=== PATIENT | female | born 1945 | race Two or more races ===

== ENCOUNTER → 2020-09-10 14:52 | Outpatient (BNVA) | payer MEDICARE, SELFPAY | PROVIDERS: PCP Internal Medicine; Referring Provider Internal Medicine; Visit Provider Internal Medicine Cardiovascular Disease | DX: Z45.018 Encounter for adjustment and management of other part of cardiac pacemaker (principal); I48.0 Paroxysmal atrial fibrillation | CPT/HCPCS: 93005; 99212 ==

== ENCOUNTER 2020-09-18 10:16 | Outpatient (REF) | payer MEDICARE, SELFPAY ==
[2020-09-18 11:40] LABS: Estimated Average Glucose 177 mg/dL; Hemoglobin A1c % 7.8 %
[2020-09-18 11:50] LABS: Alanine Aminotransferase 15 U/L (0-31); Albumin Level 4.5 g/dL (3.5-5.0); Alkaline Phosphatase 74 U/L (39-117); Anion Gap 12 (12-20); Aspartate Amino Transferase 17 U/L (5-31); Bilirubin Total 0.6 mg/dL (0.0-1.0); Blood Urea Nitrogen 20 mg/dL (9-16); Calcium 9.2 mg/dL (8.4-10.2); Carbon Dioxide 29 mmol/L (22-29); Chloride 104 mmol/L (96-108); Cholesterol 176 mg/dL; Estimated Glomerular Filt Rate 33; Glucose Fasting 141 mg/dL (60-99); HDL Cholesterol 64 mg/dL; LDL Cholesterol Calculated 78 mg/dl; Sodium 140 mmol/L (135-145); Total Protein 7.2 g/dL (6.5-8.0); Triglycerides 172 mg/dL
[2020-09-18 12:14] LABS: Free T4 (Free Thyroxine) 0.92 ng/dL (0.71-1.85); Thyroid Stimulating Hormone 11.97 uIU/mL (0.32-4.0)
== END 2020-09-18 10:17 | disposition home or self-care (01) ==
LOC: HO.HMGCLDS 10:16
PROVIDERS: PCP Internal Medicine; Visit Provider Internal Medicine
DX: N18.30 Chronic kidney disease, stage 3 unspecified (principal); E03.9 Hypothyroidism, unspecified; I48.91 Unspecified atrial fibrillation; E11.21 Type 2 diabetes mellitus with diabetic nephropathy
CPT/HCPCS: 80053; 80061; 83036; 84439; 84443

== ENCOUNTER 2020-11-04 10:33 | Outpatient (REF) | payer MEDICARE, SELFPAY ==
[2020-11-04 14:42] LABS: TSH reflex Free T4 2.92 uIU/mL (0.32-4.0)
== END 2020-11-04 10:34 | disposition home or self-care (01) ==
LOC: HO.HMGCLDS 10:33
PROVIDERS: PCP Internal Medicine; Visit Provider Internal Medicine
DX: E03.9 Hypothyroidism, unspecified (principal)
CPT/HCPCS: 36415; 84443

== ENCOUNTER 2020-12-20 09:46 | Outpatient (REF) | payer MEDICARE, SELFPAY ==
[2020-12-20 12:04] LABS: Estimated Average Glucose 169 mg/dL; Hemoglobin A1c % 7.5 %
[2020-12-20 12:23] LABS: Alanine Aminotransferase 14 U/L (0-31); Albumin Level 4.4 g/dL (3.5-5.0); Alkaline Phosphatase 71 U/L (39-117); Anion Gap 13 (12-20); Aspartate Amino Transferase 17 U/L (5-31); Bilirubin Total 0.8 mg/dL (0.0-1.0); Blood Urea Nitrogen 26 mg/dL (9-16); Carbon Dioxide 31 mmol/L (22-29); Chloride 103 mmol/L (96-108); Cholesterol 182 mg/dL; Estimated Glomerular Filt Rate 31; Glucose Fasting 101 mg/dL (60-99); HDL Cholesterol 67 mg/dL; LDL Cholesterol Calculated 93 mg/dl; Sodium 142 mmol/L (135-145); Total Protein 7.2 g/dL (6.5-8.0); Triglycerides 113 mg/dL
[2020-12-20 13:47] LABS: Creatinine Urine 117.68 mg/dL; Microalbum/Creatinine Ratio Ur 57.7 ug/mg cr
== END 2020-12-20 09:47 | disposition home or self-care (01) ==
LOC: HO.HMGCLDS 09:46
PROVIDERS: PCP Internal Medicine; Visit Provider Internal Medicine
DX: I48.0 Paroxysmal atrial fibrillation (principal); I10 Essential (primary) hypertension; E78.5 Hyperlipidemia, unspecified; E03.9 Hypothyroidism, unspecified; E11.9 Type 2 diabetes mellitus without complications
CPT/HCPCS: 36415; 80053; 80061; 82043; 83036

== ENCOUNTER → 2021-03-18 12:57 | Outpatient (BNVA) | payer MEDICARE, SELFPAY | PROVIDERS: PCP Internal Medicine; Referring Provider Internal Medicine; Visit Provider Internal Medicine Cardiovascular Disease | DX: Z45.018 Encounter for adjustment and management of other part of cardiac pacemaker (principal); I48.0 Paroxysmal atrial fibrillation; R06.02 Shortness of breath | CPT/HCPCS: 93005; 99212 ==

== ENCOUNTER → 2021-03-27 13:30 | Outpatient (REF) | payer MEDICARE, SELFPAY ==
--- NOTE | 2021-03-27 13:33 | CA_ITS ---
Transthoracic Echocardiogram Patient (Last, First, Middle): Penny Greenwood A Gender: Female Date of : 1945 Age: 76 Procedure Date: 03/27/2021 Procedure Type: Transthoracic Echocardiogram Location: OP Height: 165.1 cm Weight: 74.39 kg BSA: 1.82 m2 Heart Rate: bpm BP: 102 / 68 mmHg Vendor Quality Supervisor: QUIANA Referring MD: Prosper Brown MD Drug Coordinator: Prosper Brown MD Symptoms: R06.02 - Shortness of breath Study Quality: Technically Difficult ECG Rhythm: Ventriculary paced rhythm Conclusions: - 1. Normal LV systolic function with impaired relaxation filling pattern 2. Normal cardiac valvular Doppler 3. Normal RV systolic pressure 4. No pericardial effusion Findings Left Ventricle Normal left ventricular size, thickness, and systolic function. The visually estimated ejection fraction is between 60-65%. There is paradoxical septal motion consistent with a right ventricular pacemaker. Spectral Doppler is indicative of an impaired relaxation filling pattern. E/E prime ratio is between 8 and 15 consistent with indeterminate filling pressures. Right Ventricle Normal right ventricular cavity size and systolic function. There is a pacemaker wire seen in the right ventricle. Atria The left atrium is normal in size. There is lipomatous hypertrophy of the interatrial septum. There is no evidence of interatrial shunt. The right atrium is normal in size. Aortic Valve The aortic valve structure and function is likely normal. There is no aortic valve stenosis. There is no aortic valve regurgitation. Mitral Valve Likely normal mitral valve structure and function. There is trace mitral valve regurgitation. There is no mitral valve stenosis. Pulmonic Valve The pulmonic valve was not well visualized. Tricuspid Valve Likely normal tricuspid valve structure and function. There is mild tricuspid valve regurgitation. The right ventricular systolic pressure is normal. The right ventricular systolic pressure is 34 mmHg. Normal right atrial pressure. There is no evidence of pulmonary hypertension. Great Vessels All visible segments of the aorta are normal in size. The pulmonary artery was not well visualized. Venous The inferior vena cava is normal in size and collapses greater than 50% with inspiration. Pericardium/Pleural There is no evidence of pericardial effusion. Prior Study Comparison Changes noted compared to prior study dated: 08/17/2019. RV systolic pressure is normal Measurements M-Mode Liner Measurements Normals - Women/Men AOV Cusps: 2.10 1.5-2.6 cm/m2 2D Linear Measurements IVSd: 0.83 0.6-0.9/0.6-1.0 cm LVIDd: 4.34 3.9-5.3/4.2-5.9 cm LVIDd Index: 2.38 2.4-3.2/2.2-3.1 cm/m2 LVIDs: 2.63 2.0-3.6 cm LVPWd: 0.89 0.7-1.1 cm Ao Root: 2.70 2.1-3.5 cm LA Diam: 2.40 2.7-3.8/3.0-4.0 cm LAIDs Index: 1.32 1.5-2.3 cm/m2 LV Mass: 146.89 67-162/88-224 g LV Mass Index: 80.71 43-95/49-115 g/m2 LVOT Diam: 1.70 3.0+(-)1.3 cm 2D Systolic Function EF 4C: 56.50 >55% EF 2C: 60.20 >55% EF BiP: 59.20 >55% Mitral Valve MV Pk E: 0.95 MV PK A: 0.45 MV Decel Time: 158.00 E/A: 2.10 E'Lateral: 9.25 E'Medial: 11.30 E/E' Med: 8.40 E/E' Lat: 10.30 PHT: 46.00 MVA PHT: 4.78 Decel [place]: 6.01 Aortic Valve AoV Pk Kenneth: 1.45 AoV Mn Kenneth: 1.03 AoV VTI: 0.27 AoV Pk Grad: 8.00 Aov Mn Grad: 5.00 BRYANT Cont.VTI: 1.27 LVOT LVOT Pk Kenneth: 0.85 LVOT Mn Kenneth: 0.64 LVOT VTI: 0.15 LVOT Pk Grad: 3.00 LVOT Mn Grad: 2.00 LVOT Diam: 1.70 LVOT Area: 2.27 Diastolic Function MV Pk E: 0.95 MV Pk A: 0.45 E/A: 2.10 E'Medial: 11.30 E/E' Med: 8.40 E' Laterial: 9.25 E/E' Lat: 10.30 Tricuspid Valve TR Pk Kenneth: 2.77 TR Pk Grad: 31.00 RA Press: 3.00 RVSP: 34.00 Great Vessels Aorta Ao Root-2D: 2.70 2.0-3.7 cm Ao Asc: 2.80 2.1-3.4 cm Ao Arch: 2.50 Pulmonary Valve PV Pk Kenneth: 0.92 Peak PV Grad: 3.00 Updated in Other Vendor System with Status of Final Prosper Brown MD electronically signed on 03/27/2021 4:07:14 PM with status of Final
== END ==
LOC: HO.CARD 13:30
PROVIDERS: PCP Internal Medicine; Visit Provider Internal Medicine Cardiovascular Disease
DX: R06.02 Shortness of breath (principal)
CPT/HCPCS: 93306

== ENCOUNTER 2021-04-30 09:09 | Outpatient (REF) | payer MEDICARE, SELFPAY ==
[2021-04-30 11:26] LABS: Hematocrit 41.8 % (37-47); Hemoglobin 13.3 g/dl (12.0-16.0); Mean Corpuscular HGB Conc 31.8 g/dl (31.0-35.0); Mean Corpuscular Volume 91.3 fL (80-98); Mean Platelet Volume 10.8 fL (9.4-12.3); Platelet Count 228 X10*3/uL (160-400); Red Blood Count 4.58 X10*6/uL (4.20-5.50); Red Cell Distribution Width 13.5 % (11.0-16.0); White Blood Count 5.6 X10*3/uL (4.8-10.8)
[2021-04-30 11:34] LABS: Estimated Average Glucose 177 mg/dL; Hemoglobin A1c % 7.8 %
[2021-04-30 11:36] LABS: Alanine Aminotransferase 15 U/L (0-31); Albumin Level 4.1 g/dL (3.5-5.0); Alkaline Phosphatase 79 U/L (39-117); Anion Gap 12 (12-20); Aspartate Amino Transferase 19 U/L (5-31); Bilirubin Total 0.7 mg/dL (0.0-1.0); Blood Urea Nitrogen 22 mg/dL (9-16); Carbon Dioxide 27 mmol/L (22-29); Chloride 106 mmol/L (96-108); Estimated Glomerular Filt Rate 33; Glucose Fasting 139 mg/dL (60-99); Potassium 4.9 mmol/L (3.3-5.1); Sodium 140 mmol/L (135-145); Total Protein 6.9 g/dL (6.5-8.0)
[2021-04-30 11:44] LABS: Creatinine Urine 61.67 mg/dL; Microalbum/Creatinine Ratio Ur 103.7 ug/mg cr
[2021-04-30 12:00] LABS: TSH reflex Free T4 3.51 uIU/mL (0.32-4.0)
[2021-04-30 12:04] LABS: Glucose Urine UA NEG (NEG); Leukocyte Esterase Urine 2+ (NEG); Nitrite Urine NEG (NEG); Urine Blood NEG (NEG); Urine Ketones NEG (NEG); Urine Protein NEG (NEG-TRACE)
[2021-04-30 12:09] LABS: Appearance Urine HAZY; Color Urine STRAW
[2021-04-30 12:37] LABS: Bacteria Urine 1+ /LPF; RBC Urine 0-2 /HPF (0); Squamous Epithelial Cell Urine 1+ /LPF; Waxy Casts Urine 0-2 /LPF
== END 2021-04-30 09:10 | disposition home or self-care (01) ==
LOC: HO.HMGCLDS 09:09
PROVIDERS: PCP Internal Medicine; Visit Provider Internal Medicine
DX: E03.9 Hypothyroidism, unspecified (principal); E11.9 Type 2 diabetes mellitus without complications; E78.5 Hyperlipidemia, unspecified; I10 Essential (primary) hypertension; I48.0 Paroxysmal atrial fibrillation
CPT/HCPCS: 36415; 80053; 81001; 82043; 83036; 84443; 85027

== ENCOUNTER 2021-05-05 13:56 | Outpatient (REF) | payer MEDICARE, SELFPAY ==
--- NOTE | ~2021-05-05 | XR_ITS ---
EXAMINATION: BILATERAL HAND X-RAY CLINICAL INFORMATION: Pain COMPARISON: Left hand x-ray January 2019 TECHNIQUE: 3 views each hand FINDINGS: Right: Bone alignment is normal. No fracture or dislocation is seen. There is mild arthritis at the first LONGTERM joint and IP joints with joint space narrowing and osteophyte formation. Soft tissues are unremarkable. Left: Bone alignment is normal. No fracture or dislocation is seen. There is mild arthritis at the IP joints and first LONGTERM joints. Soft tissues are unremarkable. 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
--- NOTE | ~2021-05-05 | XR_ITS ---
EXAMINATION: BILATERAL HAND X-RAY CLINICAL INFORMATION: Pain COMPARISON: Left hand x-ray January 2019 TECHNIQUE: 3 views each hand FINDINGS: Right: Bone alignment is normal. No fracture or dislocation is seen. There is mild arthritis at the first USP joint and IP joints with joint space narrowing and osteophyte formation. Soft tissues are unremarkable. Left: Bone alignment is normal. No fracture or dislocation is seen. There is mild arthritis at the IP joints and first USP joints. Soft tissues are unremarkable. XR/XR hand LT min 3V IMPRESSION: Mild bilateral arthritis at the first USP and IP joints.
[2021-05-05 16:56] LABS: Glucose Urine UA NEG (NEG); Leukocyte Esterase Urine 1+ (NEG); Nitrite Urine NEG (NEG); Urine Blood NEG (NEG); Urine Ketones NEG (NEG); Urine Protein NEG (NEG-TRACE)
[2021-05-05 16:57] LABS: Appearance Urine HAZY; Color Urine YELLOW
[2021-05-05 17:10] LABS: Amorphous Sediment Urine TRACE /LPF; Mucus Urine TRACE /LPF; RBC Urine 0-2 /HPF (0); Squamous Epithelial Cell Urine 1+ /LPF; WBC Urine 0-2 /HPF (0-4)
[2021-05-05 17:28] LABS: Rheumatoid Factor < 15.0 IU/mL (<15.0)
[2021-05-09 16:36] LABS: Cyclic Citrullinated Peptide <16 UNITS
== END 2021-05-05 13:57 | disposition home or self-care (01) ==
LOC: HO.HMGCX 13:56
PROVIDERS: PCP Internal Medicine; Visit Provider Internal Medicine
DX: M25.50 Pain in unspecified joint (principal); E11.9 Type 2 diabetes mellitus without complications; E03.9 Hypothyroidism, unspecified; I10 Essential (primary) hypertension; I48.0 Paroxysmal atrial fibrillation
CPT/HCPCS: 36415; 73130; 81001; 86200; 86431

== ENCOUNTER 2021-08-05 09:52 | Outpatient (REF) | payer MEDICARE, SELFPAY ==
[2021-08-05 11:41] LABS: Appearance Urine CLOUDY; Color Urine YELLOW; Glucose Urine UA NEG (NEG); Leukocyte Esterase Urine 3+ (NEG); Nitrite Urine NEG (NEG); Specific Gravity - Urine 1.015 (1.005-1.025); Urine Blood NEG (NEG); Urine Ketones NEG (NEG); Urine Protein TRACE MG/DL (NEG-TRACE)
[2021-08-05 11:49] LABS: Alanine Aminotransferase 14 U/L (0-31); Albumin Level 4.3 g/dL (3.5-5.0); Alkaline Phosphatase 83 U/L (39-117); Anion Gap 12 (12-20); Aspartate Amino Transferase 18 U/L (5-31); Bilirubin Total 0.5 mg/dL (0.0-1.0); Blood Urea Nitrogen 19 mg/dL (9-16); Calcium 9.4 mg/dL (8.4-10.2); Carbon Dioxide 27 mmol/L (22-29); Chloride 105 mmol/L (96-108); Cholesterol 158 mg/dL; Estimated Glomerular Filt Rate 35; Glucose Fasting 123 mg/dL (60-99); HDL Cholesterol 56 mg/dL; LDL Cholesterol Calculated 76 mg/dl; Potassium 4.3 mmol/L (3.3-5.1); Sodium 140 mmol/L (135-145); Total Protein 6.9 g/dL (6.5-8.0); Triglycerides 133 mg/dL
[2021-08-05 11:59] LABS: Creatinine Urine 92.07 mg/dL; Microalbum/Creatinine Ratio Ur 104.2 ug/mg cr
[2021-08-05 12:03] LABS: Estimated Average Glucose 166 mg/dL; Hemoglobin A1c % 7.4 %
[2021-08-05 12:06] LABS: Squamous Epithelial Cell Urine 3+ /LPF; WBC Urine 50-75 /HPF (0-4)
[2021-08-05 12:07] LABS: Bacteria Urine 1+ /LPF; RBC Urine 0 /HPF (0)
== END 2021-08-05 09:53 | disposition home or self-care (01) ==
LOC: HO.HMGCLDS 09:52
PROVIDERS: PCP Internal Medicine; Visit Provider Internal Medicine
DX: E11.9 Type 2 diabetes mellitus without complications (principal); E03.9 Hypothyroidism, unspecified; E78.5 Hyperlipidemia, unspecified
CPT/HCPCS: 36415; 80053; 80061; 81001; 82043; 83036

== ENCOUNTER → 2021-09-16 13:40 | Outpatient (BNVA) | payer MEDICARE, SELFPAY | PROVIDERS: PCP Internal Medicine; Referring Provider Internal Medicine; Visit Provider Internal Medicine Cardiovascular Disease | DX: Z45.018 Encounter for adjustment and management of other part of cardiac pacemaker (principal); I48.0 Paroxysmal atrial fibrillation; I10 Essential (primary) hypertension | CPT/HCPCS: 93005; 99212 ==

== ENCOUNTER 2022-02-09 09:28 | Outpatient (REF) | payer MEDICARE, SELFPAY ==
[2022-02-09 11:30] LABS: Hematocrit 46.1 % (37.0-47.0); Hemoglobin 14.4 g/dl (12.0-16.0); Mean Corpuscular HGB Conc 31.2 g/dl (31.0-35.0); Mean Corpuscular Hemoglobin 28.2 pg (27.0-33.0); Mean Corpuscular Volume 90.4 fL (80.0-98.0); Mean Platelet Volume 10.9 fL (9.4-12.3); Platelet Count 236 X10*3/uL (160-400); Red Cell Distribution Width 13.9 % (11.0-16.0); White Blood Count 6.4 X10*3/uL (4.8-10.8)
[2022-02-09 11:40] LABS: Estimated Average Glucose 174 mg/dL; Hemoglobin A1c % 7.7 %
[2022-02-09 11:46] LABS: Alanine Aminotransferase 17 U/L (0-31); Albumin Level 4.2 g/dL (3.5-5.0); Alkaline Phosphatase 85 U/L (39-117); Anion Gap 13 (12-20); Aspartate Amino Transferase 20 U/L (5-31); Bilirubin Total 0.5 mg/dL (0.0-1.0); Blood Urea Nitrogen 23 mg/dL (9-16); Calcium 9.8 mg/dL (8.4-10.2); Carbon Dioxide 27 mmol/L (22-29); Chloride 104 mmol/L (96-108); Cholesterol 162 mg/dL; Estimated Glomerular Filt Rate 30; Glucose Fasting 118 mg/dL (60-99); HDL Cholesterol 62 mg/dL; LDL Cholesterol Calculated 78 mg/dl; Potassium 4.8 mmol/L (3.3-5.1); Sodium 139 mmol/L (135-145); Total Protein 6.9 g/dL (6.5-8.0); Triglycerides 111 mg/dL
[2022-02-09 12:09] LABS: TSH reflex Free T4 3.72 uIU/mL (0.32-4.0)
[2022-02-09 12:16] LABS: Folate 6.6 ng/mL (> or = 4.0); Vitamin B12 346 pg/mL (200-900)
== END 2022-02-09 09:29 | disposition home or self-care (01) ==
LOC: HO.HMGCLDS 09:28
PROVIDERS: Visit Provider Internal Medicine
DX: E03.9 Hypothyroidism, unspecified (principal); E11.9 Type 2 diabetes mellitus without complications; E55.9 Vitamin D deficiency, unspecified; E78.5 Hyperlipidemia, unspecified; I10 Essential (primary) hypertension
CPT/HCPCS: 36415; 80053; 80061; 82306; 82607; 82746; 83036; 84443; 85027

== ENCOUNTER 2022-02-12 12:16 | Inpatient (IN) | payer MEDICARE, SELFPAY ==
[2022-02-12] VITALS (8 sets, daily range): BP systolic 108–138; BP diastolic 60–89; PULSE 62–79; RESP 14–20; TEMP 36.4–36.6; O2SAT 95–97; BMI 27.3; BMI 26.9
--- NOTE | ~2022-02-12 | XR_ITS ---
EXAMINATION: XR CHEST CLINICAL INFORMATION: Chest pain COMPARISON: None TECHNIQUE: Frontal view of the chest was obtained. FINDINGS: The lungs are well-expanded and clear of acute pneumonic process. The heart size and pulmonary vascularity is normal. There are dual pacer electrodes in right atrium and right ventricle. No gross bony abnormality seen. XR/XR chest 1V IMPRESSION: Unremarkable chest exam.
--- NOTE | 2022-02-12 12:30 | ECG_ITS ---
Test Reason : CHEST PAIN Blood Pressure : / mmHG Vent. Rate : 067 BPM Atrial Rate : 067 BPM P-R Int : 210 ms QRS Dur : 172 ms QT Int : 530 ms P-R-T Axes : 013 151 -70 degrees QTc Int : 560 ms Atrial-sensed ventricular-paced rhythm with prolonged AV conduction Abnormal ECG When compared with ECG of 10-AUG-2017 03:19, Vent. rate has decreased BY 7 BPM T wave inversion in inferior leads noted Referred By: Chani Sharma Electronically Signed By:SHELBIE TONY MD
--- NOTE | 2022-02-12 12:45 | ED_ITS ---
HPI - Chest Pain General Chief Complaint: Chest Pain Stated Complaint: SUDDEN MIDSTERNAL CP, RESOLVED PER EMS Time Seen by Provider: 02/12/22 12:29 Source: patient and EMS Mode of arrival: EMS Limitations: no limitations History of Present Illness HPI narrative: 77 years old female came in for evaluation for chest pain. Was doing laundry at the basement went up stairs about 8 steps of stairs started to have diaphoresis followed by chest pain, described the chest pain as heaviness on her chest, pain was localized to the mid chest with no radiation, lasted for about 30 minutes, pain was severe 10/10 now is about 1/10, was aggravated by going upstairs and exertion, was relieved by rest. Never had this symptoms in the past. Patient with known history of hypertension and diabetes. Patient is is on Xarelto for paroxysmal atrial fibrillation and sotalol, and cardiac pacemaker. Related Data Home Medications Medication Instructions Recorded Confirmed calcifediol 30 mcg capsule,24 30 mcg PO DAILY 09/10/20 12/10/21 hr,extended release blood sugar diagnostic #10 ea 09/23/20 12/10/21 flu vacc [id number](65yr up)-PF 240 ml IM 09/23/20 12/10/21 mcg/0.7 mL intramuscular syringe budesonide 3 mg 3 mg PO DAILY 12/10/21 12/10/21 capsule,delayed,extended release cephalexin 500 mg capsule 0 mg PO 12/10/21 12/10/21 dapagliflozin 10 mg tablet 10 mg PO DAILY 12/10/21 12/10/21 ([facility]) Previous Rx's Medication Instructions Recorded blood sugar diagnostic (FreeStyle #100 ea 06/13/21 Lite Strips) levothyroxine 125 mcg tablet 125 mcg PO DAILY #90 tab 06/13/21 pen needle, diabetic 31 gauge x See Rx Instructions SUBCUT BEDTIME 06/13/21 3/16 (BD Ultra-Fine Mini Pen #100 cap Needle) insulin glargine 100 unit/mL (3 16 unit (0.16 mL) SUBCUT BEDTIME 08/11/21 mL) subcutaneous pen (Lantus #15 cap Solostar U-100 Insulin) lancets 28 gauge (FreeStyle #100 ea 09/04/21 Lancets) rivaroxaban 15 mg tablet 15 mg PO DAILY 90 Days #90 tab 09/08/21 sertraline 50 mg tablet 75 mg PO DAILY #135 tab 09/10/21 atorvastatin 20 mg tablet 20 mg PO DAILY #90 tab 09/16/21 isosorbide mononitrate 30 mg 30 mg PO QAM 90 Days #90 tab 10/27/21 tablet,extended release 24 hr famotidine 40 mg tablet 40 mg PO BEDTIME #90 tab 10/28/21 tiotropium bromide 18 mcg capsule 1 cap INHALATION DAILY #90 inh 11/04/21 with inhalation device sotalol 80 mg tablet 40 mg PO BID #90 tab 12/29/21 Allergies Allergy/AdvReac Type Severity Reaction Status Date / Time lisinopril Allergy Unknown Hyperkalemi Verified 12/10/21 09:30 a nitrofurantoin [Macrobid] AdvReac Unknown dizziness Verified 12/10/21 09:30 Review of Systems Review of Systems: All other systems are reviewed and are negative Constitutional: Reports as per HPI and Reports no additional constitutional complaints Eyes: Reports as per HPI and Reports no additional eye complaints Reports system reviewed and no additional complaints, except as documented Cardiovascular: Reports as per HPI and Reports no additional cardiovascular complaints Respiratory: Reports as per HPI and Reports no additional respiratory complaints Gastrointestinal: Reports as per HPI and Reports no additional gastrointestinal complaints Genitourinary: Reports no additional female genitourinary complaints Musculoskeletal: Reports no additional musculoskeletal complaints Skin/Breast: Reports system reviewed and no additional complaints, except as docu Psychiatric: Reports no additional psychiatric complaints Endocrine: Reports no additional endocrine complaints Hematologic/Lymphatic: Reports no additional hematologic/lymphatic complaints Allergic/Immunologic: Reports no additional allergic/immunologic complaints Reports system reviewed and no additional complaints, except as documented and Reports Abnormal speech present [facility] Past Medical History Medical History (Updated 02/12/22 @ 15:14 by Chani Sharma MD) Cardiac pacemaker in situ Cataract CKD (chronic kidney disease), stage III Complete heart block DM type 2 (diabetes mellitus, type 2) HTN (hypertension) Hyperlipemia Hypothyroidism Paroxysmal atrial fibrillation Vitamin D deficiency Surgical History History of hip surgery History of permanent cardiac pacemaker placement History of tonsillectomy and adenoidectomy Hx of cardiac cath Hx of mastectomy Family History Family History Father Cancer Mother Diabetes Social History Social History Housing: House Alcohol intake: never Patient Tobacco Use Status: Former Tobacco user Tobacco use type: Cigarette e-Cigarette/Vaping Use: Never Used Use of substances other than those prescribed or required for medical reasons: No Advance Directives: No Advance Directives Information Provided: No service: No Current occupational status: retired Physical Exam Vital Signs: Vital Signs: Last Vital Signs Temp 97.6 F 02/12/22 14:28 Pulse 75 02/12/22 14:28 Resp 18 02/12/22 14:28 BP 112/69 02/12/22 14:28 Pulse Ox 97 02/12/22 14:28 BMI result Body Mass Index 27.3 Vital signs have been reviewed as appeared to be correct. Blood pressure normal. Heart rate normal. Respiration rate normal. Temperature normal. O xygen saturation normal. Appearance: Alert. Oriented X3. No acute distress. Head: Normal external exam. Normocephalic. Atraumatic. No Ponce signs noted. No raccoon eyes noted Eyes: PERRLA. EOMI. Conjunctiva and sclera normal. Eyelids normal. ENT: TM's Normal. Pharynx normal. Uvula midline. Moist mucous membranes. No trismus noted. No drooling noted. No muffled voice noted. Neck: Normal inspection. Neck supple. FROM. No adenopathy. Thyroid Normal. No meningeal signs. No neck mass noted. CVS: Normal heart rate and rhythm. Heart sound normal. No murmurs noted. Pulses normal throughout. Respiratory: No respiratory distress. Painless inspiration. Breath sounds normal. No wheezes/rales/rhonchi noted. Chest nontender. No accessory muscle usage noted or decreased air movement noted. Abdomen: Soft and nontender. Bowel sounds normal in all 4 quadrants. No dis tention noted. No organomegaly noted. No visible injury noted. Back: No CVA tenderness. Full range of motion noted. Skin: Skin warm and dry. Normal skin color. Normal skin turgor. No rashes/les ions/lacerations noted. Extremities: No lower extremity edema. Extremities exhibit normal range of motion. Extremities nontender. Neuro: Oriented X 3. Cranial nerve exam: II-XII are grossly intact No motor deficit. No sensory deficit. Reflexes normal. Course Course Course Narrative: Assessment and plan. 77 years old female came in with chest pain, story is concerning of acute coronary syndrome, EKG is nondiagnostic atrial sensed ventricular paced, troponin came back elevated. Patient now very mild chest pressure 1/10. 1. Case discussed with Dr. Brown patient does not need immediate cardiac catheterization will admit here, last Xarelto dose was last night as per Dr. Brown is okay to start heparin today IV drip, continue with nitro p.r.n. pain. Will hold Xarelto. MDM - Chest Pain Lab Data Attestation: I reviewed the patient's lab results. Result diagrams: 02/12/22 13:46 02/12/22 13:46 Labs: Lab Results 02/12/22 02/12/22 02/12/22 Range/Units 13:45 13:46 13:46 WBC 10.6 (4.8-10.8) X10*3/uL RBC 4.86 (4.20-5.50) X10*6/uL Hgb 13.6 (12.0-16.0) g/dl Hct 43.5 (37.0-47.0) % MCV 89.5 (80.0-98.0) fL MCH 28.0 (27.0-33.0) pg MCHC 31.3 (31.0-35.0) g/dl RDW 13.6 (11.0-16.0) % Plt Count 199 (160-400) X10*3/uL MPV 10.4 (9.4-12.3) fL Immature Gran % (Auto) 0.5 H (0.0-0.4) % Neut % (Auto) 83.9 H (45-73) % Lymph % (Auto) 8.7 L (20-40) % [place] % (Auto) 5.7 (2-11) % Eos % (Auto) 0.8 (0-4) % Baso % (Auto) 0.4 (0-2) % Lymph # (Auto) 0.9 L (1.2-4.9) X10*3/uL [place] # (Auto) 0.6 (0.1-1.2) X10*3/uL Eos # (Auto) 0.1 (0.0-0.4) X10*3/uL Baso # (Auto) 0.0 (0.0-0.2) X10*3/uL Abs Immat Gran (auto) 0.05 H (0.00-0.03) X10*3/uL Absolute Neuts (auto) 8.9 H (2.0-8.3) x10*3/uL Absolute Nucleated RBC 0.000 (0.0-0.012) X10*3/uL Nucleated RBC % (auto) 0.0 (0.0-0.2) /100WBC D-Dimer High Sensitivty NG/ML Sodium 138 (135-145) mmol/L Potassium 4.6 (3.3-5.1) mmol/L Chloride 107 (96-108) mmol/L Carbon Dioxide 22 (22-29) mmol/L Anion Gap 14 (12-20) BUN 22 H (9-16) mg/dL Creatinine 1.42 H (0.5-1.4) mg/dL Estim Creat Clear Calc 32.4 Estimated GFR 36 Random Glucose 116 H (60-115) mg/dL Calcium 9.7 (8.4-10.2) mg/dL Total Bilirubin 0.6 (0.0-1.0) mg/dL Direct Bilirubin 0.2 (0.0-0.5) mg/dL AST 22 (5-31) U/L ALT 17 (0-31) U/L Alkaline Phosphatase 84 (39-117) U/L Troponin I High Sens (<3.5-17.0) ng/L B-Natriuretic Peptide (<100) pg/mL Total Protein 6.7 (6.5-8.0) g/dL Albumin 4.0 (3.5-5.0) g/dL Lipase 42 (8-78) U/L Influenza Type A (PCR) NEGATIVE (Negative) Influenza Type B (PCR) NEGATIVE (Negative) RSV RNA Qual (PCR) NEGATIVE (Negative) SARS-CoV-2 RNA (RT-PCR) NEGATIVE (Negative) 02/12/22 02/12/22 Range/Units 13:46 13:46 WBC (4.8-10.8) X10*3/uL RBC (4.20-5.50) X10*6/uL Hgb (12.0-16.0) g/dl Hct (37.0-47.0) % MCV (80.0-98.0) fL MCH (27.0-33.0) pg MCHC (31.0-35.0) g/dl RDW (11.0-16.0) % Plt Count (160-400) X10*3/uL MPV (9.4-12.3) fL Immature Gran % (Auto) (0.0-0.4) % Neut % (Auto) (45-73) % Lymph % (Auto) (20-40) % [place] % (Auto) (2-11) % Eos % (Auto) (0-4) % Baso % (Auto) (0-2) % Lymph # (Auto) (1.2-4.9) X10*3/uL [place] # (Auto) (0.1-1.2) X10*3/uL Eos # (Auto) (0.0-0.4) X10*3/uL Baso # (Auto) (0.0-0.2) X10*3/uL Abs Immat Gran (auto) (0.00-0.03) X10*3/uL Absolute Neuts (auto) (2.0-8.3) x10*3/uL Absolute Nucleated RBC (0.0-0.012) X10*3/uL Nucleated RBC % (auto) (0.0-0.2) /100WBC D-Dimer High Sensitivty < 150 NG/ML Sodium (135-145) mmol/L Potassium (3.3-5.1) mmol/L Chloride (96-108) mmol/L Carbon Dioxide (22-29) mmol/L Anion Gap (12-20) BUN (9-16) mg/dL Creatinine (0.5-1.4) mg/dL Estim Creat Clear Calc Estimated GFR Random Glucose (60-115) mg/dL Calcium (8.4-10.2) mg/dL Total Bilirubin (0.0-1.0) mg/dL Direct Bilirubin (0.0-0.5) mg/dL AST (5-31) U/L ALT (0-31) U/L Alkaline Phosphatase (39-117) U/L Troponin I High Sens 961.1 H* (<3.5-17.0) ng/L B-Natriuretic Peptide 50 (<100) pg/mL Total Protein (6.5-8.0) g/dL Albumin (3.5-5.0) g/dL Lipase (8-78) U/L Influenza Type A (PCR) (Negative) Influenza Type B (PCR) (Negative) RSV RNA Qual (PCR) (Negative) SARS-CoV-2 RNA (RT-PCR) (Negative) Imaging Data Chest x-ray: Attestation: I personally reviewed and interpreted this imaging study as follows: Radiologist's impression: Unremarkable chest exam ECG Data ECG #1: Attestation: I personally reviewed and interpreted this ECG as follows: Interpretation: Atrial sensed ventricular paced at 67 beats per minute, left axis deviation. Discharge Plan Discharge Clinical Impression: Non-STEMI (non-ST elevated myocardial infarction) Patient Disposition: Admitted As Inpatient Prescriptions: No Action (DME) FreeStyle Lite Strips Strip See Rx Instructions .ROUTE .MEDSUPPLY Qty: 100 6RF Rx Instructions: TID pen needle, diabetic [BD Ultra-Fine Mini Pen Needle] 31 gauge x 3/16 needle See Rx Instructions subcut BEDTIME Qty: 100 3RF Rx Instructions: 1 subcut bedtime; levothyroxine 125 mcg tablet 125 mcg PO DAILY Qty: 90 3RF (DME) lancets [FreeStyle Lancets] 28 gauge misc See Rx Instructions .Route Qty: 100 3RF Rx Instructions: Test up to 3 times per day rivaroxaban 15 mg tablet 15 mg PO DAILY 90 Days Qty: 90 3RF sertraline 50 mg tablet 75 mg PO DAILY Qty: 135 3RF atorvastatin 20 mg tablet 20 mg PO DAILY Qty: 90 3RF isosorbide mononitrate 30 mg tablet extended release 24 hr 30 mg PO QAM 90 Days Qty: 90 3RF famotidine 40 mg tablet 40 mg PO BEDTIME Qty: 90 3RF tiotropium bromide 18 mcg capsule, w/inhalation device 1 cap inhalation DAILY Qty: 90 3RF sotalol 80 mg tablet 40 mg PO BID Qty: 90 1RF Lantus Solostar U-100 Insulin 100 unit/mL (3 mL) insulin pen 16 unit subcut BEDTIME Qty: 15 3RF (DME) FreeStyle Lite Strips Strip See Rx Instructions ea Not Applicable TID Qty: 10 0RF Rx Instructions: As directed Fluzone HighDose Quad 20-21 PF 240 mcg/0.7 mL syringe IM 0RF Farxiga 10 mg tablet 10 mg PO DAILY 0RF cephalexin 500 mg capsule 0 mg PO 0RF budesonide 3 mg capsule,delayed,extend.release 3 mg PO DAILY 0RF Rayaldee 30 mcg capsule,extended release 24 hr 30 mcg PO DAILY 0RF
[2022-02-12] MEDS: Nitroglycerin 2 % Oint 1 GM Packet 0.5 INCH TRANSDERMA (13:50)
[2022-02-12 13:51] LABS: MANUAL DIFF FLAG NO
[2022-02-12 13:53] LABS: Basophils Percent Auto 0.4 % (0-2); Eosinophils Absolute Auto 0.1 X10*3/uL (0.0-0.4); Eosinophils Percent Auto 0.8 % (0-4); Hematocrit 43.5 % (37.0-47.0); Hemoglobin 13.6 g/dl (12.0-16.0); Imm Gran Abs Auto 0.05 X10*3/uL (0.00-0.03); Imm Gran Pct Auto 0.5 % (0.0-0.4); Lymphocytes Absolute Auto 0.9 X10*3/uL (1.2-4.9); Lymphocytes Percent Auto 8.7 % (20-40); Mean Corpuscular HGB Conc 31.3 g/dl (31.0-35.0); Mean Corpuscular Volume 89.5 fL (80.0-98.0); Mean Platelet Volume 10.4 fL (9.4-12.3); Monocytes Absolute Auto 0.6 X10*3/uL (0.1-1.2); Monocytes Percent Auto 5.7 % (2-11); Neutrophils Absolute Auto 8.9 x10*3/uL (2.0-8.3); Neutrophils Percent Auto 83.9 % (45-73); Platelet Count 199 X10*3/uL (160-400); Red Blood Count 4.86 X10*6/uL (4.20-5.50); Red Cell Distribution Width 13.6 % (11.0-16.0); White Blood Count 10.6 X10*3/uL (4.8-10.8)
--- NOTE | 2022-02-12 13:53 | PC.NURSE ---
Patient refused Aspirin, states she does not take aspirin.
[2022-02-12 14:04] LABS: D Dimer High Sensitivity < 150 NG/ML
[2022-02-12 14:14] LABS: Alanine Aminotransferase 17 U/L (0-31); Alkaline Phosphatase 84 U/L (39-117); Anion Gap 14 (12-20); Aspartate Amino Transferase 22 U/L (5-31); Bilirubin Direct 0.2 mg/dL (0.0-0.5); Bilirubin Total 0.6 mg/dL (0.0-1.0); Blood Urea Nitrogen 22 mg/dL (9-16); Calcium 9.7 mg/dL (8.4-10.2); Carbon Dioxide 22 mmol/L (22-29); Chloride 107 mmol/L (96-108); Creatinine Clr Calc Pharmacy 32.4; Estimated Glomerular Filt Rate 36; Glucose Random 116 mg/dL (60-115); Lipase 42 U/L (8-78); Potassium 4.6 mmol/L (3.3-5.1); Sodium 138 mmol/L (135-145); Total Protein 6.7 g/dL (6.5-8.0)
[2022-02-12 14:23] LABS: Troponin-I High Sensitivity 961.1 ng/L (<3.5-17.0)
[2022-02-12 14:28] LABS: Influenza A PCR NEGATIVE (Negative); Influenza B PCR NEGATIVE (Negative); Resp Syncy Virus RNA Qual PCR NEGATIVE (Negative); SARS COV2 PCR INHOUSE NEGATIVE (Negative)
[2022-02-12 14:35] LABS: B Type Natriuretic Peptide 50 pg/mL (<100)
--- NOTE | 2022-02-12 14:48 | PC.NURSE ---
DR ROQUE REQUESTS CALL OUT TO [facility] PT [place] LINE FOR INTERVENTIONAL CARDIOLOGY @ THIS TIME JACOBO ANSWERS, TAKES PT INFO AND ASKS TO SPEAK WITH DR MYA ROQUE TAKES OVER CALL RIGHT AWAY
--- NOTE | 2022-02-12 15:51 | P.HPHOSP_ITS ---
History of Present Illness Date of Service: 02/12/22 Chief Complaint: chest pain 77-year-old female presented with chest pain. Patient had been feeling well on day of presentation, she then went to do laundry and had sudden onset severe diaphoresis and midsternal chest pain, 8/10, nonradiating, continuous until r eceived nitroglycerin, which point has not recurred. Denies shortness of breath, denies fever, denies chills. She has not had similar symptoms in the past. She has a history of paroxysmal atrial fibrillation and complete heart block status post pacer, but has no known coronary disease. She does have risk factors of diabetes, history of smoking, hypertension. In ED troponin was elevated to 961. Review of Systems Review of Systems: Constitutional: Denies fever, denies Chills Eyes: denies blurry vision ENT: denies sore throat CVS: chest pain Respiratory: Denies dyspnea GI: no abdominal pain : denies dysuria MSK: denies neck pain Skin: denies rash Neuro: denies specific motor weakness Psych: denies suicidal ideation Endocrine: denies heat/cold intolerance Hematologic: denies easy bleeding Allergy: denies hives [facility] Medical History (Updated 02/12/22 @ 15:14 by Chani Sharma MD) Cardiac pacemaker in situ Cataract CKD (chronic kidney disease), stage III Complete heart block DM type 2 (diabetes mellitus, type 2) HTN (hypertension) Hyperlipemia Hypothyroidism Paroxysmal atrial fibrillation Vitamin D deficiency Family History Father Cancer Mother Diabetes Surgical History History of hip surgery History of permanent cardiac pacemaker placement History of tonsillectomy and adenoidectomy Hx of cardiac cath Hx of mastectomy Social History Housing: House Alcohol intake: never Patient Tobacco Use Status: Former Tobacco user Tobacco use type: Cigarette e-Cigarette/Vaping Use: Never Used Use of substances other than those prescribed or required for medical reasons: No Advance Directives: No Advance Directives Information Provided: No service: No Current occupational status: retired Meds Allergies Allergy/AdvReac Type Severity Reaction Status Date / Time lisinopril Allergy Unknown Hyperkalemi Verified 12/10/21 09:30 a nitrofurantoin [Macrobid] AdvReac Unknown dizziness Verified 12/10/21 09:30 Active Medications: Current Medications Acetaminophen (Acetaminophen 325 Mg Tablet) 650 mg PO Q6H PRN PRN Reason: Pain, Mild (Pain Scale 1-3) Aspirin (Aspirin Enteric Coated 81 Mg Tablet.Dr) 81 mg PO DAILY [facility] Atorvastatin Calcium (Atorvastatin Calcium 80 Mg Tablet) 80 mg PO BEDTIME [facility] Dextrose (Dextrose 50 % 25 Gm/50 Ml Syringe) 25 gm IVPUSH Q15M PRN; Protocol PRN Reason: per Hypoglycemia Standing Ord. Glucose (Glucose Gel 15 Gm Gel..Gram.) 15 gm PO Q15M PRN; Protocol PRN Reason: per Hypoglycemia Standing Ord. Heparin Sodium/Sodium Chloride () 25,000 unit in 250 mls @ 0 mls/hr IVCONT .Q0M SHANE; Protocol Insulin Human Lispro (Insulin Lispro 100 Unit/Ml 3 Ml Vial) 0 unit SUBCUT QIDACHS [facility]; Protocol Pharmacy Consult (Consult Rx Perform Med Rec) 1 each MISCELLANE ONCE PRN PRN Reason: Consult order Sodium Chloride (0.9 % Sodium Chloride Flush 3 Ml Syringe) 3 ml IVFLUSH QSHIFT [facility] Home Medications Medication Instructions Recorded Confirmed Last Taken Type calcifediol 30 mcg capsule,24 30 mcg PO DAILY 09/10/20 12/10/21 Unknown History hr,extended release blood sugar diagnostic #10 ea 09/23/20 12/10/21 Unknown History flu vacc [id number](65yr up)-PF 240 ml IM 09/23/20 12/10/21 Unknown History mcg/0.7 mL intramuscular syringe budesonide 3 mg 3 mg PO DAILY 12/10/21 12/10/21 Unknown History capsule,delayed,extended release cephalexin 500 mg capsule 0 mg PO 12/10/21 12/10/21 Unknown History dapagliflozin 10 mg tablet 10 mg PO DAILY 12/10/21 12/10/21 Unknown History ([facility]) Physical Exam Vital Signs and Narrative: Vital Signs: Last Vital Signs Temp 97.6 F 02/12/22 14:28 Pulse 75 02/12/22 14:28 Resp 18 02/12/22 14:28 BP 112/69 02/12/22 14:28 Pulse Ox 97 05/12/22 14:28 BMI result Body Mass Index 27.3 General: no acute distress HEENT: atraumatic Neck: normal to visual inspection CVS: S1, S2, RRR Resp: CTA bilateral Chest: non tender GI: soft, non tender, non distended : no CVA tenderness Skin: no rashes Extremities: no edema Neuro: Oriented X3, grossly intact Psych: cooperative Results Labs CBC and Chem 7: 02/12/22 13:46 02/12/22 13:46 Labs: Laboratory Results - last 24 hr 02/12/22 02/12/22 02/12/22 13:45 13:46 13:46 MCV 89.5 MCH 28.0 MCHC 31.3 RDW 13.6 Plt Count 199 MPV 10.4 Immature Gran % (Auto) 0.5 H Neut % (Auto) 83.9 H Lymph % (Auto) 8.7 L [place] % (Auto) 5.7 Eos % (Auto) 0.8 Baso % (Auto) 0.4 Lymph # (Auto) 0.9 L [place] # (Auto) 0.6 Eos # (Auto) 0.1 Baso # (Auto) 0.0 Abs Immat Gran (auto) 0.05 H Absolute Neuts (auto) 8.9 H Absolute Nucleated RBC 0.000 Nucleated RBC % (auto) 0.0 D-Dimer High Sensitivty Anion Gap 14 Estim Creat Clear Calc 32.4 Estimated GFR 36 Random Glucose 116 H Calcium 9.7 Total Bilirubin 0.6 Direct Bilirubin 0.2 AST 22 ALT 17 Alkaline Phosphatase 84 Troponin I High Sens B-Natriuretic Peptide Total Protein 6.7 Albumin 4.0 Lipase 42 Influenza Type A (PCR) NEGATIVE Influenza Type B (PCR) NEGATIVE RSV RNA Qual (PCR) NEGATIVE SARS-CoV-2 RNA (RT-PCR) NEGATIVE 02/12/22 02/12/22 13:46 13:46 MCV MCH MCHC RDW Plt Count MPV Immature Gran % (Auto) Neut % (Auto) Lymph % (Auto) [place] % (Auto) Eos % (Auto) Baso % (Auto) Lymph # (Auto) [place] # (Auto) Eos # (Auto) Baso # (Auto) Abs Immat Gran (auto) Absolute Neuts (auto) Absolute Nucleated RBC Nucleated RBC % (auto) D-Dimer High Sensitivty < 150 Anion Gap Estim Creat Clear Calc Estimated GFR Random Glucose Calcium Total Bilirubin Direct Bilirubin AST ALT Alkaline Phosphatase Troponin I High Sens 961.1 H* B-Natriuretic Peptide 50 Total Protein Albumin Lipase Influenza Type A (PCR) Influenza Type B (PCR) RSV RNA Qual (PCR) SARS-CoV-2 RNA (RT-PCR) Imaging Radiologist's Impressions: Impressions Chest X-Ray 02/12/22 12:52 IMPRESSION: Unremarkable chest exam. Assessment and Plan (1) Non-STEMI (non-ST elevated myocardial infarction): Status: Acute Plan 77F presented with chest pain NSTEMI Holding Xarelto IV heparin Aspirin, statin Cardiology eval Paroxysmal atrial fibrillation Sotalol Diabetes Basal bolus insulin Hypothyroid Synthroid Patient with ACS, requiring IV anticoagulation and close monitoring with risk factors of decompensation due to advanced age and diabetes, therefore, expected to require at least 2 midnights in the hospital. Quality Stroke Does the patient have a stroke diagnosis?: No VTE Prior VTE?: No VTE Risk Level:: Medical - moderate - high VTE Device Contraindication: Treatment Not Indicated VTE Drug Contraindication: N/A - Med Ordered
[2022-02-12 15:55] LABS: INTERNATIONAL NORM RATIO 1.1 (0.9-1.1); Prothrombin Time 12.4 SEC (9.9-13.0)
[2022-02-12 15:58] LABS: PTT Heparin Drip 38.1 SEC (53-77.9)
[2022-02-12] MEDS: 0.9 % Sodium Chloride Flush 3 ML SYRINGE IVFLUSH (16:31)
[2022-02-12] MEDS: Heparin Sodium,Porcine/1/2NS 25,000 UNIT/250 ML IV.SOLN 8.8 UNIT IVCONT (16:33)
--- NOTE | 2022-02-12 17:07 | PHA.MEDREC ---
Pharmacy Consult ? Medication Reconciliation Pharmacy has completed the medication reconciliation. Spoke with patient. She doesn't know what meds she takes in the morning or at bedtime except those listed
[2022-02-12 17:11] LABS: Troponin-I High Sensitivity 1978.1 ng/L (<3.5-17.0)
--- NOTE | 2022-02-12 17:24 | PC.NURSE ---
CRITICAL TROPONIN [address].1. DR. AL JC.
--- NOTE | 2022-02-12 17:58 | HE.PHANOTE ---
Per Md, cont sotalol since cr is at baseline and it is patients home dose. also mentioned qtc, keep same dose until cardiology consults patient
--- NOTE | 2022-02-12 20:17 | PC.NURSE ---
This RN was transporting pt over to overflow unit with heparin drip running. While going through the double doors the tubing got stuck on the door and ripped tubing out of the IV bag. Heparin IV bag could not be salvaged; this RN wasted heparin in the Pyxis and pulled a new one. Heparin drip was started again at the same rate with Courtney RN present to witness.
[2022-02-12 20:28] LABS: Glucose, Whole Blood 192 mg/dL (60-115)
[2022-02-12] MEDS: Atorvastatin Calcium 80 MG TABLET PO (20:44)
[2022-02-12] MEDS: Insulin Lispro 100 UNIT/ML 3 ML VIAL SUBCUT (20:44)
--- NOTE | 2022-02-12 20:51 | PC.NURSE ---
Pt alert and oriented x4, calm and cooperative. Pt states 3/10 chest pressure persists. MD aware. Pt refusing TYlenol, stating pressure is still there but has improved from earlier. Denies SOB, denies abd pain or nausea. Nitro paste remains on chest at this time. Vitals stable. IV intact, infusing Heparin drip now. Pt tolerating medication well. Pt educated on plan of care and stated an understanding. Pt urinated in bathroom with stand-by assist and tolerated well. Denies dizziness with ambulating. Daughter Kim phone number [phone].
--- NOTE | 2022-02-12 21:00 | PC.NURSE ---
PT ASSISTED OOB TO BATHROOM WITH LIZ JEFF. RN AWARE
[2022-02-12] MEDS: Sotalol HCL 80 MG TABLET 40 MG PO (22:05)
[2022-02-12 22:55] LABS: PTT Heparin Drip 92.3 SEC (53-77.9)
--- NOTE | 2022-02-12 23:00 | PC.NURSE ---
Assumed care of pt
[2022-02-12 23:06] LABS: Troponin-I High Sensitivity 2009.6 ng/L (<3.5-17.0)
[2022-02-13] VITALS: BP 105/63; PULSE 81; RESP 16; TEMP 36.6; O2SAT 96
[2022-02-13 00:45] LABS: Glucose, Whole Blood 92 mg/dL (60-115)
--- NOTE | 2022-02-13 01:25 | PC.NURSE ---
Heparin drip rate adjusted with ILENE Pete at bedside to verify Pt tolerating well No bleeding noted Will continue to monitor
[2022-02-13] MEDS: Heparin Sodium,Porcine/1/2NS 25,000 UNIT/250 ML IV.SOLN 7.33 UNIT IVCONT (01:26)
[2022-02-13 04:26] VITALS: BP 98/59; PULSE 74; RESP 18; TEMP 36.4
[2022-02-13] MEDS: Levothyroxine Sodium 125 MCG TABLET PO (05:37)
--- NOTE | 2022-02-13 07:00 | CA_ITS ---
Transthoracic Echocardiogram Patient (Last, First, Middle): Penny Greenwood A Gender: Female Date of : 1945 Age: 77 Procedure Date: 02/13/2022 Procedure Type: Transthoracic Echocardiogram Location: [facility] [place] Height: 165.1 cm Weight: 73.03 kg BSA: 1.80 m2 Heart Rate: bpm BP: 98 / 59 mmHg Enterprise Application Architect: [place]O Referring MD: Daron Ervin MD Recruitment Manager: Prosper Brown MD Symptoms: nstemi Study Quality: Fair ECG Rhythm: Sinus Conclusions: - 1. Severely reduced LV systolic function with grade 1 diastolic dysfunction with multiple regional wall motion abnormality which may suggest stress-induced cardiomyopathy 2. Normal cardiac valvular Doppler 3. Normal RV systolic pressure 4. No gross pericardial effusion Findings Procedure Information Contrast agent, definity, is being given per protocol without apparent complications. Left Ventricle Normal left ventricular cavity size. There is normal left ventricular wall thickness. The left ventricular systolic function is severely decreased. The visually estimated ejection fraction is between 25-30%. Spectral Doppler is indicative of an impaired relaxation filling pattern. Normal left ventricular filling pressures. Evidence suggests grade I (mild) diastolic dysfunction. Wall Motion Rest Echo Findings The entire apex, the mid inferior, mid inferoseptal, mid anteroseptal, and mid inferolateral segments are akinetic. All other scored wall segments showed normal motion. Right Ventricle Normal right ventricular cavity size and systolic function. There is a pacemaker wire seen in the right ventricle. Atria The left atrium is normal in size. The right atrium is normal in size. Aortic Valve Normal aortic valve structure and function. There is no aortic valve stenosis. There is no aortic valve regurgitation. Mitral Valve Normal mitral valve structure and function. There is trace mitral valve regurgitation. There is no mitral valve stenosis. Pulmonic Valve The pulmonic valve is likely normal. Tricuspid Valve Likely normal tricuspid valve structure and function. There is mild tricuspid valve regurgitation. Normal right atrial pressure. There is no evidence of pulmonary hypertension. Great Vessels All visible segments of the aorta are normal in size. The pulmonary artery was not well visualized. Venous The inferior vena cava is normal in size and collapses greater than 50% with inspiration. Pericardium/Pleural There is no evidence of pericardial effusion. Prior Study Comparison Changes noted compared to prior study. LV systolic function significantly reduced and with regional wall motion abnormality which may suggest stress induced cardiomyopathy Measurements 2D Linear Measurements IVSd: 1.01 0.6-0.9/0.6-1.0 cm LVIDd: 4.73 3.9-5.3/4.2-5.9 cm LVIDd Index: 2.63 2.4-3.2/2.2-3.1 cm/m2 LVIDs: 3.11 2.0-3.6 cm LVPWd: 0.68 0.7-1.1 cm LA Diam: 2.70 2.7-3.8/3.0-4.0 cm LAIDs Index: 1.50 1.5-2.3 cm/m2 LV Mass: 165.14 67-162/88-224 g LV Mass Index: 91.74 43-95/49-115 g/m2 LVOT Diam: 2.10 3.0+(-)1.3 cm 2D Systolic Function EF 4C: 21.20 >55% EF 2C: 35.80 >55% EF BiP: 28.10 >55% Mitral Valve MV Pk E: 0.44 MV PK A: 0.80 MV Decel Time: 134.00 E/A: 0.50 E'Medial: 1.86 E/E' Med: 23.40 PHT: 39.00 MVA PHT: 5.64 Decel [place]: 3.24 Aortic Valve AoV Pk Kenneth: 1.25 AoV Mn Kenneth: 0.82 AoV VTI: 0.19 AoV Pk Grad: 6.00 Aov Mn Grad: 3.00 BRYANT Cont.VTI: 2.40 LVOT LVOT Pk Kenneth: 0.76 LVOT Mn Kenneth: 0.57 LVOT VTI: 0.13 LVOT Pk Grad: 2.00 LVOT Mn Grad: 1.00 LVOT Diam: 2.10 LVOT Area: 3.46 Diastolic Function MV Pk E: 0.44 MV Pk A: 0.80 E/A: 0.50 E'Medial: 1.86 E/E' Med: 23.40 Right Ventricle TAPSE (mm): 20.00 TVS' Kenneth: 13.00 Tricuspid Valve TR Pk Kenneth: 2.68 TR Pk Grad: 35.00 RA Press: 3.00 RVSP: 38.00 Great Vessels Aorta Ao Asc: 2.90 2.1-3.4 cm Pulmonary Valve PV Pk Kenneth: 0.59 Peak PV Grad: 1.00 Updated in Other Vendor System with Status of Final Prosper Brown MD electronically signed on 02/14/2022 1:42:19 PM with status of Final
[2022-02-13 07:10] LABS: Hematocrit 47.3 % (37.0-47.0); Hemoglobin 15.2 g/dl (12.0-16.0); Mean Corpuscular HGB Conc 32.1 g/dl (31.0-35.0); Mean Corpuscular Hemoglobin 28.1 pg (27.0-33.0); Mean Corpuscular Volume 87.4 fL (80.0-98.0); Mean Platelet Volume 10.8 fL (9.4-12.3); Platelet Count 230 X10*3/uL (160-400); Red Blood Count 5.41 X10*6/uL (4.20-5.50); Red Cell Distribution Width 13.6 % (11.0-16.0); White Blood Count 9.5 X10*3/uL (4.8-10.8)
[2022-02-13 07:23] LABS: PTT Heparin Drip 104.6 SEC (53-77.9)
[2022-02-13 07:24] LABS: Anion Gap 16 (12-20); Blood Urea Nitrogen 26 mg/dL (9-16); Calcium 9.8 mg/dL (8.4-10.2); Carbon Dioxide 19 mmol/L (22-29); Chloride 107 mmol/L (96-108); Creatinine Clr Calc Pharmacy 31.3; Estimated Glomerular Filt Rate 35; Glucose Random 181 mg/dL (60-115); Potassium 4.9 mmol/L (3.3-5.1); Sodium 137 mmol/L (135-145)
[2022-02-13 07:28] LABS: Troponin-I High Sensitivity 959.3 ng/L (<3.5-17.0)
[2022-02-13 07:29] VITALS: BP 109/66; PULSE 78; RESP 18; O2SAT 96
[2022-02-13 07:48] LABS: Glucose, Whole Blood 179 mg/dL (60-115)
--- NOTE | 2022-02-13 09:43 | PM.DS ---
DS: Providers Provider Date of Service: 02/13/22 Date of admission: 02/12/22 15:42 Primary care physician: Dipika Casas MD Consults: 02/12/22 15:42 Consult to Cardiology Routine Consulting Provider: Prosper Brown Reason for consultation: nstemi DS: Diagnosis Discharge Diagnosis (1) Non-STEMI (non-ST elevated myocardial infarction): Status: Acute DS: Summary Hospital Course Hospital Course: from initial hpi: Chief Complaint: chest pain 77-year-old female presented with chest pain.? Patient had been feeling well on day of presentation, she then went to do laundry and had sudden onset severe diaphoresis and midsternal chest pain, 8/10, nonradiating, continuous until received nitroglycerin, which point has not recurred.? Denies shortness of breath, denies fever, denies chills.? She has not had similar symptoms in the past.? She has a history of paroxysmal atrial fibrillation and complete heart block status post pacer, but has no known coronary disease.? She does have risk factors of diabetes, history of smoking, hypertension.? In ED troponin was elevated to 961. hospital course: Patient was admitted for NSTEMI. Her Xarelto have been held and she was started on IV heparin, aspirin, statin. Her chest pain resolved. She was seen by Cardiology recommended transfer to [facility] for cardiac catheterization. Her High sensitivity troponins peaked at 2000. for paroxysmal atrial fibrillation she is on sotalol, for diabetes she is on basal bolus insulin, for hypothyroidism she is on Synthroid. Time Spent with Patient Time attestation: Total time spent providing and/or coordinating discharge services: Discharge coordination time: Greater than 30 minutes Quality: Safe Use of Opioids Does Pt have an Active Cancer Diagnosis on the Problem List?: No Quality: Stroke Does the patient have a stroke diagnosis?: No Physical Exam Vital Signs: Vital Signs: Last Vital Signs Temp 97.6 F 02/13/22 04:26 Pulse 78 02/13/22 07:29 Resp 18 02/13/22 07:29 BP 109/66 02/13/22 07:29 Pulse Ox 96 02/13/22 07:29 BMI result Body Mass Index 26.9 General: AO X 3, no acute distress Resp: CTA bilateral, no accessory muscles used CVS: S1,S2,RRR GI: soft, non tender, non distended Neuro: motor grossly intact, alert Psych: appropriate affect, appropriate insight DS: Data Data Completed and Pending Labs on day of discharge: Laboratory Results - last 24 hr 02/12/22 02/12/22 02/12/22 13:45 13:46 13:46 WBC 10.6 RBC 4.86 Hgb 13.6 Hct 43.5 MCV 89.5 MCH 28.0 MCHC 31.3 RDW 13.6 Plt Count 199 MPV 10.4 Immature Gran % (Auto) 0.5 H Neut % (Auto) 83.9 H Lymph % (Auto) 8.7 L [place] % (Auto) 5.7 Eos % (Auto) 0.8 Baso % (Auto) 0.4 Lymph # (Auto) 0.9 L [place] # (Auto) 0.6 Eos # (Auto) 0.1 Baso # (Auto) 0.0 Abs Immat Gran (auto) 0.05 H Absolute Neuts (auto) 8.9 H Absolute Nucleated RBC 0.000 Nucleated RBC % (auto) 0.0 PT INR aPTT Heparin Protocol D-Dimer High Sensitivty Sodium 138 Potassium 4.6 Chloride 107 Carbon Dioxide 22 Anion Gap 14 BUN 22 H Creatinine 1.42 H Estim Creat Clear Calc 32.4 Estimated GFR 36 POC Glucose Random Glucose 116 H Calcium 9.7 Total Bilirubin 0.6 Direct Bilirubin 0.2 AST 22 ALT 17 Alkaline Phosphatase 84 Troponin I High Sens B-Natriuretic Peptide Total Protein 6.7 Albumin 4.0 Lipase 42 Influenza Type A (PCR) NEGATIVE Influenza Type B (PCR) NEGATIVE RSV RNA Qual (PCR) NEGATIVE SARS-CoV-2 RNA (RT-PCR) NEGATIVE 02/12/22 02/12/22 02/12/22 13:46 13:46 15:44 WBC RBC Hgb Hct MCV MCH MCHC RDW Plt Count MPV Immature Gran % (Auto) Neut % (Auto) Lymph % (Auto) [place] % (Auto) Eos % (Auto) Baso % (Auto) Lymph # (Auto) [place] # (Auto) Eos # (Auto) Baso # (Auto) Abs Immat Gran (auto) Absolute Neuts (auto) Absolute Nucleated RBC Nucleated RBC % (auto) PT 12.4 INR 1.1 aPTT Heparin Protocol 38.1 L D-Dimer High Sensitivty < 150 Sodium Potassium Chloride Carbon Dioxide Anion Gap BUN Creatinine Estim Creat Clear Calc Estimated GFR POC Glucose Random Glucose Calcium Total Bilirubin Direct Bilirubin AST ALT Alkaline Phosphatase Troponin I High Sens 961.1 H* B-Natriuretic Peptide 50 Total Protein Albumin Lipase Influenza Type A (PCR) Influenza Type B (PCR) RSV RNA Qual (PCR) SARS-CoV-2 RNA (RT-PCR) 02/12/22 02/12/22 02/12/22 16:35 18:32 20:16 WBC RBC Hgb Hct MCV MCH MCHC RDW Plt Count MPV Immature Gran % (Auto) Neut % (Auto) Lymph % (Auto) [place] % (Auto) Eos % (Auto) Baso % (Auto) Lymph # (Auto) [place] # (Auto) Eos # (Auto) Baso # (Auto) Abs Immat Gran (auto) Absolute Neuts (auto) Absolute Nucleated RBC Nucleated RBC % (auto) PT INR aPTT Heparin Protocol D-Dimer High Sensitivty Sodium Potassium Chloride Carbon Dioxide Anion Gap BUN Creatinine Estim Creat Clear Calc Estimated GFR POC Glucose 92 192 H Random Glucose Calcium Total Bilirubin Direct Bilirubin AST ALT Alkaline Phosphatase Troponin I High Sens 1978.1 H* D B-Natriuretic Peptide Total Protein Albumin Lipase Influenza Type A (PCR) Influenza Type B (PCR) RSV RNA Qual (PCR) SARS-CoV-2 RNA (RT-PCR) 02/12/22 02/12/22 02/13/22 22:37 22:37 06:54 WBC 9.5 RBC 5.41 Hgb 15.2 Hct 47.3 H MCV 87.4 MCH 28.1 MCHC 32.1 RDW 13.6 Plt Count 230 MPV 10.8 Immature Gran % (Auto) Neut % (Auto) Lymph % (Auto) [place] % (Auto) Eos % (Auto) Baso % (Auto) Lymph # (Auto) [place] # (Auto) Eos # (Auto) Baso # (Auto) Abs Immat Gran (auto) Absolute Neuts (auto) Absolute Nucleated RBC 0.000 Nucleated RBC % (auto) 0.0 PT INR aPTT Heparin Protocol 92.3 H D D-Dimer High Sensitivty Sodium Potassium Chloride Carbon Dioxide Anion Gap BUN Creatinine Estim Creat Clear Calc Estimated GFR POC Glucose Random Glucose Calcium Total Bilirubin Direct Bilirubin AST ALT Alkaline Phosphatase Troponin I High Sens 2009.6 H* B-Natriuretic Peptide Total Protein Albumin Lipase Influenza Type A (PCR) Influenza Type B (PCR) RSV RNA Qual (PCR) SARS-CoV-2 RNA (RT-PCR) 02/13/22 02/13/22 02/13/22 06:54 06:54 06:54 WBC RBC Hgb Hct MCV MCH MCHC RDW Plt Count MPV Immature Gran % (Auto) Neut % (Auto) Lymph % (Auto) [place] % (Auto) Eos % (Auto) Baso % (Auto) Lymph # (Auto) [place] # (Auto) Eos # (Auto) Baso # (Auto) Abs Immat Gran (auto) Absolute Neuts (auto) Absolute Nucleated RBC Nucleated RBC % (auto) PT INR aPTT Heparin Protocol 104.6 H D-Dimer High Sensitivty Sodium 137 Potassium 4.9 Chloride 107 Carbon Dioxide 19 L Anion Gap 16 BUN 26 H Creatinine 1.46 H Estim Creat Clear Calc 31.3 Estimated GFR 35 POC Glucose Random Glucose 181 H Calcium 9.8 Total Bilirubin Direct Bilirubin AST ALT Alkaline Phosphatase Troponin I High Sens 959.3 H* D B-Natriuretic Peptide Total Protein Albumin Lipase Influenza Type A (PCR) Influenza Type B (PCR) RSV RNA Qual (PCR) SARS-CoV-2 RNA (RT-PCR) 02/13/22 07:27 WBC RBC Hgb Hct MCV MCH MCHC RDW Plt Count MPV Immature Gran % (Auto) Neut % (Auto) Lymph % (Auto) [place] % (Auto) Eos % (Auto) Baso % (Auto) Lymph # (Auto) [place] # (Auto) Eos # (Auto) Baso # (Auto) Abs Immat Gran (auto) Absolute Neuts (auto) Absolute Nucleated RBC Nucleated RBC % (auto) PT INR aPTT Heparin Protocol D-Dimer High Sensitivty Sodium Potassium Chloride Carbon Dioxide Anion Gap BUN Creatinine Estim Creat Clear Calc Estimated GFR POC Glucose 179 H Random Glucose Calcium Total Bilirubin Direct Bilirubin AST ALT Alkaline Phosphatase Troponin I High Sens B-Natriuretic Peptide Total Protein Albumin Lipase Influenza Type A (PCR) Influenza Type B (PCR) RSV RNA Qual (PCR) SARS-CoV-2 RNA (RT-PCR) Discharge Plan Discharge Patient Disposition: Xfer Acute Care Hospital Discharge Diagnosis: chest pain Referrals: Dipika Casas MD [Primary Care Provider] - 1 Week Discharge Medications: Continued (DME) FreeStyle Lite Strips Strip See Rx Instructions .ROUTE .MEDSUPPLY Qty: 100 6RF Rx Instructions: TID levothyroxine 125 mcg tablet 125 mcg PO DAILY Qty: 90 3RF (DME) lancets [FreeStyle Lancets] 28 gauge misc See Rx Instructions .Route Qty: 100 3RF Rx Instructions: Test up to 3 times per day sertraline 50 mg tablet 75 mg PO DAILY Qty: 135 3RF atorvastatin 20 mg tablet 20 mg PO DAILY Qty: 90 3RF isosorbide mononitrate 30 mg tablet extended release 24 hr 30 mg PO QAM 90 Days Qty: 90 3RF famotidine 40 mg tablet 40 mg PO BEDTIME Qty: 90 3RF sotalol 80 mg tablet 40 mg PO BID Qty: 90 1RF Lantus Solostar U-100 Insulin 100 unit/mL (3 mL) insulin pen 16 unit subcut DAILY 0RF tiotropium bromide 18 mcg capsule, w/inhalation device 1 cap inhalation BEDTIME 0RF (DME) blood sugar diagnostic Strip See Rx Instructions ea Not Applicable TID Qty: 10 0RF Rx Instructions: As directed Farxiga 10 mg tablet 10 mg PO DAILY 0RF budesonide 3 mg capsule,delayed,extend.release 3 mg PO Q2D 0RF Held rivaroxaban 15 mg tablet 15 mg PO BEDTIME 0RF Hold Instructions: Resume on 02/15/22. Discharge Orders: Discharge Order (Routine); Ordered 02/13/22 Ordered By: Daron Ervin Diet: advance to usual diet Activity on Discharge: As tolerated Stand Alone Forms: Patient Portal Discharge page Care Plan Goals: manage acs Health Concerns: nstemi Plan of Treatment: transfer to [facility] [place] for cath Assessment: see above
--- NOTE | 2022-02-13 09:44 | PM.CNCAR ---
History of Present Illness History of Present Illness Date of Service: 02/13/22 Requesting physician: Daron Ervin Consult reason: other (NSTEMI) Chief complaint: Nstemi Narrative: I was requested to see Penny in cardiology consultation today because of NSTEMI. Penny is a long-term patient of mine with prior history of longstanding diabetes, paroxysmal atrial fibrillation, complete heart block status post dual-chamber [place] pacemaker, on chronic anticoagulation with renally adjusted dose of Xarelto at 50 mg, mild CKD, hypertension, hyperlipidemia. No prior history of coronary artery disease. Yesterday she was in her usual state of health, walked up her cellar steps after putting a load of laundry. When she reached up she felt warm and then felt suddenly significantly diaphoretic and developed severe chest pressure. Chest pressure was 10/10. She came to the emergency room within half an hour. In the emergency room she had paced rhythm with some T-wave inversion inferiorly. Her initial troponin was 900. She was admitted and treated for NSTEMI with nitropaste and symptoms resolved. Her last dose of Xarelto was on 02/11 in the evening. She was started on IV heparin drip. Since yesterday she has been symptom-free. Her 2nd troponin was elevated at 1900. Cardiology consult was sought for further management plan. Review of Systems Constitutional: Constitutional: Reports no additional constitutional complaints Eyes: Eyes: Reports no additional eye complaints Cardiovascular: Cardiovascular: Reports chest pain, Reports dyspnea and Reports other ( Diaphoresis) Respiratory: Respiratory: Reports no additional respiratory complaints and Reports dyspnea Gastrointestinal: Gastrointestinal: Reports no additional gastrointestinal complaints Genitourinary: Genitourinary: Reports no additional female genitourinary complaints Musculoskeletal: Musculoskeletal: Reports no additional musculoskeletal complaints Psychiatric: Psychiatric: Reports no additional psychiatric complaints Endocrine: Endocrine: Reports no additional endocrine complaints Hematologic/Lymphatic: Hematologic/Lymphatic: Reports no additional hematologic/lymphatic complaints Allergic/Immunologic: Allergic/Immunologic: Reports no additional allergic/immunologic complaints [facility] Past Medical History Medical History Cardiac pacemaker in situ Cataract CKD (chronic kidney disease), stage III Complete heart block DM type 2 (diabetes mellitus, type 2) HTN (hypertension) Hyperlipemia Hypothyroidism Paroxysmal atrial fibrillation Vitamin D deficiency Family History Family History Father Cancer Mother Diabetes Surgical History Surgical History History of hip surgery History of permanent cardiac pacemaker placement History of tonsillectomy and adenoidectomy Hx of cardiac cath Hx of mastectomy Social History Social History Housing: House Alcohol intake: never Patient Tobacco Use Status: Former Tobacco user Tobacco use type: Cigarette e-Cigarette/Vaping Use: Never Used Use of substances other than those prescribed or required for medical reasons: No Advance Directives: No Advance Directives Information Provided: No service: No Current occupational status: retired Meds Allergies Allergy/AdvReac Type Severity Reaction Status Date / Time lisinopril Allergy Unknown Hyperkalemi Verified 12/10/21 09:30 a nitrofurantoin [Macrobid] AdvReac Unknown dizziness Verified 12/10/21 09:30 Active Medications: Current Medications Acetaminophen (Acetaminophen 325 Mg Tablet) 650 mg PO Q6H PRN PRN Reason: Pain, Mild (Pain Scale 1-3) Aspirin (Aspirin Enteric Coated 81 Mg Tablet.) 81 mg PO DAILY [facility] Last Admin: 02/13/22 08:42 Dose: Not Given Documented by: Atorvastatin Calcium (Atorvastatin Calcium 80 Mg Tablet) 80 mg PO BEDTIME SHANE Last Admin: 02/12/22 20:44 Dose: 80 mg Documented by: Dextrose (Dextrose 50 % 25 Gm/50 Ml Syringe) 25 gm IVPUSH Q15M PRN; Protocol PRN Reason: per Hypoglycemia Standing Ord. Famotidine (Famotidine 20 Mg Tablet) 40 mg PO BEDTIME SHANE Glucose (Glucose Gel 15 Gm Gel..Gram.) 15 gm PO Q15M PRN; Protocol PRN Reason: per Hypoglycemia Standing Ord. Heparin Sodium/Sodium Chloride () 25,000 unit in 250 mls @ 0 mls/hr IVCONT .Q0M SHANE; Protocol Last Titration: 02/13/22 08:20 Dose: 7 units/kg/hr, 5.13 mls/hr Documented by: Insulin Glargine (Insulin Glargine,Hum.Rec.Anlog 100 Unit/Ml 10 Ml Vial) 16 unit SUBCUT DAILY [facility] Last Admin: 02/13/22 08:42 Dose: Not Given Documented by: Insulin Human Lispro (Insulin Lispro 100 Unit/Ml 3 Ml Vial) 0 unit SUBCUT QIDACHS [facility]; Protocol Last Admin: 02/13/22 07:33 Dose: Not Given Documented by: Isosorbide Mononitrate (Isosorbide Mononitrate 30 Mg Tab.Er.24h) 30 mg PO DAILY [facility]; Protocol Last Admin: 02/13/22 08:42 Dose: Not Given Documented by: Levothyroxine Sodium (Levothyroxine Sodium 125 Mcg Tablet) 125 mcg PO DAILY@0600 [facility] Last Admin: 02/13/22 05:37 Dose: 125 mcg Documented by: Non-Formulary Medication (Budesonide) 3 mg PO Q2D [facility] Pharmacy Consult (Consult Rx Perform Med Rec) 1 each MISCELLANE ONCE PRN PRN Reason: Consult order Pharmacy Consult (Consult Rx Perform Med Rec) 1 each MISCELLANE ONCE PRN PRN Reason: Consult order Sertraline HCl (Sertraline Hcl 25 Mg Tablet) 75 mg PO DAILY [facility] Last Admin: 02/13/22 08:42 Dose: Not Given Documented by: Sodium Chloride (0.9 % Sodium Chloride Flush 3 Ml Syringe) 3 ml IVFLUSH QSHIFT [facility] Last Admin: 02/13/22 07:34 Dose: Not Given Documented by: Sotalol HCl (Sotalol Hcl 80 Mg Tablet) 40 mg PO BID [facility] Last Admin: 02/13/22 08:42 Dose: Not Given Documented by: Tiotropium [place] (Tiotropium [place] 18 Mcg Cap.W.Dev) 1 puff INHALE BEDTIME [facility] Home Medications Medication Instructions Recorded Confirmed Last Taken Type blood sugar diagnostic #10 ea 09/23/20 02/12/22 Unknown History budesonide 3 mg 3 mg PO Q2D 12/10/21 02/12/22 02/11/22 History capsule,delayed,extended release dapagliflozin 10 mg tablet 10 mg PO DAILY 12/10/21 02/12/22 Unknown History (Farxiga) insulin glargine 100 unit/mL (3 16 unit SUBCUT DAILY 02/12/22 02/12/22 02/12/22 History mL) subcutaneous pen (Lantus Solostar U-100 Insulin) rivaroxaban 15 mg tablet 15 mg PO BEDTIME 02/12/22 02/12/22 02/11/22 History tiotropium bromide 18 mcg capsule 1 cap INHALATION BEDTIME 02/12/22 02/12/22 02/11/22 History with inhalation device Physical Exam Vital Signs: Vital Signs: Last Vital Signs Temp 97.6 F 02/13/22 04:26 Pulse 78 02/13/22 07:29 Resp 18 02/13/22 07:29 BP 109/66 02/13/22 07:29 Pulse Ox 96 02/13/22 07:29 BMI result Body Mass Index 26.9 Const: General: cooperative, comfortable, alert, awake and anxious Nutritional Appearance: overweight Orientation/consciousness: patient oriented x3 Limitations: no limitations HEENT: Head: Yes normocephalic and Yes atraumatic Neck: Neck: Yes trachea midline, Yes supple and Yes no JVD Chest: Chest palpation & inspection: normal inspection of the chest Resp: Effort & Inspection: normal respiratory effort Auscultation: clear to auscultation bilaterally Cardio: Jugular venous distension: no JVD Palpation: normal PMI Rate: regular rate Rhythm: regular rhythm Heart sounds: S1 normal heart sound present, S2 normal heart sound present, no click, no gallops, no murmurs and no rubs GI: Auscultation: normal bowel sounds Skin: General skin exam: no rashes or lesions noted Neuro: General: patient oriented x3 and no focal motor deficits Extrem: General: Yes no clubbing, cyanosis or edema Objective Labs and Meds Result diagrams: 02/13/22 06:54 02/13/22 06:54 Lab results: Laboratory Results - last 24 hr 02/12/22 02/12/22 02/12/22 13:45 13:46 13:46 WBC 10.6 RBC 4.86 Hgb 13.6 Hct 43.5 MCV 89.5 MCH 28.0 MCHC 31.3 RDW 13.6 Plt Count 199 MPV 10.4 Immature Gran % (Auto) 0.5 H Neut % (Auto) 83.9 H Lymph % (Auto) 8.7 L [place] % (Auto) 5.7 Eos % (Auto) 0.8 Baso % (Auto) 0.4 Lymph # (Auto) 0.9 L [place] # (Auto) 0.6 Eos # (Auto) 0.1 Baso # (Auto) 0.0 Abs Immat Gran (auto) 0.05 H Absolute Neuts (auto) 8.9 H Absolute Nucleated RBC 0.000 Nucleated RBC % (auto) 0.0 PT INR aPTT Heparin Protocol D-Dimer High Sensitivty Sodium 138 Potassium 4.6 Chloride 107 Carbon Dioxide 22 Anion Gap 14 BUN 22 H Creatinine 1.42 H Estim Creat Clear Calc 32.4 Estimated GFR 36 POC Glucose Random Glucose 116 H Calcium 9.7 Total Bilirubin 0.6 Direct Bilirubin 0.2 AST 22 ALT 17 Alkaline Phosphatase 84 Troponin I High Sens B-Natriuretic Peptide Total Protein 6.7 Albumin 4.0 Lipase 42 Influenza Type A (PCR) NEGATIVE Influenza Type B (PCR) NEGATIVE RSV RNA Qual (PCR) NEGATIVE SARS-CoV-2 RNA (RT-PCR) NEGATIVE 02/12/22 02/12/22 02/12/22 13:46 13:46 15:44 WBC RBC Hgb Hct MCV MCH MCHC RDW Plt Count MPV Immature Gran % (Auto) Neut % (Auto) Lymph % (Auto) [place] % (Auto) Eos % (Auto) Baso % (Auto) Lymph # (Auto) [place] # (Auto) Eos # (Auto) Baso # (Auto) Abs Immat Gran (auto) Absolute Neuts (auto) Absolute Nucleated RBC Nucleated RBC % (auto) PT 12.4 INR 1.1 aPTT Heparin Protocol 38.1 L D-Dimer High Sensitivty < 150 Sodium Potassium Chloride Carbon Dioxide Anion Gap BUN Creatinine Estim Creat Clear Calc Estimated GFR POC Glucose Random Glucose Calcium Total Bilirubin Direct Bilirubin AST ALT Alkaline Phosphatase Troponin I High Sens 961.1 H* B-Natriuretic Peptide 50 Total Protein Albumin Lipase Influenza Type A (PCR) Influenza Type B (PCR) RSV RNA Qual (PCR) SARS-CoV-2 RNA (RT-PCR) 02/12/22 02/12/22 02/12/22 16:35 18:32 20:16 WBC RBC Hgb Hct MCV MCH MCHC RDW Plt Count MPV Immature Gran % (Auto) Neut % (Auto) Lymph % (Auto) [place] % (Auto) Eos % (Auto) Baso % (Auto) Lymph # (Auto) [place] # (Auto) Eos # (Auto) Baso # (Auto) Abs Immat Gran (auto) Absolute Neuts (auto) Absolute Nucleated RBC Nucleated RBC % (auto) PT INR aPTT Heparin Protocol D-Dimer High Sensitivty Sodium Potassium Chloride Carbon Dioxide Anion Gap BUN Creatinine Estim Creat Clear Calc Estimated GFR POC Glucose 92 192 H Random Glucose Calcium Total Bilirubin Direct Bilirubin AST ALT Alkaline Phosphatase Troponin I High Sens 1978.1 H* D B-Natriuretic Peptide Total Protein Albumin Lipase Influenza Type A (PCR) Influenza Type B (PCR) RSV RNA Qual (PCR) SARS-CoV-2 RNA (RT-PCR) 02/12/22 02/12/22 02/13/22 22:37 22:37 06:54 WBC 9.5 RBC 5.41 Hgb 15.2 Hct 47.3 H MCV 87.4 MCH 28.1 MCHC 32.1 RDW 13.6 Plt Count 230 MPV 10.8 Immature Gran % (Auto) Neut % (Auto) Lymph % (Auto) [place] % (Auto) Eos % (Auto) Baso % (Auto) Lymph # (Auto) [place] # (Auto) Eos # (Auto) Baso # (Auto) Abs Immat Gran (auto) Absolute Neuts (auto) Absolute Nucleated RBC 0.000 Nucleated RBC % (auto) 0.0 PT INR aPTT Heparin Protocol 92.3 H D D-Dimer High Sensitivty Sodium Potassium Chloride Carbon Dioxide Anion Gap BUN Creatinine Estim Creat Clear Calc Estimated GFR POC Glucose Random Glucose Calcium Total Bilirubin Direct Bilirubin AST ALT Alkaline Phosphatase Troponin I High Sens 2009.6 H* B-Natriuretic Peptide Total Protein Albumin Lipase Influenza Type A (PCR) Influenza Type B (PCR) RSV RNA Qual (PCR) SARS-CoV-2 RNA (RT-PCR) 02/13/22 02/13/22 02/13/22 06:54 06:54 06:54 WBC RBC Hgb Hct MCV MCH MCHC RDW Plt Count MPV Immature Gran % (Auto) Neut % (Auto) Lymph % (Auto) [place] % (Auto) Eos % (Auto) Baso % (Auto) Lymph # (Auto) [place] # (Auto) Eos # (Auto) Baso # (Auto) Abs Immat Gran (auto) Absolute Neuts (auto) Absolute Nucleated RBC Nucleated RBC % (auto) PT INR aPTT Heparin Protocol 104.6 H D-Dimer High Sensitivty Sodium 137 Potassium 4.9 Chloride 107 Carbon Dioxide 19 L Anion Gap 16 BUN 26 H Creatinine 1.46 H Estim Creat Clear Calc 31.3 Estimated GFR 35 POC Glucose Random Glucose 181 H Calcium 9.8 Total Bilirubin Direct Bilirubin AST ALT Alkaline Phosphatase Troponin I High Sens 959.3 H* D B-Natriuretic Peptide Total Protein Albumin Lipase Influenza Type A (PCR) Influenza Type B (PCR) RSV RNA Qual (PCR) SARS-CoV-2 RNA (RT-PCR) 02/13/22 07:27 WBC RBC Hgb Hct MCV MCH MCHC RDW Plt Count MPV Immature Gran % (Auto) Neut % (Auto) Lymph % (Auto) [place] % (Auto) Eos % (Auto) Baso % (Auto) Lymph # (Auto) [place] # (Auto) Eos # (Auto) Baso # (Auto) Abs Immat Gran (auto) Absolute Neuts (auto) Absolute Nucleated RBC Nucleated RBC % (auto) PT INR aPTT Heparin Protocol D-Dimer High Sensitivty Sodium Potassium Chloride Carbon Dioxide Anion Gap BUN Creatinine Estim Creat Clear Calc Estimated GFR POC Glucose 179 H Random Glucose Calcium Total Bilirubin Direct Bilirubin AST ALT Alkaline Phosphatase Troponin I High Sens B-Natriuretic Peptide Total Protein Albumin Lipase Influenza Type A (PCR) Influenza Type B (PCR) RSV RNA Qual (PCR) SARS-CoV-2 RNA (RT-PCR) EKG shows atrially sensed ventricular paced rhythm with T-wave inversion Imaging Radiologist's impression: Impressions Chest X-Ray 02/12/22 12:52 IMPRESSION: Unremarkable chest exam. Assessment and Plan (1) Non-STEMI (non-ST elevated myocardial infarction): Status: Acute NSTEMI in this elderly woman with multiple risk factors and high risk features. She has underlying ventricular paced rhythm which makes diagnostic EKG difficult to interpret. However appears to have inferior T-wave inversions. She is currently on IV heparin and symptom-free at this point time. We discussed about further management. The best approach would be invasive cardiac catheterization and invasive management. This was discussed with her. We discussed about risks benefits, alternatives 2nd open to procedure and will requirement to be transferred to [facility]. She is agreeable. Arrangements have been made. Will continue nitro paste and IV heparin. Continue low-dose aspirin therapy and high-intensity statin therapies. Xarelto is currently on hold. If she requires single-vessel PCI will need triple therapy for about a month and followed by Plavix and Xarelto therapy for year uninterrupted. All possible outcomes were discussed with her. She understands agrees. She is at risk for contrast induced nephropathy although creatinine is stable at 1.46. Gentle hydration should be pursued. Will follow up with the patient as outpatient couple of weeks. Thank you for allowing me to partake in her care Procedures Date of Service Date of Service: 02/13/22
--- NOTE | 2022-02-13 10:08 | MHC.CM.PN ---
Patient will be transferred to [facility] for higher level of care.
--- NOTE | 2022-02-13 11:22 | MHC.CM.PN ---
PT REPORTS SHE LIVES WITH HER WHO HAS DEMENTIA, SHE IS HIS PRIMARY CAREGIVER SHE DENIES USING DME OR HAVING HOME SERVICES FOR HERSELF SHE CONFIRMS HER PCP IS CARLEY TIPTON PT REPORTS BEING COVID-19 VACCINATED X 2 PT COMPLETED A HCP TODAY NAMING HER DAUGHTER, CARLY AKT, HER PRIMARY AND HER CHILDREN RAKESH ADKINS AND ANTWAN KAT HER ALTERNATE AGENTS IMM DELIVERED, COPY SENT TO [facility] CURRENT DC PLAN IS TRANSFER TO [facility] VIA BLS
[2022-02-13] MEDS: 0.9 % Sodium Chloride 1,000 ML 75 ML IVCONT (14:08)
--- NOTE | 2022-02-13 14:08 | PC.NURSE ---
pt accepted [facility] mm5 rm 20 nurse - nurse [phone]
[2022-02-13 14:58] LABS: PTT Heparin Drip 52.6 SEC (53-77.9)
[2022-02-13 18:23] LABS: Glucose, Whole Blood 162 mg/dL (60-115)
== END 2022-02-13 15:05 | disposition short-term general hospital (02) | DRG 282 ==
LOC: HO.ED 15:14 → HO.EDOVER 16:05
PROVIDERS: Hospitalist; Admitting Provider Internal Medicine; Emergency Provider Emergency Medicine; PCP Internal Medicine; Visit Provider Internal Medicine
DX: I21.4 Non-ST elevation (NSTEMI) myocardial infarction (principal); I12.9 Hypertensive chronic kidney disease with stage 1 through stage 4 chronic kidney disease, or unspecified chronic kidney disease; N18.30 Chronic kidney disease, stage 3 unspecified; E11.22 Type 2 diabetes mellitus with diabetic chronic kidney disease; I48.0 Paroxysmal atrial fibrillation; E03.9 Hypothyroidism, unspecified; Z20.822 Contact with and (suspected) exposure to COVID-19; Z95.0 Presence of cardiac pacemaker; Z87.891 Personal history of nicotine dependence; Z88.1 Allergy status to other antibiotic agents; Z88.8 Allergy status to other drugs, medicaments and biological substances; Z79.4 Long term (current) use of insulin; Z79.01 Long term (current) use of anticoagulants; Z79.899 Other long term (current) drug therapy
CPT/HCPCS: 0241U; 36415; 71045; 80048; 80076; 82947; 83690; 83880; 84484; 85025; 85027; 85379; 85610; 85730; 93005; 93306; 99285; Q9957

== ENCOUNTER → 2022-03-17 13:54 | Outpatient (BNVA) | payer MEDICARE, SELFPAY | PROVIDERS: PCP Internal Medicine; Referring Provider Internal Medicine; Visit Provider Internal Medicine Cardiovascular Disease | DX: Z45.018 Encounter for adjustment and management of other part of cardiac pacemaker (principal); I42.9 Cardiomyopathy, unspecified; I48.0 Paroxysmal atrial fibrillation; Z79.01 Long term (current) use of anticoagulants | CPT/HCPCS: 93280; 99212 ==

== ENCOUNTER 2022-05-01 09:12 | Outpatient (REF) | payer MEDICARE, SELFPAY ==
[2022-05-01 11:08] LABS: MANUAL DIFF FLAG NO
[2022-05-01 11:18] LABS: Basophils Absolute Auto 0.1 X10*3/uL (0.0-0.2); Basophils Percent Auto 0.8 % (0-2); Eosinophils Absolute Auto 0.2 X10*3/uL (0.0-0.4); Eosinophils Percent Auto 2.2 % (0-4); Hematocrit 42.6 % (37.0-47.0); Hemoglobin 13.2 g/dl (12.0-16.0); Imm Gran Abs Auto 0.03 X10*3/uL (0.00-0.03); Imm Gran Pct Auto 0.4 % (0.0-0.4); Lymphocytes Absolute Auto 1.1 X10*3/uL (1.2-4.9); Lymphocytes Percent Auto 14.7 % (20-40); Mean Corpuscular Hemoglobin 26.5 pg (27.0-33.0); Mean Corpuscular Volume 85.5 fL (80.0-98.0); Mean Platelet Volume 10.5 fL (9.4-12.3); Monocytes Absolute Auto 0.7 X10*3/uL (0.1-1.2); Monocytes Percent Auto 9.1 % (2-11); Neutrophils Absolute Auto 5.4 x10*3/uL (2.0-8.3); Neutrophils Percent Auto 72.8 % (45-73); Platelet Count 258 X10*3/uL (160-400); Red Blood Count 4.98 X10*6/uL (4.20-5.50); Red Cell Distribution Width 14.5 % (11.0-16.0); White Blood Count 7.4 X10*3/uL (4.8-10.8)
[2022-05-01 11:36] LABS: Estimated Average Glucose 177 mg/dL; Hemoglobin A1c % 7.8 %
[2022-05-01 11:45] LABS: Alanine Aminotransferase 12 U/L (0-31); Albumin Level 4.3 g/dL (3.5-5.0); Alkaline Phosphatase 96 U/L (39-117); Anion Gap 15 (12-20); Aspartate Amino Transferase 18 U/L (5-31); Bilirubin Total 0.7 mg/dL (0.0-1.0); Blood Urea Nitrogen 23 mg/dL (9-16); Calcium 9.6 mg/dL (8.4-10.2); Carbon Dioxide 25 mmol/L (22-29); Chloride 105 mmol/L (96-108); Cholesterol 163 mg/dL; Estimated Glomerular Filt Rate 29; Glucose Fasting 143 mg/dL (60-99); HDL Cholesterol 64 mg/dL; LDL Cholesterol Calculated 79 mg/dl; Sodium 140 mmol/L (135-145); Total Protein 7.3 g/dL (6.5-8.0); Triglycerides 101 mg/dL
[2022-05-01 11:46] LABS: Appearance Urine CLOUDY; Color Urine YELLOW; Glucose Urine UA 500 MG/DL (NEG); Leukocyte Esterase Urine 1+ (NEG); Nitrite Urine NEG (NEG); Specific Gravity - Urine 1.015 (1.005-1.025); Urine Blood NEG (NEG); Urine Ketones NEG (NEG); Urine Protein TRACE MG/DL (NEG-TRACE)
[2022-05-01 12:05] LABS: RBC Urine 0 /HPF (0)
[2022-05-01 12:06] LABS: Bacteria Urine 2+ /LPF; Squamous Epithelial Cell Urine 2+ /LPF
[2022-05-01 12:31] LABS: Creatinine Urine 119.56 mg/dL; Microalbum/Creatinine Ratio Ur 46.8 ug/mg cr
== END 2022-05-01 09:13 | disposition home or self-care (01) ==
LOC: HO.HMGCLDS 09:12
PROVIDERS: PCP Internal Medicine; Visit Provider Internal Medicine
DX: E03.9 Hypothyroidism, unspecified (principal); E11.9 Type 2 diabetes mellitus without complications; E78.5 Hyperlipidemia, unspecified; I21.4 Non-ST elevation (NSTEMI) myocardial infarction; N18.30 Chronic kidney disease, stage 3 unspecified
CPT/HCPCS: 36415; 80053; 80061; 81001; 82043; 83036; 85025

== ENCOUNTER 2022-05-01 13:10 | Outpatient (REF) | payer MEDICARE, SELFPAY ==
--- NOTE | ~2022-05-01 | US_ITS ---
EXAMINATION: US ABDOMEN COMPLETE CLINICAL INFORMATION: Abdominal pain. COMPARISON: Abdominal ultrasound dated from 04/12/2015. TECHNIQUE: Real-time imaging of the abdominal viscera. FINDINGS: PANCREAS: Normal. ABDOMINAL AORTA: The proximal, mid, and distal segments are normal in caliber. INFERIOR VENA CAVA: Visualized portions are normal. LIVER: Increased liver parenchymal echogenicity which limits evaluation of small lesions. However, accounting for its limitations, no discrete focal abnormalities identified. No intrahepatic biliary ductal dilatation. GALLBLADDER: Normal. The gallbladder is physiologically distended without evidence of stones, sludge, polyps, wall thickening or pericholecystic fluid. COMMON BILE DUCT: Normal in caliber measuring 0.4 cm in diameter. RIGHT KIDNEY: There is a 1.7 cm simple cyst in the lower pole for which no imaging follow-up is recommended. No hydronephrosis or renal calculi. The kidney measures 10.7 cm in maximum dimension. LEFT KIDNEY: There is a 1.3 cm simple cyst in the upper pole for which no imaging follow-up is recommended. No hydronephrosis or renal calculi. The kidney measures 10.7 cm in maximum dimension. SPLEEN: Normal. The spleen measures 9.8 cm in maximum dimension. FREE FLUID: None. US/US abdomen complete IMPRESSION: Increased liver parenchymal echogenicity suggesting hepatic steatosis or hepatocellular disease. Correlate with liver function tests. Normal sonographic appearance of the gallbladder.
== END 2022-05-01 13:11 | disposition home or self-care (01) ==
LOC: HO.US 13:10
PROVIDERS: Visit Provider Internal Medicine
DX: R10.9 Unspecified abdominal pain (principal)
CPT/HCPCS: 76700

== ENCOUNTER → 2022-05-08 13:54 | Outpatient (REF) | payer MEDICARE, SELFPAY ==
--- NOTE | 2022-05-08 13:57 | CA_ITS ---
Transthoracic Echocardiogram Patient (Last, First, Middle): Penny Greenwood A Gender: Female Date of : 1945 Age: 77 Procedure Date: 05/08/2022 Procedure Type: Transthoracic Echocardiogram Location: OP Height: 165.1 cm Weight: 72.58 kg BSA: 1.80 m2 Heart Rate: bpm BP: 108 / 62 mmHg Containers Sales Representative: TO Referring MD: Prosper Brown MD Symptoms: I42.9 - Cardiomyopathy, unspecified Study Quality: Adequate Conclusions: - 1. Low normal LV systolic function with LVEF of 50-55% 2. Normal cardiac valvular Doppler 3. Normal RV systolic pressure 4. No gross pericardial effusi Findings Left Ventricle Normal left ventricular cavity size. There is normal left ventricular wall thickness. The left ventricular systolic function is low normal. The visually estimated ejection fraction is between 50-55%. There is paradoxical septal motion consistent with a right ventricular pacemaker. Diastolic function is indeterminate on the basis of available data. Wall Motion Rest Echo Findings The basal inferior and basal inferoseptal segments are hypokinetic. All other scored wall segments showed normal motion. Right Ventricle Mildly increased right ventricular cavity size. There is borderline right ventricular systolic function. There is a pacemaker wire seen in the right ventricle. Atria The left atrium is normal in size. There is no evidence of interatrial shunt. The right atrium is normal in size. A pacemaker wire is identified in the right atrium. Aortic Valve The aortic valve structure and function is likely normal. There is no aortic valve stenosis. There is no aortic valve regurgitation. Mitral Valve There is mild anterior and posterior mitral leaflet thickening. There is trace mitral valve regurgitation. There is no mitral valve stenosis. Pulmonic Valve The pulmonic valve is likely normal. Tricuspid Valve Normal tricuspid valve structure. There is mild tricuspid valve regurgitation. The right ventricular systolic pressure is normal. The right ventricular systolic pressure is 30 mmHg. Normal right atrial pressure. There is no evidence of pulmonary hypertension. Great Vessels All visible segments of the aorta are normal in size. The pulmonary artery was not well visualized. Venous The inferior vena cava is normal in size and collapses greater than 50% with inspiration. Pericardium/Pleural There is no evidence of pericardial effusion. Prior Study Comparison Changes noted compared to prior study dated: 02/13/2022. LV systolic function is near normal on this study Measurements 2D Linear Measurements IVSd: 1.04 0.6-0.9/0.6-1.0 cm LVIDd: 4.34 3.9-5.3/4.2-5.9 cm LVIDd Index: 2.41 2.4-3.2/2.2-3.1 cm/m2 LVIDs: 2.87 2.0-3.6 cm LVPWd: 0.96 0.7-1.1 cm LA Diam: 2.50 2.7-3.8/3.0-4.0 cm LAIDs Index: 1.39 1.5-2.3 cm/m2 LV Mass: 179.39 67-162/88-224 g LV Mass Index: 99.66 43-95/49-115 g/m2 LVOT Diam: 1.90 3.0+(-)1.3 cm 2D Systolic Function EF 4C: 48.60 >55% EF 2C: 52.10 >55% Mitral Valve MV Pk E: 0.88 MV Decel Time: 160.00 E'Lateral: 9.03 E'Medial: 10.80 E/E' Med: 8.20 E/E' Lat: 9.80 PHT: 47.00 MVA PHT: 4.68 Decel [place]: 5.51 LVOT LVOT Diam: 1.90 LVOT Area: 2.84 Diastolic Function MV Pk E: 0.88 E'Medial: 10.80 E/E' Med: 8.20 E' Laterial: 9.03 E/E' Lat: 9.80 Right Ventricle TAPSE (mm): 19.20 TVS' Kenneth: 13.50 Tricuspid Valve TR Pk Kenneth: 2.59 TR Pk Grad: 27.00 RA Press: 3.00 RVSP: 30.00 Great Vessels Aorta Ao Asc: 2.80 2.1-3.4 cm Updated in Other Vendor System with Status of Final Prosper Brown MD electronically signed on 05/09/2022 1:02:46 PM with status of Final
== END ==
LOC: HO.CARD 13:54
PROVIDERS: PCP Internal Medicine; Visit Provider Internal Medicine Cardiovascular Disease
DX: I42.9 Cardiomyopathy, unspecified (principal)
CPT/HCPCS: 93308

== ENCOUNTER 2022-05-21 09:20 | Outpatient (REF) | payer MEDICARE, SELFPAY ==
[2022-05-21 12:15] LABS: Appearance Urine Clear; Color Urine Yellow; Glucose Urine UA >=1000 mg/dL (Negative); Leukocyte Esterase Urine Moderate (2+) (Negative); Nitrite Urine Negative (Negative); PH 6.5 (5.0-8.0); Urine Blood Negative (Negative); Urine Ketones Negative (Negative); Urine Protein Trace mg/dL (Neg-Trace)
[2022-05-21 12:19] LABS: Bacteria Urine 1+ (None Seen); Hyaline Casts Urine 0-2 /LPF (0-2); RBC Urine 0-2 /HPF (0-2); UACC Culture Trigger YES; WBC Urine 21-50 /HPF (0-5)
== END 2022-05-21 09:21 | disposition home or self-care (01) ==
LOC: HO.HMGCLDS 09:20
PROVIDERS: PCP Internal Medicine; Visit Provider Internal Medicine
DX: I10 Essential (primary) hypertension (principal); E11.9 Type 2 diabetes mellitus without complications; E03.9 Hypothyroidism, unspecified; E78.5 Hyperlipidemia, unspecified; I48.0 Paroxysmal atrial fibrillation
CPT/HCPCS: 81001; 87086

== ENCOUNTER 2022-05-26 13:58 | Outpatient (REF) | payer MEDICARE, SELFPAY | END 2022-05-26 13:59 | disposition home or self-care (01) | LOC: HO.HMGCLDS 13:58 | PROVIDERS: PCP Internal Medicine; Visit Provider Physician Assistant | DX: R82.71 Bacteriuria (principal) | CPT/HCPCS: 87086 ==

== ENCOUNTER → 2022-06-23 13:51 | Outpatient (BNVA) | payer MEDICARE, SELFPAY | PROVIDERS: PCP Internal Medicine; Referring Provider Internal Medicine; Visit Provider Internal Medicine Cardiovascular Disease | DX: Z45.018 Encounter for adjustment and management of other part of cardiac pacemaker (principal); I51.81 Takotsubo syndrome; I48.0 Paroxysmal atrial fibrillation | CPT/HCPCS: 93280; 99212 ==

== ENCOUNTER 2022-08-20 14:53 | Outpatient (REF) | payer MEDICARE, SELFPAY ==
[2022-08-20 16:48] LABS: MANUAL DIFF FLAG NO
[2022-08-20 16:50] LABS: Basophils Percent Auto 0.5 % (0-2); Eosinophils Absolute Auto 0.1 X10*3/uL (0.0-0.4); Eosinophils Percent Auto 1.4 % (0-4); Hematocrit 46.5 % (37.0-47.0); Hemoglobin 14.5 g/dl (12.0-16.0); Imm Gran Abs Auto 0.03 X10*3/uL (0.00-0.03); Imm Gran Pct Auto 0.4 % (0.0-0.4); Lymphocytes Absolute Auto 1.1 X10*3/uL (1.2-4.9); Mean Corpuscular HGB Conc 31.2 g/dl (31.0-35.0); Mean Corpuscular Hemoglobin 26.7 pg (27.0-33.0); Mean Corpuscular Volume 85.5 fL (80.0-98.0); Mean Platelet Volume 10.6 fL (9.4-12.3); Monocytes Absolute Auto 0.6 X10*3/uL (0.1-1.2); Monocytes Percent Auto 7.2 % (2-11); Neutrophils Absolute Auto 6.2 x10*3/uL (2.0-8.3); Neutrophils Percent Auto 76.5 % (45-73); Platelet Count 226 X10*3/uL (160-400); Red Blood Count 5.44 X10*6/uL (4.20-5.50); Red Cell Distribution Width 17.1 % (11.0-16.0); White Blood Count 8.1 X10*3/uL (4.8-10.8)
[2022-08-20 17:02] LABS: Estimated Average Glucose 177 mg/dL; Hemoglobin A1c % 7.8 %
[2022-08-20 17:11] LABS: Alanine Aminotransferase 19 U/L (0-31); Alkaline Phosphatase 99 U/L (39-117); Anion Gap 17 (12-20); Aspartate Amino Transferase 21 U/L (5-31); Bilirubin Total 0.5 mg/dL (0.0-1.0); Blood Urea Nitrogen 25 mg/dL (9-16); Calcium 9.6 mg/dL (8.4-10.2); Carbon Dioxide 20 mmol/L (22-29); Chloride 107 mmol/L (96-108); Cholesterol 156 mg/dL; Estimated Glomerular Filt Rate 29; Glucose Fasting 233 mg/dL (60-99); HDL Cholesterol 60 mg/dL; LDL Cholesterol Calculated 59 mg/dl; Sodium 139 mmol/L (135-145); Total Protein 7.3 g/dL (6.5-8.0); Triglycerides 187 mg/dL
[2022-08-20 17:30] LABS: Albumin Level 4.2 g/dL (3.5-5.0)
== END 2022-08-20 14:54 | disposition home or self-care (01) ==
LOC: HO.HMGCLDS 14:53
PROVIDERS: PCP Internal Medicine; Visit Provider Internal Medicine
DX: I12.9 Hypertensive chronic kidney disease with stage 1 through stage 4 chronic kidney disease, or unspecified chronic kidney disease (principal); E11.22 Type 2 diabetes mellitus with diabetic chronic kidney disease; N18.30 Chronic kidney disease, stage 3 unspecified; E03.9 Hypothyroidism, unspecified; E78.5 Hyperlipidemia, unspecified
CPT/HCPCS: 36415; 80053; 80061; 83036; 85025

== ENCOUNTER 2022-11-20 10:44 | Outpatient (REF) | payer MEDICARE, SELFPAY ==
--- NOTE | ~2022-11-20 | XR_ITS ---
EXAMINATION: XR BILATERAL HIPS WITH AP PELVIS CLINICAL INFORMATION: Left hip pain. COMPARISON: Radiographs dated 11/15/2014. TECHNIQUE: AP and frog-leg lateral views of each hip and an AP view of the pelvis. FINDINGS: There is bony demineralization. There is an intact right hip total arthroplasty and a cerclage wire, without hardware loosening seen. The left acetabular joint space is well-maintained. There is mild subchondral sclerosis of the left acetabular roof. The left femoral head appears smooth. No fracture or dislocation is seen. There are pelvic phleboliths. The sacroiliac joints are symmetric and well-maintained. The pubic symphysis is intact. No foreign body is seen. XR/XR hip BI w PEL1V IMPRESSION: 1. There is an intact right hip total arthroplasty. 2. 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 3. No fracture or dislocation is seen.
== END 2022-11-20 10:45 | disposition home or self-care (01) ==
LOC: HO.HMGCX 10:44
PROVIDERS: PCP Internal Medicine; Visit Provider Internal Medicine
DX: M25.552 Pain in left hip (principal)
CPT/HCPCS: 73521

== ENCOUNTER 2022-12-14 10:01 | Outpatient (REF) | payer MEDICARE, SELFPAY ==
[2022-12-14 11:34] LABS: MANUAL DIFF FLAG NO
[2022-12-14 11:47] LABS: Basophils Absolute Auto 0.1 X10*3/uL (0.0-0.2); Basophils Percent Auto 0.7 % (0-2); Eosinophils Absolute Auto 0.2 X10*3/uL (0.0-0.4); Eosinophils Percent Auto 2.3 % (0-4); Hematocrit 45.8 % (37.0-47.0); Hemoglobin 14.6 g/dl (12.0-16.0); Imm Gran Abs Auto 0.04 X10*3/uL (0.00-0.03); Imm Gran Pct Auto 0.6 % (0.0-0.4); Mean Corpuscular HGB Conc 31.9 g/dl (31.0-35.0); Mean Corpuscular Hemoglobin 28.3 pg (27.0-33.0); Mean Corpuscular Volume 88.9 fL (80.0-98.0); Monocytes Absolute Auto 0.5 X10*3/uL (0.1-1.2); Monocytes Percent Auto 7.8 % (2-11); Neutrophils Absolute Auto 5.1 x10*3/uL (2.0-8.3); Neutrophils Percent Auto 73.6 % (45-73); Platelet Count 199 X10*3/uL (160-400); Red Blood Count 5.15 X10*6/uL (4.20-5.50); Red Cell Distribution Width 14.8 % (11.0-16.0); White Blood Count 6.9 X10*3/uL (4.8-10.8)
[2022-12-14 12:02] LABS: Estimated Average Glucose 197 mg/dL; Hemoglobin A1c % 8.5 %
[2022-12-14 12:38] LABS: Alanine Aminotransferase 21 U/L (0-31); Albumin Level 4.1 g/dL (3.5-5.0); Alkaline Phosphatase 83 U/L (39-117); Anion Gap 16 (12-20); Aspartate Amino Transferase 20 U/L (5-31); Bilirubin Total 0.9 mg/dL (0.0-1.0); Blood Urea Nitrogen 23 mg/dL (9-16); Calcium 9.4 mg/dL (8.4-10.2); Carbon Dioxide 24 mmol/L (22-29); Chloride 105 mmol/L (96-108); Cholesterol 186 mg/dL; Estimated Glomerular Filt Rate 29; Glucose Fasting 152 mg/dL (60-99); HDL Cholesterol 69 mg/dL; LDL Cholesterol Calculated 91 mg/dl; Potassium 4.6 mmol/L (3.3-5.1); Sodium 140 mmol/L (135-145); Total Protein 6.6 g/dL (6.5-8.0); Triglycerides 130 mg/dL
[2022-12-14 12:39] LABS: TSH reflex Free T4 5.93 uIU/mL (0.32-4.0)
[2022-12-14 13:09] LABS: Free T4 (Free Thyroxine) 0.86 ng/dL (0.71-1.85)
== END 2022-12-14 10:02 | disposition home or self-care (01) ==
LOC: HO.HMGCLDS 10:01
PROVIDERS: PCP Internal Medicine; Visit Provider Internal Medicine
DX: E11.22 Type 2 diabetes mellitus with diabetic chronic kidney disease (principal); I12.9 Hypertensive chronic kidney disease with stage 1 through stage 4 chronic kidney disease, or unspecified chronic kidney disease; I51.81 Takotsubo syndrome; N18.30 Chronic kidney disease, stage 3 unspecified; E03.9 Hypothyroidism, unspecified; E78.5 Hyperlipidemia, unspecified; I48.0 Paroxysmal atrial fibrillation
CPT/HCPCS: 36415; 80053; 80061; 83036; 84439; 84443; 85025

== ENCOUNTER → 2023-02-02 13:35 | Outpatient (BNVA) | payer MEDICARE, SELFPAY | PROVIDERS: PCP Internal Medicine; Referring Provider Internal Medicine; Visit Provider Internal Medicine Cardiovascular Disease | DX: I48.0 Paroxysmal atrial fibrillation (principal); E11.22 Type 2 diabetes mellitus with diabetic chronic kidney disease; I13.10 Hypertensive heart and chronic kidney disease without heart failure, with stage 1 through stage 4 chronic kidney disease, or unspecified chronic kidney disease; N18.30 Chronic kidney disease, stage 3 unspecified; Z45.018 Encounter for adjustment and management of other part of cardiac pacemaker | CPT/HCPCS: 93280; 99212 ==

== ENCOUNTER 2023-03-12 08:47 | Outpatient (REF) | payer MEDICARE, SELFPAY ==
[2023-03-12 11:34] LABS: MANUAL DIFF FLAG NO
[2023-03-12 11:37] LABS: Basophils Percent Auto 0.7 % (0-2); Eosinophils Absolute Auto 0.1 X10*3/uL (0.0-0.4); Eosinophils Percent Auto 2.3 % (0-4); Hematocrit 45.8 % (37.0-47.0); Hemoglobin 14.1 g/dl (12.0-16.0); Imm Gran Abs Auto 0.04 X10*3/uL (0.00-0.03); Imm Gran Pct Auto 0.7 % (0.0-0.4); Lymphocytes Absolute Auto 1.3 X10*3/uL (1.2-4.9); Lymphocytes Percent Auto 21.9 % (20-40); Mean Corpuscular HGB Conc 30.8 g/dl (31.0-35.0); Mean Corpuscular Hemoglobin 27.9 pg (27.0-33.0); Mean Corpuscular Volume 90.5 fL (80.0-98.0); Mean Platelet Volume 10.7 fL (9.4-12.3); Monocytes Absolute Auto 0.5 X10*3/uL (0.1-1.2); Monocytes Percent Auto 8.6 % (2-11); Neutrophils Percent Auto 65.8 % (45-73); Platelet Count 217 X10*3/uL (160-400); Red Blood Count 5.06 X10*6/uL (4.20-5.50); Red Cell Distribution Width 13.8 % (11.0-16.0)
[2023-03-12 12:11] LABS: Alanine Aminotransferase 17 U/L (0-31); Albumin Level 4.1 g/dL (3.5-5.0); Alkaline Phosphatase 88 U/L (39-117); Anion Gap 11 (12-20); Aspartate Amino Transferase 20 U/L (5-31); Bilirubin Total 0.7 mg/dL (0.0-1.0); Blood Urea Nitrogen 17 mg/dL (9-16); Calcium 9.5 mg/dL (8.4-10.2); Carbon Dioxide 27 mmol/L (22-29); Chloride 107 mmol/L (96-108); Cholesterol 154 mg/dL; Estimated Glomerular Filt Rate 34; Glucose Fasting 106 mg/dL (60-99); HDL Cholesterol 59 mg/dL; LDL Cholesterol Calculated 72 mg/dl; Potassium 4.4 mmol/L (3.3-5.1); Sodium 141 mmol/L (135-145); Total Protein 6.9 g/dL (6.5-8.0); Triglycerides 118 mg/dL
[2023-03-12 12:13] LABS: Creatinine Urine 114.71 mg/dL
[2023-03-12 12:16] LABS: Estimated Average Glucose 174 mg/dL; Hemoglobin A1c % 7.7 %
[2023-03-12 12:29] LABS: TSH reflex Free T4 3.22 uIU/mL (0.32-4.0)
== END 2023-03-12 08:48 | disposition home or self-care (01) ==
LOC: HO.HMGCLDS 08:47
PROVIDERS: PCP Internal Medicine; Visit Provider Internal Medicine
DX: E11.22 Type 2 diabetes mellitus with diabetic chronic kidney disease (principal); I12.9 Hypertensive chronic kidney disease with stage 1 through stage 4 chronic kidney disease, or unspecified chronic kidney disease; N18.30 Chronic kidney disease, stage 3 unspecified; E03.9 Hypothyroidism, unspecified; E78.5 Hyperlipidemia, unspecified
CPT/HCPCS: 36415; 80053; 80061; 82043; 83036; 84443; 85025

== ENCOUNTER 2023-03-16 11:23 | Outpatient (REF) | payer MEDICARE, SELFPAY ==
--- NOTE | ~2023-03-16 | XR_ITS ---
EXAMINATION: XR KNEE AP STANDING AND LATERAL CLINICAL INFORMATION: Bilateral knee pain COMPARISON: None available. TECHNIQUE: Standing AP and lateral views of both knees were obtained. FINDINGS: Right knee: No fracture or dislocation. Joint spaces are well-maintained. No suprapatellar joint effusion. No significant degenerative changes. No focal soft tissue swelling of the anterior knee. Mild vascular calcifications. Left knee: No fracture or dislocation. Joint spaces are well-maintained. No suprapatellar joint effusion. No significant degenerative changes. No focal soft tissue swelling of the anterior knee. Mild vascular calcifications. XR/XR knee standing BI IMPRESSION: Unremarkable radiographs of the bilateral knees.
== END 2023-03-16 11:24 | disposition home or self-care (01) ==
LOC: HO.HMGCX 11:23
PROVIDERS: PCP Internal Medicine; Visit Provider Internal Medicine
DX: M25.562 Pain in left knee (principal); M25.561 Pain in right knee
CPT/HCPCS: 73565

== ENCOUNTER 2023-06-10 09:02 | Outpatient (REF) | payer MEDICARE, SELFPAY ==
[2023-06-10 11:41] LABS: Alanine Aminotransferase 19 U/L (0-31); Albumin Level 4.1 g/dL (3.5-5.0); Alkaline Phosphatase 80 U/L (39-117); Anion Gap 11 (12-20); Aspartate Amino Transferase 19 U/L (5-31); Bilirubin Total 0.7 mg/dL (0.0-1.0); Blood Urea Nitrogen 19 mg/dL (9-16); Calcium 9.9 mg/dL (8.4-10.2); Carbon Dioxide 24 mmol/L (22-29); Chloride 111 mmol/L (96-108); Cholesterol 147 mg/dL (<200); Estimated Glomerular Filt Rate 35; Glucose Fasting 120 mg/dL (60-99); HDL Cholesterol 55 mg/dL (>40); LDL Cholesterol Calculated 67 mg/dL (<100); Potassium 4.2 mmol/L (3.3-5.1); Sodium 142 mmol/L (135-145); Total Protein 7.1 g/dL (6.5-8.0); Triglycerides 125 mg/dL (<150)
[2023-06-10 12:01] LABS: Estimated Average Glucose 163 mg/dL; Hemoglobin A1C 227.3784 umol/L; Hemoglobin A1c % 7.3 % (<6.0)
== END 2023-06-10 09:03 | disposition home or self-care (01) ==
LOC: HO.HMGCLDS 09:02
PROVIDERS: PCP Internal Medicine; Visit Provider Internal Medicine
DX: E11.9 Type 2 diabetes mellitus without complications (principal); E03.9 Hypothyroidism, unspecified; I10 Essential (primary) hypertension; E78.5 Hyperlipidemia, unspecified
CPT/HCPCS: 36415; 80053; 80061; 83036

== ENCOUNTER → 2023-06-12 23:59 | Outpatient (BNV) | payer MEDICARE, SELFPAY ==
--- NOTE | 2023-06-14 09:38 | MHC.OFFVIS ---
Intake Intake Visit Reasons: Remote Device Check- [facility] [employer] Allergies lisinopril Allergy (Unknown, Verified 03/15/23 12:23) Hyperkalemia nitrofurantoin [Macrobid] Adverse Reaction (Unknown, Verified 03/15/23 12:23) dizziness PFSH Medical History Cardiac pacemaker in situ Cataract CKD (chronic kidney disease), stage III Complete heart block DM type 2 (diabetes mellitus, type 2) HTN (hypertension) Hyperkalemia Hyperlipemia Hypothyroidism Paroxysmal atrial fibrillation Vitamin D deficiency Surgical History History of hip surgery History of permanent cardiac pacemaker placement History of tonsillectomy and adenoidectomy Hx of cardiac cath Hx of mastectomy Family History Father Cancer Mother Diabetes Social History Housing: House Alcohol intake: never Patient Tobacco Use Status: Former Tobacco user Tobacco use type: Cigarette e-Cigarette/Vaping Use: Never Used service: No Current occupational status: retired Cognitive needs: No Hearing needs: No Vision needs: Yes Office Procedures Cardiac Device Check Cardiac Device Check Details: Remote pacemaker report generated 06/12/2023. Pacemaker function is adequate. Battery life is 3 months. Will follow monthly as patient is ventricularly pacer dependent [id number] Cardiac Device Interrogation, pacemaker Procedure code (CPT) selection complete Coding Level of Care Code Procedure Only CPT Codes Cardiac Device Check - Cardiac Device 12: [id number] Cardiac Device Interrogation, pacemaker ([id number])
== END ==
PROVIDERS: PCP Internal Medicine; Visit Provider Internal Medicine Cardiovascular Disease
DX: I48.0 Paroxysmal atrial fibrillation (principal); Z95.0 Presence of cardiac pacemaker
CPT/HCPCS: 93294

== ENCOUNTER 2023-06-15 12:13 | Outpatient (AMB) | payer MEDICARE, SELFPAY ==
[2023-06-15 12:17] VITALS: BP 110/64; PULSE 67; O2SAT 95; BMI 27.0
--- NOTE | 2023-06-15 12:17 | MHC.PC.OV ---
Vital Signs 06/15/23 12:17 Height 5 ft 5 in Weight 162 lb 4 oz BMI 27.0 BP 110/64 Blood Pressure Location Rt brachial Position Sitting Pulse 67 Pulse Source Pulse Oximeter Pulse Oximetry (%) 95 Oxygen Delivery Method Room Air Intake Visit Reasons: 3 Month follow up Intake Note: pt is here for a 3 month follow up Allergies lisinopril Allergy (Unknown, Verified 06/15/23 12:20) Hyperkalemia nitrofurantoin [Macrobid] Adverse Reaction (Unknown, Verified 06/15/23 12:20) dizziness Medication List - Last Reconciled 06/15/23 by Dipika Casas MD atorvastatin 20 mg PO DAILY blood sugar diagnostic As directed blood sugar diagnostic (FreeStyle Lite Strips) Test blood sugar TID dapagliflozin propanediol (Farxiga) 10 mg PO DAILY flu vacc [id number](65yr up)-PF 0.7 mL IM ONCE insulin glargine (Lantus Solostar U-100 Insulin) 20 units (0.2 mL) subcut DAILY isosorbide mononitrate ER 30 mg PO DAILY lancets (FreeStyle Lancets) Test up to 3 times per day levothyroxine 125 mcg PO DAILY metoprolol succinate ER 50 mg PO DAILY pantoprazole 40 mg PO DAILY pen needle, diabetic (BD Ultra-Fine Mini Pen Needle) Use to inject insulin once a day rivaroxaban (Xarelto) 15 mg PO DAILY sertraline 75 mg (1.5 x 50 mg) PO DAILY tiotropium bromide 1 cap inhalation BEDTIME Tobacco use date assessed: 06/15/23 Fall risk assessment: No Falls in past year Last assessed Fall Risk: 06/15/23 Dental Screening Dental Screen Date: 06/15/23 Did you have a dental visit in the last 12 months?: No Did you have a dental problem in the last 6 months where you did not have access to dental care?: No Was dental information given to patient?: Patient has dentist HPI 3 Month follow up HPI Details Pt presents for f/u IDDM, hyperlipid, HTN, stable on meds. Patient has been is in assisted and she visits him daily [facility] Medical History Hyperkalemia CKD (chronic kidney disease), stage III Cataract Vitamin D deficiency DM type 2 (diabetes mellitus, type 2) Hypothyroidism Hyperlipemia HTN (hypertension) Paroxysmal atrial fibrillation Cardiac pacemaker in situ Complete heart block Surgical History Hx of mastectomy History of permanent cardiac pacemaker placement History of tonsillectomy and adenoidectomy History of hip surgery Hx of cardiac cath Family History Father Cancer Mother Diabetes Social History Housing: House Alcohol intake: never Patient Tobacco Use Status: Former Tobacco user Tobacco use type: Cigarette e-Cigarette/Vaping Use: Never Used service: No Current occupational status: retired Cognitive needs: No Hearing needs: No Vision needs: Yes Questionnaire Thrive Questionnaire Date Thrive assessed: 11/20/22 LEON-7 AMB Questionnaire LEON-7 Date LEON - 7 assessed: 11/20/22 Source: Developed by Drs. Star Vitale, Grace Sprague, Ham Landrum and colleagues, with an educational gaston from [place]. Review of Systems Const All systems reviewed & are unremarkable except as noted in HPI and below Reports no additional complaints Eyes Reports no additional complaints ENT Reports no additional complaints Card Reports no additional complaints Resp Reports no additional complaints GI Reports no additional complaints Reports no additional complaints Physical exam (Primary Care) Vital Signs: Last Vital Signs Pulse 67 06/15/23 12:17 BP 110/64 06/15/23 12:17 Pulse Ox 95 06/15/23 12:17 Oxygen Delivery Method Room Air 06/15/23 12:17 BMI result Body Mass Index 27.0 Tobacco/Smoking Status: Tobacco use Status Tobacco use date assessed 06/15/23 06/15/23 12:24 Patient Tobacco Use Status Former Tobacco user 06/15/23 12:24 Tobacco use type Cigarette 06/15/23 12:24 e-Cigarette/Vaping Use Never Used 06/15/23 12:24 Thrive Assessment: Date of Thrive Assessment Date Thrive assessed 11/20/22 06/15/23 12:24 Const General: no acute distress HENMT Head: Yes normal to inspection Ears: hearing grossly normal bilaterally General nose exam: Normal external nose present Face and sinus: Yes normal facial exam Mouth: Normal oral and palatal mucosa present Throat: Yes posterior oropharynx normal Eyes General: appearance normal, both eyes and all related structures Neck Neck: Yes supple Resp Effort & Inspection: normal respiratory effort Auscultation: clear to auscultation bilaterally Cardio Rhythm: regular rhythm Heart sounds: S1 normal heart sound present and S2 normal heart sound present GI Inspection: Yes normal to inspection Palpation (GI): Soft to palpation Percussion: Yes normal to percussion Auscultation: normal bowel sounds Assessment and Plan Assessment & Plan (1) CKD (chronic kidney disease), stage III: Code(s): N18.30 - Chronic kidney disease, stage 3 unspecified Plan: Monitor renal function and avoid NSAID (2) DM type 2 (diabetes mellitus, type 2): Code(s): E11.9 - Type 2 diabetes mellitus without complications Plan: A1c is down to 7.1, ADA diet increase physical activity weight loss discussed with the patient she will continue same medications and will return in 4 months with a fasting labs before (3) Hypothyroidism: Code(s): E03.9 - Hypothyroidism, unspecified Plan: Continue levothyroxine (4) Hyperlipemia: Code(s): E78.5 - Hyperlipidemia, unspecified Plan: Continue statin (5) Paroxysmal atrial fibrillation: Code(s): I48.0 - Paroxysmal atrial fibrillation Plan: Continue Xarelto Orders: Orders Hemoglobin A1c 4 Months E03.9 - Hypothyroidism, unspecified, E11.9 - Type 2 diabetes mellitus without complications, E78.5 - Hyperlipidemia, unspecified, N18.30 - Chronic kidney disease, stage 3 unspecified Lipid Panel 4 Months E03.9 - Hypothyroidism, unspecified, E11.9 - Type 2 diabetes mellitus without complications, E78.5 - Hyperlipidemia, unspecified, N18.30 - Chronic kidney disease, stage 3 unspecified Comprehensive [place]. Panel Fast 4 Months E03.9 - Hypothyroidism, unspecified, E11.9 - Type 2 diabetes mellitus without complications, E78.5 - Hyperlipidemia, unspecified, N18.30 - Chronic kidney disease, stage 3 unspecified Complete Blood Count Auto Diff 4 Months E03.9 - Hypothyroidism, unspecified, E11.9 - Type 2 diabetes mellitus without complications, E78.5 - Hyperlipidemia, unspecified, N18.30 - Chronic kidney disease, stage 3 unspecified TSH reflex Free T4 4 Months E03.9 - Hypothyroidism, unspecified, E11.9 - Type 2 diabetes mellitus without complications, E78.5 - Hyperlipidemia, unspecified, N18.30 - Chronic kidney disease, stage 3 unspecified Coding Level of Care Code Est Pt Level 4 (21266) Diagnoses CKD (chronic kidney disease), stage III N18.30 DM type 2 (diabetes mellitus, type 2) E11.9 Hypothyroidism E03.9 Hyperlipemia E78.5 Paroxysmal atrial fibrillation I48.0
== END 2023-06-15 13:56 | disposition home or self-care (01) ==
PROVIDERS: PCP Internal Medicine; Visit Provider Internal Medicine
DX: I12.9 Hypertensive chronic kidney disease with stage 1 through stage 4 chronic kidney disease, or unspecified chronic kidney disease (principal); N18.30 Chronic kidney disease, stage 3 unspecified; E11.22 Type 2 diabetes mellitus with diabetic chronic kidney disease; E03.9 Hypothyroidism, unspecified; I48.0 Paroxysmal atrial fibrillation; E78.5 Hyperlipidemia, unspecified
CPT/HCPCS: 99214

== ENCOUNTER → 2023-07-12 23:59 | Outpatient (BNV) | payer MEDICARE, SELFPAY ==
--- NOTE | 2023-07-26 08:55 | MHC.OFFVIS ---
Intake Intake Visit Reasons: Remote Device Check- [facility] Allergies lisinopril Allergy (Unknown, Verified 06/15/23 12:20) Hyperkalemia nitrofurantoin [Macrobid] Adverse Reaction (Unknown, Verified 06/15/23 12:20) dizziness PFSH Medical History Hyperkalemia CKD (chronic kidney disease), stage III Cataract Vitamin D deficiency DM type 2 (diabetes mellitus, type 2) Hypothyroidism Hyperlipemia HTN (hypertension) Paroxysmal atrial fibrillation Cardiac pacemaker in situ Complete heart block Surgical History Hx of mastectomy History of permanent cardiac pacemaker placement History of tonsillectomy and adenoidectomy History of hip surgery Hx of cardiac cath Family History Father Cancer Mother Diabetes Social History Housing: House Alcohol intake: never Patient Tobacco Use Status: Former Tobacco user Tobacco use type: Cigarette e-Cigarette/Vaping Use: Never Used service: No Current occupational status: retired Cognitive needs: No Hearing needs: No Vision needs: Yes Office Procedures Cardiac Device Check Cardiac Device Check Details: Remote pacemaker report generated 07/12/2023. Pacemaker function is adequate. Battery life is at CELIA. Will schedule for an office visit. Patient is pacer dependent in the ventricle. [id number] Cardiac Device Interrogation, pacemaker Procedure code (CPT) selection complete Coding Level of Care Code Procedure Only CPT Codes Cardiac Device Check - Cardiac Device 12: [id number] Cardiac Device Interrogation, pacemaker ([id number])
== END ==
PROVIDERS: PCP Internal Medicine; Visit Provider Internal Medicine Cardiovascular Disease
DX: I48.0 Paroxysmal atrial fibrillation (principal); Z95.0 Presence of cardiac pacemaker
CPT/HCPCS: 93294

== ENCOUNTER → 2023-07-29 12:42 | Outpatient (REF) | payer MEDICARE, SELFPAY ==
--- NOTE | 2023-07-29 12:47 | CA_ITS ---
Transthoracic Echocardiogram Patient (Last, First, Middle): Penny Greenwood A Gender: Female Date of : 1945 Age: 78 Procedure Date: 07/29/2023 Procedure Type: Transthoracic Echocardiogram Location: OP Height: 165.1 cm Weight: 75.3 kg BSA: 1.83 m2 Heart Rate: 77 bpm BP: 120 / 80 mmHg Director Graphics: YURI Referring MD: Prosper Brown MD Sheriff'S Sergeant: Prosper Brown MD Symptoms: I48.0 - Paroxysmal atrial fibrillation Study Quality: Technically Difficult/w Contrast ECG Rhythm: Ventriculary paced rhythm Conclusions: - 1. Normal LV ejection fraction 55-60% with impaired relaxation filling pattern 2. Cardiac valvular Dopplers within normal limits 3. Normal RV systolic pressure 4. No gross pericardial effusion Findings Procedure Information Contrast agent, definity, is being given per protocol without apparent complications. Left Ventricle Normal left ventricular size, thickness, and systolic function. The visually estimated ejection fraction is between 55-60%. Regional wall motion abnormalities can not be excluded due to suboptimal endocardial definition. There is paradoxical septal motion consistent with a right ventricular pacemaker. Spectral Doppler is indicative of an impaired relaxation filling pattern. Right Ventricle The right ventricle was not well visualized. There is a pacemaker wire seen in the right ventricle. Atria The left atrium is normal in size. Interatrial shunt cannot be excluded. The right atrium was not well visualized. A pacemaker wire is identified in the right atrium. Aortic Valve The aortic valve was not well visualized. There is no aortic valve stenosis. There is no aortic valve regurgitation. Mitral Valve Likely normal mitral valve structure and function. There is trace mitral valve regurgitation. There is no mitral valve stenosis. Pulmonic Valve The pulmonic valve was not well visualized. Tricuspid Valve Likely normal tricuspid valve structure and function. There is mild tricuspid valve regurgitation. The right ventricular systolic pressure is normal. The right ventricular systolic pressure is 26 mmHg. Normal right atrial pressure. There is no evidence of pulmonary hypertension. Great Vessels All visible segments of the aorta are normal in size. The pulmonary artery was not well visualized. Venous The inferior vena cava is normal in size and collapses greater than 50% with inspiration. Pericardium/Pleural There is no evidence of pericardial effusion. Prior Study Comparison Changes noted compared to prior study dated: 05/08/2022. LV function is normal range Measurements 2D Linear Measurements IVSd: 1.00 0.6-0.9/0.6-1.0 cm LVIDd: 4.70 3.9-5.3/4.2-5.9 cm LVIDd Index: 2.57 2.4-3.2/2.2-3.1 cm/m2 LVIDs: 2.80 2.0-3.6 cm LVPWd: 0.80 0.7-1.1 cm LA Diam: 2.40 2.7-3.8/3.0-4.0 cm LAIDs Index: 1.31 1.5-2.3 cm/m2 LV Mass: 177.63 67-162/88-224 g LV Mass Index: 97.07 43-95/49-115 g/m2 LVOT Diam: 1.80 3.0+(-)1.3 cm 2D Systolic Function EF 4C: 67.00 >55% EF 2C: 51.20 >55% EF BiP: 58.70 >55% Mitral Valve MV Pk E: 0.58 MV PK A: 0.76 MV Decel Time: 194.00 E/A: 0.80 E'Lateral: 3.37 E'Medial: 4.13 E/E' Med: 14.10 E/E' Lat: 17.30 PHT: 57.00 MVA PHT: 3.86 Decel [place]: 3.00 Aortic Valve AoV Pk Kenneth: 1.39 AoV Mn Kenneth: 0.97 AoV VTI: 0.23 AoV Pk Grad: 8.00 Aov Mn Grad: 4.00 BRYANT Cont.VTI: 1.57 LVOT LVOT Pk Kenneth: 0.88 LVOT Mn Kenneth: 0.58 LVOT VTI: 0.15 LVOT Pk Grad: 3.00 LVOT Mn Grad: 2.00 LVOT Diam: 1.80 LVOT Area: 2.54 Diastolic Function MV Pk E: 0.58 MV Pk A: 0.76 E/A: 0.80 E'Medial: 4.13 E/E' Med: 14.10 E' Laterial: 3.37 E/E' Lat: 17.30 Right Ventricle TAPSE (mm): 22.80 TVS' Kenneth: 13.30 Tricuspid Valve TR Pk Kenneth: 2.42 TR Pk Grad: 23.00 RA Press: 3.00 RVSP: 26.00 Great Vessels Aorta Sinus of Valsalva: 3.50 2.0-3.5 cm Ao Asc: 3.00 2.1-3.4 cm Pulmonary Valve PV Pk Kenneth: 0.96 Peak PV Grad: 4.00 Updated in Other Vendor System with Status of Final Prosper Brown MD electronically signed on 07/30/2023 4:09:25 PM with status of Final
== END ==
LOC: HO.CARD 12:42
PROVIDERS: PCP Internal Medicine; Visit Provider Internal Medicine Cardiovascular Disease
DX: I48.0 Paroxysmal atrial fibrillation (principal)
CPT/HCPCS: 93280; 93306; 99212; Q9957

== ENCOUNTER 2023-07-29 14:13 | Outpatient (AMB) | payer MEDICARE, SELFPAY ==
[2023-07-29 14:14] VITALS: BP 110/62; PULSE 78; BMI 26.6
--- NOTE | 2023-07-29 14:14 | A.OFFVIS_ITS ---
Intake Vital Signs 07/29/23 14:14 Height 5 ft 5 in Weight 159 lb 9.835 oz BMI 26.6 BP 110/62 Blood Pressure Location Lt brachial Position Sitting Pulse 78 Pulse Source Pulse Oximeter Intake Visit Reasons: follow-up to discuss need for battery change Flight Attendant/Inflight Manager Required: No Allergies lisinopril Allergy (Unknown, Verified 07/29/23 14:16) Hyperkalemia nitrofurantoin [Macrobid] Adverse Reaction (Unknown, Verified 07/29/23 14:16) dizziness Medication List - Last Reconciled 07/29/23 by RHETT Saha atorvastatin 20 mg PO DAILY blood sugar diagnostic As directed blood sugar diagnostic (FreeStyle Lite Strips) Test blood sugar TID dapagliflozin propanediol (Farxiga) 10 mg PO DAILY flu vacc [id number](65yr up)-PF 0.7 mL IM ONCE insulin glargine (Lantus Solostar U-100 Insulin) 20 units (0.2 mL) subcut DAILY isosorbide mononitrate ER 30 mg PO DAILY lancets (FreeStyle Lancets) Test up to 3 times per day levothyroxine 125 mcg PO DAILY metoprolol succinate ER 50 mg PO DAILY pantoprazole 40 mg PO DAILY pen needle, diabetic (BD Ultra-Fine Mini Pen Needle) Use to inject insulin once a day rivaroxaban (Xarelto) 15 mg PO DAILY sertraline 75 mg (1.5 x 50 mg) PO DAILY tiotropium bromide 1 cap inhalation BEDTIME HPI follow-up to discuss need for battery change HPI Details Penny is an 78-year-old female with past medical history of hypertension, hyperlipidemia, diabetes, chronic kidney disease, paroxysmal atrial fibrillation, stress-induced cardiomyopathy with normalization of EF, cardiac pacemaker who presents for follow-up with report of dizziness. Today she states that for the last 3-4 nights when she lays down in bed she has a dizzy spell that last for 2-3 minutes and goes away. She was having an echocardiogram yesterday and again in the laying down position she had a dizzy spell. She has not had any dizziness in an upright position or during activities throughout the day. She has never had issues with vertigo in the past. When she is laying down for a few minutes her symptom resolves. No chest discomfort at rest or with activity. No shortness of breath, palpitations, presyncope, syncope, PND, orthopnea or edema. Taking meds as directed. No bleeding issues with Xarelto. [facility] Medical History Hyperkalemia CKD (chronic kidney disease), stage III Cataract Vitamin D deficiency DM type 2 (diabetes mellitus, type 2) Hypothyroidism Hyperlipemia HTN (hypertension) Paroxysmal atrial fibrillation Cardiac pacemaker in situ Complete heart block Surgical History Hx of mastectomy History of permanent cardiac pacemaker placement History of tonsillectomy and adenoidectomy History of hip surgery Hx of cardiac cath Family History Father Cancer Mother Diabetes Social History Housing: House Alcohol intake: never Patient Tobacco Use Status: Former Tobacco user Tobacco use type: Cigarette e-Cigarette/Vaping Use: Never Used service: No Current occupational status: retired Cognitive needs: No Hearing needs: No Vision needs: Yes Review of Systems Const All systems reviewed & are unremarkable except as noted in HPI and below ENT Reports dizziness (When she lays down for the last few days, lasting 2-3 minutes) Card Denies chest pain, Denies chest pain at rest, Denies chest pain with activity, Denies rapid heart rate, Denies pedal edema, Denies edema, Denies leg edema, Denies lightheadedness, Denies palpitations, Denies dyspnea, Denies dyspnea on exertion and Denies orthopnea Resp Denies cough, Denies dyspnea and Denies dyspnea on exertion GI Denies hematochezia and Denies change in stool character Musc Denies abnormal gait, Denies limited range of motion, Denies muscle cramps, Denies muscle weakness, Denies numbness, Denies radiating pain into limb, Denies stiffness and Denies tingling Neuro Denies abnormal gait, Reports dizziness (When she lays down for the last few days, lasting 2-3 minutes), Denies numbness and Denies tingling Endo Denies palpitations Physical Exam Vital Signs: Last Vital Signs Pulse 78 07/29/23 14:14 BP 110/62 07/29/23 14:14 BMI result Body Mass Index 26.6 Const General: cooperative, healthy appearing, comfortable and no acute distress Orientation/consciousness: patient oriented x3 Neck Neck: Yes normal visual inspection Resp Effort & Inspection: normal respiratory effort Auscultation: clear to auscultation bilaterally, no crackles, no rales, no rhonchi and no wheezes Cardio Jugular venous distension: no JVD Rate: regular rate Rhythm: regular rhythm Heart sounds: S1 normal heart sound present, S2 normal heart sound present, no murmurs and no rubs Neuro General: patient oriented x3 Extrem General: Yes normal to inspection Psych Appearance: grossly normal Mental Status: mental status grossly normal Speech and movement: Normal speech and movement present Office Procedures Cardiac Device Check Cardiac Device Check Details: [place] [employer] dual-chamber pacemaker interrogation today, battery less than 3 months, atrial and ventricular leads functioning normally, DDDR mode, low rate 60, a paced 1.5%, V paced greater than 99%, no high V rates. [id number] Cardiac Device Check, pacemaker dual lead Procedure code (CPT) selection complete Assessment & Plan Assessment & Plan (1) Cardiac pacemaker in situ: Code(s): Z95.0 - Presence of cardiac pacemaker Plan: Cardiac pacemaker in place, [employer]onic dual-chamber device. Interrogation today shows battery life less than 3 months until CELIA. Patient is pacemaker dependent. She is also on Xarelto for anticoagulation which will need to be held for 24-48 hours prior to a generator change. Will notify Dr. Merlos that her device is nearing CELIA. Once CELIA reached the device will need to be changed in a timely fashion. Patient was informed of this. Procedure explain to her. She is concerned about discomfort during the procedure. Instructed her to tell the provider caking care of her that day if she is having any discomfort. Will continue with remote monitoring, checking battery weeks. Cardiology office visit will be 2 weeks post generator change. (2) Dizziness: Code(s): R42 - Dizziness and giddiness Plan: Reports of dizziness for the last few days when she lays down in bed. Also had dizziness when she lay down for her echocardiogram yesterday. No dizziness in an upright position. No presyncope, syncope, falls. Her symptoms sounds more like vertigo. No alerts on her pacemaker interrogation. Echocardiogram completed, results are pending. If symptoms persist she should discuss with her PCP. (3) Paroxysmal atrial fibrillation: Code(s): I48.0 - Paroxysmal atrial fibrillation Plan: History of paroxysmal atrial fibrillation. Currently suppressed with metoprolol. Pacemaker interrogation shows AT/AF burden less than 1%. No reports of heart palpitations. She is on Xarelto at renal dose. No bleeding issues reported. Continue current management. (4) HTN (hypertension): Code(s): I10 - Essential (primary) hypertension Qualifiers: Hypertension type: primary hypertension Qualified Code(s): I10 - Essential (primary) hypertension Plan: Well controlled at present time. No medication changes made. (5) Non-STEMI (non-ST elevated myocardial infarction): Comment: non obstuctive CAD, reduced EF on cardiac cath 02/22 [facility] Code(s): I21.4 - Non-ST elevation (NSTEMI) myocardial infarction Plan: No reports of anginal sounding symptoms. Continue management for stable CAD. She is not on aspirin as she is on Xarelto. She is on atorvastatin with LDL goal less than 70. Labs done 06/10/2023 shows LDL 67. She is on metoprolol and isosorbide. (6) Stress-induced cardiomyopathy: Comment: Echo 05/25 improved ejection fraction to 50% Code(s): I51.81 - Takotsubo syndrome Plan: History of stress-induced cardiomyopathy. Echo done 05/08/2022 showed EF 50-55%. Repeat echocardiogram done yesterday. Result is still pending. Coding Level of Care Code Est Pt Level 4 (72458) Diagnoses Cardiac pacemaker in situ Z95.0 Dizziness R42 Paroxysmal atrial fibrillation I48.0 Primary hypertension I10 Hypertension type: primary hypertension Non-STEMI (non-ST elevated myocardial infarction) I21.4 Stress-induced cardiomyopathy I51.81 CPT Codes Cardiac Device Check - Cardiac Device 2: [id number] Cardiac Device Check, pacemaker dual lead ([id number]) Time Spent (min) 30
== END 2023-07-29 15:15 | disposition home or self-care (01) ==
PROVIDERS: PCP Internal Medicine; Visit Provider Nurse Practitioner Family
DX: I48.0 Paroxysmal atrial fibrillation (principal); I36.1 Nonrheumatic tricuspid (valve) insufficiency
CPT/HCPCS: 93280; 93306; 99214

== ENCOUNTER 2023-08-03 12:44 | Outpatient (AMB) | payer MEDICARE, SELFPAY ==
--- NOTE | 2023-08-03 12:57 | A.OFFVIS_ITS ---
Intake Vital Signs 08/03/23 13:02 Height 5 ft 5 in Weight 161 lb BMI 26.8 BP 119/61 Blood Pressure Location Rt brachial Position Sitting Pulse 87 Intake Visit Reasons: pacemaker battery change Intake Note: Patient referred for pacemaker battery change. Current battery was placed 10 yrs ago in September. Was recommended to take cephalexin before surgeries after having hip replacement. Dining Room Supervisor Required: No Accompanied by: Self / Same As Patient Allergies lisinopril Allergy (Unknown, Verified 08/03/23 13:03) Hyperkalemia nitrofurantoin [Macrobid] Adverse Reaction (Unknown, Verified 08/03/23 13:03) dizziness HPI HPI Comments History of Present Illness Details Patient presents for evaluation status post pacemaker generator interrogation demonstrating generator depletion. Recommendation was to perform this within next 2-3 months time. Patient otherwise doing well. Chart was reviewed patient evaluated. Patient states she has a [facility] Medical History Hyperkalemia CKD (chronic kidney disease), stage III Cataract Vitamin D deficiency DM type 2 (diabetes mellitus, type 2) Hypothyroidism Hyperlipemia HTN (hypertension) Paroxysmal atrial fibrillation Cardiac pacemaker in situ Complete heart block Surgical History Hx of mastectomy History of permanent cardiac pacemaker placement History of tonsillectomy and adenoidectomy History of hip surgery Hx of cardiac cath Family History Father Cancer Mother Diabetes Social History Housing: House Alcohol intake: never Patient Tobacco Use Status: Former Tobacco user Tobacco use type: Cigarette e-Cigarette/Vaping Use: Never Used service: No Current occupational status: retired Cognitive needs: No Hearing needs: No Vision needs: Yes Physical Exam Vital Signs: Last Vital Signs Pulse 87 08/03/23 13:02 BP 119/61 08/03/23 13:02 BMI result Body Mass Index 26.8 Chest Other: Chest breath sounds bilaterally, HS 1 and 2. Left upper chest generator. GI Other: Abdomen soft, benign Assessment & Plan Assessment & Plan (1) Pacemaker battery depletion: Code(s): Z45.010 - Encounter for checking and testing of cardiac pacemaker pulse generator [battery] Plan Risks, benefits, alternatives of generator change reviewed the patient included but not limited to bleeding, infection, numbness, pain, scarring, lead detachment or damage and the patient wishes to proceed. All questions were answered. Arrangements will be made for this. Patient is on Xarelto and this will be held few days prior. Coding Level of Care Code New Pt Level 5 (19107) Diagnoses Pacemaker battery depletion Z45.010
[2023-08-03 13:02] VITALS: BP 119/61; PULSE 87; BMI 26.8
== END 2023-08-03 13:26 | disposition home or self-care (01) ==
PROVIDERS: PCP Internal Medicine; Visit Provider Surgery
DX: Z45.010 Encounter for checking and testing of cardiac pacemaker pulse generator [battery] (principal)
CPT/HCPCS: 99204

== ENCOUNTER → 2023-08-03 12:44 | Outpatient (BNVA) | payer MEDICARE, SELFPAY | PROVIDERS: PCP Internal Medicine; Visit Provider Surgery | DX: Z45.010 Encounter for checking and testing of cardiac pacemaker pulse generator [battery] (principal) | CPT/HCPCS: 99202 ==

== ENCOUNTER 2023-08-17 09:20 | Emergency (ER) | payer MEDICARE, SELFPAY ==
--- NOTE | ~2023-08-17 | XR_ITS ---
EXAMINATION: XR CHEST CLINICAL INFORMATION: Generalized weakness COMPARISON: 02/12/2022 TECHNIQUE: AP sitting and lateral views of the chest were obtained. FINDINGS: Left subclavian pacemaker is unchanged. The lungs are grossly clear. The cardiomediastinal silhouette is stable. Surgical clips are again evident in the left axilla. XR/XR chest 2V IMPRESSION: No acute disease or interval change since 02/12/2022
[2023-08-17 09:23] VITALS: BP 123/66; BP 140/79; PULSE 80; PULSE 81; RESP 27; TEMP 36.4; O2SAT 95; O2SAT 99; BMI 27.1
--- NOTE | 2023-08-17 09:49 | ED_ITS ---
HPI - Weakness General Chief complaint: Dizziness Stated complaint: FEELING WEAK/NOT RIGHT SINCE WEDNESDAY PER EMS Time Seen by Provider: 08/17/23 09:21 Source: patient, family (daughter) and EMS Mode of arrival: EMS Limitations: no limitations History of Present Illness HPI Narrative: 78 year old female with pmhx significant for hypothyroidism, HTN, hyperkalemia, complete heart block s/p pacemaker, paroxysmal atrial fibrilation, stage 3 CKD, T2DM presents to the ED today via EMS from home for generalized weakness x5 days. Reports increasing weakness. Additionally endorses intermittent light headedness exacerbated by sudden movements. States this has been ongoing for years and will typically resolve without intervention. Denies fall, trauma, or injury. States she currently visits her at a retirement daily where there have been a few patients who recently tested positive for COVID. Is tearful in the room stating that she has not been able to visit her in the past 5 days due to her symptoms. Denies fever, chills, SNYDER, vision changes, neck or back pain, palpitations, chest pain, SOB, dyspnea, wheezing, dysuria, hematuria, N/V, abdominal pain, diarrhea, constipation. Denies recent travel or long car rides. Denies hormone use. Related Data Home Medications Medication Instructions Recorded Confirmed blood sugar diagnostic #10 ea 09/23/20 07/29/23 dapagliflozin propanediol 10 mg 10 mg PO DAILY 12/10/21 08/17/23 tablet (Farxiga) isosorbide mononitrate 30 mg 30 mg PO DAILY 06/15/23 08/17/23 tablet,extended release 24 hr rivaroxaban 15 mg tablet (Xarelto) 15 mg PO DAILY 08/03/23 08/17/23 metoprolol succinate 50 mg 25 mg PO BID 08/17/23 08/17/23 tablet,extended release 24 hr vit C 250 mg-E 90 mg-zinc 40 1 tab PO BID 08/17/23 08/17/23 mg-copper 1 [id number] chew tablet (PreserVision AREDS-2) Previous Rx's Medication Instructions Recorded pen needle, diabetic 31 gauge x #100 ea 06/20/2212/17 (BD Ultra-Fine Mini Pen Needle) atorvastatin 20 mg tablet 20 mg PO DAILY #90 tabs 09/02/22 sertraline 50 mg tablet 75 mg (1.5 x 50 mg) PO DAILY #135 09/04/22 tabs blood sugar diagnostic (FreeStyle #300 ea 05/11/23 Lite Strips) insulin glargine 100 unit/mL (3 20 unit (0.2 mL) subcut DAILY #15 07/12/23 mL) subcutaneous pen (Lantus mL Solostar U-100 Insulin) lancets 28 gauge (FreeStyle #100 ea 07/12/23 Lancets) levothyroxine 125 mcg tablet 125 mcg PO DAILY #90 tabs 08/02/23 tiotropium bromide 18 mcg capsule 1 cap inhalation BEDTIME #90 08/08/23 with inhalation device inhalations Allergies Allergy/AdvReac Type Severity Reaction Status Date / Time lisinopril Allergy Unknown Hyperkalemi Verified 08/03/23 13:03 a nitrofurantoin [Macrobid] AdvReac Unknown dizziness Verified 08/03/23 13:03 Review of Systems 2 Review of Systems: Constitutional: No fever, chills, fatigue, night sweats, weight changes, +generalized weakness ENT/Mouth: No ear pain, hearing loss, nasal congestion, sinus pain, rhinorrhea, sore throat Eyes: No eye pain, swelling, redness, vision changes, discharge Cardio: No chest pain, palpitations, PETTY, orthopnea, peripheral edema Pulm: No SOB, cough, sputum, wheezing, dyspnea, hemoptysis GI: No nausea, vomiting, hematemesis, abdominal pain, diarrhea, constipation, hematochezia, melena : No irregular bleeding, dysuria, frequency, urgency, hesitancy, hematuria, flank pain, urinary flow changes, urinary incontinence or retention MSK: No back pain, neck pain, joint pain, myalgias Skin: No lesions, rashes Neuro: No weakness, numbness, paresthesias, LOC, dizziness, headache, +lightheaded All other systems reviewed and are negative. [facility] Past Medical History Attestation statement: The following information was validated with the patient. Source: old records reviewed and nursing notes reviewed Medical History Hyperkalemia CKD (chronic kidney disease), stage III Cataract Vitamin D deficiency DM type 2 (diabetes mellitus, type 2) Hypothyroidism Hyperlipemia HTN (hypertension) Paroxysmal atrial fibrillation Cardiac pacemaker in situ Complete heart block Surgical History Hx of mastectomy History of permanent cardiac pacemaker placement History of tonsillectomy and adenoidectomy History of hip surgery Hx of cardiac cath Family History Family History Father Cancer Mother Diabetes Social History Social History Housing: House Alcohol intake: never Patient Tobacco Use Status: Former Tobacco user Tobacco use type: Cigarette e-Cigarette/Vaping Use: Never Used Advance Directives: Yes Advance Directives on File: Yes Advance Directives Date on File: 02/16/23 service: No Current occupational status: retired Cognitive needs: No Hearing needs: No Vision needs: Yes Physical Exam 2 Vital Signs: Vital Signs: Last Vital Signs Temp 96.9 F 08/18/23 14:00 Pulse 80 08/18/23 14:00 Resp 16 08/18/23 14:00 BP 100/60 08/18/23 14:00 Pulse Ox 93 08/18/23 14:00 O2 Del Method Room Air 08/18/23 14:00 BMI result Body Mass Index 27.1 VSS. Const: General: cooperative, comfortable, no acute distress, alert and awake; No diaphoretic Orientation/consciousness: patient oriented x3 Limitations: no limitations HEENT: Head: Yes normal to inspection Ears: hearing grossly normal bilaterally General nose exam: Normal external nose present Eyes: General: appearance normal, both eyes and all related structures C onjunctivae: conjunctivae normal Sclerae: sclerae normal Pupils: Equal, round and reactive pupils present EOM: EOMs intact bilaterally Direct Ophthalmoscopy: normal light reflex, no photophobia, no papilledema and fundi normal bilaterally Neck: Neck: Yes normal visual inspection, Yes no lymphadenopathy and Yes no JVD Resp: Effort & Inspection: normal respiratory effort, able to speak in complete sentences and no respiratory distress Auscultation: clear to auscultation bilaterally, no crackles, no rales, no rhonchi and no wheezes Cardio: Rate: regular rate Rhythm: regular rhythm Peripheral pulses: r adial pulses present and dorsalis pedis present GI: Inspection: Yes normal to inspection Palpation (GI): Soft to palpation, nontender and no guarding Auscultation: normal bowel sounds : General: Yes no CVA tenderness Back/Spine/Pelvis: Back: no CVA tenderness Skin: General skin exam: no rashes or lesions noted Neuro: Other: + ambulating with unsteady gait General: patient oriented x3 and moves all extremities Cranial nerves: Y es CN's II-XII intact bilaterally, Yes Equal, round and reactive pupils present and Yes Nystagmus not present Extrem: General: Yes normal to inspection and Yes full ROM NIH Stroke Scale Internal: Initial- Upon Arrival Time: 09:21 Level of Consciousness: Alert Level of Consciousness Questions: Answers both questions correctly Level of Consciousness Commands: Performs both tasks correctly Best Gaze: Normal Visual: No visual loss Facial Palsy: Normal Motor Arm (Right): No drift Motor Arm (Left): No drift Motor Leg (Right): No drift Motor Leg (Left): No drift Limb Ataxia: Absent Sensory: Normal Best Language: No aphasia Dysarthia: Normal Extinction and Inattention: No abnormality Score: 0 Course Course Course Narrative: 1304-- CBC without leukocytosis or anemia. Potassium noted to be slightly elevated at 5.2 > Will give Lokelma and recheck labs. No other acute electrolyte abnormalities requiring intervention. TSH WNL. Lipase WNL. EKG showing dual paced rhythm with a ventricular and atrial rate of 77 bpm. There is atrial sensing and ventricular response noted. EKG unremarkable and confirmed by my attending physician, Dr. Wong. Troponin undetectable. BNP undetectable. Urine without blood or infection > no UTI. Serology negative for COVID, RSV, flu. CXR with normal cardiac silhouette, no infiltrates or consolidations to suggest pneumonia. 1418-- Orthostatic vital signs are negative. RN informs me that patient is having trouble walking to the restroom due to dizziness and feeling unsteady. I will order a dose of meclizine and another liter of fluids given unremarkable workup. I will also place a consult for PT/case management after discussion with patient and daughter. Patient currently lives alone and feels as though she is unable to care for herself at this time. > Physician observation initiated. 08/18/2023 0744: Physician observation continues. Patient being followed by Case Management. 08/18/2023 1600: Patient cleared for discharge to [facility]. Medications Administered Generic Name Dose Route Start Last Admin Trade Name Jerry PRN Reason Stop Dose Admin Atorvastatin Calcium 20 mg 08/18/23 09:00 08/18/23 08:54 Atorvastatin Calcium 20 Mg Tablet PO 20 mg DAILY SHANE Administration Benzonatate 200 mg 08/18/23 15:22 08/18/23 15:48 Benzonatate 100 Mg Capsule PO 200 mg ONCE PRN Administration Cough Empagliflozin 10 mg 08/18/23 09:00 08/18/23 08:53 Empagliflozin 10 Mg Tablet PO 10 mg DAILY SHANE Administration Insulin Glargine 20 unit 08/18/23 09:00 08/18/23 08:54 Insulin Glargine,Hum.Rec.Anlog 100 Unit/Ml 10 Ml Vial SUBCUT 20 unit DAILY SHANE Administration Isosorbide Mononitrate 30 mg 08/18/23 09:00 08/18/23 08:54 Isosorbide Mononitrate 30 Mg Tab.Er.24h PO 30 mg DAILY SHANE Administration Protocol Levothyroxine Sodium 125 mcg 08/18/23 06:00 08/18/23 06:08 Levothyroxine Sodium 125 Mcg Tablet PO 125 mcg DAILY@0600 SHANE Administration Metoprolol Succinate 25 mg 08/17/23 21:00 08/18/23 08:54 Metoprolol Succinate Er 25 Mg Tab.Er.24h PO 25 mg BID SHANE Administration Protocol Multivitamins/Vitamin C 1 tab 08/18/23 09:00 08/18/23 08:54 Multivitamin Tablet PO 1 tab DAILY SHANE Administration Rivaroxaban 15 mg 08/18/23 09:00 08/18/23 08:54 Rivaroxaban 15 Mg Tablet PO 15 mg DAILY SHANE Administration Sertraline HCl 75 mg 08/18/23 09:00 08/18/23 08:53 Sertraline Hcl 25 Mg Tablet PO 75 mg DAILY SHANE Administration Discontinued Medications Generic Name Dose Route Start Last Admin Trade Name Jerry PRN Reason Stop Dose Admin Sodium Chloride 1,000 mls @ 999 mls/hr 08/17/23 10:00 08/17/23 11:00 Ns IV 08/17/23 11:00 Infused .Q1H1M SHANE Infusion Sodium Chloride 1,000 mls @ 999 mls/hr 08/17/23 14:30 08/17/23 15:47 Ns IV 08/17/23 15:30 Infused .Q1H1M SHANE Infusion Meclizine HCl 25 mg 08/17/23 14:19 08/17/23 14:42 Meclizine Hcl 25 Mg Tablet PO 08/17/23 14:20 25 mg ONCE ONE Administration Sodium Zirconium Cyclosilicate 5 gm 08/17/23 13:05 08/17/23 13:25 Sodium Zirconium Cyclosilicate 5 Gm Powd.Pack PO 08/17/23 13:06 5 gm ONCE ONE Administration Medical Decision Making Medical Decision Making [facility] Narrative: 78 year old female with pmhx significant for hypothyroidism, HTN, hyperkalemia, complete heart block s/p pacemaker, paroxysmal atrial fibrilation, stage 3 CKD, T2DM presents to the ED today via EMS from home for evaluation of generalized weakness x5 days. Vital signs stable. Patient is nontoxic appearing and in no acute distress. Becomes tearful when speaking of her who is in a retirement. Exam nonfocal. Cerebellum intact. PERRLA. No nystagmus. Strength 4/5 throughout. Ambulating with unsteady gait. RRR. No JVD. Lungs CTA b/l. Normal respiratory effort. HEART score 3 > low risk. Clinical concern for anemia, acute electrolyte derangement, pneumonia, viral syndrome, orthostatic hypotension. Lower suspicion for heart failure, arrhythmia, ACS, dissection. Lower suspicion for DVT/PE as patient is on xarelto at baseline. NIH stroke scale 0. Unlikely CVA/TIA/cerebellar stroke. Plan at this time is EKG, basic labs, chest x-ray, urine, re-evaluation. Differential Diagnosis Differential Diagnoses: The differential diagnosis associated with the presentation includes As above. Admission/Observation Consideration of admission/observation: Escalation of care including admission/observation considered Patient to be PT/CM pending disposition.. Lab Data [facility] Lab Attestation statement: I reviewed the patient's lab results. As above. 08/17/23 11:04 08/17/23 11:04 Labs: Lab Results 08/17/23 08/17/23 Range/Units 11: 12:10 WBC 4.9 (4.8-10.8) X10*3/uL RBC 4.76 (4.20-5.50) X10*6/uL Hgb 13.9 (12.0-16.0) g/dl Hct 41.8 (37.0-47.0) % MCV 87.8 (80.0-98.0) fL MCH 29.2 (27.0-33.0) pg MCHC 33.3 (31.0-35.0) g/dl RDW 13.8 (11.0-16.0) % Plt Count 166 (160-400) X10*3/uL MPV 10.1 (9.4-12.3) fL Immature Gran % (Auto) 0.6 H (0.0-0.4) % Neut % (Auto) 68.7 (45-73) % Lymph % (Auto) 18.7 L (20-40) % [place] % (Auto) 9.0 (2-11) % Eos % (Auto) 2.4 (0-4) % Baso % (Auto) 0.6 (0-2) % Lymph # (Auto) 0.9 L (1.2-4.9) X10*3/uL [place] # (Auto) 0.4 (0.1-1.2) X10*3/uL Eos # (Auto) 0.1 (0.0-0.4) X10*3/uL Baso # (Auto) 0.0 (0.0-0.2) X10*3/uL Abs Immat Gran (auto) 0.03 (0.00-0.03) X10*3/uL Absolute Neuts (auto) 3.4 (2.0-8.3) x10*3/uL Absolute Nucleated RBC 0.000 (0.0-0.012) X10*3/uL Nucleated RBC % (auto) 0.0 (0.0-0.2) /100WBC PT 12.2 (11.1-13.3) SEC INR 1.0 (0.9-1.1) Sodium 142 (135-145) mmol/L Potassium 5.2 H D (3.3-5.1) mmol/L Chloride 113 H (96-108) mmol/L Carbon Dioxide 24 (22-29) mmol/L Anion Gap 10 L (12-20) BUN 18 H (9-16) mg/dL Creatinine 1.25 (0.5-1.4) mg/dL Estim Creat Clear Calc 36.1 Estimated GFR 41 Random Glucose 114 (60-115) mg/dL Calcium 8.9 D (8.4-10.2) mg/dL Magnesium 1.9 (1.6-2.6) mg/dL Total Bilirubin 0.5 (0.0-1.0) mg/dL AST 21 (5-31) U/L ALT 17 (0-31) U/L Alkaline Phosphatase 92 (39-117) U/L Troponin I High Sens < 2.7 (<3.5-17.0) ng/L B-Natriuretic Peptide < 10 (<100) pg/mL Total Protein 6.2 L (6.5-8.0) g/dL Albumin 3.5 (3.5-5.0) g/dL Lipase 18 (8-78) U/L TSH 2.98 (0.32-4.0) uIU/mL Urine Color Yellow Urine Appearance Clear Urine pH 7.0 (5.0-9.0) Ur Specific [place] 1.015 (1.005-1.025) Urine Protein Negative (Neg-Trace) mg/dL Urine Glucose (UA) >=1000 H (Negative) mg/dL Urine Ketones Negative (Negative) mg/dL Urine Blood Negative (Negative) Urine Nitrite Negative (Negative) Ur Leukocyte Esterase Negative (Negative) Urine RBC 0-2 (0-2) /HPF Urine WBC 0-5 (0-5) /HPF Ur Squamous Epith Cells 0-2 (0-2) /HPF Urine Bacteria None Seen (None Seen) Hyaline Casts 0-2 (0-2) /LPF Influenza Type A (PCR) NEGATIVE (Negative) Influenza Type B (PCR) NEGATIVE (Negative) RSV RNA Qual (PCR) NEGATIVE (Negative) SARS-CoV-2 RNA (RT-PCR) NEGATIVE (Negative) Independent Interpretation I performed an independent interpretation of an: EKG and Plain X-Ray Interpretation: EKG showing dual paced rhythm with a ventricular and atrial rate of 77 bpm. There is atrial sensing and ventricular response noted. EKG unremarkable. CXR without consolidations or infiltratates, agree with radiologist's interpretation. Radiology Impression Discussion of test interpretation with radiology: I have reviewed the radiologist's reading. Radiologist Impression: XR chest 2V IMPRESSION: No acute disease or interval change since 02/12/2022 Independent Historian Clinical information obtained from an independent historian. History obtained from or confirmed by: EMS and Other (son) External Record Review External record reviewed: Inpatient record, Office record, Outpatient record, Prior outpatient labs, Prior outpatient radiology, Primary care record and Outside ED record Chronic Conditions Patient?s care impacted by: Diabetes, Hypertension and Other (CKD, complete heart block s/p pacemaker) Social Determinants Patient?s care significantly limited by Social Determinants of Health including: Other Social Determinant of Health Scores Heart Score History: -0- slightly suspicious ECG: -0- normal Age: -2- > or = 65 Risk factory: -1- 1 or 2 risk factors Troponin: -0- < or = normal limit Score: 3 Risk: 1.7% Critical Care Time Critical Care Time Critical Care Time: No Discharge Plan Discharge Clinical Impression: Dizziness Patient Disposition: Still a Patient Prescriptions: No Action (DME) pen needle, diabetic [BD Ultra-Fine Mini Pen Needle] 31 gauge x 3/16 needle See Rx Instructions .Route Qty: 100 3RF Rx Instructions: Use to inject insulin once a day atorvastatin 20 mg tablet 20 mg PO DAILY Qty: 90 3RF sertraline 50 mg tablet 75 mg PO DAILY Qty: 135 3RF (DME) FreeStyle Lite Strips Strip See Rx Instructions .ROUTE .MEDSUPPLY Qty: 300 3RF Rx Instructions: Test blood sugar TID Lantus Solostar U-100 Insulin 100 unit/mL (3 mL) insulin pen 20 unit subcut DAILY Qty: 15 5RF (DME) lancets [FreeStyle Lancets] 28 gauge misc See Rx Instructions .Route Qty: 100 3RF Rx Instructions: Test up to 3 times per day levothyroxine 125 mcg tablet 125 mcg PO DAILY Qty: 90 3RF tiotropium bromide 18 mcg capsule, w/inhalation device 1 cap inhalation BEDTIME Qty: 90 1RF PreserVision AREDS-2 250-90-40-1 mg Tablet,Chewable 1 tab PO BID metoprolol succinate 50 mg tablet extended release 24 hr 25 mg PO BID (DME) blood sugar diagnostic Strip See Rx Instructions Not Applicable TID Qty: 10 Rx Instructions: As directed isosorbide mononitrate 30 mg tablet extended release 24 hr 30 mg PO DAILY Farxiga 10 mg tablet 10 mg PO DAILY Xarelto 15 mg tablet 15 mg PO DAILY Rx Instructions: must administer with evening meal Referrals: [facility] [Outside]
--- NOTE | 2023-08-17 09:53 | ECG_ITS ---
Test Reason : weakness Blood Pressure : / mmHG Vent. Rate : 077 BPM Atrial Rate : 077 BPM P-R Int : 216 ms QRS Dur : 166 ms QT Int : 438 ms P-R-T Axes : 048 -87 061 degrees QTc Int : 495 ms Atrial-sensed ventricular-paced rhythm with prolonged AV conduction Abnormal ECG When compared with ECG of 12-FEB-2022 13:06, Vent. rate has increased BY 10 BPM Referred By: Cassie Mccabe Electronically Signed By:MENDEL COOK MD
[2023-08-17] MEDS: 0.9 % Sodium Chloride 1,000 ML 999 ML IV ×2 (10:05→14:42)
--- NOTE | 2023-08-17 10:53 | PC.NURSE ---
patient awake and alert, skin PWD. patient speaks in full and complete sentences. son at bedside visiting
[2023-08-17 11:10] LABS: MANUAL DIFF FLAG NO
[2023-08-17 11:12] LABS: Basophils Percent Auto 0.6 % (0-2); Eosinophils Absolute Auto 0.1 X10*3/uL (0.0-0.4); Eosinophils Percent Auto 2.4 % (0-4); Hematocrit 41.8 % (37.0-47.0); Hemoglobin 13.9 g/dl (12.0-16.0); Imm Gran Abs Auto 0.03 X10*3/uL (0.00-0.03); Imm Gran Pct Auto 0.6 % (0.0-0.4); Lymphocytes Absolute Auto 0.9 X10*3/uL (1.2-4.9); Lymphocytes Percent Auto 18.7 % (20-40); Mean Corpuscular HGB Conc 33.3 g/dl (31.0-35.0); Mean Corpuscular Hemoglobin 29.2 pg (27.0-33.0); Mean Corpuscular Volume 87.8 fL (80.0-98.0); Mean Platelet Volume 10.1 fL (9.4-12.3); Monocytes Absolute Auto 0.4 X10*3/uL (0.1-1.2); Neutrophils Absolute Auto 3.4 x10*3/uL (2.0-8.3); Neutrophils Percent Auto 68.7 % (45-73); Platelet Count 166 X10*3/uL (160-400); Red Blood Count 4.76 X10*6/uL (4.20-5.50); Red Cell Distribution Width 13.8 % (11.0-16.0); White Blood Count 4.9 X10*3/uL (4.8-10.8)
[2023-08-17 11:18] LABS: Prothrombin Time 12.2 SEC (11.1-13.3)
[2023-08-17 11:24] LABS: Alanine Aminotransferase 17 U/L (0-31); Albumin Level 3.5 g/dL (3.5-5.0); Alkaline Phosphatase 92 U/L (39-117); Anion Gap 10 (12-20); Aspartate Amino Transferase 21 U/L (5-31); Bilirubin Total 0.5 mg/dL (0.0-1.0); Blood Urea Nitrogen 18 mg/dL (9-16); Calcium 8.9 mg/dL (8.4-10.2); Carbon Dioxide 24 mmol/L (22-29); Chloride 113 mmol/L (96-108); Creatinine Clr Calc Pharmacy 36.1; Estimated Glomerular Filt Rate 41; Glucose Random 114 mg/dL (60-115); Lipase 18 U/L (8-78); Magnesium 1.9 mg/dL (1.6-2.6); Potassium 5.2 mmol/L (3.3-5.1); Sodium 142 mmol/L (135-145); Total Protein 6.2 g/dL (6.5-8.0)
[2023-08-17 11:30] LABS: B Type Natriuretic Peptide < 10 pg/mL (<100)
[2023-08-17 11:33] LABS: Troponin-I High Sensitivity < 2.7 ng/L (<3.5-17.0)
[2023-08-17 11:46] LABS: TSH reflex Free T4 2.98 uIU/mL (0.32-4.0)
[2023-08-17 11:48] LABS: Influenza A PCR NEGATIVE (Negative); Influenza B PCR NEGATIVE (Negative); Resp Syncy Virus RNA Qual PCR NEGATIVE (Negative); SARS COV2 PCR INHOUSE NEGATIVE (Negative)
--- NOTE | 2023-08-17 12:00 | PC.NURSE ---
patient ambulated 2 assist to the bathroom across the hodges, patient very unsteady, had sway with gait. patient needed wheelchair to get back to bed due to increased dizziness with ambulation
[2023-08-17 12:18] LABS: Appearance Urine Clear; Color Urine Yellow; Glucose Urine UA >=1000 mg/dL (Negative); Leukocyte Esterase Urine Negative (Negative); Nitrite Urine Negative (Negative); Specific Gravity - Urine 1.015 (1.005-1.025); UMIC TRIGGER UACC YES; Urine Blood Negative (Negative); Urine Ketones Negative (Negative); Urine Protein Negative (Neg-Trace)
[2023-08-17 12:25] LABS: Bacteria Urine None Seen (None Seen); Hyaline Casts Urine 0-2 /LPF (0-2); RBC Urine 0-2 /HPF (0-2); Squamous Epithelial Cell Urine 0-2 /HPF (0-2); WBC Urine 0-5 /HPF (0-5)
[2023-08-17 12:50] VITALS: BP 130/71; PULSE 67; RESP 21; TEMP 36.6; O2SAT 97
[2023-08-17] MEDS: Sodium Zirconium Cyclosilicate 5 GM POWD.PACK PO (13:25)
[2023-08-17 14:11] VITALS: BP 120/66; PULSE 72; RESP 16; O2SAT 96
[2023-08-17 14:12] VITALS: BP 119/65; BP 120/66; BP 125/74; PULSE 72; PULSE 76; PULSE 80
--- NOTE | 2023-08-17 14:23 | PC.NURSE ---
patient given sandwich and cary pauline as requested, patient sitting up in bed eating lunch.
[2023-08-17] MEDS: Meclizine HCl 25 MG TABLET PO (14:42)
--- NOTE | 2023-08-17 15:28 | PC.NURSE ---
assumed care of pt, pt a&o x4, pleasant, calm, and cooperative. pt sts dizziness is subsiding. provided with cary carpenter. pt daughter at bedside with pt. call osorio within pt reach. rr even/unlabored. pt coughing intermittently. plan of care ongoing.
--- NOTE | 2023-08-17 15:45 | MHC.EDTECH ---
Patient just came to overflow from the main ed ,Patient was assisted unto bedside commode ,had a large bowel ,care given ,Pt back in bed ,pt daughter at bedside ,call osorio within Pt reach .
[2023-08-17 16:00] VITALS: BP 123/62; PULSE 81; RESP 16; TEMP 36.2; O2SAT 97
--- NOTE | 2023-08-17 16:35 | PHA.MEDREC ---
Pharmacy Consult ? Medication Reconciliation Pharmacy has completed the medication reconciliation. Patient had list of medications with her. Reports she has not started Sprivia yet so left unconfirmed. Amaris Rivas, MarilouD
--- NOTE | 2023-08-17 17:02 | PC.NURSE ---
pt daughter, Kim, left phone number to call if anything happens. pt daughter, Kim, also took home pt's pocketbook and cell phone. Kim cell: [phone]
--- NOTE | 2023-08-17 18:01 | MHC.EDTECH ---
Patient was set up with dinner ,ate 100 % of meal .And drank 240 ml fluids ,After dinner ,pt was assisted unto bed side commode ,void and had some diarrhea ILENE Cruz aware .
--- NOTE | 2023-08-17 18:57 | MHC.EDTECH ---
Patient was just incontinent of large amount of stool ,bed bath given and bedding change ,pt back in bed .
--- NOTE | 2023-08-17 19:29 | PC.NURSE ---
Addendum entered by Laura Peck RN 08/17/23 19:32: report given to ILENE Alcocer Original Note: pt has had 3 episodes of diarrhea since eating dinner including one incontinent episode. pt sts this is normal for her lately after she eats. diarrhea is mostly watery. pt cleaned up by this instructional writer and Nerupa. pt currently resting quietly in bed. rr even/unlabored. pt offers no complaints zahra. call osorio within pt reach. plan of care ongoing.
[2023-08-17 20:04] VITALS: BP 120/65; PULSE 80; RESP 18; TEMP 37.1; O2SAT 91
[2023-08-17] MEDS: Metoprolol Succinate ER 25 MG TAB.ER.24H PO (20:54)
--- NOTE | 2023-08-17 21:15 | PC.NURSE ---
Pt resting/sleeping at the bedside. No apparent distress noted. Medicated as ordered and tolerated well.
--- NOTE | 2023-08-18 04:33 | PC.NURSE ---
Pt sleeping at the bedside. No apparent distress noted. Breaths are even regular and unlabored with equal chest rises. Monitoring ongoing.
[2023-08-18] MEDS: Levothyroxine Sodium 125 MCG TABLET PO (06:08)
[2023-08-18 08:15] VITALS: BP 127/65; PULSE 81; RESP 17; TEMP 35.9; O2SAT 95
--- NOTE | 2023-08-18 08:15 | PC.NURSE ---
PT IS A/O X 4 NO SOB/NEREIDA SPEAKS IN FULL SENTENCES. PT'S SON IS AT BEDSIDE. NO C/O DIZZINESS WHILE IN BED. PT DENIES ANY PAIN/DISC. PT C/O OCCASIONAL COUGH. PT AWARE OF PLAN OF CARE.
[2023-08-18] MEDS: Sertraline HCL 25 MG TABLET 75 MG PO (08:53)
[2023-08-18] MEDS: Empagliflozin 10 MG TABLET PO (08:53)
[2023-08-18] MEDS: Insulin Glargine,Hum.rec.anlog 100 UNIT/ML 10 ML VIAL 20 UNIT SUBCUT (08:54)
[2023-08-18] MEDS: Multivitamin TABLET 1 TAB PO (08:54)
[2023-08-18] MEDS: Isosorbide Mononitrate 30 MG TAB.ER.24H PO (08:54)
[2023-08-18] MEDS: Atorvastatin Calcium 20 MG TABLET PO (08:54)
[2023-08-18] MEDS: Rivaroxaban 15 MG TABLET PO (08:54)
[2023-08-18] MEDS: Metoprolol Succinate ER 25 MG TAB.ER.24H PO (08:54)
--- NOTE | 2023-08-18 10:06 | MHC.CM.ED ---
Addendum entered by Glroia Chaudhari 08/18/23 15:03: Ins auth has been obtained. Patient can leave at 530pm. [facility] BLS booked. [facility] with chart. Patient, Kisha RN and Linn GUZMÁN aware. Addendum entered by Gloria Chaudhari 08/18/23 11:33: [facility] is [facility] choice. [facility] is in the process of obtaining ins auth. Original Note: Received case management consult d/t vertigo symptoms. Physical therapy recommending acute rehab. Patient has [facility]. Referral made to all 3 acute rehabs. None of the facilities are able to offer a bed because they don't feel [facility] would authorize acute rehab level of care. Referral broadcasted to all facilities within 15 miles of patient's home that are contracted with [facility]. The following facilities are able to offer a bed: [facility], [facility], [facility], [facility], [facility], [facility], [facility], [facility], [facility] are all able to offer a bed. These options were provided to patient. Patient's is currently in [facility]. She does not want to go there. She will go over list and provide 1st choice to CM. Continue to monitor for d/c needs.
[2023-08-18 14:00] VITALS: BP 100/60; PULSE 80; RESP 16; TEMP 36.1; O2SAT 93
[2023-08-18] MEDS: Benzonatate 100 MG CAPSULE 200 MG PO (15:48)
--- NOTE | 2023-08-18 18:25 | PC.NURSE ---
RN TO RN REPORT GIVEN TO CARLY AT [facility] ([phone]). PT AWARE OF PLAN OF CARE FOR TRANSFER TO FACILITY VIA AMBULANCE.
== END 2023-08-18 19:21 | disposition skilled nursing facility (03) ==
PROVIDERS: Physician Assistant Medical; Emergency Provider Emergency Medicine; PCP Internal Medicine
DX: R42 Dizziness and giddiness (principal); R53.1 Weakness; R29.700 NIHSS score 0; Z20.822 Contact with and (suspected) exposure to COVID-19; Z20.828 Contact with and (suspected) exposure to other viral communicable diseases; E11.22 Type 2 diabetes mellitus with diabetic chronic kidney disease; I12.9 Hypertensive chronic kidney disease with stage 1 through stage 4 chronic kidney disease, or unspecified chronic kidney disease; N18.30 Chronic kidney disease, stage 3 unspecified; E78.5 Hyperlipidemia, unspecified; I48.0 Paroxysmal atrial fibrillation; Z95.0 Presence of cardiac pacemaker; Z87.891 Personal history of nicotine dependence; Z79.899 Other long term (current) drug therapy; Z79.4 Long term (current) use of insulin; Z79.02 Long term (current) use of antithrombotics/antiplatelets
CPT/HCPCS: 0241U; 36415; 71046; 80053; 81001; 83690; 83735; 83880; 84443; 84484; 85025; 85610; 93005; 96360; 96361; 97162; 99285

== ENCOUNTER 2023-09-02 14:38 | Outpatient (AMB) | payer MEDICARE, SELFPAY ==
[2023-09-02 15:16] VITALS: BP 114/72; PULSE 91; BMI 26.3
--- NOTE | 2023-09-02 15:16 | A.OFFVIS_ITS ---
Intake Vital Signs 09/02/23 15:16 Height 5 ft 5 in Weight 157 lb 13.616 oz BMI 26.3 BP 114/72 Blood Pressure Location Lt brachial Position Sitting Pulse 91 Intake Visit Reasons: follow-up [facility] [place] [facility] ? [facility] Required: No Allergies lisinopril Allergy (Unknown, Verified 09/02/23 15:18) Hyperkalemia nitrofurantoin [Macrobid] Adverse Reaction (Unknown, Verified 09/02/23 15:18) dizziness Medication List - Last Reconciled 09/02/23 by RHETT Saha atorvastatin 20 mg PO DAILY blood sugar diagnostic As directed blood sugar diagnostic (FreeStyle Lite Strips) Test blood sugar TID dapagliflozin propanediol (Farxiga) 10 mg PO DAILY insulin glargine (Lantus Solostar U-100 Insulin) 20 units (0.2 mL) subcut DAILY isosorbide mononitrate ER 30 mg PO DAILY lancets (FreeStyle Lancets) Test up to 3 times per day levothyroxine 125 mcg PO DAILY metoprolol succinate ER 25 mg PO BID pen needle, diabetic (BD Ultra-Fine Mini Pen Needle) Use to inject insulin once a day rivaroxaban (Xarelto) 15 mg PO DAILY sertraline 75 mg (1.5 x 50 mg) PO DAILY tiotropium bromide 1 cap inhalation BEDTIME vit C,K-Wg-keocc-lutein-zeaxan 250-90-40-1 mg (PreserVision AREDS-2) 1 tab PO BID HPI follow-up [facility] [place] [facility] [place] [facility] HPI Details Penny is an 78-year-old female with past medical history of hypertension, hyperlipidemia, diabetes, chronic kidney disease, paroxysmal atrial fibrillation, stress-induced cardiomyopathy with normalization of EF, cardiac pacemaker who presents for follow-up with after recent admission for dizziness. Today she reports that she had been admitted for vertigo. Following admission she was sent to rehab. While in rehab her remote monitor for pacemaker had multi alarms going off that sounded like a fire alarm. There was concern that her pacemaker was not working normally and this visit was arranged. Today she reports that her dizziness has improved. She is now back at home and able to manage ADLs and visit her she has her remote set up at her bedside at home. She knows that her battery for her pacemaker is near CELIA. She is anxious to have this procedure over with. [facility] Medical History Hyperkalemia CKD (chronic kidney disease), stage III Cataract Vitamin D deficiency DM type 2 (diabetes mellitus, type 2) Hypothyroidism Hyperlipemia HTN (hypertension) Paroxysmal atrial fibrillation Cardiac pacemaker in situ Complete heart block Surgical History Hx of mastectomy History of permanent cardiac pacemaker placement History of tonsillectomy and adenoidectomy History of hip surgery Hx of cardiac cath Family History Father Cancer Mother Diabetes Social History Housing: House Alcohol intake: never Patient Tobacco Use Status: Former Tobacco user Tobacco use type: Cigarette e-Cigarette/Vaping Use: Never Used Advance Directives Date on File: 02/16/23 service: No Current occupational status: retired Cognitive needs: No Hearing needs: No Vision needs: Yes Review of Systems Const All systems reviewed & are unremarkable except as noted in HPI and below ENT Reports dizziness Card Denies chest pain, Denies chest pain at rest, Denies chest pain with activity, Denies rapid heart rate, Denies pedal edema, Denies edema, Denies leg edema, Denies lightheadedness, Denies palpitations, Denies dyspnea, Denies dyspnea on exertion and Denies orthopnea Resp Denies cough, Denies dyspnea and Denies dyspnea on exertion GI Denies hematochezia and Denies change in stool character Musc Denies abnormal gait, Denies limited range of motion, Denies muscle cramps, Denies muscle weakness, Denies numbness, Denies radiating pain into limb, Denies stiffness and Denies tingling Neuro Denies abnormal gait, Reports dizziness, Denies numbness and Denies tingling Endo Denies palpitations Physical Exam Vital Signs: Last Vital Signs Pulse 91 09/02/23 15:16 BP 114/72 09/02/23 15:16 BMI result Body Mass Index 26.3 Const General: cooperative, healthy appearing, comfortable and no acute distress Orientation/consciousness: patient oriented x3 Neck Neck: Yes normal visual inspection Resp Effort & Inspection: normal respiratory effort Auscultation: clear to auscultation bilaterally, no crackles, no rales, no rhonchi and no wheezes Cardio Jugular venous distension: no JVD Rate: regular rate Rhythm: regular rhythm Heart sounds: S1 normal heart sound present, S2 normal heart sound present, no murmurs and no rubs Neuro General: patient oriented x3 Extrem General: Yes normal to inspection Psych Appearance: grossly normal Mental Status: mental status grossly normal Speech and movement: Normal speech and movement present Office Procedures Cardiac Device Check Cardiac Device Check Details: [employer] dual-chamber pacemaker interrogation today to assess battery life, CELIA in less than 3 months, voltage 2.62 volts, CELIA at 2.60 volts, mode switch episode lasting 10 seconds early this morning, V paced greater than 99%, a pace 1.1%. [id number] Cardiac Device Check, pacemaker dual lead Procedure code (CPT) selection complete Assessment & Plan Assessment & Plan (1) Cardiac pacemaker in situ: Code(s): Z95.0 - Presence of cardiac pacemaker Plan: Cardiac pacemaker in place, [employer] dual-chamber device. Interrogation today shows battery life remains less than 3 months until CELIA. Battery voltage 2. Six 2 volts. CELIA will be reached at 2.60 volts. She has already seen Dr. Merlos for office visit as he will be the 1 doing her generator change when the time is appropriate. She is also on Xarelto for anticoagulation which will need to be held for 24-48 hours prior to a generator change. She is pacemaker dependent. Once CELIA reached the device will need to be changed in a timely fashion. Patient was informed of this. Procedure explain to her. Will continue with remote monitoring, checking battery weeks. Cardiology office visit will be 2 weeks post generator change. (2) Pacemaker battery depletion: Code(s): Z45.010 - Encounter for checking and testing of cardiac pacemaker pulse generator [battery] Plan: Nearing CELIA (3) Dizziness: Code(s): R42 - Dizziness and giddiness Plan: History of vertigo. Recent [facility] [place] for lightheadedness/vertigo episode. No change to cardiac medications. Currently condition has improved. No presyncope, syncope, falls. No alerts on her pacemaker interrogation. Echocardiogram done 07/29/2023 shows EF 55-60% with impaired relaxation, no valve abnormalities, normal RV. (4) Paroxysmal atrial fibrillation: Code(s): I48.0 - Paroxysmal atrial fibrillation Plan: History of paroxysmal atrial fibrillation. Currently suppressed with metoprolol. Pacemaker interrogation shows AT/AF burden less than 1%. No reports of heart palpitations. She is on Xarelto at renal dose. No bleeding issues reported. Continue current management. (5) HTN (hypertension): Code(s): I10 - Essential (primary) hypertension Qualifiers: Hypertension type: primary hypertension Qualified Code(s): I10 - Essential (primary) hypertension Plan: Well controlled at present time. No medication changes made. (6) Non-STEMI (non-ST elevated myocardial infarction): Comment: non obstuctive CAD, reduced EF on cardiac cath 02/22 [facility] Code(s): I21.4 - Non-ST elevation (NSTEMI) myocardial infarction Plan: No reports of anginal sounding symptoms. Continue management for stable CAD. She is not on aspirin as she is on Xarelto. She is on atorvastatin with LDL goal less than 70. Labs done 06/10/2023 shows LDL 67. She is on metoprolol and isosorbide. (7) Stress-induced cardiomyopathy: Comment: Echo 05/25 improved ejection fraction to 50% Code(s): I51.81 - Takotsubo syndrome Plan: History of stress-induced cardiomyopathy. Echo recently done with EF 55-60%. (8) Hospital discharge follow-up: Code(s): Z09 - Encounter for follow-up examination after completed treatment for conditions other than malignant neoplasm Plan: [facility] [place] for lightheadedness/vertigo. Coding Level of Care Code Est Pt Level 4 (79906) Diagnoses Cardiac pacemaker in situ Z95.0 Pacemaker battery depletion Z45.010 Dizziness R42 Paroxysmal atrial fibrillation I48.0 Primary hypertension I10 Hypertension type: primary hypertension Non-STEMI (non-ST elevated myocardial infarction) I21.4 Stress-induced cardiomyopathy I51.81 Hospital discharge follow-up Z09 CPT Codes Cardiac Device Check - Cardiac Device 2: [id number] Cardiac Device Check, pacemaker dual lead ([id number]) Time Spent (min) 26
== END 2023-09-02 15:46 | disposition home or self-care (01) ==
PROVIDERS: PCP Internal Medicine; Visit Provider Nurse Practitioner Family
DX: I48.0 Paroxysmal atrial fibrillation (principal); Z95.0 Presence of cardiac pacemaker
CPT/HCPCS: 93280; 99214

== ENCOUNTER → 2023-09-02 14:38 | Outpatient (BNVA) | payer MEDICARE, SELFPAY | PROVIDERS: PCP Internal Medicine; Visit Provider Nurse Practitioner Family | DX: R42 Dizziness and giddiness (principal); I48.0 Paroxysmal atrial fibrillation; I13.10 Hypertensive heart and chronic kidney disease without heart failure, with stage 1 through stage 4 chronic kidney disease, or unspecified chronic kidney disease; N18.30 Chronic kidney disease, stage 3 unspecified; I21.4 Non-ST elevation (NSTEMI) myocardial infarction; Z87.891 Personal history of nicotine dependence; Z45.018 Encounter for adjustment and management of other part of cardiac pacemaker | CPT/HCPCS: 93280; 99212 ==

== ENCOUNTER → 2023-10-12 23:59 | Outpatient (BNV) | payer MEDICARE, SELFPAY ==
--- NOTE | 2023-10-13 16:07 | A.OFFVIS_ITS ---
Intake Intake Visit Reasons: Remote Device Check- [facility] Allergies lisinopril Allergy (Unknown, Verified 09/02/23 15:18) Hyperkalemia nitrofurantoin [Macrobid] Adverse Reaction (Unknown, Verified 09/02/23 15:18) dizziness PFSH Medical History Hyperkalemia CKD (chronic kidney disease), stage III Cataract Vitamin D deficiency DM type 2 (diabetes mellitus, type 2) Hypothyroidism Hyperlipemia HTN (hypertension) Paroxysmal atrial fibrillation Cardiac pacemaker in situ Complete heart block Surgical History Hx of bilateral mastectomy History of permanent cardiac pacemaker placement History of tonsillectomy and adenoidectomy History of hip surgery Hx of cardiac cath Family History Father Cancer Mother Diabetes Social History Housing: House Are you a primary memory care program director to a significant other at home: No (was caring for , now he is in [place]) Do you presently have visiting nurse or other home services: No Alcohol intake: never Patient Tobacco Use Status: Former Tobacco user Quit Date: 1998 Tobacco use type: Cigarette e-Cigarette/Vaping Use: Never Used Advance Directives Date on File: 02/16/23 service: No Current occupational status: retired Cognitive needs: No Hearing needs: No Vision needs: Yes Office Procedures Cardiac Device Check Cardiac Device Check Details: Remote pacemaker report generated 10/13/2023. Pacemaker battery is at 2.59 was which is below CELIA. Will contact patient for replacement of her pulse generator. [id number] Cardiac Device Interrogation, pacemaker Procedure code (CPT) selection complete Assessment & Plan Assessment & Plan (1) Cardiac pacemaker in situ: Code(s): Z95.0 - Presence of cardiac pacemaker Plan: See above Coding Level of Care Code Procedure Only Diagnoses Cardiac pacemaker in situ Z95.0 CPT Codes Cardiac Device Check - Cardiac Device 12: [id number] Cardiac Device Interrogation, pacemaker ([id number])
== END ==
PROVIDERS: PCP Internal Medicine; Visit Provider Internal Medicine Cardiovascular Disease
DX: I48.0 Paroxysmal atrial fibrillation (principal); Z95.0 Presence of cardiac pacemaker
CPT/HCPCS: 93294

== ENCOUNTER 2023-10-14 05:57 | Day surgery (SDC) | payer MEDICARE, SELFPAY ==
[2023-10-11 12:42] VITALS: BMI 26.1
--- NOTE | 2023-10-13 09:35 | HO.ANESPROP2 ---
Documented by User: Susan Alvarado NP 10/13/23 09:40 HPI - Anesthesia Eval Consult details Narrative: 78yo F for Pacemaker Generator Change Xarelto for afib [place] [facility] [place]. Last office visit 08/2023. [facility] Active Problems Active Problems: All Active Problems (Updated 09/03/23 @ 08:29 by Bernie Marquez NP-C) Hospital discharge follow-up (Acute) Pacemaker battery depletion (Acute) Dizziness (Acute) Trochanteric bursitis of left hip (Acute) Knee pain, bilateral (Acute) Left hip pain (Acute) Stress-induced cardiomyopathy (Acute) Bacteriuria (Acute) Abdominal pain (Acute) Non-STEMI (non-ST elevated myocardial infarction) (Acute) Hyperkalemia (Acute) CKD (chronic kidney disease), stage III (Acute) Cataract (Acute) Vitamin D deficiency (Acute) DM type 2 (diabetes mellitus, type 2) (Acute) Hypothyroidism (Acute) Hyperlipemia (Acute) HTN (hypertension) (Acute) Paroxysmal atrial fibrillation (Acute) Cardiac pacemaker in situ (Acute) Past Medical History Medical History Hyperkalemia CKD (chronic kidney disease), stage III Cataract Vitamin D deficiency DM type 2 (diabetes mellitus, type 2) Hypothyroidism Hyperlipemia HTN (hypertension) Paroxysmal atrial fibrillation Cardiac pacemaker in situ Complete heart block Family History Family History Father Cancer Mother Diabetes Surgical History Surgical History Hx of bilateral mastectomy History of permanent cardiac pacemaker placement History of tonsillectomy and adenoidectomy History of hip surgery Hx of cardiac cath Social History Social History Housing: House Are you a primary ambulatory care to a significant other at home: No (was caring for , now he is in [place]) Do you presently have visiting nurse or other home services: No Alcohol intake: never Patient Tobacco Use Status: Former Tobacco user Quit Date: 1998 Tobacco use type: Cigarette e-Cigarette/Vaping Use: Never Used Use of substances other than those prescribed or required for medical reasons: No Have you been hit, kicked, punched, or otherwise hurt by someone within the past year? If so, by whom?: No Are you DNR?: No Advance Directives: No Advance Directives Information Provided: Yes Advance Directives on File: Yes Advance Directives Date on File: 02/16/23 Recently lost weight without trying: No Nutrition Risks: Surgical patient >75years service: No Current occupational status: retired Cognitive needs: No Hearing needs: No Vision needs: Yes Meds Allergies Allergy/AdvReac Type Severity Reaction Status Date / Time lisinopril Allergy Unknown Hyperkalemi Verified 10/14/23 06:30 a nitrofurantoin [Macrobid] AdvReac Unknown dizziness Verified 10/14/23 06:30 Home Medications Medication Instructions Recorded Confirmed Last Taken Type blood sugar diagnostic #10 ea 09/23/20 07/29/23 Unknown History dapagliflozin propanediol 10 mg 10 mg PO DAILY 12/10/21 10/12/23 08/17/23 History tablet (Farxiga) isosorbide mononitrate 30 mg 30 mg PO DAILY 06/15/23 10/14/23 10/14/23 05:00 History tablet,extended release 24 hr vit C 250 mg-E 90 mg-zinc 40 1 tab PO BID 08/17/23 10/14/23 08/17/23 History mg-copper 1 ux-qbjkog-tmsnhg chew tablet (PreserVision AREDS-2) acetaminophen 500 mg tablet 1,000 mg PO BID PRN Pain 10/12/23 10/12/23 Unknown History cephalexin 500 mg capsule mg 10/12/23 10/12/23 Unknown History Exam Height,Weight and Vital Signs: Height 5 ft 5 in Weight 71.214 kg Pertinent Lab Results Pertinent Lab Results: Laboratory Tests 08/17/23 11:04 WBC 4.9 Hgb 13.9 Hct 41.8 Plt Count 166 Sodium 142 Potassium 5.2 H D Chloride 113 H Carbon Dioxide 24 BUN 18 H Creatinine 1.25 Narrative Narrative: Cardiac Device Check 08/2023 Details: [employer] dual-chamber pacemaker interrogation today to assess battery life, CELIA in less than 3 months, voltage 2.62 volts, CELIA at 2.60 volts, mode switch episode lasting 10 seconds early this morning, V paced greater than 99%, a pace 1.1%. EKG 08/2023 Vent. Rate : 077 BPM Atrial Rate : 077 BPM P-R Int : 216 ms QRS Dur : 166 ms QT Int : 438 ms P-R-T Axes : 048 -87 061 degrees QTc Int : 495 ms Atrial-sensed ventricular-paced rhythm with prolonged AV conduction Abnormal ECG When compared with ECG of 12-FEB-2022 13:06, Vent. rate has increased BY 10 BPM ECHO 07/2023 Conclusions: - 1. Normal LV ejection fraction 55-60% with impaired relaxation filling pattern 2. Cardiac valvular Dopplers within normal limits 3. Normal RV systolic pressure 4. No gross pericardial effusion Assessment and Plan Assessment Anesthesia Assessment: Chart Reviewed Documented by User: Lillian Hughes MD 10/14/23 08:17 HPI - Anesthesia Eval Consult details Narrative: 78yo F for Pacemaker Generator Change Xarelto for afib. Last dose 10/11/23 [place] [facility] [place]. Last office visit 08/2023. [facility] Active Problems Active Problems: All Active Problems (Updated 10/14/23 @ 07:20 by Lillian Hughes MD) Hospital discharge follow-up (Acute) Pacemaker battery depletion (Acute) Dizziness (Acute) Trochanteric bursitis of left hip (Acute) Knee pain, bilateral (Acute) Left hip pain (Acute) Stress-induced cardiomyopathy (Acute) Bacteriuria (Acute) Abdominal pain (Acute) Non-STEMI (non-ST elevated myocardial infarction) (Acute) Hyperkalemia (Acute)5.2. 08/2022. Repeat 4.4 CKD (chronic kidney disease), stage III (Acute) Cataract (Acute) Vitamin D deficiency (Acute) DM type 2 (diabetes mellitus, type 2) (Acute) Hypothyroidism (Acute) Hyperlipemia (Acute) HTN (hypertension) (Acute) Paroxysmal atrial fibrillation (Acute) Cardiac pacemaker in situ (Acute) Past Medical History Medical History Hyperkalemia CKD (chronic kidney disease), stage III Cataract Vitamin D deficiency DM type 2 (diabetes mellitus, type 2) Hypothyroidism Hyperlipemia HTN (hypertension) Paroxysmal atrial fibrillation Cardiac pacemaker in situ Complete heart block Family History Family History Father Cancer Mother Diabetes Family history of problems with anesthesia: No Surgical History Surgical History Hx of bilateral mastectomy History of permanent cardiac pacemaker placement History of tonsillectomy and adenoidectomy History of hip surgery Hx of cardiac cath History of Problems with Anesthesia: No Social History Social History Housing: House Are you a primary ambulatory care to a significant other at home: No (was caring for , now he is in [place]) Do you presently have visiting nurse or other home services: No Alcohol intake: never Patient Tobacco Use Status: Former Tobacco user Quit Date: 1998 Tobacco use type: Cigarette e-Cigarette/Vaping Use: Never Used Use of substances other than those prescribed or required for medical reasons: No Have you been hit, kicked, punched, or otherwise hurt by someone within the past year? If so, by whom?: No Are you DNR?: No Advance Directives: No Advance Directives Information Provided: Yes Advance Directives on File: Yes Advance Directives Date on File: 02/16/23 Recently lost weight without trying: No Nutrition Risks: Surgical patient >75years service: No Current occupational status: retired Cognitive needs: No Hearing needs: No Vision needs: Yes Meds Allergies Allergy/AdvReac Type Severity Reaction Status Date / Time lisinopril Allergy Unknown Hyperkalemi Verified 10/14/23 06:30 a nitrofurantoin [Macrobid] AdvReac Unknown dizziness Verified 10/14/23 06:30 Home Medications Medication Instructions Recorded Confirmed Last Taken Type blood sugar diagnostic #10 ea 09/23/20 07/29/23 Unknown History dapagliflozin propanediol 10 mg 10 mg PO DAILY 12/10/21 10/12/23 08/17/23 History tablet (Farxiga) isosorbide mononitrate 30 mg 30 mg PO DAILY 06/15/23 10/14/23 10/14/23 05:00 History tablet,extended release 24 hr vit C 250 mg-E 90 mg-zinc 40 1 tab PO BID 08/17/23 10/14/23 08/17/23 History mg-copper 1 [id number]-rkdtsj chew tablet (PreserVision AREDS-2) acetaminophen 500 mg tablet 1,000 mg PO BID PRN Pain 10/12/23 10/12/23 Unknown History cephalexin 500 mg capsule mg 10/12/23 10/12/23 Unknown History Exam Height,Weight and Vital Signs: Height 5 ft 5 in Weight 71.214 kg Vital Signs Temp Pulse Resp BP Pulse Ox O2 Del Method 10/14/23 06:28 96.8 F 61 16 100/55 L 94 Room Air Airway Mallampati Class: III TM Dist: >3cm Neck ROM: Full Denture: Upper Partial: Lower Loose/Missing/Broken Teeth: Yes (Dentures as above. Denies broken or loose teeth) Heart: RRR Lungs: CTAB Assessment and Plan Assessment Anesthesia Assessment: Anesthesia Plan Discussed Final Anesthetic Review Family History of Problems with Anesthesia: No History of Problems with Anesthesia: No NPO: Yes ASA Class: IV Final Preanesthetic Review: No Changes in Pt Med Stat, Meds/Allgs Chart Reviewed, Consent Obtained/Reviewed and Anes Risks/Benef Reviewed Patient Risk: High Procedure Risk: Low Assessment/Block/Sedation in SS: Assess/Block/Sedation-SS Anesthetic Plan Anesthetic Plan: MAC: Disposition: Standard PACU
--- NOTE | 2023-10-13 09:49 | MHC.SHP ---
Pre-Procedural Eval Section A Date of Service: 10/13/23 The patient is an INPATIENT: No Changes since office visit: No Cold of Flu in the past 2 weeks, No New Medical Problems, No Changes in Medication and No Patient answered all questions The History & Physical has been completed within 30 days and I have reviewed it.: Yes Section B Chief Complaint: Encounter for checking and testing of cardiac pace Allergies: Allergies Allergy/AdvReac Type Severity Reaction Status Date / Time lisinopril Allergy Unknown Hyperkalemi Verified 09/02/23 15:18 a nitrofurantoin [Macrobid] AdvReac Unknown dizziness Verified 09/02/23 15:18 Plan I have reviewed the history and physical and performed a pertinent physical examination on my patient. No changes have occurred unless specified. Time Spent With Patient Time: Total time managing care of this patient today ____ minutes.
[2023-10-14] VITALS (7 sets, daily range): BP systolic 91–101; BP diastolic 37–55; PULSE 61–76; RESP 16–19; TEMP 36–36.1; O2SAT 94–99; BMI 24.8
[2023-10-14 06:41] LABS: Glucose, Whole Blood 117 mg/dL (60-115)
[2023-10-14] MEDS: Lactated Ringers 1,000 ML 50 ML IVCONT (06:47)
--- NOTE | 2023-10-14 08:34 | P.OP_ITS ---
Operative Note Operative Note Date of Service: 10/14/23 Narrative: Preoperative diagnosis: Pacemaker generator depletion Postop diagnosis: [] Same Procedure [] generator change Surgeon: [] Gaurang Furniture Upholsterer Apprentice: [] Tamanna Type of Anesthesia: [] MAC Indication for surgery: [] Generator depletion Findings: [] Patient brought to the operating room, placed on operative table in supine position, after adequate level of MAC anesthesia was induced, the left chest was prepped and draped in usual sterile fashion. Using 1% lidocaine/0.5% Marcaine infiltration, an incision was made from the prior scar from the previous generator/pacemaker placement and carried down through skin, subcutaneous tissue, and generator capsule. This was entered with uneventful enucleation of the generator. With expedience, both ventricular and atrial leads were exchanged with a new generator, screwed in, tested, and replaced. Patient tolerated procedure well. For specifics of sensing and data, please refer to [facility] [employer]'s work sheet. Wound was irrigated, secured hemostasis, and closed using interrupted inverted dermal 3-0 Vicryl sutures followed by Steri-Strips and sterile dressings. Sponge, needle, and instrument counts reported correct. Patient tolerated the procedure well and emerged anesthesia stable condition. EBL minimal
== END 2023-10-14 10:08 | disposition home or self-care (01) ==
PROVIDERS: PCP Internal Medicine; Visit Provider Surgery
PROC: (CPT 33228; principal; 2023-10-14 07:30)
DX: Z45.010 Encounter for checking and testing of cardiac pacemaker pulse generator [battery] (principal); I44.2 Atrioventricular block, complete; I48.0 Paroxysmal atrial fibrillation; E11.22 Type 2 diabetes mellitus with diabetic chronic kidney disease; I12.9 Hypertensive chronic kidney disease with stage 1 through stage 4 chronic kidney disease, or unspecified chronic kidney disease; N18.30 Chronic kidney disease, stage 3 unspecified; E78.5 Hyperlipidemia, unspecified; E55.9 Vitamin D deficiency, unspecified; E87.5 Hyperkalemia; Z79.84 Long term (current) use of oral hypoglycemic drugs; Z79.899 Other long term (current) drug therapy; Z88.8 Allergy status to other drugs, medicaments and biological substances; Z87.891 Personal history of nicotine dependence; Z98.890 Other specified postprocedural states
CPT/HCPCS: 33228; 82947; C1785; J0665; J0690; J2250; J2371; J2598; J2704; J3370

== ENCOUNTER → 2023-10-14 05:57 | Outpatient (BNV) | payer MEDICARE, SELFPAY | PROVIDERS: PCP Internal Medicine; Visit Provider Surgery | DX: Z45.010 Encounter for checking and testing of cardiac pacemaker pulse generator [battery] (principal) | CPT/HCPCS: 33228 ==

== ENCOUNTER 2023-10-18 12:17 | Outpatient (AMB) | payer MEDICARE, SELFPAY ==
--- NOTE | 2023-10-18 12:24 | MHC.PC.OV ---
Vital Signs 10/18/23 12:25 Height 5 ft 5 in Weight 155 lb BMI 25.8 BP 94/58 L Blood Pressure Location Rt brachial Position Sitting Pulse 90 Pulse Source Pulse Oximeter Pulse Oximetry (%) 96 Oxygen Delivery Method Room Air Intake Visit Reasons: 4 month follow up Intake Note: Pt is here today for 4 months follow up visit. Allergies lisinopril Allergy (Unknown, Verified 10/18/23 12:27) Hyperkalemia nitrofurantoin [Macrobid] Adverse Reaction (Unknown, Verified 10/18/23 12:27) dizziness Medication List - Last Reconciled 10/18/23 by Dipika Casas MD acetaminophen 1,000 mg PO BID PRN atorvastatin 20 mg PO DAILY blood sugar diagnostic As directed blood sugar diagnostic (FreeStyle Lite Strips) Test blood sugar TID dapagliflozin propanediol (Farxiga) 10 mg PO DAILY insulin glargine (Lantus Solostar U-100 Insulin) 20 units (0.2 mL) subcut DAILY isosorbide mononitrate ER 30 mg PO DAILY lancets (FreeStyle Lancets) Test up to 3 times per day levothyroxine 125 mcg PO DAILY metoprolol succinate ER 25 mg (1/2 x 50 mg) PO BID 90 days pen needle, diabetic (BD Ultra-Fine Mini Pen Needle) Use to inject insulin once a day rivaroxaban (Xarelto) 15 mg PO DAILY sertraline 75 mg (1.5 x 50 mg) PO DAILY tiotropium bromide 1 cap inhalation BEDTIME vit C,Z-As-dnvjf-lutein-zeaxan 250-90-40-1 mg (PreserVision AREDS-2) 1 tab PO BID Tobacco use date assessed: 10/18/23 Fall risk assessment: No Falls in past year Last assessed Fall Risk: 10/18/23 Dental Screening Dental Screen Date: 10/18/23 Did you have a dental visit in the last 12 months?: Yes Did you have a dental problem in the last 6 months where you did not have access to dental care?: No Was dental information given to patient?: Patient has dentist HPI 4 month follow up HPI Details Pt presents for follow-up of type 2 diabetes, hypothyroidism hyperlipidemia paroxysmal AFib. Patient had a pacemaker battery replaced while last and reports feeling tired. She denies chest pain shortness for breath palpitations lightheadedness. Patient had echocardiogram in July last year which showed recovered ejection fraction for the history nonischemic cardiomyopathy. Patient remains in the custodial. [facility] Medical History Hyperkalemia CKD (chronic kidney disease), stage III Cataract Vitamin D deficiency DM type 2 (diabetes mellitus, type 2) Hypothyroidism Hyperlipemia HTN (hypertension) Paroxysmal atrial fibrillation Cardiac pacemaker in situ Complete heart block Surgical History Hx of bilateral mastectomy History of permanent cardiac pacemaker placement History of tonsillectomy and adenoidectomy History of hip surgery Hx of cardiac cath Family History Father Cancer Mother Diabetes Social History Housing: House Are you a primary child care center administrator to a significant other at home: No (was caring for , now he is in [place]) Do you presently have visiting nurse or other home services: No Alcohol intake: never Patient Tobacco Use Status: Former Tobacco user Quit Date: 1998 Tobacco use type: Cigarette e-Cigarette/Vaping Use: Never Used Advance Directives Date on File: 02/16/23 service: No Current occupational status: retired Cognitive needs: No Hearing needs: No Vision needs: Yes Questionnaire Thrive Questionnaire Date Thrive assessed: 11/20/22 AUDIT C Alcohol Use Questionnaire (AUDIT-C) 1. How often do you have a drink containing alcohol?: Never 3. How often do you have six or more drinks on one occasion?: Never Total Score: 0 LEON-7 AMB Questionnaire LEON-7 Date LEON - 7 assessed: 11/20/22 Source: Developed by Drs. Star Vitale, Grace Sprague, Ham Landrum and colleagues, with an educational gaston from [employer]. Review of Systems Const All systems reviewed & are unremarkable except as noted in HPI and below Reports no additional complaints Eyes Reports no additional complaints ENT Reports no additional complaints Card Reports no additional complaints Resp Reports no additional complaints GI Reports no additional complaints Reports no additional complaints Physical exam (Primary Care) Vital Signs: Last Vital Signs Pulse 90 10/18/23 12:25 BP 94/58 L 10/18/23 12:25 Pulse Ox 96 10/18/23 12:25 Oxygen Delivery Method Room Air 10/18/23 12:25 BMI result Body Mass Index 25.8 Tobacco/Smoking Status: Tobacco use Status Tobacco use date assessed 10/18/23 10/18/23 12:35 Patient Tobacco Use Status Former Tobacco user 10/18/23 12:24 Tobacco use type Cigarette 10/18/23 12:24 e-Cigarette/Vaping Use Never Used 10/18/23 12:24 Thrive Assessment: Date of Thrive Assessment Date Thrive assessed 11/20/22 10/18/23 12:24 Const General: no acute distress HENMT Head: Yes normal to inspection Eyes General: appearance normal, both eyes and all related structures Neck Neck: Yes supple Resp Effort & Inspection: normal respiratory effort Auscultation: clear to auscultation bilaterally Cardio Rhythm: regular rhythm Heart sounds: S1 normal heart sound present and S2 normal heart sound present GI Inspection: Yes normal to inspection Palpation (GI): Soft to palpation Percussion: Yes normal to percussion Assessment and Plan Assessment & Plan (1) Non-STEMI (non-ST elevated myocardial infarction): Comment: non obstuctive CAD, reduced EF on cardiac cath 02/22 [facility] Code(s): I21.4 - Non-ST elevation (NSTEMI) myocardial infarction (2) CKD (chronic kidney disease), stage III: Code(s): N18.30 - Chronic kidney disease, stage 3 unspecified Plan: Check comprehensive panel today (3) DM type 2 (diabetes mellitus, type 2): Code(s): E11.9 - Type 2 diabetes mellitus without complications Plan: Check A1c today, continue ADA diet current medications follow-up in 3 months (4) Pacemaker battery depletion: Code(s): Z45.010 - Encounter for checking and testing of cardiac pacemaker pulse generator [battery] Plan: Status post battery change last week. EKG showed regular rhythm right bundle branch block no acute ST-T change no change compared to previous. Patient will call Cardiology to discuss her not feeling well for the last week. (5) HTN (hypertension): Code(s): I10 - Essential (primary) hypertension Qualifiers: Hypertension type: primary hypertension Qualified Code(s): I10 - Essential (primary) hypertension Plan: Blood pressure is low patient was advised to stop taking isosorbide (6) Hyperlipemia: Code(s): E78.5 - Hyperlipidemia, unspecified Plan: Continue statin (7) Paroxysmal atrial fibrillation: Code(s): I48.0 - Paroxysmal atrial fibrillation Plan: Continue Xarelto (8) Hypothyroidism: Code(s): E03.9 - Hypothyroidism, unspecified Plan: Continue levothyroxine check TSH today Orders: Orders Complete Blood Count Auto Diff Today E03.9 - Hypothyroidism, unspecified, E11.9 - Type 2 diabetes mellitus without complications, I10 - Essential (primary) hypertension, N18.30 - Chronic kidney disease, stage 3 unspecified Comprehensive Met. Panel Today E03.9 - Hypothyroidism, unspecified, E11.9 - Type 2 diabetes mellitus without complications, I10 - Essential (primary) hypertension, N18.30 - Chronic kidney disease, stage 3 unspecified B Type Natriuretic Peptide Today E11.9 - Type 2 diabetes mellitus without complications, I21.4 - Non-ST elevation (NSTEMI) myocardial infarction, N18.30 - Chronic kidney disease, stage 3 unspecified, Z45.010 - Encounter for checking and testing of cardiac pacemaker pulse generator [battery] Hemoglobin A1c Today E03.9 - Hypothyroidism, unspecified, E11.9 - Type 2 diabetes mellitus without complications, I10 - Essential (primary) hypertension, N18.30 - Chronic kidney disease, stage 3 unspecified TSH reflex Free T4 Today E03.9 - Hypothyroidism, unspecified, E11.9 - Type 2 diabetes mellitus without complications, I10 - Essential (primary) hypertension, N18.30 - Chronic kidney disease, stage 3 unspecified Coding Level of Care Code Est Pt Level 4 (98537) Diagnoses Non-STEMI (non-ST elevated myocardial infarction) I21.4 CKD (chronic kidney disease), stage III N18.30 DM type 2 (diabetes mellitus, type 2) E11.9 Pacemaker battery depletion Z45.010 Primary hypertension I10 Hypertension type: primary hypertension Hyperlipemia E78.5 Paroxysmal atrial fibrillation I48.0 Hypothyroidism E03.9
[2023-10-18 12:25] VITALS: BP 94/58; PULSE 90; O2SAT 96; BMI 25.8
== END 2023-10-18 13:26 | disposition home or self-care (01) ==
PROVIDERS: PCP Internal Medicine; Visit Provider Internal Medicine
DX: I12.9 Hypertensive chronic kidney disease with stage 1 through stage 4 chronic kidney disease, or unspecified chronic kidney disease (principal); N18.30 Chronic kidney disease, stage 3 unspecified; E11.22 Type 2 diabetes mellitus with diabetic chronic kidney disease; I48.0 Paroxysmal atrial fibrillation; I25.2 Old myocardial infarction; Z45.010 Encounter for checking and testing of cardiac pacemaker pulse generator [battery]; E78.5 Hyperlipidemia, unspecified; E03.9 Hypothyroidism, unspecified
CPT/HCPCS: 99214

== ENCOUNTER 2023-10-18 13:27 | Outpatient (REF) | payer MEDICARE, SELFPAY ==
[2023-10-18 15:48] LABS: MANUAL DIFF FLAG NO
[2023-10-18 15:50] LABS: Basophils Percent Auto 0.4 % (0-2); Eosinophils Absolute Auto 0.1 X10*3/uL (0.0-0.4); Eosinophils Percent Auto 1.8 % (0-4); Hematocrit 43.1 % (37.0-47.0); Hemoglobin 13.7 g/dl (12.0-16.0); Imm Gran Abs Auto 0.03 X10*3/uL (0.00-0.03); Imm Gran Pct Auto 0.4 % (0.0-0.4); Lymphocytes Absolute Auto 0.9 X10*3/uL (1.2-4.9); Lymphocytes Percent Auto 13.8 % (20-40); Mean Corpuscular HGB Conc 31.8 g/dl (31.0-35.0); Mean Corpuscular Hemoglobin 28.8 pg (27.0-33.0); Mean Corpuscular Volume 90.5 fL (80.0-98.0); Mean Platelet Volume 10.5 fL (9.4-12.3); Monocytes Absolute Auto 0.4 X10*3/uL (0.1-1.2); Monocytes Percent Auto 6.2 % (2-11); Neutrophils Absolute Auto 5.2 x10*3/uL (2.0-8.3); Neutrophils Percent Auto 77.4 % (45-73); Platelet Count 181 X10*3/uL (160-400); Red Blood Count 4.76 X10*6/uL (4.20-5.50); Red Cell Distribution Width 13.5 % (11.0-16.0); White Blood Count 6.7 X10*3/uL (4.8-10.8)
[2023-10-18 16:00] LABS: Estimated Average Glucose 148 mg/dL; Hemoglobin A1c % 6.8 % (<6.0)
[2023-10-18 16:07] LABS: Alanine Aminotransferase 16 U/L (0-31); Albumin Level 3.9 g/dL (3.5-5.0); Alkaline Phosphatase 104 U/L (39-117); Anion Gap 13 (12-20); Aspartate Amino Transferase 21 U/L (5-31); Bilirubin Total 0.5 mg/dL (0.0-1.0); Blood Urea Nitrogen 18 mg/dL (9-16); Calcium 9.9 mg/dL (8.4-10.2); Carbon Dioxide 25 mmol/L (22-29); Chloride 107 mmol/L (96-108); Estimated Glomerular Filt Rate 39; Glucose Random 225 mg/dL (60-115); Potassium 3.9 mmol/L (3.3-5.1); Sodium 141 mmol/L (135-145); Total Protein 7.1 g/dL (6.5-8.0)
[2023-10-18 16:11] LABS: B Type Natriuretic Peptide 16 pg/mL (<100)
[2023-10-18 16:24] LABS: TSH reflex Free T4 1.65 uIU/mL (0.32-4.0)
== END 2023-10-18 13:28 | disposition home or self-care (01) ==
LOC: HO.HMGCLDS 13:27
PROVIDERS: PCP Internal Medicine; Visit Provider Internal Medicine
DX: I21.4 Non-ST elevation (NSTEMI) myocardial infarction (principal); I10 Essential (primary) hypertension; R42 Dizziness and giddiness; E11.9 Type 2 diabetes mellitus without complications; N18.30 Chronic kidney disease, stage 3 unspecified; E03.9 Hypothyroidism, unspecified; Z45.010 Encounter for checking and testing of cardiac pacemaker pulse generator [battery]
CPT/HCPCS: 36415; 80053; 83036; 83880; 84443; 85025

== ENCOUNTER 2023-10-18 14:36 | Emergency (ER) | payer MEDICARE, SELFPAY ==
--- NOTE | ~2023-10-18 | XR_ITS ---
EXAMINATION: XR CHEST CLINICAL INFORMATION: Generalized weakness COMPARISON: Chest 08/17/2023 TECHNIQUE: 2 views of the chest were obtained. FINDINGS: The lungs are well-expanded and clear. The heart size and pulmonary vascularity is normal. There are pacer electrodes in right atrium and right ventricle. No gross bony abnormality seen. XR/XR chest 2V IMPRESSION: Unremarkable chest exam.
--- NOTE | 2023-10-18 14:38 | ECG_ITS ---
Test Reason : weakness Blood Pressure : / mmHG Vent. Rate : 075 BPM Atrial Rate : 075 BPM P-R Int : 188 ms QRS Dur : 168 ms QT Int : 472 ms P-R-T Axes : 059 -87 075 degrees QTc Int : 527 ms Atrial-sensed ventricular-paced rhythm Abnormal ECG When compared with ECG of 17-AUG-2023 10:03, No significant changes seen Referred By: Cassie Mccabe Electronically Signed By:MIRI SHAH
--- NOTE | 2023-10-18 14:48 | ED_ITS ---
HPI - General Adult General Chief complaint: General Medical Stated complaint: sob need pacemaker checked Time Seen by Provider: 10/18/23 18:22 History of Present Illness HPI narrative: The patient is an 78-year-old female who has not been feeling well for the last few days. She had battery changed on her pacemaker last week by Dr. Merlos. She says that ever since then she has felt weak dyspneic on exertion. She went to see her primary care doctor this morning I asked her to contact Dr. Merlos. Dr. Merlos advised her to come to the emergency department. The patient says that she just wants to sleep all the time. She says that it makes her tired and makes her want to go to sleep. He also feels that if she exerts herself she feels more short of breath than usual. She has not had a fever. Related Data Home Medications Medication Instructions Recorded Confirmed blood sugar diagnostic #10 ea 09/23/20 10/18/23 dapagliflozin propanediol 10 mg 10 mg PO DAILY 12/10/21 10/18/23 tablet (Farxiga) vit C 250 mg-E 90 mg-zinc 40 1 tab PO BID 08/17/23 10/18/23 mg-copper 1 nj-iwwrpc-nuscik chew tablet (PreserVision AREDS-2) acetaminophen 500 mg tablet 1,000 mg PO BID PRN Pain 10/12/23 10/18/23 Previous Rx's Medication Instructions Recorded blood sugar diagnostic (FreeStyle #300 ea 05/11/23 Lite Strips) insulin glargine 100 unit/mL (3 20 unit (0.2 mL) subcut DAILY #15 07/12/23 mL) subcutaneous pen (Lantus mL Solostar U-100 Insulin) lancets 28 gauge (FreeStyle #100 ea 07/12/23 Lancets) levothyroxine 125 mcg tablet 125 mcg PO DAILY #90 tabs 08/02/23 tiotropium bromide 18 mcg capsule 1 cap inhalation BEDTIME #90 08/08/23 with inhalation device inhalations pen needle, diabetic 31 gauge x #100 ea 09/01/2312/17 (BD Ultra-Fine Mini Pen Needle) atorvastatin 20 mg tablet 20 mg PO DAILY #90 tabs 09/18/23 sertraline 50 mg tablet 75 mg (1.5 x 50 mg) PO DAILY #135 09/18/23 tabs metoprolol succinate 50 mg 25 mg (1/2 x 50 mg) PO BID 90 days 09/29/23 tablet,extended release 24 hr #90 tabs rivaroxaban 15 mg tablet (Xarelto) 15 mg PO DAILY #90 tabs 09/29/23 isosorbide mononitrate 30 mg 30 mg PO DAILY #90 tabs 10/14/23 tablet,extended release 24 hr Allergies Allergy/AdvReac Type Severity Reaction Status Date / Time lisinopril Allergy Unknown Hyperkalemi Verified 10/18/23 12:27 a nitrofurantoin [Macrobid] AdvReac Unknown dizziness Verified 10/18/23 12:27 [facility] Past Medical History Onset Date is defined in the Problem List Problems that require an onset date and time if occurred within 24 hrs of arrival to the ED Aortic Dissection and Rupture; Neurologic impairment; Cardiopulmonary Arrest; Endotracheal Intubation; Insertion or Replacement of Mechanical Circulatory Assist Device Medical History Hyperkalemia CKD (chronic kidney disease), stage III Cataract Vitamin D deficiency DM type 2 (diabetes mellitus, type 2) Hypothyroidism Hyperlipemia HTN (hypertension) Paroxysmal atrial fibrillation Cardiac pacemaker in situ Complete heart block Surgical History Hx of bilateral mastectomy History of permanent cardiac pacemaker placement History of tonsillectomy and adenoidectomy History of hip surgery Hx of cardiac cath Family History Family History Father Cancer Mother Diabetes Social History Social History Housing: House Are you a primary pharmacy care coordinator to a significant other at home: No (was caring for , now he is in [place]) Do you presently have visiting nurse or other home services: No Alcohol intake: never Patient Tobacco Use Status: Former Tobacco user Quit Date: 1998 Tobacco use type: Cigarette Smoked in Last 30 Days: No e-Cigarette/Vaping Use: Never Used Use of substances other than those prescribed or required for medical reasons: No Advance Directives: Yes Advance Directives on File: Yes Advance Directives Date on File: 02/16/22 service: No Current occupational status: retired Cognitive needs: No Hearing needs: No Vision needs: Yes Physical Exam ED Vital Signs: Vital Signs - 24 hr 10/18/23 14:51 10/18/23 19:52 10/18/23 21:22 Temperature 96.8 F 98.2 F 97.7 F Pulse Rate 88 74 75 Respiratory Rate 16 16 20 Blood Pressure 136/75 119/67 137/79 Pulse Oximetry 98 95 99 Oxygen Delivery Method Room Air Room Air Room Air BMI result Body Mass Index 25.8 Const Other: Patient is an 78-year-old woman who was awake and alert. She does not appear obviously ill or in distress. HENMT Other: The face is symmetrical. ?Mucous membranes moist. Eyes Other: Pupils are round equal, conjunctivae are clear, extraocular movements intact Neck Neck: Yes no JVD Resp Effort & Inspection: normal respiratory effort Auscultation: clear to auscultation bilaterally Cardio Rate: regular rate Rhythm: regular rhythm Heart sounds: S1 normal heart sound present and S2 normal heart sound present GI Other: Abdomen is soft and nontender Skin Other: Skin is pale and dry and unremarkable Neuro Other: The patient is awake and alert. Face is symmetrical. Speech is clear. Eye movements intact. Moving extremities normally. Patient is grossly neurologically intact. Extrem Other: No peripheral edema. Course Course Course Narrative: RME:?78 yo female hx of hypothyroidism, HTN, hyperkalemia, complete heart block s/p pacemaker, paroxysmal atrial fibrilation, stage 3 CKD, T2DM here via EMS for evaluation of fatigue and shortness of breath x3 days. saw PCP this morning for f/u visit, had labs drawn at 1330 today (not in system yet). pcp advised to call Dr. Merlos regarding pacemaker who then advised her to come to the ED. Battery last changed on (6 days ago). denies fever, chest pain, SOB, palpitations. plan for serology, EKG, and review of labs Full HPI, ROS and PE to be performed by the primary ED provider. Medical Decision Making Medical Decision Making [facility] Narrative: The patient is an 78-year-old woman who had the batteries of her pacemaker changed 4 days ago. She says that since the procedure she has been profoundly fatigued and feels like she just wants to sleep. The patient looks well. Her EKG shows a paced rhythm similar to previous EKGs. On the vehicle monitor technician her pacemaker appeared to be her pulse oximetry showed plethysmography consistent with perfusing beats. Medical workup is otherwise unremarkable. CBC is unremarkable with a white count of 6.5 and a normal H&H. Her renal function is unchanged. Her troponin is normal. ProBNP is normal. CRP is normal. She is negative for COVID and influenza. Overall the patient's evaluation in the emergency room seems very reassuring and she discharge for outpatient follow-up. No suggestion of pacemaker failure. Lab Data 10/18/23 19:00 10/18/23 19:00 Labs: Lab Results 10/18/23 10/18/23 Range/Units 18:57 19:00 WBC 6.5 (4.8-10.8) X10*3/uL RBC 5.09 (4.20-5.50) X10*6/uL Hgb 14.7 (12.0-16.0) g/dl Hct 46.1 (37.0-47.0) % MCV 90.6 (80.0-98.0) fL MCH 28.9 (27.0-33.0) pg MCHC 31.9 (31.0-35.0) g/dl RDW 13.6 (11.0-16.0) % Plt Count 208 (160-400) X10*3/uL MPV 10.6 (9.4-12.3) fL Immature Gran % (Auto) 0.6 H (0.0-0.4) % Neut % (Auto) 71.5 (45-73) % Lymph % (Auto) 17.6 L (20-40) % Potter % (Auto) 6.4 (2-11) % Eos % (Auto) 2.8 (0-4) % Baso % (Auto) 1.1 (0-2) % Lymph # (Auto) 1.2 (1.2-4.9) X10*3/uL Potter # (Auto) 0.4 (0.1-1.2) X10*3/uL Eos # (Auto) 0.2 (0.0-0.4) X10*3/uL Baso # (Auto) 0.1 (0.0-0.2) X10*3/uL Abs Immat Gran (auto) 0.04 H (0.00-0.03) X10*3/uL Absolute Neuts (auto) 4.7 (2.0-8.3) x10*3/uL Absolute Nucleated RBC 0.000 (0.0-0.012) X10*3/uL Nucleated RBC % (auto) 0.0 (0.0-0.2) /100WBC Sodium 142 (135-145) mmol/L Potassium 4.1 (3.3-5.1) mmol/L Chloride 108 (96-108) mmol/L Carbon Dioxide 25 (22-29) mmol/L Anion Gap 13 (12-20) BUN 17 H (9-16) mg/dL Creatinine 1.28 (0.5-1.4) mg/dL Estim Creat Clear Calc 34.4 Estimated GFR 40 Random Glucose 174 H (60-115) mg/dL Calcium 10.2 (8.4-10.2) mg/dL Magnesium 1.9 (1.6-2.6) mg/dL Total Bilirubin 0.5 (0.0-1.0) mg/dL Direct Bilirubin 0.2 (0.0-0.5) mg/dL AST 22 (5-31) U/L ALT 17 (0-31) U/L Alkaline Phosphatase 109 (39-117) U/L Troponin I High Sens 4.3 D (<3.5-17.0) ng/L C-Reactive Protein 0.29 (< or = 0.50) mg/dL B-Natriuretic Peptide 20 (<100) pg/mL Total Protein 7.7 (6.5-8.0) g/dL Albumin 4.2 (3.5-5.0) g/dL COVID-19 (PHILIP) Negative (Negative) COVID-19 Clin Com See Note Influenza Type A (RENUKA) Negative (Negative) Influenza Type B (RENUKA) Negative (Negative) Influenza A & B Note See Note Independent Interpretation I performed an independent interpretation of an: EKG Interpretation: EKG at 14:42 shows atrial sensed ventricular paced rhythm at 75 beats per minute. No change from previous. Discharge Plan Discharge Clinical Impression: Weakness Patient Disposition: Home, Self-Care Additional Instructions: I am not finding any concerning results on your testing in the emergency room today. Your pacemaker seems to be working appropriately. Please follow-up with your regular doctor soon for re-evaluation. Return to the emergency room if worse. Prescriptions: No Action (DME) FreeStyle Lite Strips Strip See Rx Instructions .ROUTE .MEDSUPPLY Qty: 300 3RF Rx Instructions: Test blood sugar TID Lantus Solostar U-100 Insulin 100 unit/mL (3 mL) insulin pen 20 unit subcut DAILY Qty: 15 5RF (DME) lancets [FreeStyle Lancets] 28 gauge misc See Rx Instructions .Route Qty: 100 3RF Rx Instructions: Test up to 3 times per day levothyroxine 125 mcg tablet 125 mcg PO DAILY Qty: 90 3RF tiotropium bromide 18 mcg capsule, w/inhalation device 1 cap inhalation BEDTIME Qty: 90 1RF (DME) pen needle, diabetic [BD Ultra-Fine Mini Pen Needle] 31 gauge x 3/16 needle See Rx Instructions .Route Qty: 100 3RF Rx Instructions: Use to inject insulin once a day sertraline 50 mg tablet 75 mg PO DAILY Qty: 135 3RF atorvastatin 20 mg tablet 20 mg PO DAILY Qty: 90 3RF metoprolol succinate 50 mg tablet extended release 24 hr 25 mg PO BID 90 Days Qty: 90 3RF Xarelto 15 mg tablet 15 mg PO DAILY Qty: 90 3RF isosorbide mononitrate 30 mg tablet extended release 24 hr 30 mg PO DAILY Qty: 90 3RF acetaminophen 500 mg Tablet 1,000 mg PO BID PRN (Reason: Pain) PreserVision AREDS-2 250-90-40-1 mg Tablet,Chewable 1 tab PO BID (DME) blood sugar diagnostic Strip See Rx Instructions Not Applicable TID Qty: 10 Rx Instructions: As directed Farxiga 10 mg tablet 10 mg PO DAILY Interventions: ED Discharge Assessment Last Done: 10/18/23 21:57 Discharge Date/Time: 10/18/23 21:58
[2023-10-18 14:51] VITALS: BP 136/75; PULSE 88; RESP 16; TEMP 36; O2SAT 98; BMI 25.8
[2023-10-18 19:07] LABS: MANUAL DIFF FLAG NO
[2023-10-18 19:23] LABS: COVID-19 Test Negative (Negative); IDNOW Serial# 58CA691E; IDNOW Serial# 9DB6401D; Influenza A Negative (Negative); Influenza B2 Negative (Negative)
[2023-10-18 19:27] LABS: B Type Natriuretic Peptide 20 pg/mL (<100)
[2023-10-18 19:28] LABS: Anion Gap 13 (12-20); Troponin-I High Sensitivity 4.3 ng/L (<3.5-17.0)
[2023-10-18 19:29] LABS: Alanine Aminotransferase 17 U/L (0-31); Albumin Level 4.2 g/dL (3.5-5.0); Alkaline Phosphatase 109 U/L (39-117); Aspartate Amino Transferase 22 U/L (5-31); Bilirubin Direct 0.2 mg/dL (0.0-0.5); Bilirubin Total 0.5 mg/dL (0.0-1.0); Blood Urea Nitrogen 17 mg/dL (9-16); C Reactive Protein 0.29 mg/dL (< or = 0.50); Calcium 10.2 mg/dL (8.4-10.2); Carbon Dioxide 25 mmol/L (22-29); Chloride 108 mmol/L (96-108); Creatinine Clr Calc Pharmacy 34.4; Estimated Glomerular Filt Rate 40; Glucose Random 174 mg/dL (60-115); Magnesium 1.9 mg/dL (1.6-2.6); Potassium 4.1 mmol/L (3.3-5.1); Sodium 142 mmol/L (135-145); Total Protein 7.7 g/dL (6.5-8.0)
[2023-10-18 19:37] LABS: Basophils Absolute Auto 0.1 X10*3/uL (0.0-0.2); Basophils Percent Auto 1.1 % (0-2); Eosinophils Absolute Auto 0.2 X10*3/uL (0.0-0.4); Eosinophils Percent Auto 2.8 % (0-4); Hematocrit 46.1 % (37.0-47.0); Hemoglobin 14.7 g/dl (12.0-16.0); Imm Gran Abs Auto 0.04 X10*3/uL (0.00-0.03); Imm Gran Pct Auto 0.6 % (0.0-0.4); Lymphocytes Absolute Auto 1.2 X10*3/uL (1.2-4.9); Lymphocytes Percent Auto 17.6 % (20-40); Mean Corpuscular HGB Conc 31.9 g/dl (31.0-35.0); Mean Corpuscular Hemoglobin 28.9 pg (27.0-33.0); Mean Corpuscular Volume 90.6 fL (80.0-98.0); Mean Platelet Volume 10.6 fL (9.4-12.3); Monocytes Absolute Auto 0.4 X10*3/uL (0.1-1.2); Monocytes Percent Auto 6.4 % (2-11); Neutrophils Absolute Auto 4.7 x10*3/uL (2.0-8.3); Neutrophils Percent Auto 71.5 % (45-73); Platelet Count 208 X10*3/uL (160-400); Red Blood Count 5.09 X10*6/uL (4.20-5.50); Red Cell Distribution Width 13.6 % (11.0-16.0); White Blood Count 6.5 X10*3/uL (4.8-10.8)
[2023-10-18 19:52] VITALS: BP 119/67; PULSE 74; RESP 16; TEMP 36.8; O2SAT 95
[2023-10-18 21:22] VITALS: BP 137/79; PULSE 75; RESP 20; TEMP 36.5; O2SAT 99
== END 2023-10-18 21:58 | disposition home or self-care (01) ==
PROVIDERS: Physician Assistant Medical; Emergency Provider Emergency Medicine; PCP Internal Medicine
DX: R06.02 Shortness of breath (principal); R53.1 Weakness; R94.31 Abnormal electrocardiogram [ECG] [EKG]; Z87.891 Personal history of nicotine dependence; Z79.899 Other long term (current) drug therapy; Z11.52 Encounter for screening for COVID-19; Z20.828 Contact with and (suspected) exposure to other viral communicable diseases
CPT/HCPCS: 36415; 71046; 80048; 80076; 83735; 83880; 84484; 85025; 86140; 87502; 87635; 93005; 99283; 99284

== ENCOUNTER → 2023-10-18 14:38 | Outpatient (BNV) | payer MEDICARE, SELFPAY | PROVIDERS: PCP Internal Medicine; Visit Provider Internal Medicine | DX: R53.1 Weakness (principal) | CPT/HCPCS: 93010 ==

== ENCOUNTER 2023-10-25 08:51 | Outpatient (AMB) | payer MEDICARE, SELFPAY ==
[2023-10-25 08:54] VITALS: BP 120/68; PULSE 82; BMI 25.8
--- NOTE | 2023-10-25 08:54 | A.OFFVIS_ITS ---
Intake Vital Signs 10/25/23 08:54 Height 5 ft 5 in Weight 155 lb 3.287 oz BMI 25.8 BP 120/68 Blood Pressure Location Lt brachial Position Sitting Pulse 82 Intake Visit Reasons: st black check c/o fatigue since battery change Intake Note: st black check. p/t its feeling better. Customer Service Coordinator Required: No Accompanied by: Self / Same As Patient Allergies lisinopril Allergy (Unknown, Verified 10/18/23 12:27) Hyperkalemia nitrofurantoin [Macrobid] Adverse Reaction (Unknown, Verified 10/18/23 12:27) dizziness Medication List - Last Reconciled 10/25/23 by Prosper Brown MD acetaminophen 1,000 mg PO BID PRN atorvastatin 20 mg PO DAILY blood sugar diagnostic As directed blood sugar diagnostic (FreeStyle Lite Strips) Test blood sugar TID dapagliflozin propanediol (Farxiga) 10 mg PO DAILY insulin glargine (Lantus Solostar U-100 Insulin) 20 units (0.2 mL) subcut DAILY isosorbide mononitrate ER 30 mg PO DAILY lancets (FreeStyle Lancets) Test up to 3 times per day levothyroxine 125 mcg PO DAILY metoprolol succinate ER 25 mg (1/2 x 50 mg) PO BID 90 days pen needle, diabetic (BD Ultra-Fine Mini Pen Needle) Use to inject insulin once a day rivaroxaban (Xarelto) 15 mg PO DAILY sertraline 75 mg (1.5 x 50 mg) PO DAILY tiotropium bromide 1 cap inhalation BEDTIME vit C,B-Pr-lqabf-lutein-zeaxan 250-90-40-1 mg (PreserVision AREDS-2) 1 tab PO BID HPI HPI Comments History of Present Illness Details Penny comes for urgent follow-up visit as post pulse generator change she felt very fatigued. She ended up going to the emergency room but no obvious abnormality was found. Since that visit she has been feeling well. Denies any worsening shortness of breath, orthopnea, PND. No prolonged palpitation irregular heart beat. No syncopal episodes. No bleeding issues or neurologic events. [facility] Medical History (Updated 10/25/23 @ 09:13 by Prosper Brown MD) Hyperkalemia CKD (chronic kidney disease), stage III Cataract Vitamin D deficiency DM type 2 (diabetes mellitus, type 2) Hypothyroidism Hyperlipemia HTN (hypertension) Paroxysmal atrial fibrillation Cardiac pacemaker in situ Complete heart block Surgical History (Updated 10/25/23 @ 09:13 by Prosper Brown MD) Pacemaker battery depletion Hx of bilateral mastectomy History of permanent cardiac pacemaker placement History of tonsillectomy and adenoidectomy History of hip surgery Hx of cardiac cath Family History Father Cancer Mother Diabetes Social History Housing: House Are you a primary day care teacher to a significant other at home: No (was caring for , now he is in [place]) Do you presently have visiting nurse or other home services: No Alcohol intake: never Patient Tobacco Use Status: Former Tobacco user Quit Date: 1998 Tobacco use type: Cigarette e-Cigarette/Vaping Use: Never Used Advance Directives Date on File: 02/16/22 service: No Current occupational status: retired Cognitive needs: No Hearing needs: No Vision needs: Yes Review of Systems Const Reports chills, Reports fatigue, Reports fever(s), Reports frequent falls, Reports weakness, Reports weight gain and Reports weight loss ENT Reports dizziness Card Reports chest pain, Reports leg edema, Reports lightheadedness, Reports palpitations, Reports dyspnea and Reports dyspnea on exertion Resp Reports cough, Reports dyspnea and Reports dyspnea on exertion GI Reports hematochezia Musc Reports abnormal gait, Reports muscle weakness, Reports numbness, Reports radiating pain into limb and Reports tingling Neuro Reports abnormal gait, Reports dizziness, Reports frequent falls, Reports numbness, Reports tingling and Reports weakness Endo Reports fatigue and Reports palpitations Physical Exam Vital Signs: Last Vital Signs Pulse 82 10/25/23 08:54 BP 120/68 10/25/23 08:54 BMI result Body Mass Index 25.8 Const General: cooperative, healthy appearing, comfortable and no acute distress Orientation/consciousness: patient oriented x3 Neck Neck: Yes normal visual inspection Resp Effort & Inspection: normal respiratory effort Auscultation: clear to auscultation bilaterally, no crackles, no rales, no rhonchi and no wheezes Cardio Jugular venous distension: no JVD Rate: regular rate Rhythm: regular rhythm Heart sounds: S1 normal heart sound present, S2 normal heart sound present, no murmurs and no rubs Neuro General: patient oriented x3 Extrem General: Yes normal to inspection Psych Appearance: grossly normal Mental Status: mental status grossly normal Speech and movement: Normal speech and movement present Office Procedures Cardiac Device Check Cardiac Device Check Details: Dual-chamber [place] pacemaker in place. Programmed in DDDR at 60 beats per minute. Atrial pacing 3.5% of time. Ventricularly pacer dependent. Atrial sensing is 1 mV. Ventricular sensing could not be checked. Atrial ventricular pacing thresholds adequate and in our capture mode. Pacing lead impedance is stable. Battery life is excellent at 10.4 years no episodes of atrial fibrillation noted [id number] Cardiac Device Check, pacemaker dual lead Procedure code (CPT) selection complete Assessment & Plan Assessment & Plan (1) Cardiac pacemaker in situ: Code(s): Z95.0 - Presence of cardiac pacemaker Plan: Patient with recent pulse generator change for end of life of battery. Pacemaker is working well. Will follow remotely in 3 months time. Follow up in the clinic in 6 months time. No reason for fatigue based on the pacemaker function. (2) Paroxysmal atrial fibrillation: Code(s): I48.0 - Paroxysmal atrial fibrillation Plan: Paroxysmal atrial fibrillation which has remained suppressed. Doing well with rhythm control approach will continue pursue rhythm control approach. Continue metoprolol therapy. No indication for antiarrhythmic drug therapy. Avoidance of stimulants was discussed. Stress mitigation strategies were discussed. Continue current Xarelto which is renally dose adjusted. (3) CAD (coronary artery disease): Comment: Nonobstructive by cardiac catheterization, February 2022, done for NSTEMI Code(s): I25.10 - Atherosclerotic heart disease of [place] coronary artery without angina pectoris Plan: Nonobstructive CAD. No interventions required. Currently on full oral anticoagulation with Xarelto and would avoid aspirin therapy. Continue aggressive risk factor modification. Blood pressure is well optimized. Target goal hemoglobin A1c less than 7%. Will follow up in the clinic in 6 months time, sooner p.r.n.. Thank you for allowing me to partake in her care Coding Level of Care Code Est Pt Level 4 (75080) Diagnoses Cardiac pacemaker in situ Z95.0 Paroxysmal atrial fibrillation I48.0 CAD (coronary artery disease) I25.10 CPT Codes Cardiac Device Check - Cardiac Device 2: [id number] Cardiac Device Check, pacemaker dual lead ([id number])
== END 2023-10-25 09:13 | disposition home or self-care (01) ==
PROVIDERS: PCP Internal Medicine; Visit Provider Internal Medicine Cardiovascular Disease
DX: I48.0 Paroxysmal atrial fibrillation (principal); I25.10 Atherosclerotic heart disease of native coronary artery without angina pectoris; Z95.0 Presence of cardiac pacemaker
CPT/HCPCS: 93280; 99214

== ENCOUNTER 2023-10-25 08:51 | Outpatient (AMB) | payer MEDICARE, SELFPAY ==
[2023-10-25 09:14] VITALS: BP 120/68; PULSE 82; BMI 25.8
--- NOTE | 2023-10-25 09:14 | MHC.OFFVIS ---
Intake Vital Signs 10/25/23 09:14 Height 5 ft 5 in Weight 155 lb 3.287 oz BMI 25.8 BP 120/68 Blood Pressure Location Lt brachial Position Sitting Pulse 82 Intake Visit Reasons: S/P pacemaker battery change Intake Note: Patient here s/p pacemaker battery change on 10-14-23. Patient c/o: reports no changes or complaints at this time. Automobile Body Repair Supervisor Required: No Accompanied by: Self / Same As Patient Allergies lisinopril Allergy (Unknown, Verified 10/25/23 09:15) Hyperkalemia nitrofurantoin [Macrobid] Adverse Reaction (Unknown, Verified 10/25/23 09:15) dizziness HPI HPI Comments History of Present Illness Details Patient was seen in Cardiology prior to her visit here today. Pacemaker is working well. She has no incisional issues or complaints. [facility] Medical History (Updated 10/25/23 @ 09:13 by Prosper Brown MD) Hyperkalemia CKD (chronic kidney disease), stage III Cataract Vitamin D deficiency DM type 2 (diabetes mellitus, type 2) Hypothyroidism Hyperlipemia HTN (hypertension) Paroxysmal atrial fibrillation Cardiac pacemaker in situ Complete heart block Surgical History Pacemaker battery depletion Hx of bilateral mastectomy History of permanent cardiac pacemaker placement History of tonsillectomy and adenoidectomy History of hip surgery Hx of cardiac cath Family History Father Cancer Mother Diabetes Social History Housing: House Are you a primary director long term care to a significant other at home: No (was caring for , now he is in [place]) Do you presently have visiting nurse or other home services: No Alcohol intake: never Patient Tobacco Use Status: Former Tobacco user Quit Date: 1998 Tobacco use type: Cigarette e-Cigarette/Vaping Use: Never Used Advance Directives Date on File: 02/16/22 service: No Current occupational status: retired Cognitive needs: No Hearing needs: No Vision needs: Yes Physical Exam Vital Signs: Last Vital Signs Pulse 82 10/25/23 09:14 BP 120/68 10/25/23 09:14 BMI result Body Mass Index 25.8 Chest Other: Incision clean dry and intact healing uneventfully Assessment & Plan Assessment & Plan (1) Cardiac pacemaker in situ: Code(s): Z95.0 - Presence of cardiac pacemaker Plan Patient has been given local instructions, and will follow-up p.r.n.. All questions answered. Coding Level of Care Code Global (07227) Diagnoses Cardiac pacemaker in situ Z95.0
== END 2023-10-25 09:17 | disposition home or self-care (01) ==
PROVIDERS: PCP Internal Medicine; Visit Provider Surgery
DX: Z95.0 Presence of cardiac pacemaker (principal)
CPT/HCPCS: 99024

== ENCOUNTER → 2023-10-25 08:51 | Outpatient (BNVA) | payer MEDICARE, SELFPAY | PROVIDERS: PCP Internal Medicine; Visit Provider Surgery | DX: Z45.018 Encounter for adjustment and management of other part of cardiac pacemaker (principal); I48.0 Paroxysmal atrial fibrillation; I25.10 Atherosclerotic heart disease of native coronary artery without angina pectoris | CPT/HCPCS: 93280; 99212 ==

== ENCOUNTER → 2023-10-26 23:59 | Outpatient (BNV) | payer MEDICARE, SELFPAY ==
--- NOTE | 2023-10-26 11:35 | A.OFFVIS_ITS ---
Intake Intake Visit Reasons: Remote Device Check- [facility] Allergies lisinopril Allergy (Unknown, Verified 10/25/23 09:15) Hyperkalemia nitrofurantoin [Macrobid] Adverse Reaction (Unknown, Verified 10/25/23 09:15) dizziness [facility] Medical History (Updated 10/25/23 @ 09:13 by Prosper Brown MD) Hyperkalemia CKD (chronic kidney disease), stage III Cataract Vitamin D deficiency DM type 2 (diabetes mellitus, type 2) Hypothyroidism Hyperlipemia HTN (hypertension) Paroxysmal atrial fibrillation Cardiac pacemaker in situ Complete heart block Surgical History Pacemaker battery depletion Hx of bilateral mastectomy History of permanent cardiac pacemaker placement History of tonsillectomy and adenoidectomy History of hip surgery Hx of cardiac cath Family History Father Cancer Mother Diabetes Social History Housing: House Are you a primary care analyst to a significant other at home: No (was caring for , now he is in [place]) Do you presently have visiting nurse or other home services: No Alcohol intake: never Patient Tobacco Use Status: Former Tobacco user Quit Date: 1998 Tobacco use type: Cigarette e-Cigarette/Vaping Use: Never Used Advance Directives Date on File: 02/16/22 service: No Current occupational status: retired Cognitive needs: No Hearing needs: No Vision needs: Yes Office Procedures Cardiac Device Check Cardiac Device Check Details: Remote pacemaker report generated 10/26/2023. Pacemaker function is adequate. Patient ventricularly pacer dependent [id number] Cardiac Device Interrogation, pacemaker Procedure code (CPT) selection complete Assessment & Plan Assessment & Plan (1) Cardiac pacemaker in situ: Code(s): Z95.0 - Presence of cardiac pacemaker Plan: See above Coding Level of Care Code Procedure Only Diagnoses Cardiac pacemaker in situ Z95.0 CPT Codes Cardiac Device Check - Cardiac Device 12: [id number] Cardiac Device Interrogation, pacemaker ([id number])
== END ==
PROVIDERS: PCP Internal Medicine; Visit Provider Internal Medicine Cardiovascular Disease
DX: I48.0 Paroxysmal atrial fibrillation (principal); Z95.0 Presence of cardiac pacemaker
CPT/HCPCS: 93294

== ENCOUNTER → 2024-01-26 23:59 | Outpatient (BNV) | payer MEDICARE, SELFPAY ==
--- NOTE | 2024-01-27 16:53 | MHC.OFFVIS ---
Intake Visit Reasons: Remote device check- St Black Allergies lisinopril Allergy (Unknown, Verified 10/25/23 09:15) Hyperkalemia nitrofurantoin [Macrobid] Adverse Reaction (Unknown, Verified 10/25/23 09:15) dizziness [facility] Medical History (Updated 10/25/23 @ 09:13 by Prosper Brown MD) Hyperkalemia CKD (chronic kidney disease), stage III Cataract Vitamin D deficiency DM type 2 (diabetes mellitus, type 2) Hypothyroidism Hyperlipemia HTN (hypertension) Paroxysmal atrial fibrillation Cardiac pacemaker in situ Complete heart block Surgical History Pacemaker battery depletion Hx of bilateral mastectomy History of permanent cardiac pacemaker placement History of tonsillectomy and adenoidectomy History of hip surgery Hx of cardiac cath Family History Father Cancer Mother Diabetes Social History Housing: House Are you a primary care services manager to a significant other at home: No (was caring for , now he is in [place]) Do you presently have visiting nurse or other home services: No Alcohol intake: never Patient Tobacco Use Status: Former Tobacco user Quit Date: 1998 Tobacco use type: Cigarette e-Cigarette/Vaping Use: Never Used Advance Directives Date on File: 02/16/22 service: No Current occupational status: retired Cognitive needs: No Hearing needs: No Vision needs: Yes Office Procedures Cardiac Device Check Cardiac Device Check Details: Remote pacemaker report generated 01/26/2024. Pacemaker function is adequate. Ventricular pacing 100% of the time [id number] Cardiac Device Interrogation, pacemaker Procedure code (CPT) selection complete Assessment & Plan Assessment & Plan (1) Cardiac pacemaker in situ: Code(s): Z95.0 - Presence of cardiac pacemaker Category: Medical Plan: See above Coding Level of Care Code Procedure Only Diagnoses Cardiac pacemaker in situ Z95.0 CPT Codes Cardiac Device Check - Cardiac Device 12: [id number] Cardiac Device Interrogation, pacemaker ([id number])
== END ==
PROVIDERS: PCP Internal Medicine; Visit Provider Internal Medicine Cardiovascular Disease
DX: Z45.018 Encounter for adjustment and management of other part of cardiac pacemaker (principal)
CPT/HCPCS: 93294

== ENCOUNTER 2024-02-09 12:36 | Outpatient (AMB) | payer MEDICARE, SELFPAY ==
[2024-02-09 13:05] VITALS: BP 112/70; PULSE 82; O2SAT 97; BMI 26.3
--- NOTE | 2024-02-09 13:05 | A.OFFPC_ITS ---
Vital Signs 02/09/24 13:05 Height 5 ft 5 in Weight 158 lb BMI 26.3 BP 112/70 Blood Pressure Location Lt brachial Position Sitting Pulse 82 Pulse Source Pulse Oximeter Pulse Oximetry (%) 97 Oxygen Delivery Method Room Air Intake Visit Reasons: 4 Month F/U-Labs Intake Note: Pt is here today for for 4 months follow up visit on labs. Allergies lisinopril Allergy (Unknown, Verified 02/09/24 13:20) Hyperkalemia nitrofurantoin [Macrobid] Adverse Reaction (Unknown, Verified 02/09/24 13:20) dizziness Medication List - Last Reconciled 02/09/24 by Dipika Casas MD acetaminophen 1,000 mg PO BID PRN atorvastatin 20 mg PO DAILY blood sugar diagnostic As directed blood sugar diagnostic (FreeStyle Lite Strips) Test blood sugar TID cephalexin 500 mg PO BID dapagliflozin propanediol (Farxiga) 10 mg PO DAILY insulin glargine (Lantus Solostar U-100 Insulin) 20 units (0.2 mL) subcut DAILY isosorbide mononitrate ER 30 mg PO DAILY lancets (FreeStyle Lancets) Test up to 3 times per day levothyroxine 125 mcg PO DAILY metoprolol succinate ER 25 mg (1/2 x 50 mg) PO BID 90 days pen needle, diabetic (BD Ultra-Fine Mini Pen Needle) Use to inject insulin once a day rivaroxaban (Xarelto) 15 mg PO DAILY sertraline 75 mg (1.5 x 50 mg) PO DAILY tiotropium bromide 1 cap inhalation BEDTIME vit C,U-Gg-ylzbo-lutein-zeaxan 250-90-40-1 mg (PreserVision AREDS-2) 1 tab PO BID Tobacco use date assessed: 02/09/24 Dental Screening Dental Screen Date: 10/18/23 HPI 4 Month F/U-Labs HPI Details Patient follows up for type 2 diabetes hypertension paroxysmal AFib hypothyroidism hyperlipidemia COPD stable on current medications. [facility] [place]. [facility] Medical History Hyperkalemia CKD (chronic kidney disease), stage III Cataract Vitamin D deficiency DM type 2 (diabetes mellitus, type 2) Hypothyroidism Hyperlipemia HTN (hypertension) Paroxysmal atrial fibrillation Cardiac pacemaker in situ Complete heart block Surgical History Pacemaker battery depletion Hx of bilateral mastectomy History of permanent cardiac pacemaker placement History of tonsillectomy and adenoidectomy History of hip surgery Hx of cardiac cath Family History Father Cancer Mother Diabetes Social History Housing: House Are you a primary vehicle care specialist to a significant other at home: No (was caring for , now he is in [place]) Do you presently have visiting nurse or other home services: No Alcohol intake: never Patient Tobacco Use Status: Former Tobacco user Quit Date: 1998 Tobacco use type: Cigarette e-Cigarette/Vaping Use: Never Used Advance Directives Date on File: 02/16/22 service: No Current occupational status: retired Cognitive needs: No Hearing needs: No Vision needs: Yes Questionnaire Thrive Questionnaire Date Thrive assessed: 11/20/22 LEON-7 AMB Questionnaire LEON-7 Date LEON - 7 assessed: 11/20/22 Source: Developed by Drs. Star Vitale, Grace Sprague, Ham Landrum and colleagues, with an educational gaston from [employer]. Review of Systems Const All systems reviewed & are unremarkable except as noted in HPI and below Card Reports no additional complaints Resp Reports no additional complaints GI Reports no additional complaints Reports no additional complaints Physical exam (Primary Care) Vital Signs: Last Vital Signs Pulse 82 02/09/24 13:05 BP 112/70 02/09/24 13:05 Pulse Ox 97 02/09/24 13:05 Oxygen Delivery Method Room Air 02/09/24 13:05 BMI result Body Mass Index 26.3 Tobacco/Smoking Status: Tobacco use Status Tobacco use date assessed 02/09/24 02/09/24 13:24 Patient Tobacco Use Status Former Tobacco user 02/09/24 13:09 Tobacco use type Cigarette 02/09/24 13:09 e-Cigarette/Vaping Use Never Used 02/09/24 13:09 Thrive Assessment: Date of Thrive Assessment Date Thrive assessed 11/20/22 02/09/24 13:09 Const General: no acute distress HENMT Head: Yes normal to inspection Resp Effort & Inspection: normal respiratory effort Auscultation: clear to auscultation bilaterally Cardio Rhythm: regular rhythm Heart sounds: S1 normal heart sound present and S2 normal heart sound present GI Inspection: Yes normal to inspection Palpation (GI): Soft to palpation Percussion: Yes normal to percussion Auscultation: normal bowel sounds Assessment and Plan Assessment & Plan (1) DM type 2 (diabetes mellitus, type 2): Code(s): E11.9 - Type 2 diabetes mellitus without complications Plan: Continue ADA diet regular physical activity check A1c today and 6 months. Continue Farxiga and insulin (2) Hypothyroidism: Code(s): E03.9 - Hypothyroidism, unspecified Plan: Continue levothyroxine check TSH (3) HTN (hypertension): Code(s): I10 - Essential (primary) hypertension Qualifiers: Hypertension type: primary hypertension Qualified Code(s): I10 - Essential (primary) hypertension Plan: Continue current medications (4) Paroxysmal atrial fibrillation: Code(s): I48.0 - Paroxysmal atrial fibrillation Plan: Continue current medications follow-up with Cardiology Orders: Orders TSH reflex Free T4 Today E03.9 - Hypothyroidism, unspecified, E11.9 - Type 2 diabetes mellitus without complications, I10 - Essential (primary) hypertension, I48.0 - Paroxysmal atrial fibrillation Comprehensive [place]. Panel Fast 6 Months E11.9 - Type 2 diabetes mellitus without complications, E78.5 - Hyperlipidemia, unspecified, I10 - Essential (primary) hypertension, I48.0 - Paroxysmal atrial fibrillation Hemoglobin A1c Today E03.9 - Hypothyroidism, unspecified, E11.9 - Type 2 diabetes mellitus without complications, I10 - Essential (primary) hypertension, I48.0 - Paroxysmal atrial fibrillation Comprehensive Met. Panel Today E03.9 - Hypothyroidism, unspecified, E11.9 - Type 2 diabetes mellitus without complications, I10 - Essential (primary) hypertension, I48.0 - Paroxysmal atrial fibrillation Complete Blood Count Auto Diff Today E03.9 - Hypothyroidism, unspecified, E11.9 - Type 2 diabetes mellitus without complications, I10 - Essential (primary) hypertension, I48.0 - Paroxysmal atrial fibrillation Hemoglobin A1c 6 Months E11.9 - Type 2 diabetes mellitus without complications, E78.5 - Hyperlipidemia, unspecified, I10 - Essential (primary) hypertension, I48.0 - Paroxysmal atrial fibrillation Lipid Panel 6 Months E11.9 - Type 2 diabetes mellitus without complications, E78.5 - Hyperlipidemia, unspecified, I10 - Essential (primary) hypertension, I48.0 - Paroxysmal atrial fibrillation Microalbumin, Random (w Creat) 6 Months E11.9 - Type 2 diabetes mellitus without complications, E78.5 - Hyperlipidemia, unspecified, I10 - Essential (primary) hypertension, I48.0 - Paroxysmal atrial fibrillation Coding Level of Care Code Est Pt Level 4 (81762) Diagnoses DM type 2 (diabetes mellitus, type 2) E11.9 Hypothyroidism E03.9 Primary hypertension I10 Hypertension type: primary hypertension Paroxysmal atrial fibrillation I48.0
== END 2024-02-09 13:57 | disposition home or self-care (01) ==
PROVIDERS: PCP Internal Medicine; Visit Provider Internal Medicine
DX: E11.9 Type 2 diabetes mellitus without complications (principal); I48.0 Paroxysmal atrial fibrillation; E03.9 Hypothyroidism, unspecified; I10 Essential (primary) hypertension
CPT/HCPCS: 99214

== ENCOUNTER 2024-02-09 14:22 | Outpatient (REF) | payer MEDICARE, SELFPAY ==
[2024-02-09 16:19] LABS: MANUAL DIFF FLAG NO
[2024-02-09 16:25] LABS: Basophils Absolute Auto 0.1 X10*3/uL (0.0-0.2); Basophils Percent Auto 0.7 % (0-2); Eosinophils Absolute Auto 0.1 X10*3/uL (0.0-0.4); Eosinophils Percent Auto 1.1 % (0-4); Hematocrit 42.1 % (37.0-47.0); Hemoglobin 13.3 g/dl (12.0-16.0); Imm Gran Abs Auto 0.03 X10*3/uL (0.00-0.03); Imm Gran Pct Auto 0.4 % (0.0-0.4); Lymphocytes Absolute Auto 0.9 X10*3/uL (1.2-4.9); Lymphocytes Percent Auto 12.8 % (20-40); Mean Corpuscular HGB Conc 31.6 g/dl (31.0-35.0); Mean Corpuscular Hemoglobin 28.7 pg (27.0-33.0); Mean Corpuscular Volume 90.9 fL (80.0-98.0); Monocytes Absolute Auto 0.5 X10*3/uL (0.1-1.2); Neutrophils Absolute Auto 5.5 x10*3/uL (2.0-8.3); Platelet Count 224 X10*3/uL (160-400); Red Blood Count 4.63 X10*6/uL (4.20-5.50); Red Cell Distribution Width 14.6 % (11.0-16.0); White Blood Count 7.1 X10*3/uL (4.8-10.8)
[2024-02-09 17:06] LABS: Estimated Average Glucose 154 mg/dL
[2024-02-09 19:14] LABS: Alanine Aminotransferase 17 U/L (0-31); Alkaline Phosphatase 115 U/L (39-117); Anion Gap 16 (12-20); Aspartate Amino Transferase 18 U/L (5-31); Bilirubin Total 0.5 mg/dL (0.0-1.0); Blood Urea Nitrogen 23 mg/dL (9-16); Calcium 9.5 mg/dL (8.4-10.2); Carbon Dioxide 21 mmol/L (22-29); Chloride 110 mmol/L (96-108); Estimated Glomerular Filt Rate 37; Glucose Random 163 mg/dL (60-115); Potassium 4.5 mmol/L (3.3-5.1); Sodium 142 mmol/L (135-145); Total Protein 7.1 g/dL (6.5-8.0)
[2024-02-09 19:24] LABS: TSH reflex Free T4 1.81 uIU/mL (0.32-4.0)
== END 2024-02-09 14:23 | disposition home or self-care (01) ==
LOC: HO.HMGCLDS 14:22
PROVIDERS: PCP Internal Medicine; Visit Provider Internal Medicine
DX: E11.9 Type 2 diabetes mellitus without complications (principal); E03.9 Hypothyroidism, unspecified; I48.0 Paroxysmal atrial fibrillation; I10 Essential (primary) hypertension
CPT/HCPCS: 36415; 80053; 83036; 84443; 85025

== ENCOUNTER 2024-02-24 19:07 | Inpatient (IN) | payer MEDICARE, SELFPAY ==
--- NOTE | ~2024-02-24 | XR_ITS ---
EXAMINATION: XR CHEST CLINICAL INFORMATION: Decreased breath sounds left lower lobe COMPARISON: Chest radiograph dated 10/18/2023. TECHNIQUE: Frontal view of the chest was obtained. FINDINGS: The left pectoral cardiac device is unchanged in position. Heart size is normal for this projection. There is no consolidation within either lung. There is no large pleural effusion. No pneumothorax. There are surgical clips overlying the left and right axilla. There is no acute osseous abnormality. XR/XR chest 1V IMPRESSION: No acute cardiopulmonary disease. Stable appearance of the heart and lungs.
--- NOTE | ~2024-02-24 | CT_ITS ---
EXAMINATION: CT ABDOMEN AND PELVIS WITHOUT CONTRAST CLINICAL INFORMATION: Abdominal pain. Vomiting. COMPARISON: None available. TECHNIQUE: Multidetector volumetric imaging was performed from the superior aspect of the liver through the pubic symphysis. Sagittal and coronal reformatted images were obtained on the technologist's workstation. This CT examination was performed using dose optimization techniques as appropriate, variously including the following: *Automated exposure control *Adjustment of mA and/or kV according to patient size (this includes techniques or standardized protocols for targeted exams where dose is matched to indication/reason for exam; i.e. extremities or head) *Use of iterative reconstruction technique DLP: 523 mGy-cm FINDINGS: LUNG BASES: Moderate centrilobular emphysema. Dependent atelectasis and pleural parenchymal scarring at the lung bases. Leads are present in the right heart. There is a 3 mm solid pulmonary nodule in the left lower lobe. LIVER, GALLBLADDER, AND BILIARY TREE: The liver is normal in size, shape, and attenuation. No focal hepatic lesion or biliary ductal dilatation is present. The gallbladder is unremarkable with no evidence of radiopaque gallstones, gallbladder wall thickening, or obvious pericholecystic inflammatory changes. PANCREAS: Unremarkable. SPLEEN: Unremarkable. ADRENAL GLANDS: The left adrenal gland is enlarged with relative hypoattenuation of the parenchyma (-1 Hounsfield units, consistent with a lipid rich adenomatous change. A discrete 2.3 cm benign lipid rich adenoma may be present in the medial limb. There is a 1.3 cm a lipid rich adrenal adenoma in the right adrenal gland (-13 Hounsfield units). No recommend imaging follow-up. KIDNEYS AND URETERS: The kidneys are normal in size attenuation.. Perinephric fat stranding bilaterally. A 1.5 cm fluid attenuation cyst is present at the upper pole of the left kidney. A 2 cm fluid attenuation (0 Hounsfield units) exophytic cyst is present at the lower pole the right kidney. No recommend imaging follow. No hydronephrosis, hydroureter, or calculi seen. No perinephric stranding. BLADDER: Unremarkable. GASTROINTESTINAL TRACT: Stomach, small bowel, and colon are normal in caliber. No bowel wall thickening or surrounding inflammatory changes. A segment of small bowel extends into a left inguinal hernia. No significant surrounding fluid collections or fat stranding. Appendix is not seen, though no acute findings of appendicitis are identified. No intraperitoneal free fluid or free air. Moderate to severe diverticulosis in the descending and sigmoid colon. ABDOMINAL WALL: There is noted above, there is a small left inguinal hernia which contains a segment of small bowel. No fat stranding or appreciable fluid identified. LYMPH NODES: Normal. VASCULAR: Atherosclerotic calcifications are present in the abdominal aorta and iliac arteries as well as the visceral arteries. No aneurysmal dilatation. PELVIC VISCERA: The uterus and adnexa are unremarkable. OSSEOUS STRUCTURES: Left convex lumbar scoliosis. Multilevel degenerative disc disease in the lumbar spine. 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 Status post right total hip arthroplasty without acute abnormalities. CT/CT abdomen pelvis wo IV con IMPRESSION: 1. No acute intra-abdominal or intrapelvic abnormalities are identified. 2. A small left inguinal hernia contains a segment of small bowel. No evidence of obstruction. 3. Moderate to severe colonic diverticulosis without evidence of acute diverticulitis. 4. Bilateral lipid rich adrenal adenomas. No recommend imaging follow-up. 5. Moderate centrilobular emphysema. There is a 3 mm solid pulmonary nodule in the left lower lobe. According to the UPDATED 2017 Fleischner Society recommendations, the advised follow-up imaging for solid nodules < 6 mm is: HIGH RISK PATIENT: Optional CT at 12 months.
--- NOTE | 2024-02-24 19:16 | ECG_ITS ---
Test Reason : ABDOMINAL PAIN Blood Pressure : / mmHG Vent. Rate : 066 BPM Atrial Rate : 066 BPM P-R Int : 194 ms QRS Dur : 170 ms QT Int : 490 ms P-R-T Axes : 079 -87 106 degrees QTc Int : 513 ms Atrial-sensed ventricular-paced rhythm Abnormal ECG When compared with ECG of 18-OCT-2023 14:42, Vent. rate has decreased BY 9 BPM Referred By: Michelle Lucio Electronically Signed By:Trip Javier
[2024-02-24 19:22] VITALS: BP 117/61; BP 140/70; PULSE 79; PULSE 90; RESP 20; TEMP 36.6; O2SAT 94; O2SAT 96; BMI 28.7
--- NOTE | 2024-02-24 19:22 | ED_ITS ---
HPI - General Adult General Chief complaint: Abdominal Pain Stated complaint: ABD PAIN X1HR Time Seen by Provider: 02/24/24 19:08 Source: patient and EMS Mode of arrival: EMS Limitations: no limitations History of Present Illness ED Provider: Dr. Michelle Lucio HPI narrative: Patient comes to the emergency room complaining of 1 episode of vomiting and epigastric pain. Patient states that for several months she has been having epigastric pain, vomiting then self resolves. Patient states that she has had multiple workups done with her primary care physician and all have been negative. Today, patient had an episode of epigastric pain and vomiting, self- resolved, EMS convince the patient to come to the emergency room because she seemed to be uncomfortable. Patient states that upon arrival she is asymptomatic. Denies chest pain shortness of breath. Patient received 300 mL of normal saline by EMS and IV Zofran Related Data Home Medications ?Medication ?Instructions ?Recorded ?Confirmed blood sugar diagnostic #10 ea 09/23/20 02/09/24 dapagliflozin propanediol 10 mg 10 mg PO DAILY 12/10/21 02/09/24 tablet (Farxiga) vit C 250 mg-E 90 mg-zinc 40 1 tab PO BID 08/17/23 02/09/24 mg-copper 1 [id number] chew tablet (PreserVision AREDS-2) acetaminophen 500 mg tablet 1,000 mg PO BID PRN Pain 10/12/23 02/09/24 cephalexin 500 mg capsule 500 mg PO BID 02/09/24 02/09/24 Previous Rx's ?Medication ?Instructions ?Recorded blood sugar diagnostic (FreeStyle #300 ea 05/11/23 Lite Strips) insulin glargine 100 unit/mL (3 20 unit (0.2 mL) subcut DAILY #15 07/12/23 mL) subcutaneous pen (Lantus mL Solostar U-100 Insulin) levothyroxine 125 mcg tablet 125 mcg PO DAILY #90 tabs 08/02/23 tiotropium bromide 18 mcg capsule 1 cap inhalation BEDTIME #90 08/08/23 with inhalation device inhalations pen needle, diabetic 31 gauge x #100 ea 09/01/23 3/16 (BD Ultra-Fine Mini Pen Needle) atorvastatin 20 mg tablet 20 mg PO DAILY #90 tabs 09/18/23 sertraline 50 mg tablet 75 mg (1.5 x 50 mg) PO DAILY #135 09/18/23 tabs metoprolol succinate 50 mg 25 mg (1/2 x 50 mg) PO BID 90 days 09/29/23 tablet,extended release 24 hr #90 tabs rivaroxaban 15 mg tablet (Xarelto) 15 mg PO DAILY #90 tabs 09/29/23 isosorbide mononitrate 30 mg 30 mg PO DAILY #90 tabs 10/14/23 tablet,extended release 24 hr lancets 28 gauge (FreeStyle #300 ea 11/18/23 Lancets) Allergies Allergy/AdvReac Type Severity Reaction Status Date / Time lisinopril Allergy Intermediate Hyperkalemi Verified 02/24/24 19:27 a nitrofurantoin [Macrobid] AdvReac Intermediate dizziness Verified 02/24/24 19:27 Review of Systems 2 Review of Systems: Constitutional : No Weight loss, No Fever, No Chills, No Night Sweats, No Fatigue, No Malaise ENT/Mouth : No Hearing loss, No Ear Pain, No Nasal Congestion, No Sinus Pain, No Hoarseness, No sore throat, No Rhinorrhea, No Swallowing Difficulty Eyes: No Eye Pain, No Swelling, No Redness, No Foreign Body, No Discharge, No Vision Changes Cardiovascular : No Chest Pain, No SOB, No Dyspnea on Exertion, No Orthopnea, No Edema, No Palpitations Respiratory : No Cough, No Sputum, No Wheezing, No Smoke Exposure, No Dyspnea Gastrointestinal : Complaining of 1 episode of nausea and vomiting and epigastric pain which self-resolved. Genitourinary : no irregular bleeding, No Dysuria, No Urinary Frequency, No Hematuria, No Urinary Incontinence, No Urgency, No Flank Pain, No Urinary Flow Changes, No Hesitancy Musculoskeletal : No joint pain, No Myalgias, No Joint Swelling Skin : No Skin Lesions, No rash Neuro : No Weakness, No Numbness, No Paresthesias, No Loss of Consciousness, No Dizziness, No Headache Psych : No Anxiety/Panic, No Depression, No SI/HI/AH/VH, No Social Issues, Heme/Lymph: No Bruising, No Bleeding,No Lymphadenopathy Endocrine : No Polyuria, No Polydipsia, No Temperature Intolerance PMFSH Past Medical History Medical History Hyperkalemia CKD (chronic kidney disease), stage III Cataract Vitamin D deficiency DM type 2 (diabetes mellitus, type 2) Hypothyroidism Hyperlipemia HTN (hypertension) Paroxysmal atrial fibrillation Cardiac pacemaker in situ Complete heart block Surgical History Pacemaker battery depletion Hx of bilateral mastectomy History of permanent cardiac pacemaker placement History of tonsillectomy and adenoidectomy History of hip surgery Hx of cardiac cath Family History Family History Father Cancer Mother Diabetes Social History Social History Housing: House Are you a primary healthcare business analyst to a significant other at home: No (was caring for , now he is in [place]) Do you presently have visiting nurse or other home services: No Alcohol intake: never Patient Tobacco Use Status: Former Tobacco user Quit Date: 1998 Tobacco use type: Cigarette Smoked in Last 30 Days: No e-Cigarette/Vaping Use: Never Used Advance Directives: Yes Advance Directives on File: Yes Advance Directives Date on File: 02/16/22 Do you have a plan to hurt others: No Plan service: No Current occupational status: retired Cognitive needs: No Hearing needs: No Vision needs: Yes Physical Exam ED Vital Signs: Vital Signs - 24 hr 02/24/24 19:22 02/24/24 19:30 02/24/24 22:43 Temperature 97.9 F Pulse Rate 79 80 Pulse Rate [Monitor] 79 Respiratory Rate 20 14 Blood Pressure 117/61 108/59 L Pulse Oximetry 94 93 Oxygen Delivery Method Room Air Room Air BMI result Body Mass Index 25.9 Const Other: Appearance: Alert. Oriented X3. No acute distress. Eyes: Pupils equal, round and reactive to light. ENT: Pharynx normal. Neck: Normal inspection. Neck supple. No lymph nodes noted. No crepitus CVS: Normal heart rate and rhythm. Pulses normal. Normal S1 and S2 Respiratory: No respiratory distress. Breath sounds normal. No Wheezing. No rales Abdomen: Soft and nontender. No rigidity. No distention. Skin: Skin warm and dry. Normal skin color. Normal skin turgor. Extremities: No lower extremity edema. No Lacerations. No Rash Neuro: Oriented X 3. No motor deficit. No sensory deficit. Moving all extremities. No slurred speech. CN 2 through 12 grossly intact Psych: calm, cooperative, normal affect Medications Administered Discontinued Medications Generic Name Dose Route Start Last Admin Trade Name Jerry PRN Reason Stop Dose Admin Ondansetron HCl 4 mg 02/24/24 19:16 02/24/24 19:37 Ondansetron Odt 4 Mg Tab.Rapdis TRANSLINGU 02/24/24 19:17 4 mg ONCE ONE Administration Medical Decision Making Medical Decision Making [facility] Narrative: My interpretation, normal hematology, normal chemistry, patient's troponin 1. 21.5. Patient's previous troponin from October of 2023 was negative. -2nd troponin is 230. -my interpretation of EKG: Atrial sensed ventricular paced rhythm, heart rate 72, nonspecific ST segment depression or elevation, no T-wave inversions, QTC 556 -patient states that she feels well, has no chest pain or shortness of breath. Would like to go home. -I discussed the patient with Dr. Javier from Cardiology. Given patient's past medical history and current labs and presentation, recommendations, and start heparin and admit -I discussed the above-mentioned with the patient and her son, both agreeable. -I discussed the patient with Dr. Payne, patient being admitted Differential Diagnosis Differential Diagnoses: The differential diagnosis associated with the presentation includes (Gastritis, peptic ulcer, NSTEMI, ACS) Admission/Observation Consideration of admission/observation: Escalation of care including admission/observation considered Consult Healthcare Provider Management of the patient was discussed with: Hospitalist and Restaurant Host/Hostess Lab Data [facility] Lab Attestation statement: I reviewed the patient's lab results. 02/24/24 19:22 02/24/24 19:22 Labs: Lab Results 02/24/24 02/24/24 Range/Units 19:22 22:40 WBC 8.4 (4.8-10.8) X10*3/uL RBC 4.32 (4.20-5.50) X10*6/uL Hgb 12.6 (12.0-16.0) g/dl Hct 38.4 (37.0-47.0) % MCV 88.9 (80.0-98.0) fL MCH 29.2 (27.0-33.0) pg MCHC 32.8 (31.0-35.0) g/dl RDW 14.5 (11.0-16.0) % Plt Count 196 (160-400) X10*3/uL MPV 10.7 (9.4-12.3) fL Immature Gran % (Auto) 0.5 H (0.0-0.4) % Neut % (Auto) 78.6 H (45-73) % Lymph % (Auto) 12.6 L (20-40) % Zavala % (Auto) 6.3 (2-11) % Eos % (Auto) 1.4 (0-4) % Baso % (Auto) 0.6 (0-2) % Lymph # (Auto) 1.1 L (1.2-4.9) X10*3/uL Zavala # (Auto) 0.5 (0.1-1.2) X10*3/uL Eos # (Auto) 0.1 (0.0-0.4) X10*3/uL Baso # (Auto) 0.1 (0.0-0.2) X10*3/uL Abs Immat Gran (auto) 0.04 H (0.00-0.03) X10*3/uL Absolute Neuts (auto) 6.6 (2.0-8.3) x10*3/uL Absolute Nucleated RBC 0.000 (0.0-0.012) X10*3/uL Nucleated RBC % (auto) 0.0 (0.0-0.2) /100WBC Sodium 141 (135-145) mmol/L Potassium 4.1 (3.3-5.1) mmol/L Chloride 110 H (96-108) mmol/L Carbon Dioxide 19 L (22-29) mmol/L Anion Gap 16 (12-20) BUN 22 H (9-16) mg/dL Creatinine 1.12 (0.5-1.4) mg/dL Estim Creat Clear Calc 42.2 Estimated GFR 47 Random Glucose 110 (60-115) mg/dL Calcium 9.1 (8.4-10.2) mg/dL Total Bilirubin 0.4 (0.0-1.0) mg/dL Direct Bilirubin 0.1 (0.0-0.5) mg/dL AST 22 (5-31) U/L ALT 17 (0-31) U/L Alkaline Phosphatase 108 (39-117) U/L Troponin I High Sens 21.5 H D 230.0 H* D (<3.5-17.0) ng/L Total Protein 6.6 (6.5-8.0) g/dL Albumin 3.7 (3.5-5.0) g/dL Lipase 39 (8-78) U/L Independent Interpretation I performed an independent interpretation of an: EKG and CT Scan Radiology Impression Discussion of test interpretation with radiology: I have reviewed the radiologist's reading. Radiologist Impression: FINDINGS: LUNG BASES: Moderate centrilobular emphysema. Dependent atelectasis and pleural parenchymal scarring at the lung bases. Leads are present in the right heart. There is a 3 mm solid pulmonary nodule in the left lower lobe. LIVER, GALLBLADDER, AND BILIARY TREE: The liver is normal in size, shape, and attenuation. No focal hepatic lesion or biliary ductal dilatation is present. The gallbladder is unremarkable with no evidence of radiopaque gallstones, gallbladder wall thickening, or obvious pericholecystic inflammatory changes. PANCREAS: Unremarkable. SPLEEN: Unremarkable. ADRENAL GLANDS: The left adrenal gland is enlarged with relative hypoattenuation of the parenchyma (-1 Hounsfield units, consistent with a lipid rich adenomatous change. A discrete 2.3 cm benign lipid rich adenoma may be present in the medial limb. There is a 1.3 cm a lipid rich adrenal adenoma in the right adrenal gland (-13 Hounsfield units). No recommend imaging follow-up. KIDNEYS AND URETERS: The kidneys are normal in size attenuation.. Perinephric fat stranding bilaterally. A 1.5 cm fluid attenuation cyst is present at the upper pole of the left kidney. A 2 cm fluid attenuation (0 Hounsfield units) exophytic cyst is present at the lower pole the right kidney. No recommend imaging follow. No hydronephrosis, hydroureter, or calculi seen. No perinephric stranding. BLADDER: Unremarkable. GASTROINTESTINAL TRACT: Stomach, small bowel, and colon are normal in caliber. No bowel wall thickening or surrounding inflammatory changes. A segment of small bowel extends into a left inguinal hernia. No significant surrounding fluid collections or fat stranding. Appendix is not seen, though no acute findings of appendicitis are identified. No intraperitoneal free fluid or free air. Moderate to severe diverticulosis in the descending and sigmoid colon. ABDOMINAL WALL: There is noted above, there is a small left inguinal hernia which contains a segment of small bowel. No fat stranding or appreciable fluid identified. LYMPH NODES: Normal. VASCULAR: Atherosclerotic calcifications are present in the abdominal aorta and iliac arteries as well as the visceral arteries. No aneurysmal dilatation. PELVIC VISCERA: The uterus and adnexa are unremarkable. OSSEOUS STRUCTURES: Left convex lumbar scoliosis. Multilevel degenerative disc disease in the lumbar spine. 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 Status post right total hip arthroplasty without acute abnormalities. CT/CT abdomen pelvis wo IV con IMPRESSION: 1. No acute intra-abdominal or intrapelvic abnormalities are identified. 2. A small left inguinal hernia contains a segment of small bowel. No evidence of obstruction. 3. Moderate to severe colonic diverticulosis without evidence of acute diverticulitis. 4. Bilateral lipid rich adrenal adenomas. No recommend imaging follow-up. 5. Moderate centrilobular emphysema. There is a 3 mm solid pulmonary nodule in the left lower lobe. According to the UPDATED 2017 Fleischner Society recommendations, the advised follow-up imaging for solid nodules < 6 mm is: HIGH RISK PATIENT: Optional CT at 12 months The left pectoral cardiac device is unchanged in position. Heart size is normal for this projection. There is no consolidation within either lung. There is no large pleural effusion. No pneumothorax. There are surgical clips overlying the left and right axilla. There is no acute osseous abnormality. XR/XR chest 1V IMPRESSION: No acute cardiopulmonary disease. Stable appearance of the heart and lungs. Critical Care Time Critical Care Time Critical Care Time: Yes Total Critical Care Time: 75 Attestation: I have personally provided critical care time. Time includes review of lab data, radiology results, discussion with consultants, and monitoring for potential decompensation. Intervention performed as documented. Discharge Plan Discharge Clinical Impression: Non-ST elevation NC (NSTEMI) Patient Disposition: Admitted As Inpatient Prescriptions: No Action (DME) FreeStyle Lite Strips Strip See Rx Instructions .ROUTE .MEDSUPPLY Qty: 300 3RF Rx Instructions: Test blood sugar TID Lantus Solostar U-100 Insulin 100 unit/mL (3 mL) insulin pen 20 unit subcut DAILY Qty: 15 5RF levothyroxine 125 mcg tablet 125 mcg PO DAILY Qty: 90 3RF tiotropium bromide 18 mcg capsule, w/inhalation device 1 cap inhalation BEDTIME Qty: 90 1RF (DME) pen needle, diabetic [BD Ultra-Fine Mini Pen Needle] 31 gauge x 3/16 needle See Rx Instructions .Route Qty: 100 3RF Rx Instructions: Use to inject insulin once a day sertraline 50 mg tablet 75 mg PO DAILY Qty: 135 3RF atorvastatin 20 mg tablet 20 mg PO DAILY Qty: 90 3RF metoprolol succinate 50 mg tablet extended release 24 hr 25 mg PO BID 90 Days Qty: 90 3RF Xarelto 15 mg tablet 15 mg PO DAILY Qty: 90 3RF isosorbide mononitrate 30 mg tablet extended release 24 hr 30 mg PO DAILY Qty: 90 3RF (DME) lancets [FreeStyle Lancets] 28 gauge misc See Rx Instructions .Route Qty: 300 3RF Rx Instructions: Test up to 3 times per day acetaminophen 500 mg Tablet 1,000 mg PO BID PRN (Reason: Pain) PreserVision AREDS-2 250-90-40-1 mg Tablet,Chewable 1 tab PO BID (DME) blood sugar diagnostic Strip See Rx Instructions Not Applicable TID Qty: 10 Rx Instructions: As directed Farxiga 10 mg tablet 10 mg PO DAILY cephalexin 500 mg capsule 500 mg PO BID Rx Instructions: before dental procedure Print Language: Canadian
[2024-02-24 19:27] LABS: MANUAL DIFF FLAG NO
[2024-02-24 19:28] LABS: Basophils Absolute Auto 0.1 X10*3/uL (0.0-0.2); Basophils Percent Auto 0.6 % (0-2); Eosinophils Absolute Auto 0.1 X10*3/uL (0.0-0.4); Eosinophils Percent Auto 1.4 % (0-4); Hematocrit 38.4 % (37.0-47.0); Hemoglobin 12.6 g/dl (12.0-16.0); Imm Gran Abs Auto 0.04 X10*3/uL (0.00-0.03); Imm Gran Pct Auto 0.5 % (0.0-0.4); Lymphocytes Absolute Auto 1.1 X10*3/uL (1.2-4.9); Lymphocytes Percent Auto 12.6 % (20-40); Mean Corpuscular HGB Conc 32.8 g/dl (31.0-35.0); Mean Corpuscular Hemoglobin 29.2 pg (27.0-33.0); Mean Corpuscular Volume 88.9 fL (80.0-98.0); Mean Platelet Volume 10.7 fL (9.4-12.3); Monocytes Absolute Auto 0.5 X10*3/uL (0.1-1.2); Monocytes Percent Auto 6.3 % (2-11); Neutrophils Absolute Auto 6.6 x10*3/uL (2.0-8.3); Neutrophils Percent Auto 78.6 % (45-73); Platelet Count 196 X10*3/uL (160-400); Red Blood Count 4.32 X10*6/uL (4.20-5.50); Red Cell Distribution Width 14.5 % (11.0-16.0); White Blood Count 8.4 X10*3/uL (4.8-10.8)
[2024-02-24 19:30] VITALS: PULSE 79
[2024-02-24] MEDS: Ondansetron ODT 4 MG TAB.RAPDIS TRANSLINGU (19:37)
[2024-02-24 19:52] LABS: Alanine Aminotransferase 17 U/L (0-31); Albumin Level 3.7 g/dL (3.5-5.0); Alkaline Phosphatase 108 U/L (39-117); Anion Gap 16 (12-20); Aspartate Amino Transferase 22 U/L (5-31); Bilirubin Direct 0.1 mg/dL (0.0-0.5); Bilirubin Total 0.4 mg/dL (0.0-1.0); Blood Urea Nitrogen 22 mg/dL (9-16); Calcium 9.1 mg/dL (8.4-10.2); Carbon Dioxide 19 mmol/L (22-29); Chloride 110 mmol/L (96-108); Creatinine Clr Calc Pharmacy 42.2; Estimated Glomerular Filt Rate 47; Glucose Random 110 mg/dL (60-115); Lipase 39 U/L (8-78); Potassium 4.1 mmol/L (3.3-5.1); Sodium 141 mmol/L (135-145); Total Protein 6.6 g/dL (6.5-8.0)
[2024-02-24 19:59] LABS: Troponin-I High Sensitivity 21.5 ng/L (<3.5-17.0)
[2024-02-24 22:43] VITALS: BP 108/59; PULSE 80; RESP 14; O2SAT 93
--- NOTE | 2024-02-24 23:15 | ECG_ITS ---
Test Reason : PAIN, ELEVATED TROP Blood Pressure : / mmHG Vent. Rate : 072 BPM Atrial Rate : 072 BPM P-R Int : 194 ms QRS Dur : 166 ms QT Int : 508 ms P-R-T Axes : 059 -88 137 degrees QTc Int : 556 ms Atrial-sensed ventricular-paced rhythm Abnormal ECG When compared with ECG of 24-FEB-2024 19:23, Vent. rate has increased BY 6 BPM Anterolateral biphasic T waves. Referred By: Caroline Payne Electronically Signed By:Trip Javier
[2024-02-25 01:30] VITALS: BMI 25.9
[2024-02-25 01:48] VITALS: BP 120/66; PULSE 80; RESP 16; O2SAT 95
--- NOTE | 2024-02-25 01:53 | P.HPHOSP_ITS ---
History of Present Illness Date of Service: 02/25/24 Chief Complaint: Abdominal pain This is a 79-year-old female with pertinent history of hypertension, mixed hyperlipidemia, insulin-dependent diabetes mellitus, hypothyroidism, paroxysmal atrial fibrillation on anticoagulation, stress-induced cardiomyopathy with normalization of EF, cardiac pacemaker in place who presents to the emergency department for evaluation of abdominal/chest discomfort. Patient states it started on the day of presentation. Initially she had upper abdominal discomfort which was followed by an episode of emesis. The abdominal discomfort subsided but patient had midsternal chest discomfort which lasted until she got to the ER. It was constant, nonradiating and associated with mild sweating. No palpitations or shortness of breath. No fever, chills, abdominal pain, changes in urinary or bowel habits. In the emergency department, troponin was found to be elevated and Cardiology was consulted who requested initiation of IV heparin and admission. Review of Systems 2 Constitutional: Constitutional: Reports no additional constitutional complaints Cardiovascular: Cardiovascular: Reports chest pain Respiratory: Respiratory: Reports no additional respiratory complaints Gastrointestinal: Gastrointestinal: Reports abdominal pain and Reports nausea Genitourinary: Genitourinary: Reports no additional female genitourinary complaints [facility] Medical History Hyperkalemia CKD (chronic kidney disease), stage III Cataract Vitamin D deficiency DM type 2 (diabetes mellitus, type 2) Hypothyroidism Hyperlipemia HTN (hypertension) Paroxysmal atrial fibrillation Cardiac pacemaker in situ Complete heart block Family History Father Cancer Mother Diabetes Surgical History Pacemaker battery depletion Hx of bilateral mastectomy History of permanent cardiac pacemaker placement History of tonsillectomy and adenoidectomy History of hip surgery Hx of cardiac cath Social History Housing: House Are you a primary home care giver to a significant other at home: No (was caring for , now he is in [place]) Do you presently have visiting nurse or other home services: No Alcohol intake: never Patient Tobacco Use Status: Former Tobacco user Quit Date: 1998 Tobacco use type: Cigarette Smoked in Last 30 Days: No e-Cigarette/Vaping Use: Never Used Advance Directives: Yes Advance Directives on File: Yes Advance Directives Date on File: 02/16/22 Do you have a plan to hurt others: No Plan service: No Current occupational status: retired Cognitive needs: No Hearing needs: No Vision needs: Yes Meds Allergies Allergy/AdvReac Type Severity Reaction Status Date / Time lisinopril Allergy Intermediate Hyperkalemi Verified 02/24/24 19:27 a nitrofurantoin [Macrobid] AdvReac Intermediate dizziness Verified 02/24/24 19:27 Active Medications: Current Medications Heparin Sodium (Porcine) (Heparin Sodium,Porcine 5,000 Unit/Ml Vial) 2,900 unit IVPUSH PROTOCOL BOLUS PRN; Protocol PRN Reason: 40 unit/kg - Heparin Protocol Heparin Sodium (Porcine) (Heparin Sodium,Porcine 5,000 Unit/Ml Vial) 5,800 unit IVPUSH PROTOCOL BOLUS PRN; Protocol PRN Reason: 80 unit/kg - Heparin Protocol Heparin Sodium/Sodium Chloride (Heparin Sodium,Porcine/1/2ns) 25,000 unit in 250 mls @ 0 mls/hr IVCONT .Q0M SHANE; Protocol Home Medications ?Medication ?Instructions ?Recorded ?Confirmed ?Last Taken ?Type blood sugar diagnostic #10 ea 09/23/20 02/09/24 Unknown History dapagliflozin propanediol 10 mg 10 mg PO DAILY 12/10/21 02/09/24 08/17/23 History tablet (Farxiga) vit C 250 mg-E 90 mg-zinc 40 1 tab PO BID 08/17/23 02/09/24 08/17/23 History mg-copper 1 lg-lcygxa-floptc chew tablet (PreserVision AREDS-2) acetaminophen 500 mg tablet 1,000 mg PO BID PRN Pain 10/12/23 02/09/24 Unknown History cephalexin 500 mg capsule 500 mg PO BID 02/09/24 02/09/24 Unknown History Physical Exam 2 Vital Signs and Narrative: Vital Signs: Last Vital Signs Temp 97.9 F 02/24/24 19:22 Pulse 80 02/25/24 01:48 Resp 16 02/25/24 01:48 BP 120/66 02/25/24 01:48 Pulse Ox 95 02/25/24 01:48 O2 Del Method Room Air 02/25/24 01:48 BMI result Body Mass Index 25.9 Middle-aged female lying in bed in no distress Neck supple, no JVD Regular rate and rhythm, S1-S2 heard Regular breath sounds bilaterally, no wheezing or crackles appreciated Abdomen soft nontender, no guarding, no rigidity Patient is awake, alert and oriented to self, place, time and person ; no focal motor deficit Psych: Normal mood No pedal edema Results Labs 02/24/24 19:22 02/24/24 19:22 Labs: Laboratory Results - last 24 hr 02/24/24 02/24/24 19:22 22:40 MCV 88.9 MCH 29.2 MCHC 32.8 RDW 14.5 Plt Count 196 MPV 10.7 Immature Gran % (Auto) 0.5 H Neut % (Auto) 78.6 H Lymph % (Auto) 12.6 L [place] % (Auto) 6.3 Eos % (Auto) 1.4 Baso % (Auto) 0.6 Lymph # (Auto) 1.1 L [place] # (Auto) 0.5 Eos # (Auto) 0.1 Baso # (Auto) 0.1 Abs Immat Gran (auto) 0.04 H Absolute Neuts (auto) 6.6 Absolute Nucleated RBC 0.000 Nucleated RBC % (auto) 0.0 Anion Gap 16 Estim Creat Clear Calc 42.2 Estimated GFR 47 Random Glucose 110 Calcium 9.1 Total Bilirubin 0.4 Direct Bilirubin 0.1 AST 22 ALT 17 Alkaline Phosphatase 108 Troponin I High Sens 21.5 H D 230.0 H* D Total Protein 6.6 Albumin 3.7 Lipase 39 Imaging Radiologist's Impressions: Impressions Chest X-Ray 02/24/24 19:33 IMPRESSION: No acute cardiopulmonary disease. Stable appearance of the heart and lungs. Abdomen/Pelvis CT 02/24/24 23:44 IMPRESSION: 1. No acute intra-abdominal or intrapelvic abnormalities are identified. 2. A small left inguinal hernia contains a segment of small bowel. No evidence of obstruction. 3. Moderate to severe colonic diverticulosis without evidence of acute diverticulitis. 4. Bilateral lipid rich adrenal adenomas. No recommend imaging follow-up. 5. Moderate centrilobular emphysema. There is a 3 mm solid pulmonary nodule in the left lower lobe. According to the UPDATED 2017 Fleischner Society recommendations, the advised follow-up imaging for solid nodules < 6 mm is: HIGH RISK PATIENT: Optional CT at 12 months. Assessment and Plan (1) Non-ST elevation [place] (NSTEMI): Status: Acute Plan This is a 79-year-old female with pertinent history of hypertension, mixed hyperlipidemia, insulin-dependent diabetes mellitus, hypothyroidism, paroxysmal atrial fibrillation on anticoagulation, stress-induced cardiomyopathy with normalization of EF, cardiac pacemaker in place who presents to the emergency department for evaluation of abdominal/chest discomfort. #. NSTEMI: Initiated on IV heparin in the ER. Cardiology consulted. Administering aspirin. Repeat troponin in a.m. On beta-juli #. Insulin-dependent diabetes mellitus: Initiating basal plus insulin regimen #. Paroxysmal atrial fibrillation: Hold Xarelto, on IV heparin as above #. Mood disorder: Continue home mood stabilizers #. Mixed hyperlipidemia: On statin #. Hypothyroidism: On Synthroid Med rec pending DVT prophylaxis: IV heparin Full code Admit as inpatient and will require two night minimum hospital stay for IV heparin (as above), which is not possible in a lesser acute setting. Specialist consult pending Quality Stroke Does the patient have a stroke diagnosis?: No VTE Prior VTE?: No VTE Risk Level:: Medical - moderate - high VTE Device Contraindication: Treatment Not Indicated VTE Drug Contraindication: N/A - Med Ordered
[2024-02-25 01:56] LABS: PTT Heparin Drip 32.2 SEC (53-77.9)
[2024-02-25] MEDS: Heparin Sodium,Porcine/1/2NS 25,000 UNIT/250 ML IV.SOLN 10.18 UNIT IVCONT (02:34)
[2024-02-25 03:13] VITALS: BP 119/66; PULSE 70
[2024-02-25] MEDS: Metoprolol Succinate ER 50 MG TAB.ER.24H PO (03:13)
[2024-02-25] MEDS: Aspirin 325 MG TABLET PO (03:14)
--- NOTE | 2024-02-25 03:20 | PC.NURSE ---
This RN assumed care of patient at 03:00 am. Patient is alert and oriented x3, VSS. Patient continues to report epigastric pressure like discomfort 2/10, patient denies SOB, nausea. Patient medicated with Aspirin 325 mg PO and Metoprolol 50 mg PO, patient takes medication whole with water no issues swallowing. Heparin drip infusing at 14 units/kg/hr via 20 G IV line in left wrist, patient tolerating well, no s/s of active bleeding noted. Skin is fragile, but intact. Patient ambulates independently with a steady gait. Patient able to make her needs known. Call osorio within patient's reach. Plan of care ongoing.
[2024-02-25 04:15] VITALS: BP 116/57; PULSE 77; RESP 16; O2SAT 93
[2024-02-25 06:07] LABS: MANUAL DIFF FLAG NO
[2024-02-25 06:17] LABS: Basophils Percent Auto 0.6 % (0-2); Eosinophils Absolute Auto 0.1 X10*3/uL (0.0-0.4); Eosinophils Percent Auto 1.1 % (0-4); Hematocrit 40.5 % (37.0-47.0); Hemoglobin 12.8 g/dl (12.0-16.0); Imm Gran Abs Auto 0.03 X10*3/uL (0.00-0.03); Imm Gran Pct Auto 0.4 % (0.0-0.4); Lymphocytes Absolute Auto 1.5 X10*3/uL (1.2-4.9); Lymphocytes Percent Auto 20.9 % (20-40); Mean Corpuscular HGB Conc 31.6 g/dl (31.0-35.0); Mean Corpuscular Hemoglobin 28.3 pg (27.0-33.0); Mean Corpuscular Volume 89.6 fL (80.0-98.0); Mean Platelet Volume 10.4 fL (9.4-12.3); Monocytes Absolute Auto 0.6 X10*3/uL (0.1-1.2); Monocytes Percent Auto 8.7 % (2-11); Neutrophils Absolute Auto 4.9 x10*3/uL (2.0-8.3); Neutrophils Percent Auto 68.3 % (45-73); Platelet Count 195 X10*3/uL (160-400); Red Blood Count 4.52 X10*6/uL (4.20-5.50); Red Cell Distribution Width 14.5 % (11.0-16.0); White Blood Count 7.1 X10*3/uL (4.8-10.8)
[2024-02-25 06:27] LABS: Anion Gap 12 (12-20); Blood Urea Nitrogen 22 mg/dL (9-16); Calcium 9.4 mg/dL (8.4-10.2); Carbon Dioxide 25 mmol/L (22-29); Chloride 109 mmol/L (96-108); Creatinine Clr Calc Pharmacy 36.3; Estimated Glomerular Filt Rate 42; Glucose Random 120 mg/dL (60-115); Sodium 142 mmol/L (135-145)
--- NOTE | 2024-02-25 07:00 | CA_ITS ---
Transthoracic Echocardiogram Patient (Last, First, Middle): Penny Greenwood A Gender: Female Date of : 1945 Age: 79 Procedure Date: 02/25/2024 Procedure Type: Transthoracic Echocardiogram Location: ER Height: 167.64 cm Weight: 72.58 kg BSA: 1.82 m2 Heart Rate: bpm BP: 116 / 57 mmHg Spout Positioner: Referring MD: Trip Javier MD Symptoms: NSTEMI, ?assess wall motion Study Quality: Adequate w contrast Conclusions: - Normal left ventricular cavity size. There is mildly increased left ventricular wall thickness. The left ventricular systolic function is moderately decreased. The visually estimated ejection fraction is between 30-35%. - The mid anterior, mid inferior, mid anterolateral, mid inferoseptal, mid anteroseptal, and mid inferolateral segments are hypokinetic. - There is normal right ventricular systolic function. RV mild to moderately dilated. - The right atrium is severely dilated. - There is moderate to severe tricuspid valve regurgitation. - Mild pulmonary hypertension is present. Findings Procedure Information Contrast agent, definity, is being given per protocol without apparent complications. Left Ventricle Normal left ventricular cavity size. There is mildly increased left ventricular wall thickness. The left ventricular systolic function is moderately decreased. The visually estimated ejection fraction is between 30 35%. There is evidence of regional wall motion abnormalities. Diastolic function is indeterminate on the basis of available data. Wall Motion Rest Echo Findings The mid anterior, mid inferior, mid anterolateral, mid inferoseptal, mid anteroseptal, and mid inferolateral segments are hypokinetic. The entire apex is akinetic. Right Ventricle There is normal right ventricular systolic function. RV mild to moderately dilated. Atria The left atrium is normal in size. The right atrium is severely dilated. Aortic Valve There is a normal trileaflet aortic valve. There is no aortic valve stenosis. There is no aortic valve regurgitation. Mitral Valve The mitral valve appears normal. There is trace mitral valve regurgitation. There is no mitral valve stenosis. Pulmonic Valve The pulmonic valve is normal. There is no pulmonic valve regurgitation. Tricuspid Valve Normal tricuspid valve structure. There is moderate to severe tricuspid valve regurgitation. Normal right atrial pressure. Mild pulmonary hypertension is present. Great Vessels All visible segments of the aorta are normal in size. Prior Study Comparison Changes noted compared to prior study dated: 07/29/2023. EF 30-35%, Mild to mod RV dilation, severe RA dilation, mod to severe TR. Measurements 2D Linear Measurements IVSd: 1.16 0.6-0.9/0.6-1.0 cm LVIDd: 4.30 3.9-5.3/4.2-5.9 cm LVIDd Index: 2.36 2.4-3.2/2.2-3.1 cm/m2 LVIDs: 3.31 2.0-3.6 cm LVPWd: 1.13 0.7-1.1 cm Ao Root: 2.80 2.1-3.5 cm LA Diam: 3.20 2.7-3.8/3.0-4.0 cm LAIDs Index: 1.76 1.5-2.3 cm/m2 LV Mass: 214.95 67-162/88-224 g LV Mass Index: 118.11 43-95/49-115 g/m2 LVOT Diam: 2.00 3.0+(-)1.3 cm 2D Systolic Function EF 4C: 34.10 >55% EF 2C: 26.00 >55% EF BiP: 32.10 >55% Mitral Valve MV Pk E: 0.57 MV PK A: 1.02 MV Decel Time: 97.00 E/A: 0.60 E'Lateral: 10.00 E'Medial: 3.70 E/E' Med: 15.40 E/E' Lat: 5.70 PHT: 28.00 MVA PHT: 7.86 Decel Eddy: 5.90 Aortic Valve AoV Pk Kenneth: 1.33 AoV Mn Kenneth: 0.87 AoV VTI: 0.29 AoV Pk Grad: 7.00 Aov Mn Grad: 3.00 BRYANT Cont.VTI: 1.83 LVOT LVOT Pk Kenneth: 0.75 LVOT Mn Kenneth: 0.50 LVOT VTI: 0.17 LVOT Pk Grad: 2.00 LVOT Mn Grad: 1.00 LVOT Diam: 2.00 LVOT Area: 3.14 Diastolic Function MV Pk E: 0.57 MV Pk A: 1.02 E/A: 0.60 E'Medial: 3.70 E/E' Med: 15.40 E' Laterial: 10.00 E/E' Lat: 5.70 Right Ventricle TAPSE (mm): 28.70 TVS' Kenneth: 13.40 Tricuspid Valve TR Pk Kenneth: 2.97 TR Pk Grad: 35.00 RVSP: 40.00 Great Vessels Aorta Ao Root-2D: 2.80 2.0-3.7 cm Ao Asc: 2.90 2.1-3.4 cm Pulmonary Valve PV Pk Kenneth: 0.84 Peak PV Grad: 3.00 Updated in Other Vendor System with Status of Final Trip Javier MD electronically signed on 02/25/2024 11:59:15 AM with status of Final
[2024-02-25 07:21] LABS: Glucose, Whole Blood 100 mg/dL (60-115)
[2024-02-25] MEDS: Insulin Glargine,Hum.rec.anlog 100 UNIT/ML 10 ML VIAL 15 UNIT SUBCUT (08:43)
[2024-02-25] MEDS: 0.9 % Sodium Chloride Flush 3 ML SYRINGE IVFLUSH (08:44)
--- NOTE | 2024-02-25 08:48 | PC.NURSE ---
Phlebotomy called to draw scheduled lab
[2024-02-25 09:32] LABS: PTT Heparin Drip 80.8 SEC (53-77.9)
--- NOTE | 2024-02-25 09:32 | PHA.MEDREC ---
Pharmacy Consult ? Medication Reconciliation Pharmacy has completed the medication reconciliation. spoke with patient to confirm medications, she also brought a list from home. She reports she did not take any night time medications yesterday.
[2024-02-25 09:53] LABS: Troponin-I High Sensitivity 160.9 ng/L (<3.5-17.0)
--- NOTE | 2024-02-25 10:04 | P.CONCA_ITS ---
History of Present Illness History of Present Illness Date of Service: 02/25/24 Requesting physician: Colleen Osman Chief complaint: NSTEMI Narrative: 79 year female with known history of paroxysmal atrial fibrillation on Xarelto, diabetes, hypertension and hyperlipidemia who is presenting with abdominal pain which has been a chronic issue for her. She also developed central chest tightness while getting abdominal pain. This lasted approximately 10 minutes before she called her son and then came to the emergency department. Eventually the symptoms started improving and she has very mild discomfort present now. She ruled in for NSTEMI. She has a paced rhythm but her repeat EKG has shown lateral T-wave inversions which are new. She previously had NSTEMI and was taken for cardiac catheterization approximately 2 years ago when no significant coronary disease was noted to explain the symptoms. No bleeding issues otherwise. [facility] Past Medical History Medical History Hyperkalemia CKD (chronic kidney disease), stage III Cataract Vitamin D deficiency DM type 2 (diabetes mellitus, type 2) Hypothyroidism Hyperlipemia HTN (hypertension) Paroxysmal atrial fibrillation Cardiac pacemaker in situ Complete heart block Family History Family History Father Cancer Mother Diabetes Surgical History Surgical History Pacemaker battery depletion Hx of bilateral mastectomy History of permanent cardiac pacemaker placement History of tonsillectomy and adenoidectomy History of hip surgery Hx of cardiac cath Social History Social History Housing: House Are you a primary health care coach to a significant other at home: No (was caring for , now he is in [place]) Do you presently have visiting nurse or other home services: No Alcohol intake: never Patient Tobacco Use Status: Former Tobacco user Quit Date: 1998 Tobacco use type: Cigarette Smoked in Last 30 Days: No e-Cigarette/Vaping Use: Never Used Advance Directives: Yes Advance Directives on File: Yes Advance Directives Date on File: 02/16/22 Do you have a plan to hurt others: No Plan Nutrition Risks: No Nutritional Risk service: No Current occupational status: retired Cognitive needs: No Hearing needs: No Vision needs: Yes Meds Allergies Allergy/AdvReac Type Severity Reaction Status Date / Time lisinopril Allergy Intermediate Hyperkalemi Verified 02/24/24 19:27 a nitrofurantoin [Macrobid] AdvReac Intermediate dizziness Verified 02/24/24 19:27 Active Medications: Current Medications Acetaminophen (Acetaminophen 325 Mg Tablet) 650 mg PO Q6H PRN PRN Reason: Pain, Mild (Pain Scale 1-3) Glucose (Glucose Gel 15 Gm Gel..Gram.) 15 gm PO Q15M PRN; Protocol PRN Reason: per Hypoglycemia Standing Ord. Heparin Sodium (Porcine) (Heparin Sodium,Porcine 5,000 Unit/Ml Vial) 2,900 unit IVPUSH PROTOCOL BOLUS PRN; Protocol PRN Reason: 40 unit/kg - Heparin Protocol Heparin Sodium (Porcine) (Heparin Sodium,Porcine 5,000 Unit/Ml Vial) 5,800 unit IVPUSH PROTOCOL BOLUS PRN; Protocol PRN Reason: 80 unit/kg - Heparin Protocol Heparin Sodium/Sodium Chloride (Heparin Sodium,Porcine/1/2ns) 25,000 unit in 250 mls @ 0 mls/hr IVCONT .Q0M [facility]; Protocol Last Titration: 02/25/24 09:37 Dose: 12 units/kg/hr, 8.72 mls/hr Dextrose (D10) 250 mls @ 750 mls/hr IV Q15M PRN; Protocol PRN Reason: per Hypoglycemia Standing Ord. Insulin Glargine (Insulin Glargine,Hum.Rec.Anlog 100 Unit/Ml 10 Ml Vial) 15 unit SUBCUT DAILY [facility] Last Admin: 02/25/24 08:43 Dose: 15 unit Insulin Human Lispro (Insulin Lispro 100 Unit/Ml 3 Ml Vial) 0 unit SUBCUT QIDACHS [facility]; Protocol Last Admin: 02/25/24 07:33 Dose: Not Given Melatonin (Melatonin 3 Mg Tablet) 6 mg PO BEDTIME PRN PRN Reason: Insomnia Ondansetron HCl (Ondansetron Hcl 4 Mg/2 Ml Vial) 4 mg IVPUSH Q8H PRN PRN Reason: Nausea and Vomiting Sodium Chloride (0.9 % Sodium Chloride Flush 3 Ml Syringe) 3 [facility] Last Admin: 02/25/24 08:44 Dose: 3 ml Home Medications ?Medication ?Instructions ?Recorded ?Confirmed ?Last Taken ?Type blood sugar diagnostic #10 ea 09/23/20 02/09/24 Unknown History dapagliflozin propanediol 10 mg 10 mg PO QAM 12/10/21 02/25/24 08/17/23 History tablet (Farxiga) vit C 250 mg-E 90 mg-zinc 40 1 tab PO BID 08/17/23 02/25/24 08/17/23 History mg-copper 1 fs-xdubof-avlwyx chew tablet (PreserVision AREDS-2) acetaminophen 500 mg tablet 500 mg PO BID PRN Pain 10/12/23 02/25/24 Unknown History atorvastatin 20 mg tablet 20 mg PO QAM 02/25/24 02/25/24 Unknown History budesonide 3 mg 3 mg PO QAM 02/25/24 02/25/24 Unknown History capsule,delayed,extended release insulin glargine 100 unit/mL (3 20 unit subcut QAM 02/25/24 02/25/24 02/24/24 History mL) subcutaneous pen (Lantus Solostar U-100 Insulin) isosorbide mononitrate 30 mg 30 mg PO QPM 02/25/24 02/25/24 Unknown History tablet,extended release 24 hr levothyroxine 125 mcg tablet 125 mcg PO QAM 02/25/24 02/25/24 02/24/24 History rivaroxaban 15 mg tablet (Xarelto) 15 mg PO QPM 02/25/24 02/25/24 Unknown History sertraline 50 mg tablet 75 mg PO QAM 02/25/24 02/25/24 Unknown History Physical Exam 2 Vital Signs: Vital Signs: Last Vital Signs Temp 97.9 F 02/24/24 19:22 Pulse 77 02/25/24 04:15 Resp 16 02/25/24 04:15 BP 116/57 L 02/25/24 04:15 Pulse Ox 93 02/25/24 04:15 O2 Del Method Room Air 02/25/24 04:15 BMI result Body Mass Index 25.9 GENERAL APPEARANCE: in no acute distress, pleasant. NECK: no carotid bruit, no jugular venous distention. SKIN: no suspicious lesions, warm and dry. HEART: no murmurs, regular rate and rhythm. LUNGS: clear to auscultation bilaterally. ABDOMEN: soft, nontender. EXTREMITIES: no edema. PERIPHERAL PULSES: equal. NEUROLOGIC: No gross deficits, AAO X 3 Objective Labs and Meds 02/25/24 05:34 02/25/24 05:34 Lab results: Laboratory Results - last 24 hr 02/24/24 02/24/24 02/25/24 19:22 22:40 01:39 WBC 8.4 RBC 4.32 Hgb 12.6 Hct 38.4 MCV 88.9 MCH 29.2 MCHC 32.8 RDW 14.5 Plt Count 196 MPV 10.7 Immature Gran % (Auto) 0.5 H Neut % (Auto) 78.6 H Lymph % (Auto) 12.6 L [place] % (Auto) 6.3 Eos % (Auto) 1.4 Baso % (Auto) 0.6 Lymph # (Auto) 1.1 L [place] # (Auto) 0.5 Eos # (Auto) 0.1 Baso # (Auto) 0.1 Abs Immat Gran (auto) 0.04 H Absolute Neuts (auto) 6.6 Absolute Nucleated RBC 0.000 Nucleated RBC % (auto) 0.0 aPTT Heparin Protocol 32.2 L Sodium 141 Potassium 4.1 Chloride 110 H Carbon Dioxide 19 L Anion Gap 16 BUN 22 H Creatinine 1.12 Estim Creat Clear Calc 42.2 Estimated GFR 47 POC Glucose Random Glucose 110 Calcium 9.1 Total Bilirubin 0.4 Direct Bilirubin 0.1 AST 22 ALT 17 Alkaline Phosphatase 108 Troponin I High Sens 21.5 H D 230.0 H* D Total Protein 6.6 Albumin 3.7 Lipase 39 02/25/24 02/25/24 02/25/24 05:34 07:15 09:10 WBC 7.1 RBC 4.52 Hgb 12.8 Hct 40.5 MCV 89.6 MCH 28.3 MCHC 31.6 RDW 14.5 Plt Count 195 MPV 10.4 Immature Gran % (Auto) 0.4 Neut % (Auto) 68.3 Lymph % (Auto) 20.9 [place] % (Auto) 8.7 Eos % (Auto) 1.1 Baso % (Auto) 0.6 Lymph # (Auto) 1.5 [place] # (Auto) 0.6 Eos # (Auto) 0.1 Baso # (Auto) 0.0 Abs Immat Gran (auto) 0.03 Absolute Neuts (auto) 4.9 Absolute Nucleated RBC 0.000 Nucleated RBC % (auto) 0.0 aPTT Heparin Protocol 80.8 H D Sodium 142 Potassium 4.0 Chloride 109 H Carbon Dioxide 25 Anion Gap 12 BUN 22 H Creatinine 1.24 Estim Creat Clear Calc 36.3 Estimated GFR 42 POC Glucose 100 Random Glucose 120 H Calcium 9.4 Total Bilirubin Direct Bilirubin AST ALT Alkaline Phosphatase Troponin I High Sens 160.9 H* Total Protein Albumin Lipase Imaging Radiologist's impression: Impressions Chest X-Ray 02/24/24 19:33 IMPRESSION: No acute cardiopulmonary disease. Stable appearance of the heart and lungs. Abdomen/Pelvis CT 02/24/24 23:44 IMPRESSION: 1. No acute intra-abdominal or intrapelvic abnormalities are identified. 2. A small left inguinal hernia contains a segment of small bowel. No evidence of obstruction. 3. Moderate to severe colonic diverticulosis without evidence of acute diverticulitis. 4. Bilateral lipid rich adrenal adenomas. No recommend imaging follow-up. 5. Moderate centrilobular emphysema. There is a 3 mm solid pulmonary nodule in the left lower lobe. According to the UPDATED 2017 Fleischner Society recommendations, the advised follow-up imaging for solid nodules < 6 mm is: HIGH RISK PATIENT: Optional CT at 12 months. Assessment and Plan (1) Non-ST elevation [place] (NSTEMI): Status: Acute Plan 79-year-old female presenting with NSTEMI. We discussed about medical management versus diagnostic cardiac catheterization. She is more in favor of doing a diagnostic angiogram after discussion. The pros and cons were discussed and we are going to transfer to [facility] for potential cardiac catheterization later today. She will stay NPO. She will continue the heparin. Her last dose of Xarelto was on February 22. Clinically not in heart failure. Blood pressure is reasonably controlled currently. On atorvastatin 20 mg which can be continued and if he is noticed any significant disease then we will adjust the dose. Thank you for allowing me to participate in the care of your patient. Please feel free to contact me if you have any questions. Procedures Date of Service Date of Service: 02/25/24
--- NOTE | 2024-02-25 10:11 | PM.DS ---
DS: Providers Provider Date of Service: 02/25/24 Date of admission: 02/25/24 01:52 Date of discharge: 02/25/24 Primary care physician: Dipika Casas MD Consults: 02/25/24 01:52 Consult to Cardiology Routine Consulting Provider: [facility] Reason for consultation: NSTEMI Attending physician on discharge: John Babb Discharging clinician: Colleen Osman DS: Diagnosis Discharge Diagnosis (1) Non-ST elevation [place] (NSTEMI): Status: Acute DS: Summary Hospital Course Hospital Course: From H&P on the day of admission This is a 79-year-old female with pertinent history of hypertension, mixed hyperlipidemia, insulin-dependent diabetes mellitus, hypothyroidism, paroxysmal atrial fibrillation on anticoagulation, stress-induced cardiomyopathy with normalization of EF, cardiac pacemaker in place who presents to the emergency department for evaluation of abdominal/chest discomfort. Patient states it started on the day of presentation. Initially she had upper abdominal discomfort which was followed by an episode of emesis. The abdominal discomfort subsided but patient had midsternal chest discomfort which lasted until she got to the ER. It was constant, nonradiating and associated with mild sweating. No palpitations or shortness of breath. No fever, chills, abdominal pain, changes in urinary or bowel habits. In the emergency department, troponin was found to be elevated and Cardiology was consulted who requested initiation of IV heparin and admission. This is a 79-year-old female with pertinent history of hypertension, mixed hyperlipidemia, insulin-dependent diabetes mellitus, hypothyroidism, paroxysmal atrial fibrillation on anticoagulation, stress-induced cardiomyopathy with normalization of EF, cardiac pacemaker in place who presents to the emergency department for evaluation of abdominal/chest discomfort. #. NSTEMI: Initiated on IV heparin in the ER. Cardiology consulted. Received aspirin and continued on home dose of beta-juli. Highly sensitive troponin increased from 21 to 230. She was evaluated by the noc analyst who recommended transfer to [facility] for cardiac catheterization. Abdominal pain-reportedly had an episode of abdominal pain. CT scan of the abdomen and pelvis negative for any acute intra-abdominal abnormality. #. Insulin-dependent diabetes mellitus: Initiating basal plus insulin regimen #. Paroxysmal atrial fibrillation: Hold Xarelto, on IV heparin as above #. Mood disorder: Continue home mood stabilizers #. Mixed hyperlipidemia: On statin #. Hypothyroidism: On Synthroid Time Attestation Discharge Coordination Time (in mins): 36 Quality: Safe Use of Opioids Does Pt have an Active Cancer Diagnosis on the Problem List?: No Quality: Stroke Does the patient have a stroke diagnosis?: No Physical Exam Vital Signs: Vital Signs: Last Vital Signs Temp 97.9 F 02/24/24 19:22 Pulse 77 02/25/24 04:15 Resp 16 02/25/24 04:15 BP 116/57 L 02/25/24 04:15 Pulse Ox 93 02/25/24 04:15 O2 Del Method Room Air 02/25/24 04:15 BMI result Body Mass Index 25.9 Const: General: cooperative, comfortable, alert and awake Nutritional Appearance: average body habitus Orientation/consciousness: patient oriented x3 Resp: Effort & Inspection: normal respiratory effort and able to speak in complete sentences Cardio: Rate: regular rate GI: Inspection: No distended Palpation (GI): Soft to palpation Neuro: General: patient oriented x3, moves all extremities and CN's II-XI intact bilaterally DS: Data Data Completed and Pending Labs on day of discharge: Laboratory Results - last 24 hr 02/24/24 02/24/24 02/25/24 19:22 22:40 01:39 WBC 8.4 RBC 4.32 Hgb 12.6 Hct 38.4 MCV 88.9 MCH 29.2 MCHC 32.8 RDW 14.5 Plt Count 196 MPV 10.7 Immature Gran % (Auto) 0.5 H Neut % (Auto) 78.6 H Lymph % (Auto) 12.6 L Sab[place] % (Auto) 6.3 Eos % (Auto) 1.4 Baso % (Auto) 0.6 Lymph # (Auto) 1.1 L [place] # (Auto) 0.5 Eos # (Auto) 0.1 Baso # (Auto) 0.1 Abs Immat Gran (auto) 0.04 H Absolute Neuts (auto) 6.6 Absolute Nucleated RBC 0.000 Nucleated RBC % (auto) 0.0 aPTT Heparin Protocol 32.2 L Sodium 141 Potassium 4.1 Chloride 110 H Carbon Dioxide 19 L Anion Gap 16 BUN 22 H Creatinine 1.12 Estim Creat Clear Calc 42.2 Estimated GFR 47 POC Glucose Random Glucose 110 Calcium 9.1 Total Bilirubin 0.4 Direct Bilirubin 0.1 AST 22 ALT 17 Alkaline Phosphatase 108 Troponin I High Sens 21.5 H D 230.0 H* D Total Protein 6.6 Albumin 3.7 Lipase 39 02/25/24 02/25/24 02/25/24 05:34 07:15 09:10 WBC 7.1 RBC 4.52 Hgb 12.8 Hct 40.5 MCV 89.6 MCH 28.3 MCHC 31.6 RDW 14.5 Plt Count 195 MPV 10.4 Immature Gran % (Auto) 0.4 Neut % (Auto) 68.3 Lymph % (Auto) 20.9 Sabine % (Auto) 8.7 Eos % (Auto) 1.1 Baso % (Auto) 0.6 Lymph # (Auto) 1.5 Sabine # (Auto) 0.6 Eos # (Auto) 0.1 Baso # (Auto) 0.0 Abs Immat Gran (auto) 0.03 Absolute Neuts (auto) 4.9 Absolute Nucleated RBC 0.000 Nucleated RBC % (auto) 0.0 aPTT Heparin Protocol 80.8 H D Sodium 142 Potassium 4.0 Chloride 109 H Carbon Dioxide 25 Anion Gap 12 BUN 22 H Creatinine 1.24 Estim Creat Clear Calc 36.3 Estimated GFR 42 POC Glucose 100 Random Glucose 120 H Calcium 9.4 Total Bilirubin Direct Bilirubin AST ALT Alkaline Phosphatase Troponin I High Sens 160.9 H* Total Protein Albumin Lipase Discharge Plan Discharge Anticipated Discharge Date/Time: 02/25/24 10:21 Patient Disposition: Xfer Acute Care Hospital Discharge Diagnosis: chest pain/NSTEMI Referrals: Dipika Casas MD [Primary Care Provider] - 1 Week Discharge Medications: New heparin(porcine) in 0.45% NaCl 25,000 unit/250 mL Parenteral Solution 25,000 unit continuous IV infusion .Q0M Qty: 6000 0RF Continued tiotropium bromide 18 mcg capsule, w/inhalation device 1 cap inhalation BEDTIME Qty: 90 1RF metoprolol succinate 50 mg tablet extended release 24 hr 25 mg PO BID 90 Days Qty: 90 3RF acetaminophen 500 mg Tablet 500 mg PO BID PRN (Reason: Pain) PreserVision AREDS-2 250-90-40-1 mg Tablet,Chewable 1 tab PO BID budesonide 3 mg capsule,delayed,extend.release 3 mg PO QAM atorvastatin 20 mg tablet 20 mg PO QAM isosorbide mononitrate 30 mg tablet extended release 24 hr 30 mg PO QPM levothyroxine 125 mcg tablet 125 mcg PO QAM sertraline 50 mg tablet 75 mg PO QAM Farxiga 10 mg tablet 10 mg PO QAM Held insulin glargine [Lantus Solostar U-100 Insulin] 100 unit/mL (3 mL) insulin pen 20 unit subcut QAM Hold Instructions: pt NPO Xarelto 15 mg tablet 15 mg PO QPM Hold Instructions: hold while on heparin drip No Action (DME) FreeStyle Lite Strips Strip See Rx Instructions .ROUTE .MEDSUPPLY Qty: 300 3RF Rx Instructions: Test blood sugar TID (DME) pen needle, diabetic [BD Ultra-Fine Mini Pen Needle] 31 gauge x 3/16 needle See Rx Instructions .Route Qty: 100 3RF Rx Instructions: Use to inject insulin once a day (DME) lancets [FreeStyle Lancets] 28 gauge misc See Rx Instructions .Route Qty: 300 3RF Rx Instructions: Test up to 3 times per day (DME) blood sugar diagnostic Strip See Rx Instructions Not Applicable TID Qty: 10 Rx Instructions: As directed Discharge Orders: Discharge Order (Routine); Ordered 02/25/24 Ordered By: Colleen Osman Activity on Discharge: As tolerated Stand Alone Forms: Patient Portal Discharge page Print Language: Japanese Care Plan Goals: see below Health Concerns: NTEMI Plan of Treatment: continue heparin drip [place] [facility] Assessment: see discharge summary
[2024-02-25 10:13] VITALS: BP 131/79; PULSE 76; RESP 18; TEMP 36.6; O2SAT 97
--- NOTE | 2024-02-25 10:57 | PC.NURSE ---
Ambulating to bathroom independently, son at bedside, denies pain or discomfort, patient aware plan is to transfer to [facility] r&d lab technician as soon as a bed is assigned
[2024-02-25 11:36] LABS: Glucose, Whole Blood 120 mg/dL (60-115)
[2024-02-25 11:39] VITALS: BP 103/65; PULSE 73; RESP 17; TEMP 36.5; O2SAT 92
--- NOTE | 2024-02-25 11:39 | PC.NURSE ---
88% on RA, placed on 2 liters via NC sating 92%, provider notified
--- NOTE | 2024-02-25 11:40 | MHC.EDTECH ---
this tech was taking vitals and found this pt stating at 88%-89% on room air. pt did state she does have COPD. rn made aware, pt now on 2L of o2 nc stating at 93%.
--- NOTE | 2024-02-25 12:30 | PC.NURSE ---
[facility] aware that patient will be transported around 1;15 via [facility]
--- NOTE | 2024-02-25 14:19 | PC.NURSE ---
transported to [facility] via [place]
--- NOTE | 2024-02-26 08:14 | MHC.CM.PN ---
Patient transferred to [facility] before being seen by case management.
== END 2024-02-25 17:27 | disposition short-term general hospital (02) | DRG 281 ==
LOC: HO.ED 02-25 01:41 → HO.EDOVER 02-25 01:59 → HO.IMC 02-25 09:56 → HO.EDOVER 02-25 10:21
PROVIDERS: Admitting Provider Student in an Organized Health Care Education/Training Program; Emergency Provider Emergency Medicine; PCP Internal Medicine; Visit Provider Physician Assistant Medical
DX: I21.4 Non-ST elevation (NSTEMI) myocardial infarction (principal); I44.2 Atrioventricular block, complete; Z95.0 Presence of cardiac pacemaker; I10 Essential (primary) hypertension; E78.2 Mixed hyperlipidemia; F39 Unspecified mood [affective] disorder; I48.0 Paroxysmal atrial fibrillation; Z85.3 Personal history of malignant neoplasm of breast; E03.9 Hypothyroidism, unspecified; Z90.13 Acquired absence of bilateral breasts and nipples; Z79.4 Long term (current) use of insulin; Z79.01 Long term (current) use of anticoagulants; Z79.890 Hormone replacement therapy; Z79.899 Other long term (current) drug therapy
CPT/HCPCS: 36415; 71045; 74176; 80048; 80076; 82947; 83690; 84484; 85025; 85730; 93005; 93306; 99285; J1644; Q9957

== ENCOUNTER → 2024-02-24 19:16 | Outpatient (BNV) | payer MEDICARE, SELFPAY | PROVIDERS: Admitting Provider Student in an Organized Health Care Education/Training Program; Emergency Provider Emergency Medicine; PCP Internal Medicine; Visit Provider Internal Medicine Cardiovascular Disease | DX: R94.31 Abnormal electrocardiogram [ECG] [EKG] (principal) | CPT/HCPCS: 93010 ==

== ENCOUNTER → 2024-02-25 01:52 | Outpatient (BNV) | payer MEDICARE, SELFPAY | PROVIDERS: Admitting Provider Student in an Organized Health Care Education/Training Program; Emergency Provider Emergency Medicine; PCP Internal Medicine; Visit Provider Internal Medicine Cardiovascular Disease | DX: I21.4 Non-ST elevation (NSTEMI) myocardial infarction (principal); I36.1 Nonrheumatic tricuspid (valve) insufficiency | CPT/HCPCS: 93306; 99223 ==

== ENCOUNTER → 2024-02-25 01:52 | Outpatient (BNV) | payer MEDICARE, SELFPAY | PROVIDERS: Admitting Provider Student in an Organized Health Care Education/Training Program; Emergency Provider Emergency Medicine; PCP Internal Medicine; Visit Provider Student in an Organized Health Care Education/Training Program | DX: I21.4 Non-ST elevation (NSTEMI) myocardial infarction (principal) | CPT/HCPCS: 99222; 99234 ==

== ENCOUNTER → 2024-02-25 23:59 | Outpatient (BNV) | payer MEDICARE, SELFPAY | PROVIDERS: PCP Internal Medicine; Visit Provider Internal Medicine Cardiovascular Disease | DX: I21.4 Non-ST elevation (NSTEMI) myocardial infarction (principal) | CPT/HCPCS: 93458; 99152 ==

== ENCOUNTER 2024-04-03 15:18 | Outpatient (AMB) | payer MEDICARE, SELFPAY ==
--- NOTE | 2024-04-03 15:26 | MHC.OFFVIS ---
Vital Signs 04/03/24 15:27 Height 5 ft 6 in Weight 163 lb 2.273 oz BMI 26.3 BP 120/68 Blood Pressure Location Lt brachial Position Sitting Pulse 73 Intake Visit Reasons[place] [facility] [place] Note: [place] [facility] [place] [facility] [place] dc feeling better with [facility] check Pressure Tank Operator Required: No Allergies lisinopril Allergy (Intermediate, Verified 02/24/24 19:27) Hyperkalemia nitrofurantoin [Macrobid] Adverse Reaction (Intermediate, Verified 02/24/24 19:27) dizziness Medication List - Last Reconciled 04/03/24 by Prosper Brown MD acetaminophen 500 mg PO BID PRN atorvastatin 20 mg PO QAM blood sugar diagnostic As directed blood sugar diagnostic (FreeStyle Lite Strips) Test blood sugar TID dapagliflozin propanediol (Farxiga) 10 mg PO QAM insulin glargine (Lantus Solostar U-100 Insulin) 20 units subcut QAM isosorbide mononitrate ER 30 mg PO QPM lancets (FreeStyle Lancets) Test up to 3 times per day levothyroxine 125 mcg PO QAM metoprolol succinate ER 25 mg (1/2 x 50 mg) PO BID 90 days pen needle, diabetic (BD Ultra-Fine Mini Pen Needle) Use to inject insulin once a day rivaroxaban (Xarelto) 15 mg PO QPM sertraline 75 mg PO QAM tiotropium bromide 1 cap inhalation BEDTIME vit C,K-Qn-stbxd-lutein-zeaxan 250-90-40-1 mg (PreserVision AREDS-2) 1 tab PO BID HPI Comments Details: Julianna comes for follow-up after recent hospitalization under extremely stressful situation she would cardiac symptoms and chest pain and subsequently ruled in for NSTEMI with echocardiogram shows wall motion abnormality in the mid and distal LV segments. She then was transferred to [facility] underwent a cardiac catheterization which showed nonobstructive CAD. Findings suggestive of stress-induced cardiomyopathy. She was then released on medical therapy and overall has done well. She says she is now trying to manage her stress lipid better. She is still concerned about her 's care but says she is now taking it easier. She denies any heart failure symptoms. No prolonged palpitation irregular heartbeat. No bleeding issues or neurologic events. No lightheadedness, syncope. She says she is slowed down since the [facility] Medical History Hyperkalemia CKD (chronic kidney disease), stage III Cataract Vitamin D deficiency DM type 2 (diabetes mellitus, type 2) Hypothyroidism Hyperlipemia HTN (hypertension) Paroxysmal atrial fibrillation Cardiac pacemaker in situ Complete heart block Surgical History Pacemaker battery depletion Hx of bilateral mastectomy History of permanent cardiac pacemaker placement History of tonsillectomy and adenoidectomy History of hip surgery Hx of cardiac cath Family History Father Cancer Mother Diabetes Social History Housing: House Are you a primary day care home mother to a significant other at home: No (was caring for , now he is in [place]) Do you presently have visiting nurse or other home services: No Alcohol intake: never Patient Tobacco Use Status: Former Tobacco user Tobacco use type: Cigarette e-Cigarette/Vaping Use: Never Used Advance Directives Date on File: 02/16/22 service: No Current occupational status: retired Cognitive needs: No Hearing needs: No Vision needs: Yes Review of Systems Const Denies chills, Denies fatigue, Denies fever(s), Denies frequent falls, Denies weakness, Denies weight gain and Denies weight loss ENT Denies dizziness Card Denies chest pain, Denies leg edema, Denies lightheadedness, Denies palpitations, Denies dyspnea, Denies dyspnea on exertion, Denies orthopnea and Denies other (loss of consciousness) Resp Denies cough, Denies dyspnea and Denies dyspnea on exertion GI Denies hematochezia and Denies change in stool character Musc Denies abnormal gait, Denies muscle weakness, Denies numbness, Denies radiating pain into limb and Denies tingling Neuro Denies abnormal gait, Denies dizziness, Denies frequent falls, Denies numbness, Denies tingling and Denies weakness Endo Denies fatigue and Denies palpitations Physical Exam Vital Signs: Last Vital Signs Pulse 73 04/03/24 15:27 BP 120/68 04/03/24 15:27 BMI result Body Mass Index 26.3 Const General: cooperative, healthy appearing, comfortable and no acute distress Orientation/consciousness: patient oriented x3 Neck Neck: Yes normal visual inspection Resp Effort & Inspection: normal respiratory effort Auscultation: clear to auscultation bilaterally, no crackles, no rales, no rhonchi and no wheezes Cardio Jugular venous distension: no JVD Rate: regular rate Rhythm: regular rhythm Heart sounds: S1 normal heart sound present, S2 normal heart sound present, no murmurs and no rubs Neuro General: patient oriented x3 Extrem General: Yes normal to inspection Psych Appearance: grossly normal Mental Status: mental status grossly normal Speech and movement: Normal speech and movement present Office Procedures Cardiac Device Check Cardiac Device Check Details: Dual-chamber [place] pacemaker in place. Programmed in DDDR at 60 beats per minute. Ventricular pacing 100% of time. No episodes of atrial fibrillation noted. Atrial and ventricular capture thresholds are excellent and in our capture mode. Atrial sensing is adequate. Pacing lead impedance is stable. Battery life is greater than 10 years [id number] Cardiac Device Check, pacemaker dual lead Procedure code (CPT) selection complete Assessment & Plan Assessment & Plan (1) Non-ST elevation [place] (NSTEMI): Code(s): I21.4 - Non-ST elevation (NSTEMI) myocardial infarction Category: Medical Plan: Recent episode of NSTEMI like syndrome secondary to stress-induced cardiomyopathy. Cardiac catheterization was reassuring with no significant obstructive disease. Most likely related to significant increased personal stress. Discuss the management. Will repeat limited echocardiogram near future to assess for improvement in LV ejection fraction which is expected. Continue metoprolol therapy. Importance of stress mitigation strategies was discussed. Will refer to phase 2 cardiac rehabilitation improve functionality (2) Paroxysmal atrial fibrillation: Code(s): I48.0 - Paroxysmal atrial fibrillation Category: Medical Plan: Paroxysmal atrial fibrillation without any obvious clinical recurrence at this point time. Continue metoprolol therapy. No indication for antiarrhythmic drug therapy. Continue full oral anticoagulation, currently on Xarelto 15 mg daily renally adjusted dose. Continue monitor renal function every 3 months. Stress mitigation strategies was discussed. Avoidance of stimulants was discussed. Will continue with monitoring pacer telemetry. (3) Cardiac pacemaker in situ: Code(s): Z95.0 - Presence of cardiac pacemaker Category: Medical Plan: Cardiac pacemaker in-situ, working well. Reprogrammed for adequate function. Follow remotely every 3 months. Follow up in the clinic in 3 months time, sooner p.r.n.. Thank you for allowing me to partake in her care Orders: Orders Cardiac Rehab 04/03/24 I21.4 - Non-ST elevation (NSTEMI) myocardial infarction CA Echo Limited 04/03/24 I51.81 - Takotsubo syndrome Coding Level of Care Code Est Pt Level 4 (47086) Diagnoses Non-ST elevation [place] (NSTEMI) I21.4 Paroxysmal atrial fibrillation I48.0 Cardiac pacemaker in situ Z95.0 CPT Codes Cardiac Device Check - Cardiac Device 2: [id number] Cardiac Device Check, pacemaker dual lead ([id number])
[2024-04-03 15:27] VITALS: BP 120/68; PULSE 73; BMI 26.3
== END 2024-04-03 15:57 | disposition home or self-care (01) ==
PROVIDERS: PCP Internal Medicine; Visit Provider Internal Medicine Cardiovascular Disease
DX: I21.4 Non-ST elevation (NSTEMI) myocardial infarction (principal); I48.0 Paroxysmal atrial fibrillation; Z95.0 Presence of cardiac pacemaker
CPT/HCPCS: 93280; 99214

== ENCOUNTER → 2024-04-03 15:18 | Outpatient (BNVA) | payer MEDICARE, SELFPAY | PROVIDERS: PCP Internal Medicine; Visit Provider Internal Medicine Cardiovascular Disease | DX: I21.4 Non-ST elevation (NSTEMI) myocardial infarction (principal); I48.0 Paroxysmal atrial fibrillation; I51.81 Takotsubo syndrome; Z95.0 Presence of cardiac pacemaker | CPT/HCPCS: 93280; 99212 ==

== ENCOUNTER → 2024-04-18 14:44 | Outpatient (REF) | payer MEDICARE, SELFPAY ==
--- NOTE | 2024-04-18 14:48 | CA_ITS ---
Transthoracic Echocardiogram Patient (Last, First, Middle): Penny Greenwood A Gender: Female Date of : 1945 Age: 79 Procedure Date: 04/18/2024 Procedure Type: Transthoracic Echocardiogram Location: OP Height: 165.1 cm Weight: 74.84 kg BSA: 1.82 m2 Heart Rate: bpm BP: 122 / 70 mmHg Engineer System Administrator: PANCHO Referring MD: Prosper Brown MD Front Desk Assistant: Prosper Brown MD Symptoms: I51.81 - Takotsubo syndrome Study Quality: Fair ECG Rhythm: Sinus Conclusions: - LV systolic function is normal on this study Findings Left Ventricle Normal left ventricular size, thickness, and systolic function. The visually estimated ejection fraction is between 55-60%. Spectral Doppler is indicative of an impaired relaxation filling pattern. Wall Motion Rest Echo Findings The basal inferolateral segment is akinetic. All other scored wall segments showed normal motion. Prior Study Comparison Significant changes compared to prior study dated: 02/25/2024. LV systolic function has normalized Measurements 2D Linear Measurements IVSd: 1.07 0.6-0.9/0.6-1.0 cm LVIDd: 4.53 3.9-5.3/4.2-5.9 cm LVIDd Index: 2.49 2.4-3.2/2.2-3.1 cm/m2 LVIDs: 2.81 2.0-3.6 cm LVPWd: 0.82 0.7-1.1 cm LV Mass: 177.87 67-162/88-224 g LV Mass Index: 97.73 43-95/49-115 g/m2 LVOT Diam: 2.00 3.0+(-)1.3 cm 2D Systolic Function EF 4C: 56.50 >55% EF 2C: 55.20 >55% EF BiP: 57.10 >55% Mitral Valve MV Pk E: 0.67 MV PK A: 0.92 MV Decel Time: 259.00 E/A: 0.70 E'Lateral: 2.39 E'Medial: 4.03 E/E' Med: 16.60 E/E' Lat: 27.90 PHT: 76.00 MVA PHT: 2.89 Decel [place]: 2.58 LVOT LVOT Pk Kenneth: 1.01 LVOT Mn Kenneth: 0.72 LVOT VTI: 0.18 LVOT Pk Grad: 4.00 LVOT Mn Grad: 2.00 LVOT Diam: 2.00 LVOT Area: 3.14 Diastolic Function MV Pk E: 0.67 MV Pk A: 0.92 E/A: 0.70 E'Medial: 4.03 E/E' Med: 16.60 E' Laterial: 2.39 E/E' Lat: 27.90 Tricuspid Valve RA Press: 3.00 Updated in Other Vendor System with Status of Final Prosper Brown MD electronically signed on 04/19/2024 12:50:25 PM with status of Final
== END ==
LOC: HO.CARD 14:44
PROVIDERS: PCP Internal Medicine; Visit Provider Internal Medicine Cardiovascular Disease
DX: I51.81 Takotsubo syndrome (principal)
CPT/HCPCS: 93308

== ENCOUNTER → 2024-04-18 14:48 | Outpatient (BNV) | payer MEDICARE, SELFPAY | PROVIDERS: PCP Internal Medicine; Visit Provider Internal Medicine Cardiovascular Disease | DX: I51.81 Takotsubo syndrome (principal) | CPT/HCPCS: 93308; 93321; 93325 ==

== ENCOUNTER 2024-05-15 13:48 | Outpatient (AMB) | payer MEDICARE, SELFPAY ==
--- NOTE | 2024-05-15 14:28 | MHC.PC.OV ---
Vital Signs 05/15/24 14:29 Height 5 ft 6 in Weight 163 lb BMI 26.3 BP 112/66 Blood Pressure Location Rt brachial Position Sitting Pulse 88 Pulse Source Pulse Oximeter Pulse Oximetry (%) 95 Oxygen Delivery Method Room Air Intake Visit Reasons: coughing and cannot sleep Intake Note: Pt is here today for a sick visit. Pt c/o cough, and sob for a week now. Allergies lisinopril Allergy (Intermediate, Verified 05/15/24 14:32) Hyperkalemia nitrofurantoin [Macrobid] Adverse Reaction (Intermediate, Verified 05/15/24 14:32) dizziness Medication List - Last Reconciled 05/15/24 by Dipika Casas MD acetaminophen 500 mg PO BID PRN atorvastatin 20 mg PO QAM azithromycin For 250 mg dose pack: take 500 mg today (day 1), then 250 mg for 4 days (days 2-5) PO blood sugar diagnostic As directed blood sugar diagnostic (FreeStyle Lite Strips) Test blood sugar TID dapagliflozin propanediol (Farxiga) 10 mg PO QAM insulin glargine (Lantus Solostar U-100 Insulin) 20 units subcut QAM isosorbide mononitrate ER 30 mg PO QPM lancets (FreeStyle Lancets) Test up to 3 times per day levothyroxine 125 mcg PO QAM metoprolol succinate ER 25 mg (1/2 x 50 mg) PO BID 90 days pen needle, diabetic (BD Ultra-Fine Mini Pen Needle) Use to inject insulin once a day rivaroxaban (Xarelto) 15 mg PO QPM sertraline 75 mg PO QAM Spiriva with HandiHaler (tiotropium bromide) 1 cap inhalation DAILY NS tiotropium bromide 1 cap inhalation BEDTIME vit C,T-Kh-vyctd-lutein-zeaxan 250-90-40-1 mg (PreserVision AREDS-2) 1 tab PO BID Tobacco use date assessed: 05/15/24 Fall risk assessment: No Falls in past year Last assessed Fall Risk: 05/15/24 Dental Screening Dental Screen Date: 10/18/23 HPI coughing and cannot sleep HPI Details Patient complains of sore throat congestion swollen glands on the neck productive cough for 10 days. She denies fever chills PND orthopnea. Her last week at the halfway. Patient reports higher blood glucose readings before lunch up to 180. She has been taking Farxiga and insulin regularly. [facility] Medical History Hyperkalemia CKD (chronic kidney disease), stage III Cataract Vitamin D deficiency DM type 2 (diabetes mellitus, type 2) Hypothyroidism Hyperlipemia HTN (hypertension) Paroxysmal atrial fibrillation Cardiac pacemaker in situ Complete heart block Surgical History Pacemaker battery depletion Hx of bilateral mastectomy History of permanent cardiac pacemaker placement History of tonsillectomy and adenoidectomy History of hip surgery Hx of cardiac cath Family History Father Cancer Mother Diabetes Social History Housing: House Are you a primary career and transition teacher to a significant other at home: No (was caring for , now he is in [place]) Do you presently have visiting nurse or other home services: No Alcohol intake: never Patient Tobacco Use Status: Former Tobacco user Tobacco use type: Cigarette e-Cigarette/Vaping Use: Never Used Advance Directives Date on File: 02/16/22 service: No Current occupational status: retired Cognitive needs: No Hearing needs: No Vision needs: Yes Questionnaire PHQ-9 Over the last 2 weeks, how often have you been bothered by any of the following problems? 1. Little interest or pleasure in doing things: not at all 2. Feeling down, depressed, or hopeless: several days 3. Trouble falling or staying asleep, or sleeping too much: several days 4. Feeling tired or having little energy: several days 5. Poor appetite or overeating: several days 6. Feeling bad about yourself - or that you are a failure or have let yourself or your family down: not at all 7. Trouble concentrating on things, such as reading the newspaper or watching television: several days 8. Moving or speaking so slowly that other people could have noticed. Or the opposite - being so fidgety or restless that you have been moving around a lot more than usual: not at all 9. Thoughts that you would be better off or of hurting yourself in some way: not at all Total score: 5 Depression Screening Interpretation: Negative Depression Screening Done: Yes 64629 - PHQ-9 Billing: Yes Source: Developed by Drs. Star Vitale, Ham Solis and colleagues, with an educational gaston from [employer]. Thrive Questionnaire Date Thrive assessed: 05/15/24 I am a: Parent/Caregiver What is your living situation today?: I have a steady place to live Within the past 12 months, did the food you bought not last and you didn't have the money to get more?: Never true Within the past 12 months, did you worry whether your food would run out before you got money to buy more?: Never true Do you have trouble paying for medicines?: No Do you have trouble getting transportation to medical appointments?: No Do you have trouble paying your heating and electricity bill?: No Do you have trouble taking care of your child, family member or friend?: No Do you have trouble with day-to-day activities such as bathing, preparing meals, shopping, managing finances, etc.?: No Are you currently unemployed and looking for a job?: No Are you interested in more education?: No Please select the resources that you would like help with: Housing/Alf Currently or been in a relationship where the following occur: I choose not to answer THRIVE Score: 0 AUDIT C Alcohol Use Questionnaire (AUDIT-C) 1. How often do you have a drink containing alcohol?: Never Total Score: 0 LEON-7 AMB Questionnaire LEON-7 Date LEON - 7 assessed: 05/15/24 Feeling nervous, anxious, or on edge: 1 = Several days Not being able to stop or control worryin = Several days Worrying too much about different things: 0 = Not at all Trouble relaxin = Not at all Being so restless that it is hard to sit still: 0 = Not at all Becoming easily annoyed or irritable: 0 = Not at all Feeling afraid as if something awful might happen: 0 = Not at all Total LEON-7 score (0-4 normal; 5-9 mild; 10-14 moderate; 15-21 severe): 2 Source: Developed by Grace Mckeon Kurt Kroenke and colleagues, with an educational gaston from [employer]. LEON-7 Assessment Billing LEON-7 Assessment Tool: LEON-7 Assessment 12942 Review of Systems Const All systems reviewed & are unremarkable except as noted in HPI and below ENT Reports no additional complaints Card Reports no additional complaints Resp Reports no additional complaints GI Reports no additional complaints Physical exam (Primary Care) Vital Signs: Last Vital Signs Pulse 88 05/15/24 14:29 BP 112/66 05/15/24 14:29 Pulse Ox 95 05/15/24 14:29 Oxygen Delivery Method Room Air 05/15/24 14:29 BMI result Body Mass Index 26.3 Tobacco/Smoking Status: Tobacco use Status Tobacco use date assessed 05/15/24 05/15/24 14:34 Patient Tobacco Use Status Former Tobacco user 05/15/24 14:34 Tobacco use type Cigarette 05/15/24 14:34 e-Cigarette/Vaping Use Never Used 05/15/24 14:34 PHQ-9: PHQ-9 Score PHQ-9: Total score 5 05/15/24 14:34 Depression Screening Interpretation: Negative Thrive Assessment: Date of Thrive Assessment Date Thrive assessed 05/15/24 05/15/24 14:34 Currently or been in a relationship where the following occur: I choose not to answer Const General: no acute distress HENMT Ears: TM's normal bilaterally Face and sinus: Yes normal facial exam and No sinus tenderness Throat: Yes posterior oropharynx abnormal (Erythema) Neck Neck: Yes supple Resp Effort & Inspection: normal respiratory effort Auscultation: rhonchi and diminished lung sounds Cardio Rhythm: regular rhythm Heart sounds: S1 normal heart sound present and S2 normal heart sound present Assessment and Plan Assessment & Plan (1) Non-ST elevation CT (NSTEMI): Comment: Cardiac catheterization 02/20/2022, nonobstructive lesions Code(s): I21.4 - Non-ST elevation (NSTEMI) myocardial infarction Plan: Continue current medications follow-up with Cardiology (2) CKD (chronic kidney disease), stage III: Code(s): N18.30 - Chronic kidney disease, stage 3 unspecified Plan: Avoid nephrotoxins monitor renal functions (3) DM type 2 (diabetes mellitus, type 2): Code(s): E11.9 - Type 2 diabetes mellitus without complications Plan: Patient was advised to increase Lantus to 25 units continue Farxiga and monitor fasting blood glucose (4) Paroxysmal atrial fibrillation: Code(s): I48.0 - Paroxysmal atrial fibrillation Plan: On beta juli and Xarelto (5) URI (upper respiratory infection): Code(s): J06.9 - Acute upper respiratory infection, unspecified Plan: Z-Cade is prescribed and supportive care discussed with the patient Medications: New Spiriva with HandiHaler (tiotropium bromide) puncture 1 cap using device; one dose = 2 inhalations 1 cap inhalation DAILY 60 inhalations 5RF NS azithromycin For 250 mg dose pack: take 500 mg today (day 1), then 250 mg for 4 days (days 2-5) PO 6 tabs 0RF Coding Level of Care Code Est Pt Level 4 (17202) Diagnoses Non-ST elevation CT (NSTEMI) I21.4 CKD (chronic kidney disease), stage III N18.30 DM type 2 (diabetes mellitus, type 2) E11.9 Paroxysmal atrial fibrillation I48.0 URI (upper respiratory infection) J06.9 Additional Codes LEON-7 Assessment Billing - LEON-7 Assessment Tool: LEON-7 Assessment 99320 ([id number])
[2024-05-15 14:29] VITALS: BP 112/66; PULSE 88; O2SAT 95; BMI 26.3
== END 2024-05-15 15:31 | disposition home or self-care (01) ==
PROVIDERS: PCP Internal Medicine; Visit Provider Internal Medicine
DX: E11.22 Type 2 diabetes mellitus with diabetic chronic kidney disease (principal); N18.30 Chronic kidney disease, stage 3 unspecified; I48.0 Paroxysmal atrial fibrillation; I25.2 Old myocardial infarction; J06.9 Acute upper respiratory infection, unspecified
CPT/HCPCS: 99214

== ENCOUNTER 2024-07-13 14:23 | Outpatient (AMB) | payer MEDICARE, SELFPAY ==
--- NOTE | 2024-07-13 14:39 | A.OFFVIS_ITS ---
Vital Signs 07/13/24 14:40 Height 5 ft 6 in Weight 169 lb 12.095 oz BMI 27.4 BP 116/60 Blood Pressure Location Lt brachial Position Sitting Pulse 82 Pulse Source Pulse Oximeter Intake Visit Reasons: 3 mth f/up Allergies lisinopril Allergy (Intermediate, Verified 05/15/24 14:32) Hyperkalemia nitrofurantoin [Macrobid] Adverse Reaction (Intermediate, Verified 05/15/24 14:32) dizziness Medication List - Last Reconciled 07/13/24 by Prosper Brown MD acetaminophen 500 mg PO BID PRN atorvastatin 20 mg PO QAM blood sugar diagnostic As directed blood sugar diagnostic (FreeStyle Lite Strips) Test blood sugar TID cholecalciferol (vitamin D3) 50 mcg PO DAILY dapagliflozin propanediol (Farxiga) 10 mg PO QAM insulin glargine (Lantus Solostar U-100 Insulin) 20 units subcut QAM isosorbide mononitrate ER 30 mg PO QPM lancets (FreeStyle Lancets) Test up to 3 times per day levothyroxine 125 mcg PO QAM metoprolol succinate ER 25 mg (1/2 x 50 mg) PO BID 90 days pen needle, diabetic (BD Ultra-Fine Mini Pen Needle) Use to inject insulin once a day rivaroxaban (Xarelto) 15 mg PO QPM sertraline 75 mg PO QAM Spiriva with HandiHaler (tiotropium bromide) 1 cap inhalation DAILY NS vit C,W-Ti-cdzqc-lutein-zeaxan 250-90-40-1 mg (PreserVision AREDS-2) 1 tab PO BID HPI Comments Details: Penny comes for follow-up. Overall she has been doing well. Her repeat limited echocardiogram shows normalization of LV systolic function. She says overall she has been doing well. Unfortunately her recently as she was still in the grieving process. She denies any cardiac symptoms of chest pain, shortness of breath, orthopnea, PND, leg edema. No prolonged palpitation irregular heartbeat. No bleeding issues or neurologic events [facility] Medical History (Updated 07/13/24 @ 15:03 by Prosper Brown MD) Non-ST elevation [place] (NSTEMI) Hyperkalemia CKD (chronic kidney disease), stage III Cataract Vitamin D deficiency DM type 2 (diabetes mellitus, type 2) Hypothyroidism Hyperlipemia HTN (hypertension) Paroxysmal atrial fibrillation Cardiac pacemaker in situ Complete heart block Surgical History Pacemaker battery depletion Hx of bilateral mastectomy History of permanent cardiac pacemaker placement History of tonsillectomy and adenoidectomy History of hip surgery Hx of cardiac cath Family History Father Cancer Mother Diabetes Social History Housing: House Are you a primary school childcare attendant to a significant other at home: No (was caring for , now he is in [place]) Do you presently have visiting nurse or other home services: No Alcohol intake: never Patient Tobacco Use Status: Former Tobacco user Tobacco use type: Cigarette e-Cigarette/Vaping Use: Never Used Advance Directives Date on File: 02/16/22 service: No Current occupational status: retired Cognitive needs: No Hearing needs: No Vision needs: Yes Review of Systems Const Denies weakness ENT Denies dizziness Card Denies chest pain, Denies chest pain with activity, Denies syncope, Denies rapid heart rate, Denies pedal edema, Denies edema, Denies leg edema, Denies lightheadedness, Denies palpitations, Denies dyspnea, Denies dyspnea on exertion and Denies orthopnea Resp Denies cough, Denies dyspnea and Denies dyspnea on exertion GI Denies hematochezia and Denies change in stool character Musc Denies abnormal gait, Denies muscle cramps, Denies muscle weakness, Denies numbness, Denies radiating pain into limb and Denies tingling Neuro Denies abnormal gait, Denies dizziness, Denies syncope, Denies numbness, Denies tingling and Denies weakness Endo Denies palpitations Physical Exam Vital Signs: Last Vital Signs Pulse 82 07/13/24 14:40 BP 116/60 07/13/24 14:40 BMI result Body Mass Index 27.4 Const General: cooperative, healthy appearing, comfortable and no acute distress Orientation/consciousness: patient oriented x3 Neck Neck: Yes normal visual inspection Resp Effort & Inspection: normal respiratory effort Auscultation: clear to auscultation bilaterally, no crackles, no rales, no rhonchi and no wheezes Cardio Jugular venous distension: no JVD Rate: regular rate Rhythm: regular rhythm Heart sounds: S1 normal heart sound present, S2 normal heart sound present, no murmurs and no rubs Neuro General: patient oriented x3 Extrem General: Yes normal to inspection Psych Appearance: grossly normal Mental Status: mental status grossly normal Speech and movement: Normal speech and movement present Office Procedures Cardiac Device Check Cardiac Device Check Details: Dual-chamber [place] pacemaker in place. Programmed in DDDR at 60 beats per minute. Ventricular pacing 100% of the time. No episodes of atrial fibrillation noted. Atrial sensing is adequate with adequate safety margin. Atrial ventricular capture thresholds adequate and in auto capture mode. Pacing lead impedance is stable. Battery life is 10 years [id number] Cardiac Device Check, pacemaker dual lead Procedure code (CPT) selection complete Assessment & Plan Assessment & Plan (1) CAD (coronary artery disease): Comment: Nonobstructive by cardiac catheterization, February 2022, done for NSTEMI Code(s): I25.10 - Atherosclerotic heart disease of [place] coronary artery without angina pectoris Category: Medical Plan: Nonobstructive CAD. No symptoms currently to suggest any progression. Continue full oral anticoagulation as prescribed. Continue risk factor modification with statin therapy. Target goal LDL less than 70 mg/dL. (2) Stress-induced cardiomyopathy: Comment: Echo 05/25 improved ejection fraction to 50% Code(s): I51.81 - Takotsubo syndrome Category: Medical Plan: Stress-induced cardiomyopathy with normalized LV systolic function post. Most likely related to her increased personal stress at that point time. We discussed about stress mitigation strategies. Continue metoprolol therapy. Behavioral therapy such as meditation was discussed as well. (3) Paroxysmal atrial fibrillation: Code(s): I48.0 - Paroxysmal atrial fibrillation Category: Medical Plan: Paroxysmal atrial fibrillation without any obvious recurrence on pacer telemetry. Will continue to monitor by pacer telemetry. Continue full oral anticoagulation, currently on Xarelto 15 mg daily. Quarterly renal function test should be pursued. Avoidance of stimulants was discussed. Advised to call me with any new symptoms. (4) Cardiac pacemaker in situ: Code(s): Z95.0 - Presence of cardiac pacemaker Category: Medical Plan: Cardiac pacemaker in-situ for complete heart block. Pacemaker is working well. Reprogrammed for adequate functioning. Will follow remotely in 3 months Follow up in the clinic in 6 months time, sooner p.r.n.. Thank you for allowing me to partake in her care Coding Level of Care Code Est Pt Level 4 (14580) Complex EM visit Add On G2211 Diagnoses CAD (coronary artery disease) I25.10 Stress-induced cardiomyopathy I51.81 Paroxysmal atrial fibrillation I48.0 Cardiac pacemaker in situ Z95.0 CPT Codes Cardiac Device Check - Cardiac Device 2: [id number] Cardiac Device Check, pacemaker dual lead ([id number])
[2024-07-13 14:40] VITALS: BP 116/60; PULSE 82; BMI 27.4
== END 2024-07-13 15:03 | disposition home or self-care (01) ==
PROVIDERS: PCP Internal Medicine; Visit Provider Internal Medicine Cardiovascular Disease
DX: I25.10 Atherosclerotic heart disease of native coronary artery without angina pectoris (principal); I51.81 Takotsubo syndrome; I48.0 Paroxysmal atrial fibrillation; Z95.0 Presence of cardiac pacemaker
CPT/HCPCS: 93280; 99214; G2211

== ENCOUNTER → 2024-07-13 14:23 | Outpatient (BNVA) | payer MEDICARE, SELFPAY | PROVIDERS: PCP Internal Medicine; Visit Provider Internal Medicine Cardiovascular Disease | DX: I48.0 Paroxysmal atrial fibrillation (principal); I10 Essential (primary) hypertension; I51.81 Takotsubo syndrome; Z95.0 Presence of cardiac pacemaker | CPT/HCPCS: 93280; 99212 ==

== ENCOUNTER → 2024-07-26 23:59 | Outpatient (BNV) | payer MEDICARE, SELFPAY ==
--- NOTE | 2024-08-07 17:16 | A.OFFVIS_ITS ---
Intake Visit Reasons: Remote device check- [facility] [employer] Allergies lisinopril Allergy (Intermediate, Verified 05/15/24 14:32) Hyperkalemia nitrofurantoin [Macrobid] Adverse Reaction (Intermediate, Verified 05/15/24 14:32) dizziness [facility] Medical History (Updated 07/13/24 @ 15:03 by Prosper Brown MD) Non-ST elevation [place] (NSTEMI) Hyperkalemia CKD (chronic kidney disease), stage III Cataract Vitamin D deficiency DM type 2 (diabetes mellitus, type 2) Hypothyroidism Hyperlipemia HTN (hypertension) Paroxysmal atrial fibrillation Cardiac pacemaker in situ Complete heart block Surgical History Pacemaker battery depletion Hx of bilateral mastectomy History of permanent cardiac pacemaker placement History of tonsillectomy and adenoidectomy History of hip surgery Hx of cardiac cath Family History Father Cancer Mother Diabetes Social History Housing: House Are you a primary career services officer to a significant other at home: No (was caring for , now he is in [place]) Do you presently have visiting nurse or other home services: No Alcohol intake: never Patient Tobacco Use Status: Former Tobacco user Tobacco use type: Cigarette e-Cigarette/Vaping Use: Never Used Advance Directives Date on File: 02/16/22 service: No Current occupational status: retired Cognitive needs: No Hearing needs: No Vision needs: Yes Office Procedures Cardiac Device Check Cardiac Device Check Details: Remote pacemaker report generated 07/26/2024. Pacemaker function is adequate. [id number] Cardiac Device Interrogation, pacemaker Procedure code (CPT) selection complete Assessment & Plan Assessment & Plan (1) Cardiac pacemaker in situ: Code(s): Z95.0 - Presence of cardiac pacemaker Category: Medical Plan: See above Coding Level of Care Code Procedure Only Diagnoses Cardiac pacemaker in situ Z95.0 CPT Codes Cardiac Device Check - Cardiac Device 12: [id number] Cardiac Device Interrogation, pacemaker ([id number])
== END ==
PROVIDERS: PCP Internal Medicine; Visit Provider Internal Medicine Cardiovascular Disease
DX: Z45.018 Encounter for adjustment and management of other part of cardiac pacemaker (principal)
CPT/HCPCS: 93294

== ENCOUNTER 2024-08-10 10:07 | Outpatient (REF) | payer MEDICARE, SELFPAY ==
[2024-08-10 13:51] LABS: Alanine Aminotransferase 22 U/L (0-31); Albumin Level 4.1 g/dL (3.5-5.0); Alkaline Phosphatase 111 U/L (39-117); Anion Gap 13 (12-20); Aspartate Amino Transferase 25 U/L (5-31); Bilirubin Total 0.6 mg/dL (0.0-1.0); Blood Urea Nitrogen 28 mg/dL (9-16); Calcium 9.7 mg/dL (8.4-10.2); Carbon Dioxide 23 mmol/L (22-29); Chloride 109 mmol/L (96-108); Cholesterol 157 mg/dL (<200); Estimated Glomerular Filt Rate 41; Glucose Fasting 146 mg/dL (60-99); HDL Cholesterol 60 mg/dL (>40); LDL Cholesterol Calculated 71 mg/dL (<100); Sodium 140 mmol/L (135-145); Total Protein 7.5 g/dL (6.5-8.0); Triglycerides 132 mg/dL (<150)
[2024-08-10 14:02] LABS: Estimated Average Glucose 171 mg/dL; Hemoglobin A1C 211.4438 umol/L; Hemoglobin A1c % 7.6 % (<6.0); Total Hemoglobin (HGBA1C) 3551.0487 umol/L
[2024-08-10 14:06] LABS: Creatinine Urine 74.72 mg/dL; Microalbum/Creatinine Ratio Ur 50.8 ug/mg cr (<30)
== END 2024-08-10 10:08 | disposition home or self-care (01) ==
LOC: HO.HMGCLDS 10:07
PROVIDERS: PCP Internal Medicine; Visit Provider Internal Medicine
DX: E11.9 Type 2 diabetes mellitus without complications (principal); E78.5 Hyperlipidemia, unspecified; I10 Essential (primary) hypertension; I48.0 Paroxysmal atrial fibrillation
CPT/HCPCS: 36415; 80053; 80061; 82043; 82570; 83036

== ENCOUNTER 2024-08-14 11:53 | Outpatient (AMB) | payer MEDICARE, SELFPAY ==
--- NOTE | 2024-08-14 11:54 | A.OFFPC_ITS ---
Vital Signs 08/14/24 11:55 Height 5 ft 6 in Weight 169 lb BMI 27.3 BP 112/74 Blood Pressure Location Rt brachial Position Sitting Pulse 72 Pulse Source Pulse Oximeter Pulse Oximetry (%) 97 Oxygen Delivery Method Room Air Intake Visit Reasons: Annual PE Intake Note: Pt is here today for PE. Allergies lisinopril Allergy (Intermediate, Verified 08/14/24 11:55) Hyperkalemia nitrofurantoin [Macrobid] Adverse Reaction (Intermediate, Verified 08/14/24 11:55) dizziness Medication List - Last Reconciled 08/14/24 by Dipika Casas MD acetaminophen 500 mg PO BID PRN apixaban (Eliquis) 5 mg PO BID atorvastatin 20 mg PO QAM blood sugar diagnostic As directed blood sugar diagnostic (FreeStyle Lite Strips) Test blood sugar TID cholecalciferol (vitamin D3) 50 mcg PO DAILY dapagliflozin propanediol (Farxiga) 10 mg PO QAM insulin glargine (Lantus Solostar U-100 Insulin) 20 units subcut QAM isosorbide mononitrate ER 30 mg PO QPM lancets (FreeStyle Lancets) Test up to 3 times per day levothyroxine 125 mcg PO QAM metoprolol succinate ER 25 mg (1/2 x 50 mg) PO BID 90 days pen needle, diabetic (BD Ultra-Fine Mini Pen Needle) Use to inject insulin once a day sertraline 75 mg PO QAM Spiriva with HandiHaler (tiotropium bromide) 1 cap inhalation DAILY NS vit C,G-Kf-xqlkx-lutein-zeaxan 250-90-40-1 mg (PreserVision AREDS-2) 1 tab PO BID Tobacco use date assessed: 08/14/24 Fall risk assessment: No Falls in past year Last assessed Fall Risk: 08/14/24 Dental Screening Dental Screen Date: 08/14/24 Did you have a dental visit in the last 12 months?: Yes Did you have a dental problem in the last 6 months where you did not have access to dental care?: No Was dental information given to patient?: Patient has dentist HPI Annual PE HPI Details Patient presents for physical. Type 2 diabetes chronic kidney disease stage 3 hypothyroidism paroxysmal AFib hyperlipidemia stable on current medications. [facility] Medical History Non-ST elevation [place] (NSTEMI) Hyperkalemia CKD (chronic kidney disease), stage III Cataract Vitamin D deficiency DM type 2 (diabetes mellitus, type 2) Hypothyroidism Hyperlipemia HTN (hypertension) Paroxysmal atrial fibrillation Cardiac pacemaker in situ Complete heart block Surgical History Pacemaker battery depletion Hx of bilateral mastectomy History of permanent cardiac pacemaker placement History of tonsillectomy and adenoidectomy History of hip surgery Hx of cardiac cath Family History Father Cancer Mother Diabetes Social History Housing: House Are you a primary career development coordinator/teacher to a significant other at home: No (was caring for , now he is in [place]) Do you presently have visiting nurse or other home services: No Alcohol intake: never Patient Tobacco Use Status: Former Tobacco user Tobacco use type: Cigarette e-Cigarette/Vaping Use: Never Used Advance Directives Date on File: 02/16/22 service: No Current occupational status: retired Cognitive needs: No Hearing needs: No Vision needs: Yes Questionnaire PHQ-9 Over the last 2 weeks, how often have you been bothered by any of the following problems? 1. Little interest or pleasure in doing things: more than half the days 2. Feeling down, depressed, or hopeless: not at all Source: Developed by Drs. Star Vitale, Grace Sprague, Ham Landrum and colleagues, with an educational gaston from [employer]. Thrive Questionnaire Date Thrive assessed: 05/15/24 I am a: Parent/Caregiver What is your living situation today?: I have a steady place to live Within the past 12 months, did the food you bought not last and you didn't have the money to get more?: Never true Within the past 12 months, did you worry whether your food would run out before you got money to buy more?: Never true Do you have trouble paying for medicines?: No Do you have trouble getting transportation to medical appointments?: No Do you have trouble paying your heating and electricity bill?: No Do you have trouble taking care of your child, family member or friend?: No Do you have trouble with day-to-day activities such as bathing, preparing meals, shopping, managing finances, etc.?: No Are you currently unemployed and looking for a job?: No Are you interested in more education?: No Please select the resources that you would like help with: None Currently or been in a relationship where the following occur: I choose not to answer THRIVE Score: 0 LEON-7 AMB Questionnaire LEON-7 Date LEON - 7 assessed: 05/15/24 Being so restless that it is hard to sit still: 0 = Not at all Becoming easily annoyed or irritable: 0 = Not at all Feeling afraid as if something awful might happen: 0 = Not at all Source: Developed by Drs. Star Vitale, Grace Sprague, Ham Landrum and colleagues, with an educational gaston from [employer]. Review of Systems Const All systems reviewed & are unremarkable except as noted in HPI and below Eyes Reports no additional complaints Card Reports no additional complaints Resp Reports no additional complaints GI Reports no additional complaints Reports no additional complaints Physical exam (Primary Care) Vital Signs: Last Vital Signs Pulse 72 08/14/24 11:55 BP 112/74 08/14/24 11:55 Pulse Ox 97 08/14/24 11:55 Oxygen Delivery Method Room Air 08/14/24 11:55 BMI result Body Mass Index 27.3 Tobacco/Smoking Status: Tobacco use Status Tobacco use date assessed 08/14/24 08/14/24 12:04 Patient Tobacco Use Status Former Tobacco user 08/14/24 12:04 Tobacco use type Cigarette 08/14/24 12:04 e-Cigarette/Vaping Use Never Used 08/14/24 12:04 Thrive Assessment: Date of Thrive Assessment Date Thrive assessed 05/15/24 08/14/24 12:04 Currently or been in a relationship where the following occur: I choose not to answer Const General: no acute distress HENMT Head: Yes normal to inspection Ears: hearing grossly normal bilaterally Throat: Yes posterior oropharynx normal Eyes General: appearance normal, both eyes and all related structures Neck Neck: Yes no lymphadenopathy and Yes supple Resp Effort & Inspection: normal respiratory effort Auscultation: clear to auscultation bilaterally Cardio Rhythm: regular rhythm Heart sounds: S1 normal heart sound present and S2 normal heart sound present GI Inspection: Yes normal to inspection Palpation (GI): Soft to palpation Percussion: Yes normal to percussion Auscultation: normal bowel sounds Coding Level of Care Code Est Pt Prev Care >65y(34979) Diagnoses CKD (chronic kidney disease), stage III N18.30 DM type 2 (diabetes mellitus, type 2) E11.9 Hypothyroidism E03.9 Hyperlipemia E78.5 Paroxysmal atrial fibrillation I48.0 Annual physical exam Z00.00 Assessment & Plan Assessment & Plan (1) CKD (chronic kidney disease), stage III: Code(s): N18.30 - Chronic kidney disease, stage 3 unspecified Category: Medical Plan: Monitor renal function avoid nephrotoxins (2) DM type 2 (diabetes mellitus, type 2): Code(s): E11.9 - Type 2 diabetes mellitus without complications Category: Medical Plan: A1c is 7.6, ADA diet increase exercise weight loss discussed with the patient continue current medications follow-up in 4 months with a fasting labs before (3) Hypothyroidism: Code(s): E03.9 - Hypothyroidism, unspecified Category: Medical Plan: Continue levothyroxine (4) Hyperlipemia: Code(s): E78.5 - Hyperlipidemia, unspecified Category: Medical Plan: Continue statin (5) Paroxysmal atrial fibrillation: Comment: s/p pacemaker Code(s): I48.0 - Paroxysmal atrial fibrillation Category: Medical Plan: Rate controlled on metoprolol, Xarelto will be changed to Eliquis because of patient's age and high risk of GI bleeding on Xarelto. (6) Annual physical exam: Code(s): Z00.00 - Encounter for general adult medical examination without abnormal findings Category: Medical Plan: Well-balanced diet , regular physical activity, patient will try using a stationary bike more frequently, discussed with the patient. Continue sertraline for chronic anxiety Orders: Orders Comprehensive [place]. Panel Fast 4 Months E03.9 - Hypothyroidism, unspecified, E11.9 - Type 2 diabetes mellitus without complications, E78.5 - Hyperlipidemia, unspecified, I48.0 - Paroxysmal atrial fibrillation, N18.30 - Chronic kidney disease, stage 3 unspecified Hemoglobin A1c 4 Months E03.9 - Hypothyroidism, unspecified, E11.9 - Type 2 diabetes mellitus without complications, E78.5 - Hyperlipidemia, unspecified, I48.0 - Paroxysmal atrial fibrillation, N18.30 - Chronic kidney disease, stage 3 unspecified Complete Blood Count Auto Diff 4 Months E03.9 - Hypothyroidism, unspecified, E11.9 - Type 2 diabetes mellitus without complications, E78.5 - Hyperlipidemia, unspecified, I48.0 - Paroxysmal atrial fibrillation, N18.30 - Chronic kidney disease, stage 3 unspecified Lipid Panel 4 Months E03.9 - Hypothyroidism, unspecified, E11.9 - Type 2 diabetes mellitus without complications, E78.5 - Hyperlipidemia, unspecified, I48.0 - Paroxysmal atrial fibrillation, N18.30 - Chronic kidney disease, stage 3 unspecified TSH reflex Free T4 4 Months E03.9 - Hypothyroidism, unspecified, E11.9 - Type 2 diabetes mellitus without complications, E78.5 - Hyperlipidemia, unspecified, I48.0 - Paroxysmal atrial fibrillation, N18.30 - Chronic kidney disease, stage 3 unspecified Medications: New apixaban (Eliquis) 5 mg PO BID 180 tabs 3RF
[2024-08-14 11:55] VITALS: BP 112/74; PULSE 72; O2SAT 97; BMI 27.3
== END 2024-08-14 12:36 | disposition home or self-care (01) ==
PROVIDERS: PCP Internal Medicine; Visit Provider Internal Medicine
DX: Z00.00 Encounter for general adult medical examination without abnormal findings (principal); N18.30 Chronic kidney disease, stage 3 unspecified; I48.0 Paroxysmal atrial fibrillation; E11.69 Type 2 diabetes mellitus with other specified complication; E03.9 Hypothyroidism, unspecified; E78.5 Hyperlipidemia, unspecified

== ENCOUNTER → 2024-08-14 11:53 | Outpatient (BNVA) | payer MEDICARE, SELFPAY | PROVIDERS: PCP Internal Medicine; Visit Provider Internal Medicine | DX: Z00.00 Encounter for general adult medical examination without abnormal findings (principal); N18.30 Chronic kidney disease, stage 3 unspecified; E11.9 Type 2 diabetes mellitus without complications; E03.9 Hypothyroidism, unspecified; E78.5 Hyperlipidemia, unspecified; I48.0 Paroxysmal atrial fibrillation | CPT/HCPCS: 99397 ==

== ENCOUNTER → 2024-10-25 23:59 | Outpatient (BNV) | payer MEDICARE, SELFPAY ==
--- NOTE | 2024-11-02 12:29 | A.OFFVIS_ITS ---
Intake Visit Reasons: Remote device check- [facility] Allergies lisinopril Allergy (Intermediate, Verified 08/14/24 11:55) Hyperkalemia nitrofurantoin [Macrobid] Adverse Reaction (Intermediate, Verified 08/14/24 11:55) dizziness PFSH Medical History (Updated 08/14/24 @ 12:47 by Dipika Casas MD) Non-ST elevation [place] (NSTEMI) Hyperkalemia CKD (chronic kidney disease), stage III Cataract Vitamin D deficiency DM type 2 (diabetes mellitus, type 2) Hypothyroidism Hyperlipemia Paroxysmal atrial fibrillation Cardiac pacemaker in situ Complete heart block Surgical History Pacemaker battery depletion Hx of bilateral mastectomy History of permanent cardiac pacemaker placement History of tonsillectomy and adenoidectomy History of hip surgery Hx of cardiac cath Family History Father Cancer Mother Diabetes Social History Housing: House Are you a primary hospice care transitions coordinator to a significant other at home: No (was caring for , now he is in NH) Do you presently have visiting nurse or other home services: No Alcohol intake: never Patient Tobacco Use Status: Former Tobacco user Tobacco use type: Cigarette e-Cigarette/Vaping Use: Never Used Advance Directives Date on File: 02/16/22 service: No Current occupational status: retired Cognitive needs: No Hearing needs: No Vision needs: Yes Office Procedures Cardiac Device Check Cardiac Device Check Details: Remote pacemaker report generated 10/25/2024. Pacemaker function is adequate [id number] Cardiac Device Interrogation, pacemaker Procedure code (CPT) selection complete Assessment & Plan Assessment & Plan (1) Cardiac pacemaker in situ: Code(s): Z95.0 - Presence of cardiac pacemaker Category: Medical Plan: See above Coding Level of Care Code Procedure Only Diagnoses Cardiac pacemaker in situ Z95.0 CPT Codes Cardiac Device Check - Cardiac Device 12: [id number] Cardiac Device Interrogation, pacemaker ([id number])
== END ==
PROVIDERS: PCP Internal Medicine; Visit Provider Internal Medicine Cardiovascular Disease
DX: Z45.018 Encounter for adjustment and management of other part of cardiac pacemaker (principal)
CPT/HCPCS: 93294

== ENCOUNTER 2024-12-07 09:05 | Outpatient (REF) | payer MEDICARE, SELFPAY ==
--- OUTSIDE RECORDS SUMMARY | 2024-12-07 10:03 | XMS_ITS ---
Author Organization [facility] Demetria floyd Pierre Address [address] [place] [address] Care Team Providers Care Rope Tier Name Role Phone Dipika Casas MD Primary Care Provider Unavaila Clarisse Mckeon Unavailable [phone] Purnima Steward Unavailable [phone] Allergies Allergen (clinical drug ingredient) Drug/Non Drug Allergy documented on EMR Reaction Allergy Type Onset Date Status lisinopril Lisinopril Unknown Drug Allergy Activ e nitrofurantoin Nitrofurantoin Unknown Drug Allergy Active REASON FOR VISIT Painful nail(s) aggrevated by shoes and causing difficulty standing/walking., Toe Irritation Medications Medication SIG (Take, Route, Frequency, Duration) Notes Start Date End Date Status Budesonide Not-Takin g Extra Depth Diabetic Shoes with 3 Pair Custom heat-molded multi-density innersoles for 1 year Dx: 07/16/2021 N ot-Taking Sotalol HCl 80 MG 1 tablet Orally ever y 12 hrs for 30 day(s) Not-Taking Xarelto 15 MG 1 tablet with food Orally Once a day for 30 day(s) Active Famotidine 20 MG 1 tablet at bedtime as needed Orally Once a day for 30 day(s) Not-Taking Isosorbide Dinitrate 30 MG 1 tablet Orally Twice a day for 30 day(s) Active Lantus Active Farxiga Active Levothyroxine Sodium 125 MCG 1 tablet in the morning on an empty stomach Orally Once a day for 30 day(s) Active Sertraline HCl 50 MG 1 tablet Orally Onc e a day for 30 day(s) Active Spiriva HandiHaler A ctive Ciclopirox Olamine 0.77 % 1 application to affected area Externally Twice a day to effected areas on feet for 30 days Active Metoprolol Succinate ER 25 MG 1 tablet Orally Once a day for 30 day(s) Active Extra Depth Orthopedic Shoes (1 Pair) with Customized Heat Molded Multidensity Innersoles (3 Pair) as directed Dx: IDDM/Polyneuropathy (E10.42), Hammertoe Foot Deformity (M20.41,M20.42), Preulcerative Skin Lesion(s) (L85.1) 11/21/2024 Active Atorvastatin Calcium 20 MG 1 tablet Orally Once a day for 30 day(s) Active Social History Tobacco Use: Social History Observation Description Date Details (start date - stop date) Never Smoker NA - NA Tobacco use other than smoking: Question Answer Notes Are you an other tobacco user? No Tobacco Control (Standard) Question Answer Notes Tobacco use: Nonsmoker Problems Problem Type SNOMED Code ICD Code Onset Dates Problem Status W/U Status Risk Notes Problem Acquired hammer toe of right foot (9644840486022 105) Other hammer toe(s) (acquired), right foot (M20.41) Active confirmed Problem Acquired hammer toe of left foot (2937473646737 103) Other hammer toe(s) (acquired), left foot (M20.42) Active confirmed Vital Signs Height 5ft 6in in 11/21/2024 Weight 155 lbs 11/21/2024 BMI 25.01 kg/m2 11/21/2024 Blood pressure systolic 121 mm Hg 11/21/19 25 Blood pressure diastolic 80 mm Hg 025 Encounters Encounter Location Date Provider Diagnosis [facility] [address] [address] 11/21/2024 Purnima Steward Type 1 diabetes mellitus with diabetic polyneuropathy E10.42 ; Other hammer toe(s) (acquired), right foot M20.41 ; Tinea unguium B35.1 and Other hammer toe(s) (acquired), left foot M20.42 Assessments Encounter Date Diagnosis (ICD Code) Assessment Notes Treatment Notes Treatment Clinical Notes Section Notes 11/21/2024 Type 1 diabetes mellitus with diabetic polyneuropathy (ICD-10 - E10.42) 11/21/2024 Other hammer toe(s) (acquired), right foot (ICD-10 - M20.41) Patient Educated with: DIABETIC FOOT CARE INSTRUCTIONS. pdf (DIABETIC FOOT CARE INSTRUCTIONS. pdf) 11/21/2024 Tinea unguium (ICD-10 - B35.1) 11/21/2024 Other hammer toe(s) (acquired), left foot (ICD-10 - M20.42) Plan Of Treatment Medication Medication Name Sig Start Date Stop Date Notes Extra Depth Orthopedic Shoes (1 Pair) with Customized Heat Molded Multidensity Innersoles (3 Pair) as directed Dx: IDDM/Polyneuropathy (E10.42), Hammertoe Foot Deformity (M20.41,M20.42), Preulcerative Skin Lesion(s) (L85.1) 11/21/2024 Treatment Notes Assessment Notes Other hammer toe(s) (acquired), right fo ot Patient Educated with: DIABETIC FOOT CARE INSTRUCTIONS.pdf (DIABETIC FOOT CARE INSTRUCTIONS.pdf) Next Appt Details Follow Up: 3 Months, Reason: Provider Name:Clarisse caputo, 03/07/2025 01:30:00 PM, [address] [place] [address], [phone], Procedure Notes * Category Sub-Category Detail Notes Debride Nail 6-10 Nail debridement Due to the cl inical pathology outlined in the exam findings, performance of this nail treatment is medically necessary as its management by an unskilled/untrained nonprofessional would put this patients foot and overall health at risk. Therefore, debridement to affected nail(s), as described in exam ( TA, T1, T2, T3, T4, T5, T6, T7, T8, T9, ), was performed exclusively by the physician of record to reduce/remove overall nail length, girth, thickness, subungual debris, and necrotic tissue, by manual and/or electrical means through the use of a nail nipper and/or dremel-type automatic corn grinder operator, to a more viable healthy nail plate or bed tissue 6-10 nails in total. Silver nitrate was used for any petechial bleeding as necessary. Definitive antifungal treatment options, both pharmaceutical and surgical, have been reviewed and discussed with the patient. The patient solely prefers the use of intermittent/as needed professional debridement services for their nail condition and understands the need for additional periodic treatments to maintain effectiveness in symptomatic relief - 57643 Keratoma Treatment Parring or Cutting o f Benign Hyperkeratotic Lesion(s) (-57) More than 4 Lesions - Due to the at risk nature of the patients medical condition as documented in the exam findings, performance of this keratoderma treatment is medically necessary as its management by an unskilled/untrained nonprofessional would put this patients foot and overall health at risk. Therefore, the benign hyperkeratotic lesions, ( 5 ) in total, locations as stated and described in the exam ( SUB MTH (s), 4, Left , Heel(s), B/L ,Lateral, DIPJ, T9,T4), were pared, and/or cut utilizing a sterile 15 blade, tissue nippers, and/or power dremel instrumentation by the physician of record - [id number] Progress Notes * Penny MEMBRENODOB:1945 (79 yo F)Acc No.[id number]:11/21/2024 Progress Note Patient:?Penny MEMBRENO Provider:?Purnima Steward DPM :1945???Age:79 Y???Sex:Female D ate:11/21/2024 Address:[address] [place], [place] [address], [place] Pcp:Dipika Casas MD Subjective: * Chief Complaints: * ??? Painful nail(s) aggrevat ed by shoes and causing difficulty standing/walking.Toe Irritation * HPI: ???At Risk footcare:?Pt States Last PCP Visit:?Date?10/04/2024 ???Toe pain:?Location:?B/L feet.?Duration:?several years.?Course:?worse.?Aggravated by:?shoes, any pressure.?Treatments:?change in shoes.? * ROS:?General/Constitutional:?Nausea?denies.?Vomiting?denies.?Hunger Thirst?denies.?Loss appetite?denies.?Chills?denies.?Fatigue?denies.?Fever?denies.?Night Sweats?denies.?Unexplained weight loss?denies.?Unexplained weight gain?denies.?HEENTM:?Dentures?admits.?Dizziness?denies.?Glasses/contacts?admits.?Retinopathy?den ies.?Blurred/double vision?denies.?TMJ?denies.?Discharge/drainage?denies.?Implants?denies.?Sore throat?denies.?Dental implants?denies.?Hard of hearing ?denies.?Difficulty chewing/swallowing/speaking?denies.?Nose bleeds?denies.?Sore mouth?denies.?Respiratory:?On O xygen?denies.?Pneumonia/pleurisy?denies.?Bronchitis?denies.?Emphysema?denies.?Co ughing?denies.?Cough blood?denies.?Shortness of breath?admits.?Wheezing?denies.?Cardiovascular:?Pacemaker?admits.?MVP?denies.?WPW?denies.?CHF?denies.?Heart attack?denies.?Septal defect?denies.?Rapid beat?denies.?Chest pain ?denies.?Atrial Fib.?denies.?Murmur/Palpitations?denies.?Gastrointestinal:?Hemorrhoids?denies.?Stomach/Abdominal pain?denies.?Dark blood stool?denies.?Irritable bowel ?denies.?Constipation?denies.?Diarrhea?denies.?Hematology:?Swelling?denies.?Clots?denies.?Varicose Veins?denies.?Bruising?denies.?Bleeding problem?denies.?Genitourinary:?Blood urine?denies.?Frequent/Painfu/urination/bladder control?denies.?Kidney stones?denies.?Infection (UTI)?denies.?Nephropathy?denies.?sex trans dis (STD)?denies.?Prostate?denies.?Musculoskeletal:?Hammertoes?denies.?Bunions?denies.?Back Pain?admits.?Muscle Cramps/ Resting?denies.?Muscle cramps / walking?denies.?Generalized aches and pains?denies.?Weakness?denies.?Integ.:?Tucker?denies.?Scars?denies.?Corns/calluses?denies.?Ingrown nails?denies.?Painful nails?denies.?Open Sores?denies.?Rashes?denies.?Neurologic:?Difficulty sleeping?denies.?Brain disorder?denies.?Numbness?denies.?Balance t rouble?denies.?Confusion?denies.?Fainting/blackouts?denies.?Tingling?denies.?Antony mors?denies.? * Medical History:? 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 * Social History:?Tobacco Use:?Tobacco use other than smoking?Are you an other tobacco user??No ?Tobacco Control (Standard)?Tobacco use:?Nonsmoker ???Miscellaneous:?Caffeine: yes, frequency:, Coffee 2 cups per day. ?Children: yes, 3. ?Exercise: no. ?Marital status: . ?Occupation: Retired/ [employer]. * Medications:?Elizabeth Bey Ciclopirox Olamine 0.77 % Cream 1 application to affected area Externally Twice a day to effected areas on feet Metoprolol Succinate ER 25 MG Tablet Extended Release 24 Hour 1 tablet Orally Once a day Atorvastatin Calcium 20 MG Tablet 1 tablet Orally Once a day Farxiga Isosorbide Dinitrate 30 MG Tablet 1 tablet Orally Twice a day Lantus Levothyroxine Sodium 125 MCG Tablet 1 tablet in the morning on an empty stomach Orally Once a day Sertraline HCl 50 MG Tablet 1 tablet Orally Once a day Xarelto 15 MG Tablet 1 tablet with food Orally Once a day Taking Spiriva HandiHaler Taking Ciclopirox Olamine 0.77 % Cream 1 application to affected area Externally Twice a day to effected areas on feet Taking Metoprolol Succinate ER 25 MG Tablet Extended Release 24 Hour 1 tablet Orally Once a day Taking Atorvastatin Calcium 20 MG Tablet 1 tablet Orally Once a day Taking Farxiga Taking Isosorbide Dinitrate 30 MG Tablet 1 tablet Orally Twice a day Taking Lantus Taking Levothyroxine Sodium 125 MCG Tablet 1 tablet in the morning on an empty stomach Orally Once a day Taking Sertraline HCl 50 MG Tablet 1 tablet Orally Once a day Taking Xarelto 15 MG Tablet 1 tablet with food Orally Once a day Not-Taking/PRNFamotidine 20 MG Tablet 1 tablet at bedtime as needed Orally Once a day Budesonide Extra Depth Diabetic Shoes with 3 Pair Custom heat-molded multi- density innersoles for 1 year Dx: Sotalol HCl 80 MG Tablet 1 tablet Orally every 12 hrs Medication List reviewed and reconciled with the patientNot-Taking/PRN Famotidine 20 MG Tablet 1 tablet at bedtime as needed Orally Once a day Not-Taking/PRN Budesonide Not-Taking/PRN Extra Depth Diabetic Shoes with 3 Pair Custom heat-molded multi-density innersoles for 1 year Dx: Not-Taking/PRN Sotalol HCl 80 MG Tablet 1 tablet Orally every 12 hrs Medication List reviewed and reconciled with the patient * Allergies:?ChayainoprilAna salazar[Allergies Verified] Objective: * Vitals:?Ht: 5ft 6in, Wt: 155 , BMI: 25.01, Shoe size: 10, BP: 121/80 mm Hg, BS: 124, Wt-k.31 kg. * ???Past Orders: ???Lab:HEMOGLOBIN A1C (GLYCO HEMOGLOBIN) (Order Date - 10/04/2024) (Collection Date & Time - 10/04/2024 12:56 PM) ? Value Reference Range ?HEMOGLOBIN A1C % (HH) 7.2 * Examination: ???Ophthalmology Referral: ?DIABETES EYE EXAM?Procedure Performed:?Yes ?Date of Exam Performed?03/04/2024 ?Findings of Diabetic Eye Exam:?no retinopathy?Neurological: ?SENSORY:?(DM/Neuro) Neurological exam demonstrates reduced sharp/dull pin prick discrimination reduced light touch sensation reduced vibration sensation reduced proprioception sensation in a stocking fashion 5.07 monofilament test performed at plantar aspects of 5 varied sites per foot shows sensation plantar aspects absent at Forefoot B/L.?Vascular: ?DP PULSES (B):? 2/4, B/L.?PT PULSES (B):? 1/4, B/L.?CAPILLARY FILL TIME:?3 secs. per digit. B/L.?TROPHIC CONDITION-TEXTURE/ELASTICITY/TURGOR/HAIR GROWTH (B):?normal, B/L.?TEMPERTURE GRADIENT (C):?normal, B/L.?PIGMENTATION:?normal, B/L.?EDEMA (C):?absent, B/L.?TELANGECTASIA:?absent, B/L.?Nails: ?NAILS are:?Elongated, overgrown, dystrophic, lytic, greater than 3mm thick, discolored and friable with crumbly malodorous subungual debris, with dull to no pain on palpation due to neuropathy, TA, T1, T2, T3, T4, T5, T6, T7, T8, T9.?Dermatologic: ?SKIN FINDINGS:? Skin exam reveals Keratotic lesion(s) located at, SUB MTH (s), 4, Left , Heel(s), B/L ,Lateral, DIPJ, T9,T4.?General Examination: ?GENERAL APPEARANCE:?pleasant, alert, well nourished, well developed, well hydrated, with good attention to hygene/body habitus, and in no acute distress.?ORIENTED:?person,place, and time.?FOOT EXAM:?Lower Extremity Neurological Exam performed:?Yes ?Visual exam of foot performed:?Yes ?Date?11/21/2024 ?Footwear Evaluation?Footwear Evaluation performed:?Yes?Orthopedic: ?MUSCLE STRENGTH:?5/5 all groups in a symmetrical fashion , B/L.?DIGITAL DEFORMITIES:?Digital contracture, PIPJ, 2-5 B/L, incompl-reducible to push-up test, no over, nor underlapping,?there is?evidence of shoe producing skin irritation.?FOOTWEAR:?worn, non-supportive, shoe gear properties exacerbate patient's foot/toe deformity.? Assessment: * Assessment: 1.?Other hammer toe(s) (acqu ired), right foot - M20.41 (Primary)???Specify :Chronic problem, Worse (4),Rx Management (4)???2.?Type 1 diabetes mellitus with diabetic polyneuropathy - E10.42???3.?Tinea unguium - B35.1???4.?Other hammer toe(s) (acquired), left foot - M20.42???Specify :Chronic problem, Worse (4),Rx Management (4)??? Plan: * Treatment: * Procedures:?Debride Nail 6-10:?Nail debridement?Due to the clinical pathology outlined in the exam findings, performance of this nail treatment is medically necessary as its management by an unskilled/untrained nonprofessional would put this patients foot and overall health at risk. Therefore, debridement to affected nail(s), as described in exam ( TA, T1, T2, T3, T4, T5, T6, T7, T8, T9, ), was performed exclusively by the physician of record to reduce/remove overall nail length, girth, thickness, subungual debris, and necrotic tissue, by manual and/or electrical means through the use of a nail nipper and/or dremel-type automatic corn grinder operator, to a more viable healthy nail plate or bed tissue 6- 10 nails in total. Silver nitrate was used for any petechial bleeding as necessary. Definitive antifungal treatment options, both pharmaceutical and surgical, have been reviewed and discussed with the patient. The patient solely prefers the use of intermittent/as needed professional debridement services for their nail condition and understands the need for additional periodic treatments to maintain effectiveness in symptomatic relief - [id number].?Keratoma Treatment:?Parring or Cutting of Benign Hyperkeratotic Lesion(s)?(-57) More than 4 Lesions - Due to the at risk nature of the patients medical condition as documented in the exam findings, performance of this keratoderma treatment is medically necessary as its management by an unskilled/untrained nonprofessional would put this patients foot and overall health at risk. Therefore, the benign hyperkeratotic lesions, ( 5 ) in total, locations as stated and described in the exam (?SUB MTH (s), 4,?Left?,?Heel(s),?B/L?,Lateral,?DIPJ,?T9,T4), were pared, and/or cut utilizing a sterile 15 blade, tissue nippers, and/or power dremel instrumentation by the physician of record - [id number].? * Procedure Codes:?07769 DEBRI DE NAIL, 6 OR MORE, Modifiers: XS 65396 TRIM SKIN LESIONS, OVER 4, Modifiers: XS * Preventive Medicine:? ??Counseling:?Discussion:?-14: Office or other outpatient visit for the evaluation and management of an established patient, which required a medically appropriate history and/or examination and MODERATE level of DECISION MAKING for: 1 OR MORE CHRONIC PROBLEM(S) THATS WORSENING, 2 STABLE CHRONIC PROBLEMS, A NEWLY DIAGNOSED PROBLEM WITH UNCERTAIN PROGNOSIS, AN ACUTE COMPLICATED INJURY WITH MULTIPLE TREATMENT OPTIONS, OR AN ACUTE PROBLEM WITH ACCOMPANYING SYSTEMIC SYMPTOMS, THAT POSE(S) A MODERATE RISK OF MORBIDITY. THIS CONDITION MAY ALSO INCLUDE RX DRUG MANAGEMENT, OR A DECISON FOR MINOR SURGERY. The visit on the day of the encounter encompassed interpreting the data and educating the patient as to the nature of their condition, treatment options available according to their individual PMH, meds, allergies, and overall health/living conditions, as well as any potential risks or complications that may occur from a failure to adhere to, and participate in, the recommended course of therapy. The discussion included a complete verbal, and/or written explanation of the examination results, any x-rays taken, the proposed diagnosis, and outline of the treatment plan. A schedule for future care needs was also explained. The patient verbalized an understanding of the instructions at this time and agreed to be an active participant in their treatment. If the patient should think of any questions or concerns after the visit, I have encouraged the patient to call the office.?Digital Surgery:?Digital surgery was discussed with the patient, We elected to try conservative treatment at the present time, due to the patients medical history and increased asssociated post-operative risks.?Digital Treatment:?HT- I explained to the patient the possible etiologies of Hammertoes, including genetics/foot type/shoegear/activity level/exercise routine and the risks/benefits of all the different treatment options for their pain including: No treatment at all, Rest, Ice, New/supportive/wider/deeper Shoegear, Digital Padding/Strapping/Taping/Bracing/Gel protective sleeves, Foot/Ankle AFO Bracing, Stretching exercises, Deep Tissue Massage, Arch support/shoe inserts with splay metatarsal padding, and Custom orthoses. I insisted that any digital devices be removed daily and not worn overnight for safety. The patient is to carefully examine the toes daily for any skin irritation while using any splinting or padding device. The advantages and disadvantages of each option were discussed and the patients questions re: shoegear, padding, custom vs prefabricated inserts, activity level, and consistency in home treatment regimens for optimal success were answered to their verbally confirmed satisfaction.?Shoe Gear Counseling:?SHOE Rx - The patient was counseled in great detail on their muscoloskeletal foot and toe deformities which coincided with the dermatological presentations visualized on exam. We discussed how their deformities put the integrity of their feet at risk for potential pedal complications which makes the accomidative diabetic shoes and cutomizable inserts medically necessary. We discussed the different shoe and insert treatment types and options, as well as the important advantages for adhering to regularly wearing these accomidative devices daily. The patient was made aware of the fact that a failure to abide by these recommedations may be deleterious to their foot health as they are able to prevent many pedal complications such as skin irritation, skin ulceration, infection, and even loss of toe/foot/leg/or life. Time was also spent with the patient dispensing and discussing proper diabetic footcare techniques including daily skin moisturization, daily foot inspection for any interruption in skin integrity including open lesions, or sign of infection such as redness/malodor/drainage/swelling. Also discussed and recommended were procedures regarding daily shoe inspection for the presence of internal foreign bodies as well as any visualized irregular shoe or insert wear. Patient questions re: shoes, inserts, and self foot inspections were answered to their satisfaction as the patient verbally confirmed a full understanding of the above information. A Rx for Extra Depth Orthopedic Shoes with 3 pair of custom heat-molded inserts was dispensed.? ??Screening/Special Tests:?Fall Risk?Screening:?No falls in the past year ?FALLS: Screening for Future Fall Risk?Have you had any falls with injury in the past year??No * Follow Up:?3 Months * Images: * Sign off status: Completed true * Provider:?Purnima Steward DPM Date:? Generated for Santiago garcia/eTrrell/Darrel on:?12/07/2024 10:02 AM EST History and Physical Notes * HPI (History of Present Illness) Category Sub-Category Detail Notes Category Not es Toe pain Location: B/L feet Duration: several years Course: worse Aggravated by: shoes, any pressure Treatments: change in shoes At Risk footcare Pt States Last PCP Visit: Date: 5 Examination Category Sub-Category Detail Notes Category Not es Neurological SENSORY: (DM/Neuro) Neuro logical exam demonstrates reduced sharp/dull pin prick discrimination reduced light touch sensation reduced vibration sensation reduced proprioception sensation in a stocking fashion 5.07 monofilament test performed at plantar aspects of 5 varied sites per foot shows sensation plantar aspects absent at Forefoot B/L Dermatologic SKIN FINDINGS: Skin exam reveal s Keratotic lesion(s) located at, SUB MTH (s), 4, Left , Heel(s), B/L ,Lateral, DIPJ, T9,T4 Orthopedic FOOTWEAR: worn, non-suppor tive, shoe gear properties exacerbate patient's foot/toe deformity DIGITAL DEFORMITIES: Digital contracture , PIPJ, 2-5 B/L, incompl-reducible to push-up test, no over, nor underlapping, there is evidence of shoe producing skin irritation MUSCLE STRENGTH: 5/5 all groups in a symmetrical fashion , B/L General Examination GENERAL APPEARANCE: pleasant , alert, well nourished, well developed, well hydrated, with good attention to hygene/body habitus, and in no acute distress FOOT EXAM: Lower Extremity Neurological Exa m performed:: Yes Visual exam of foot performed:: Yes Date: 11/21/2024 ORIENTED: person,place, and ti me Footwear Evaluation Footwear Evaluation performe d:: Yes Ophthalmology Referral DIABETES EYE EXAM Procedure Perform ed:: Yes ?Date of Exam Performed: 03/04/2024 Findings of Diabetic Eye Exam:: no retin opathy Vascular DP PULSES (B): 2/4, B/L PT PULSES (B): 1/4, B/L CAPILLARY FILL TIME: 3 secs. per digit. B/L TEMPERTURE GRADIENT (C): normal, B/L TROPHIC CONDITION-TEXTURE/ELASTICITY/TUR GOR/HAIR GROWTH (B): normal, B/L EDEMA (C): absent, B/L TELANGECTASIA: absent, B/L PIGMENTATION: normal, B/L Nails NAILS are: Elongated, overg rown, dystrophic, lytic, greater than 3mm thick, discolored and friable with crumbly malodorous subungual debris, with dull to no pain on palpation due to neuropathy, TA, T1, T2, T3, T4, T5, T6, T7, T8, T9
--- OUTSIDE RECORDS SUMMARY | 2024-12-07 10:03 | XMS_ITS ---
Author Organization [facility] Demetria floyd Pierre Address [address] [place] [address] Care Team Providers Care Regional Engagement Consultant Name Role Phone Dipika Casas MD Primary Care Provider Clarisse Mckeon Unavailable [phone] Cesar Hackett Unavailable [phone] Allergies No Known Allergies REASON FOR VISIT Painful nail(s) aggrevated by shoes and causing difficulty standing/walking. Medications Medication SIG (Take, Route, Frequency, Duration) Notes Start Date End Date Status Sertraline HCl 50 MG 1 tablet Orally Onc e a day for 30 day(s) Active Levothyroxine Sodium 125 MCG 1 tablet in the morning on an empty stomach Orally Once a day for 30 day(s) Active Lantus Active Isosorbide Dinitrate 30 MG 1 tablet Orally Twice a day for 30 day(s) Active Xarelto 15 MG 1 tablet with food Orally Once a day for 30 day(s) Active Metoprolol Succinate ER 25 MG 1 tablet Orally Once a day for 30 day(s) Active Farxiga Active Famotidine 20 MG 1 tablet at bedtime as needed Orally Once a day for 30 day(s) Active Budesonide Not-Takin g Atorvastatin Calcium 20 MG 1 tablet Orally Once a day for 30 day(s) Active Ciclopirox Olamine 0.77 % 1 application to affected area Externally Twice a day to effected areas on feet for 30 days Active Sotalol HCl 80 MG 1 tablet Orally ever y 12 hrs for 30 day(s) Not-Taking Extra Depth Diabetic Shoes with 3 Pair Custom heat-molded multi-density innersoles for 1 year Dx: 07/16/2021 Not-Taking Social History Tobacco Use: Social History Observation Description Date Details (start date - stop date) Former Smoker NA - NA Tobacco Use/Smoking Question Answer Notes Are you a: former smoker Additional Findings: Tobacco Non-User Current no n-smoker Alcohol Screen Question Answer Notes Did you have a drink containing alcohol in the p ast year? No Points 0 Interpretation Negative Tobacco use other than smoking: Question Answer Notes Are you an other tobacco user? No Vital Signs Height 5ft 6in in 08/03/2024 Weight 155 lbs 08/03/2024 BMI 25.01 kg/m2 08/03/2024 Encounters Encounter Location Date Provider Diagnosis [facility] [address] [place] [address] 08/03/2024 Cesar Hackett Type 1 diabetes mellitus with diabetic polyneuropathy E10.42 ; Tinea unguium B35.1 ; Skin disease L98.9 ; Tinea pedis B35.3 ; Pain in right toe(s) M79.674 and Pain in left toe(s) M79.675 Assessments Encounter Date Diagnosis (ICD Code) Assessment Notes Treatment Notes Treatment Clinical Notes Section Notes 08/03/2024 Type 1 diabetes mellitus with diabetic polyneuropathy (ICD-10 - E10.42) 08/03/2024 Tinea unguium (ICD-10 - B35.1) 08/03/2024 Skin disease (ICD-10 - L98.9) 08/03/2024 Tinea pedis (ICD-10 - B35.3) 08/03/2024 Pain in right toe(s) (ICD-10 - M79.674) 08/03/2024 Pain in left toe(s) (ICD-10 - M79.675) Plan Of Treatment Medication Medication Name Sig Start Date Stop Date Notes Ciclopirox Olamine 0.77 % 1 application to affected area Externally Twice a day to effected areas on feet for 30 days Next Appt Details Follow Up: 3 Months, Reason: Provider Name:Clarisse caputo, 03/07/2025 01:30:00 PM, [address] [place] [address], [phone], Procedure Notes * Category Sub-Category Detail Notes Debride Nail 6-10 Nail debridement Nail debridem ent performed extensively to reduce/remove overall nail length and girth, subungual debris, and necrotic tissue, by manual and electrical means with use of a nail nipper and/or dremel, to more viable healthy nail plate or bed tissue 6-10. Silver nitrate used for any petechial bleeding as necessary. Patient chooses, no pharmaceutical tx (30589) Keratoma Treatment Parring or Cutting o f Benign Hyperkeratotic Lesion(s) 69746 (2-4 Lesions) - The Benign hyperkeratotic lesions, as described above were pared, and/or cut utilizing a sterile #15 blade, tissue nippers, and/or dremel Progress Notes * Penny MEMBRENODOB:1945 (79 yo F)Acc No.[id number]:08/03/2024 Progress Note Patient:?Penny MEMBRENO Provider:?Cesar Hackett DPM :1945???Age:79 Y???Sex:Female D ate:08/03/2024 Address:[address] [place] [address] [address] [id number] Pcp:Dpiika Casas MD Subjective: * Chief Complaints: * ??? Painful nail(s) aggrevat ed by shoes and causing difficulty standing/walking. * HPI: ???At Risk footcare:?Pt States Last PCP Visit:?Date?10/29/2023 * ROS:?General/Constitutional:?Nausea?denies.?Vomiting?denies.?Hunger Thirst?denies.?Loss appetite?denies.?Chills?denies.?Fatigue?denies.?Fever?denies.?Night Sweats?denies.?Unexplained weight loss?denies.?Unexplained weight gain?denies.?HEENTM:?Dentures?admits.?Dizziness?denies.?Glasses/contacts?admits.?Retinopathy?de nies.?Blurred/double vision?denies.?TMJ?denies.?Discharge/drainage?denies.?Implants?denies.?Sore throat?denies.?Dental implants?denies.?Hard of hearing ?denies.?Difficulty chewing/swallowing/speaking?denies.?Nose bleeds?denies.?Sore mouth?denies.?Respiratory:?On Oxygen?denies.?Pneumonia/pleurisy?denies.?Bronchitis?denies.?Emphysema?denies.?C oughing?denies.?Cough blood?denies.?Shortness of breath?admits.?Wheezing?denies.?Cardiovascular:?Pacemaker?admits.?MVP?denies.?WPW?denies.?CHF?denies.?Heart attack?denies.?Septal defect?denies.?Rapid beat?denies.?Chest pain ?denies.?Atrial Fib.?denies.?Murmur/Palpitations?denies.?Gastrointestinal:?Hemorrhoids?denies.?Stomach/Abdominal pain?denies.?Dark blood stool?denies.?Irritable bowel ?denies.?Constipation?denies.?Diarrhea?denies.?Hematology:?Swelling?denies.?Clots?denies.?Varicose Veins?denies.?Bruising?denies.?Bleeding problem?denies.?Genitourinary:?Blood urine?denies.?Frequent/Painfu/urination/bladder control?denies.?Kidney stones?denies.?Infection (UTI)?denies.?Nephropathy?denies.?sex trans dis (STD)?denies.?Prostate?denies.?Musculoskeletal:?Hammertoes?denies.?Bunions?denies.?Back Pain?admits.?Muscle Cramps/ Resting?denies.?Muscle cramps / walking?denies.?Generalized aches and pains?denies.?Weakness?denies.?Integ.:?Tucker?denies.?Scars?denies.?Corns/calluses?denies.?Ingrown nails?denies.?Painful nails?denies.?Open Sores?denies.?Rashes?denies.?Neurologic:?Difficulty sleeping?denies.?Brain disorder?denies.?Numbness?denies.?Balance trouble?denies.?Confusion?denies.?Fainting/blackouts?denies.?Tingling?denies.?Tr emors?denies.? * Medical History:? 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 * Social History:?Tobacco Use:?Tobacco Use/Smoking?Are you a:?former smoker ?Additional Findings: Tobacco Non-User?Current non-smoker ?Tobacco use other than smoking?Are you an other tobacco user??No ???Drugs/Alcohol:?Drugs?Have you used drugs other than those for medical reasons in the past 12 months??No ?Alcohol Screen?Did you have a drink containing alcohol in the past year??No ?Points?0 ?Interpretation?Negative ???Miscellaneous:?Caffeine: yes, frequency:, Coffee 2 cups per day. ?Children: yes, 3. ?Exercise: no. ?Marital status: . ?Occupation: Retired/ [employer]. * Medications:?TakingMetoprolo l Succinate ER 25 MG Tablet Extended Release 24 Hour 1 tablet Orally Once a day Atorvastatin Calcium 20 MG Tablet 1 tablet Orally Once a day Famotidine 20 MG Tablet 1 tablet at bedtime as needed Orally Once a day Farxiga Isosorbide Dinitrate 30 MG Tablet 1 tablet Orally Twice a day Lantus Levothyroxine Sodium 125 MCG Tablet 1 tablet in the morning on an empty stomach Orally Once a day Sertraline HCl 50 MG Tablet 1 tablet Orally Once a day Xarelto 15 MG Tablet 1 tablet with food Orally Once a day Taking Metoprolol Succinate ER 25 MG Tablet Extended Release 24 Hour 1 tablet Orally Once a day Taking Atorvastatin Calcium 20 MG Tablet 1 tablet Orally Once a day Taking Famotidine 20 MG Tablet 1 tablet at bedtime as needed Orally Once a day Taking Farxiga Taking [...] tablet with food Orally Once a day Not-Taking/PRNCiclopirox Olamine 0.77 % Cream 1 application to affected area Externally Twice a day to effected areas on feet Budesonide Extra Depth Diabetic Shoes with 3 Pair Custom heat-molded multi-density innersoles for 1 year Dx: Sotalol HCl 80 MG Tablet 1 tablet Orally every 12 hrs Medication List reviewed and reconciled with the patientNot-Taking/PRN Ciclopirox Olamine 0.77 % Cream 1 application to affected area Externally Twice a day to effected areas on feet Not-Taking/PRN Budesonide Not-Taking/PRN Extra Depth Diabetic Shoes with 3 Pair Custom heat-molded multi-density innersoles for 1 year Dx: Not-Taking/PRN Sotalol HCl 80 MG Tablet 1 tablet Orally every 12 hrs Medication List reviewed and reconciled with the patient * Allergies:?N.K.D.A.yes[Aller gies Verified] Objective: * Vitals:?Ht: 5ft 6in, Wt: 155 , BMI: 25.01, Shoe size: 10, BS: 80, Wt-k.31 kg. * ???Past Orders: ???Lab:HEMOGLOBIN A1C (GLYCO HEMOGLOBIN) (Order Date - 01/20/2023) (Collection Date & Time - 01/20/2023) ? Value Reference Range ?TOTAL HEMOGLOBIN (HGBA1C) 8.0 * Examination: ???Ophthalmology Referral: ?DIABETES EYE EXAM?Diabetic Retinopathy Screening:?No ?Findings of Diabetic Eye Exam:?no retinopathy?Neurological: ?SENSORY:? Neurological exam demonstrates, reduced vibration sensation, at Forefoot, at Midfoot, 5.07 monofilament test performed at plantar aspects of 5 varied sites per foot shows sensation, reduced , B/L--right sensory loss is more advanced.?Vascular: ?DP PULSES (B):? 11/07, B/L.?PT PULSES (B):? 10/07, B/L.?CAPILLARY FILL TIME:?3 secs. per digit. B/L.?TROPHIC CONDITION-TEXTURE/ELASTICITY/TURGOR/HAIR GROWTH (B):?normal, B/L.?TEMPERTURE GRADIENT (C):?normal, B/L.?PIGMENTATION:?normal, B/L.?EDEMA (C):?absent, B/L.?TELANGECTASIA:?absent, B/L.?Nails: ?NAILS are:?Elongated, overgrown, dystrophic, lytic, greater than 3mm thick, discolored and friable with crumbly malodorous subungual debris, with dull to no pain on palpation due to neuropathy, 1-5 B/L.?Dermatologic: ?SKIN FINDINGS:? Skin exam reveals Keratotic lesion(s) located at, SUB MTH (s), 4, Left , Heel(s), B/L , Skin exam reveals Keratotic lesion(s) located at, Dorsal, Lateral, DIPJ, T9.?General Examination: ?GENERAL APPEARANCE:?pleasant, alert, well nourished, well developed, well hydrated, with good attention to hygene/body habitus, and in no acute distress.?ORIENTED:?person,place, and time.?FOOT EXAM:?Lower Extremity Neurological Exam performed:?Yes ?Date?08/03/2024?Orthopedic: ?MUSCLE STRENGTH:?5/5 all groups in a symmetrical fashion , B/L.? Assessment: * Assessment: 1.?Type 1 diabetes mellitus with diabetic polyneuropathy - E10.42???2.?Tinea unguium - B35.1???3.?Skin disease - L98.9 (Primary)???4.?Tinea pedis - B35.3???5.?Pain in right toe(s) - M79.674???6.?Pain in left toe(s) - M79.675??? Plan: * Treatment: * Procedures:?Debride Nail 6-10:?Nail debridement?Nail debridement performed extensively to reduce/remove overall nail length and girth, subungual debris, and necrotic tissue, by manual and electrical means with use of a nail nipper and/or dremel, to more viable healthy nail plate or bed tissue 6-10. Silver nitrate used for any petechial bleeding as necessary. Patient chooses, no pharmaceutical tx (85885).?Keratoma Treatment:?Parring or Cutting of Benign Hyperkeratotic Lesion(s)?02756 (2-4 Lesions) - The Benign hyperkeratotic lesions, as described above were pared, and/or cut utilizing a sterile #15 blade, tissue nippers, and/or dremel.? * Procedure Codes:?32896 TRIM SKIN LESIONS, 2 TO 4, Modifiers: XS 84699 DEBRIDE NAIL, 6 OR MORE, Modifiers: XS * Follow Up:?3 Months * Images: * Sign off status: Completed true * Provider:?Cesar Hackett DPM Date:? 024 Generated for Printi ng/Omarg/eTransmitting on:?12/07/2024 10:03 AM EST History and Physical Notes * HPI (History of Present Illness) Category Sub-Category Detail Notes Category Not es At Risk footcare Pt States Last PCP Visit: Date: 4 Examination Category Sub-Category Detail Notes Category Not es Neurological SENSORY: Neurological exa m demonstrates, reduced vibration sensation, at Forefoot, at Midfoot, 5.07 monofilament test performed at plantar aspects of 5 varied sites per foot shows sensation, reduced , B/L--right sensory loss is more advanced Dermatologic SKIN FINDINGS: Skin exam reveal s Keratotic lesion(s) located at, SUB MTH (s), 4, Left , Heel(s), B/L , Skin exam reveals Keratotic lesion(s) located at, Dorsal, Lateral, DIPJ, T9 Orthopedic MUSCLE STRENGTH: 5/5 all groups in a symmetrical fashion , B/L General Examination GENERAL APPEARANCE: pleasant , alert, well nourished, well developed, well hydrated, with good attention to hygene/body habitus, and in no acute distress FOOT EXAM: Lower Extremity Neurological Exa m performed:: Yes Date: 08/03/2024 ORIENTED: person,place, and ti me Ophthalmology Referral DIABETES EYE EXAM Diabetic Retinopa thy Screening:: No Findings of Diabetic Eye Exam:: no retin [...] no pain on palpation due to neuropathy, 1-5 B/L
--- OUTSIDE RECORDS SUMMARY | 2024-12-07 10:03 | XMS_ITS ---
[facility] [place] Address [address] [place] [address] Care Team Providers Care Global Professional Name Role Phone Dipika Casas MD Primary Care Provider UnavailClarisse Cote Unavailable [phone] Gan Medications Medication SIG (Take, Route, Frequency, Duration) Notes Start Date End Date Status Sertraline HCl 50 MG 1 tablet Orally Onc e a day for 30 day(s) Active Extra Depth Diabetic Shoes with 3 Pair Custom heat-molded multi-density innersoles for 1 year Dx: 07/16/2021 Not-Taking Sotalol HCl 80 MG 1 tablet Orally ever y 12 hrs for 30 day(s) Not-Taking Xarelto 15 MG 1 tablet with food Orally Once a day for 30 day(s) Active Budesonide Not-Takin g Famotidine 20 MG 1 tablet at bedtime as needed Orally Once a day for 30 day(s) Active Farxiga Active Levothyroxine Sodium 125 MCG 1 tablet in the morning on an empty stomach Orally Once a day for 30 day(s) Active Isosorbide Dinitrate 30 MG 1 tablet Orally Twice a day for 30 day(s) Active Lantus Active Atorvastatin Calcium 20 MG 1 tablet Orally Once a day for 30 day(s) Active Ciclopirox Olamine 0.77 % 1 application to affected area Externally Twice a day to effected areas on feet for 30 days Active Metoprolol Succinate ER 25 MG 1 tablet Orally Once a day for 30 day(s) Active Encounters Encounter Location Date Provider Diagnosis [facility] [address] [place] [address] 11/08/2024 Clarisse Cheung Plan Of Treatment Next Appt Details Provider Name:Clarisse Adrian harshal, 03/07/2025 01:30:00 PM, [address] [place] [address], [phone], Progress Notes * Penny MEMBRENODOB:1945 (79 yo F)Acc No.[id number]:11/08/2024 Progress Note Patient:?Penny MEMBRENO Provider:?Clarisse Cheung DPM :1945???Age:79 Y???Sex:Female D ate:11/08/2024 Address:[address] [place] [address], [phone] Pcp:Dipika Casas MD Subjective: * Chief Complaints: * ???1. Dr Gan. * Medical History:?Arthritis, Back,Hip,and Knee pain, Cancer, Headaches/Migraines, Kidney disease, Reflux ( GERD), Thyroid, Joint implants/screws, Transfusions, type II diabetes. * Medications:?Taking Ciclopir ox Olamine 0.77 % Cream 1 application to [...] with food Orally Once a day , Not- Taking/PRN Budesonide , Not-Taking/PRN Extra Depth Diabetic Shoes with 3 Pair Custom heat- molded multi-density innersoles for 1 year Dx: , Not-Taking/PRN Sotalol HCl 80 MG Tablet 1 tablet Orally every 12 hrs Objective: * Vitals:? Assessment: Plan: * Treatment: * Images: * The named appointment provid er may or may not be the originator of this progress note, and it is not deemed complete until electronically signed by the appointment provider. Sign off status: Pending * Provider:?Clarisse Cheung DPM Date:?0 11/08/2024 Generated for Santiago garcia/Terrell/Darrel on:?12/07/2024 10:02 AM EST
--- OUTSIDE RECORDS SUMMARY | 2024-12-07 10:03 | XMS_ITS | Clinical Summary ---
Author Organization [facility] Address [address] [place] [phone] Care Team Providers Care Event Designer Name Role Phone Dipika Casas MD Primary Care Provider [phone] Allergies No known active allergies Medications atorvastatin (LIPITOR) 20 mg tablet Take 1 tablet (20 mg total) by mouth 1 (one) time each day. Active budesonide DR (ENTOCORT EC) 3 mg 24 hr capsule Take 2 capsules (6 mg total) by mouth 1 (one) time each day. Active insulin glargine (LANTUS) 100 unit/mL injection Inject 10 Units under the skin at bedtime. Active levothyroxine (SYNTHROID, LEVOTHROID) 125 mcg tablet Take 1 tablet (125 mcg total) by mouth 1 (one) time each day before breakfast. Active rivaroxaban (XARELTO) 20 mg tablet Take 15 mg by mouth. Active sertraline (ZOLOFT) 50 mg tablet Take 1 tablet (50 mg total) by mouth 1 (one) time each day. Active tiotropium (SPIRIVA) 18 mcg per inhalation capsule Place 1 capsule (18 mcg total) into inhaler and inhale 1 (one) time each day. Active multivitamin (MULTIPLE VITAMINS ORAL) Take by mouth. Active metoprolol succinate (TOPROL-XL) 25 mg 24 hr tablet Take 1 tablet (25 mg total) by mouth 1 (one) time each day. Active isosorbide dinitrate (ISORDIL) 30 mg tablet Take 1 tablet (30 mg total) by mouth 4 (four) times a day. Active Active Problems Problem Noted Date Diagnosed Date Malignant neoplasm of overla pping sites of right female breast 11/18/2018 Medical History Medical History Date Comments Breast cancer (CMS/HCC) DX:Breas t cancer (HCC);COMMENT:Right-sided stage 1 TicNo invasive breast cancer Diabetes mellitus (CMS/HCC) DX:D iabetes mellitus (HCC) Disease of thyroid gland DX:Dise ase of thyroid gland Social History Tobacco Use Types Packs/Day Years Used Date Smoking Tobacco: Never Assessed Comments Unknown Sex and Gender Information Value Date Recorded Sex Assigned at Not on file Legal Sex Female 7:07 PM EST Gender Identity Not on file Sexual Orientation Not on file Obstetrics History Last Filed Vital Signs Vital Sign Reading Time Taken Comments Blood Pressure 105/56 05/30/2024 2:00 PM EDT Pulse 76 05/30/2024 2:00 PM EDT Temperature - - Respiratory Rate - - Oxygen Saturation - - Inhaled Oxygen Concentration - - Weight 74.4 kg (164 lb) 05/30/2024 2:00 PM EDT Height 167.6 cm (5' 6 ) 05/30/2024 2:00 PM EDT Body Mass Index 26.47 05/30/2024 2:00 PM EDT Plan of Treatment Upcoming Encounters Date Type Department Care Team (Late st Contact Info) Description 05/29/2025 2:00 PM EDT Office Visit [facility] Hematology Oncology [address] [place] [address] Danilo Minor MD [address] [place] [address] Health Maintenance Due Date Last Done Comments DTaP,Tdap,and Td Vaccines (1 - Tdap) 1964 Pneumococcal Vaccine: 50+ Years (1 of 2 - PCV) 1962 Zoster Vaccines (1 of 2) 1964 RSV Immunization Patients 60 + Years Old (1 - 1-dose 75+ series) 2018 COVID-19 Vaccine (3 - Pfizer risk series) 01/02/2021 12/05/2020, 11/14/2020 Depression Screening 09/05/2022 Falls Risk Assessment 09/05/2022 Medicare Annual Wellness Visit 09/05/2022 Osteoporosis Screening (Bone Density Screening) 09/05/2022 Social Influencers of Health Screening 09/05/2022 Influenza Vaccine (#1) 2024 HIB Vaccines Aged Out No longer eligi ble based on patient's age to complete this topic HPV Vaccines Aged Out No longer eligi ble based on patient's age to complete this topic Hepatitis A Vaccines Aged Out No long er eligible based on patient's age to complete this topic Hepatitis B Vaccines Aged Out No long er eligible based on patient's age to complete this topic IPV Vaccines Aged Out No longer eligi ble based on patient's age to complete this topic MMR Vaccines Aged Out No longer eligi ble based on patient's age to complete this topic Meningococcal ACWY Vaccine Aged Out N o longer eligible based on patient's age to complete this topic Meningococcal B Vacine Aged Out No lo nger eligible based on patient's age to complete this topic RSV Immunization Patients Under 20 months Aged Out No longer eligible b ased on patient's age to complete this topic Varicella Vaccines Aged Out No longer eligible based on patient's age to complete this topic Insurance [employer] Care Teams Event Designer Relationship Specialty Start Date End Date Dipika Casas MD PCP - General Manager Strategic 11/18/18
--- OUTSIDE RECORDS SUMMARY | 2024-12-07 10:03 | XMS_ITS | Clinical Summary ---
Author Organization [facility] Address [address] [address] Phone Care Team Providers Care Shuttlecock Feather Trimmer Name Role Phone Dipika Casas MD Primary Care Provider [phone] Allergies Active Allergy Reactions Criticality Noted Date Comments Lisinopril 03/30/2022 Nitrofurantoin 03/30/2022 Medications atorvastatin (LIPITOR) 20 MG tablet 06/12/2021 Active FREESTYLE LITE test strip 06/09/2021 Active Lantus SoloStar 100 UNIT/ML injection 06/05/2021 Active B-D UF III MINI PEN NEEDLES 31G X 5 MM misc 06/13/2021 Active levothyroxine (SYNTHROID, LEVOTHROID) 125 MCG tablet 06/05/2021 Active Xarelto 15 MG tablet 07/15/2021 Active sertraline (ZOLOFT) 50 MG tablet 06/12/2021 Active Spiriva HandiHaler 18 MCG per inhalation capsule 07/29/2021 Active Lancets (freestyle) lancets 09/04/2021 Active metoprolol tartrate 25 MG tablet Take 25 mg by mouth in the morning and 25 mg in the evening. Active isosorbide dinitrate (ISORDIL) 30 MG tablet Take 30 mg by mouth 1 (one) time each day Active Multiple Vitamins-Mineral s (PRESERVISION AREDS 2 PO) Take by mouth Active Cholecalciferol (Vitamin D3) 50 MCG (1999) tabletIndication s:Vitamin D deficiency, not otherwise specified Take 2,000 Units by mouth 1 (one) time each day 30 tablet 11 06/27/2024 06/27/20 25 Active Dapagliflozin Propanediol (Farxiga) 10 MG tabletIndication s:Type 2 diabetes mellitus with diabetic chronic kidney disease (HCC) Take 10 mg by mouth 1 (one) time each day 30 tablet 11 08/07/2024 Active Active Problems Problem Noted Date Diagnosed Date Vitamin D deficiency, not otherwise specified 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 0 02/24/2022 Chronic kidney disease stage 3 08/08/2021 Type 2 diabetes mellitus wit h diabetic chronic kidney disease 08/08/2021 Chronic kidney disease, stage 2 (mild) Hypertension 08/08/2021 Malignant neoplasm of overlapping sites of breas t 11/18/2018 Overview (07/04/2024): Replacing diagnoses that were inactivated after the 07/04/24 Regulatory Import Encounters Date Type Department Care Team Description 12/02/2024 Orders Only [facility] [address] [facility] [address] [place] [address] Keyonna Shah ARNP Chronic kidney disease, stage 2 (mild); Hypertension from Last 3 Months Immunizations Name Administration Dates Next Due Influenza (IM) Preservative Free 05/05/2021 Pfizer SARS-COV-2 12/05/2020,11/14/2020,11/14/19 21 Family History Medical History Relation Comments Diabetes Mother Cancer Sibling brother-lung; br other-leukemia Relation Status Comments Father Mother Sibling Social History Tobacco Use Types Packs/Day Years Used Date Smoking Tobacco: Never Smokeless Tobacco: Never Tobacco Cessation:Counseling Given: Not Answered Alcohol Use Standard Drinks/Week Comments No 0 (1 standard drink = 0.6 oz pur e alcohol) Comments Unknown Sex and Gender Information Value Date Recorded Sex Assigned at Not on file Legal Sex Female 4:53 PM EST Gender Identity Not on file Sexual Orientation Not on file Last Filed Vital Signs Vital Sign Reading Time Taken Comments Blood Pressure 112/60 06/20/2024 2:03 PM EDT Pulse 73 06/20/2024 1:44 PM EDT Temperature - - Respiratory Rate - - Oxygen Saturation 97% 06/20/2024 1:44 PM EDT Inhaled Oxygen Concentration - - Weight 75.3 kg (166 lb) 06/20/2024 1:44 PM EDT Height 167.6 cm (5' 6 ) 08/08/2021 2:27 PM EDT Body Mass Index 26.79 08/08/2021 2:27 PM EDT Plan of Treatment Upcoming Encounters Date Type Department Care Team (Late st Contact Info) Description 12/19/2024 1:30 PM EDT Office Visit [facility] [address] [facility] [address] [place] [address] Keyonna ShahISSA [address] [address] Health Maintenance Due Date Last Done Comments Pneumococcal Vaccine: 65+ Years (1 of 2 - PCV) 1951 Diabetes: Ophthalmology Exam 11/03/2020 Diabetes: Pedal Pulse Checked 11/03/2020 Diabetes: Sensory Foot Exam 11/03/2020 Diabetes: Visual Foot Exam 11/03/2020 Diabetes: Hemoglobin A1C 09/15/2023 023, 09/16/2022, 04/24/2022, Additional history exists Influenza Vaccine (#1) 2024 05/05/2021 Hepatitis B Vaccine Aged Out No longe r eligible based on patient's age to complete this topic Procedures Procedure Name Priority Date/Time Associated Diagnosis Comments HEMOGLOBIN A1C Routine 06/16/2023 2:24 PM EDT Type 2 diabetes mellitus with diabetic chronic kidney disease (HCC) Chronic kidney disease, stage 2 (mild) Hypertension from Last 3 Months or Most Recently Relevant to Health Maintenance Results * (ABNORMAL) Hemoglobin A1c (06/16/2023 2:24 PM EDT) Hemoglobin A1C 7.6(H) (4.0-5.6) % [facility] Comment: MONITORING: In known diabetic patients, hemoglobin A1c targets should be discussed with health care provider. DIAGNOSTIC USE: ??The [place] Diabetes Association (ADA) and the World Health Organization (WHO) recommend the use of HbA1c to diagnose diabetes using a threshold of 6.5%. Patients who have an HbA1c between 5.7% and 6.4% are considered at increased risk for developing diabetes in the future. CAUTION: Falsely low HbA1c results may be observed in patients with hemolytic anemia, homozygous forms of abnormal hemoglobin (e.g. SS, CC, SC), , recent blood loss or hemoglobin F greater than 7%. Fructosamine may be used as an alternate test in these cases. REFERENCE: ADA: Standards of Medical Care in Diabetes 2020, The Journal of Clinical and Applied Research and Education Volume 43, Supplement 1 Testing performed or reported by [facility] [employer], a Service of [facility], [address] [address] Randall Hamilton MD, International Marketing Intern [facility]# [id number] Blood (Blood, Venous) 06/16/2023 2:24 PM EDT 06/16/2023 2:25 PM EDT Raheem Steele MD LAB BLOOD ORDERABLES Final Re sult [facility] from Last 3 Months or Most Recently Relevant to Health Maintenance Insurance [facility] Care Teams Shuttlecock Feather Trimmer Relationship Specialty Start Date End Date Dipika Casas MD [facility] [place] [address] PCP - General 10/14/20
--- OUTSIDE RECORDS SUMMARY | 2024-12-07 10:03 | XMS_ITS | Patient Health Record ---
Author Organization [facility] Demetria floyd Pierre Address [address] [facility] [place] [address] Care Team Providers Care Certified Bench Jeweler Technician Name Role Phone Dipika Casas MD Primary Care Provider Clarisse Mckeon Unavailable [phone] Cesar Hackett Unavailable [phone] Purnima Steward Unavailable [phone] Allergies Allergen (clinical drug ingredient) Drug/Non Drug Allergy documented on EMR Reaction Allergy Type Onset Date Status lisinopril Lisinopril Unknown Drug Allergy Activ e nitrofurantoin Nitrofurantoin Unknown Drug Allergy Active Results Component Value Reference Range Notes HEMOGLOBIN A1C (GLYCOHEMOGLO BIN) Reviewed date:11/21/2024 12:57:04 PM Interpretation: Performing Lab: Notes/Report: HEMOGLOBIN A1C % (HH) 7.2 Reason For Referral No Information Medications Medication SIG (Take, Route, Frequency, Duration) Notes Start Date End Date Status Extra Depth Diabetic Shoes with 3 Pair Custom heat-molded multi-density innersoles for 1 year Dx: 07/16/2021 N ot-Taking Metoprolol Succinate ER 25 MG 1 tablet Orally Once a day for 30 day(s) Active Sotalol HCl 80 MG 1 tablet Orally ever y 12 hrs for 30 day(s) Not-Taking Spiriva HandiHaler A ctive Budesonide Not-Takin g Ciclopirox Olamine 0.77 % 1 application to affected area Externally Twice a day to effected areas on feet for 30 days Active Isosorbide Dinitrate 30 MG 1 tablet Orally Twice a day for 30 day(s) Active Lantus Active Extra Depth Orthopedic Shoes (1 Pair) with Customized Heat Molded Multidensity Innersoles (3 Pair) as directed Dx: IDDM/Polyneuropathy (E10.42), Hammertoe Foot Deformity (M20.41,M20.42), Preulcerative Skin Lesion(s) (L85.1) 11/21/2024 Active Atorvastatin Calcium 20 MG 1 tablet Orally Once a day for 30 day(s) Active Farxiga Active Xarelto 15 MG 1 tablet with food Orally Once a day for 30 day(s) Active Famotidine 20 MG 1 tablet at bedtime as needed Orally Once a day for 30 day(s) Not-Taking Levothyroxine Sodium 125 MCG 1 tablet in the morning on an empty stomach Orally Once a day for 30 day(s) Active Sertraline HCl 50 MG 1 tablet Orally Onc e a day for 30 day(s) Active Immunizations Vaccine Route Administration Date Status Comme nts COVID-19 Pfizer BioNTech Vaccine Unknown 12/05/2020 Administered First Dose: 11/14/2020 Influenza Unknown 05/05/2021 Administered Social History Tobacco Use: Social History Observation Description Date Details (start date - stop date) Never Smoker NA - NA Alcohol Screen Question Answer Notes Did you [...] Problem Acquired hammer toe of right foot (1119077767591393 ) Other hammer toe(s) (acquired), right foot (M20.41) Active confirmed Problem Acquired hammer toe of left foot (1584328445294600 ) Other hammer toe(s) (acquired), left foot (M20.42) Active confirmed Problem Polyneuropathy due to type 2 diabetes mellitus (315597853) Type 2 diabetes mellitus with diabetic polyneuropathy (E11.42) Active confirmed Problem Polyneuropathy due to diabetes mellitus type I (496557704) Type 1 diabetes mellitus with diabetic polyneuropathy (E10.42) Active confirmed Vital Signs Blood pressure diastolic 80 mm Hg 11/21/2024 Height 5ft 6in in 11/21/2024 Blood pressure systolic 121 mm Hg 11/21/2024 Weight 155 lbs 11/21/2024 BMI 25.01 kg/m2 11/21/2024 Encounters Encounter Location Date Provider Diagnosis [address] [address] 2024 Cesar Hackett Type 1 diabetes mellitus with diabetic polyneuropathy E10.42 ; Tinea unguium B35.1 ; Skin disease L98.9 ; Tinea pedis B35.3 ; Pain in right toe(s) M79.674 and Pain in left toe(s) M79.[address] [address] 05/01/2024 Cesar Hackett Type 1 diabetes mellitus with diabetic polyneuropathy E10.42 ; Tinea unguium B35.1 ; Skin disease L98.9 ; Tinea pedis B35.3 ; Pain in right toe(s) M79.674 and Pain in left toe(s) M79.[address] [address] 08/03/2024 Cesar Hackett Type 1 diabetes mellitus with diabetic polyneuropathy E10.42 ; Tinea unguium B35.1 ; Skin disease L98.9 ; Tinea pedis B35.3 ; Pain in right toe(s) M79.674 and Pain in left toe(s) M79.[address] [address] 11/21/2024 Purnima Steward Type 1 diabetes mellitus with diabetic polyneuropathy E10.42 ; Other hammer toe(s) (acquired), right foot M20.41 ; Tinea unguium B35.1 and Other hammer toe(s) (acquired), left foot M20.42 Assessments Encounter Date Diagnosis (ICD Code) Assessment Notes Treatment Notes Treatment Clinical Notes Section Notes 2024 Type 1 diabetes mellitus with diabetic polyneuropathy (ICD-10 - E10.42) 05/01/2024 Type 1 diabetes mellitus with diabetic polyneuropathy (ICD-10 - E10.42) 08/03/2024 Type 1 diabetes mellitus with diabetic polyneuropathy (ICD-10 - E10.42) 11/21/2024 Other hammer toe(s) (acquired), right foot (ICD-10 - M20.41) Patient Educated with: DIABETIC FOOT CARE INSTRUCTIONS. pdf (DIABETIC FOOT CARE INSTRUCTIONS. pdf) 11/21/2024 Type 1 diabetes mellitus with diabetic polyneuropathy (ICD-10 - E10.42) 11/21/2024 Tinea unguium (ICD-10 - B35.1) 08/03/2024 Tinea unguium (ICD-10 - B35.1) 05/01/2024 Tinea unguium (ICD-10 - B35.1) 2024 Tinea unguium (ICD-10 - B35.1) 2024 Skin disease (ICD-10 - L98.9) 05/01/2024 Skin disease (ICD-10 - L98.9) 08/03/2024 Skin disease (ICD-10 - L98.9) 05/01/2024 Tinea pedis (ICD-10 - B35.3) 08/03/2024 Tinea pedis (ICD-10 - B35.3) 11/21/2024 Other hammer toe(s) (acquired), left foot (ICD-10 - M20.42) 08/03/2024 Pain in right toe(s) (ICD-10 - M79.674) 05/01/2024 Pain in right toe(s) (ICD-10 - M79.674) 2024 Tinea pedis (ICD-10 - B35.3) 2024 Pain in right toe(s) (ICD-10 - M79.674) 05/01/2024 Pain in left toe(s) (ICD-10 - M79.675) 08/03/2024 Pain in left toe(s) (ICD-10 - M79.675) 2024 Pain in left toe(s) (ICD-10 - M79.675) Plan Of Treatment Pending Test Test Name Order Date [id number] SKIN LESIONS, 2 TO 4 07/16/20 [id number] SKIN LESIONS, 2 TO 4 10/29/19 [id number] DYSTROPHIC NAILS ANY # Next Appt Details Provider Name:Clarisse caputo, 03/07/2025 01:30:00 PM, [address] [place] [address], [phone], Insurance Providers Payer Name Payer Address Payer Phone Subscriber Number Group Number Insured Name Patient Relationship to Insured Coverage Start Date Coverage End Date [facility] [address] [place] [address] [phone] [id number] Penny Greenwood Self - patient is the insured Medical (General) History Medical History History ICD Code Arthritis Back,Hip,and Knee pain Cancer Headaches/Migraines Kidney disease Reflux ( GERD) thyroid Joint implants/screws Transfusions type II diabetes Surgical History Surgery Date(Month/Year) cancer surgery 1986, 2009 hip replacement cataract surgery 12/2021,01/2022 Hospitalization History Reason Date(Month/Year) [facility]- pt thought she was having a heart a ttack 01/2023 [facility]- Heart Attack due to stress few days 01/2022
--- OUTSIDE RECORDS SUMMARY | 2024-12-07 10:03 | XMS_ITS | Encounter Summary ---
Author Organization [facility] Address [address] [address] Phone Care Team Providers Care Yard Goods Salesperson Name Role Phone Dipika Casas MD Primary Care Provider [phone] Encounter Details Date Type Department Care Team (Late Contact Info) Description 12/02/2024 Orders Only [facility] [address] [place] [address] Keyonna Shah ARNP [address] [address] Chronic kidney disease, stage 2 (mild); Hypertension Social History Tobacco Use Types Packs/Day Years Used Date Smoking Tobacco: Never Smokeless Tobacco: Never Alcohol Use Standard Drinks/Week Comments No 0 (1 standard drink = 0.6 oz pur e alcohol) Comments Unknown Sex and Gender Information Value Date Recorded Sex Assigned at Not on file Legal Sex Female 4:53 PM EST Gender Identity Not on file Sexual Orientation Not on file documented as of this encounter Plan of Treatment Upcoming Encounters Date Type Department Care Team (Late st Contact Info) Description 12/19/2024 1:30 PM EDT Office Visit [facility] [address] [address] Keyonna Shah ARNP [address] [address] documented as of this encounter Visit Diagnoses Diagnosis Chronic kidney disease, stage 2 (mild) Hypertension documented in this encounter Care Teams Yard Goods Salesperson Relationship Specialty Start Date End Date Dipika Casas MD [address] [place] [address] PCP - General 10/14/20 documented as of this encounter
--- OUTSIDE RECORDS SUMMARY | 2024-12-07 10:03 | XMS_ITS | Clinical Summary ---
Author Organization [facility] Address [address] [place] [address] Care Team Providers Care Technical Marketing Consultant Name Role Phone Dipika Casas MD Primary Care Provider [phone] Allergies No known active allergies Medications Medication Sig Dispensed Refills Start Date End Date Status atorvastatin (LIPITOR) tablet 20 mg Take 1 tablet (20 mg total) by mouth daily. 0 Active tiotropium (SPIRIVA) [address] 1 capsule (18 mcg total) into inhaler and inhale daily. 0 Active levothyroxine (SYNTHROID) tablet 125 mcg Take 1 tablet (125 mcg total) by mouth every morning on an empty stomach. 0 Active rivaroxaban (XARELTO) 20 MG TABS tablet Take 15 mg by mouth. 0 Active budesonide (ENTOCORT EC) 3 MG 24 hr capsule Take 2 capsules (6 mg total) by mouth daily. 0 Active sertraline (ZOLOFT) 50 MG tablet Take 1 tablet (50 mg total) by mouth daily. 0 Active insulin glargine (LANTUS) injection 100 units/mL Inject 10 Units under the skin every night at bedtime. 0 Active metoprolol succinate (TOPROL-XL) 24 hr tablet 25 mg Take 1 tablet (25 mg total) by mouth daily. 0 Active dapagliflozin (Farxiga) 10 MG tablet Take 1 tablet (10 mg total) by mouth daily. 0 Active isosorbide dinitrate (ISORDIL) 30 MG tablet Take 1 tablet (30 mg total) by mouth 4 (four) times a day. 0 Active Multiple Vitamin (MULTIVITAMIN+ PO) Take by mouth. 0 Ac tive Active Problems Problem Noted Date Diagnosed Date Malignant neoplasm of overla pping sites of right breast in female, estrogen receptor positive 11/18/2018 Malignant neoplasm of overla pping sites of right female breast 11/18/2018 Immunizations Name Administration Dates Next Due Covid-19 (Pfizer) Dilution Required 12/05/2020,0 11/14/2020 Social History Tobacco Use Types Packs/Day Years Used Date Smoking Tobacco: Never Assessed Sex and Gender Information Value Date Recorded Sex Assigned at Not on file Gender Identity Not on file Sexual Orientation Not on file Job Start Date Occupation Industry Not on file Not on file Not on file Last Filed Vital Signs Vital Sign Reading Time Taken Comments Blood Pressure 105/56 05/30/2024 2:00 PM EDT Pulse 76 05/30/2024 2:00 PM EDT Temperature 36.6 ??C (97.8 ??F) 05/30/2024 2:00 PM ED T Respiratory Rate - - Oxygen Saturation 97% 05/30/2024 2:00 PM EDT Inhaled Oxygen Concentration - - Weight 74.4 kg (164 lb) 05/30/2024 2:00 PM EDT Height 167.6 cm (5' 6 ) 05/30/2024 2:00 PM EDT Body Mass Index 26.47 05/30/2024 2:00 PM EDT Plan of Treatment Health Maintenance Due Date Last Done Comments Pneumococcal Vaccine (1 of 2 - PCV) 1951 Depression Screening 1955 Preventative Health Evaluation 1961 DTap / Tdap / Td (1 - Tdap) 1962 Shingrix-Zoster Vaccine (1 o f 2) 1962 Fall Risk Assessment 01/25/2008 Osteoporosis Screening (DEXA Scan) 01/25/2008 RSV Adult > 60+ Yrs or (1 - 1-dose 75+ series) 2018 COVID-19 Vaccine (3 - Pfizer risk series) 01/02/2021 12/05/2020, 11/14/2020 Influenza Vaccine (#1) 2024 Hepatitis B Vaccines Aged Out No long er eligible based on patient's age to complete this topic RSV Ped < 20 months Aged Out No longe r eligible based on patient's age to complete this topic Care Teams Technical Marketing Consultant Relationship Specialty Start Date End Date Dipika Casas MD [address] [facility] [place] [address] PCP - General Tassel Snipper 11/18/18
[2024-12-07 10:37] LABS: MANUAL DIFF FLAG NO
[2024-12-07 10:50] LABS: Basophils Percent Auto 0.6 % (0-2); Eosinophils Absolute Auto 0.1 X10*3/uL (0.0-0.4); Eosinophils Percent Auto 1.9 % (0-4); Hematocrit 45.5 % (37.0-47.0); Hemoglobin 14.3 g/dl (12.0-16.0); Imm Gran Abs Auto 0.06 X10*3/uL (0.00-0.03); Imm Gran Pct Auto 0.9 % (0.0-0.4); Lymphocytes Absolute Auto 1.2 X10*3/uL (1.2-4.9); Lymphocytes Percent Auto 18.5 % (20-40); Mean Corpuscular HGB Conc 31.4 g/dl (31.0-35.0); Mean Corpuscular Hemoglobin 27.8 pg (27.0-33.0); Mean Corpuscular Volume 88.5 fL (80.0-98.0); Mean Platelet Volume 10.5 fL (9.4-12.3); Monocytes Absolute Auto 0.6 X10*3/uL (0.1-1.2); Monocytes Percent Auto 8.3 % (2-11); Neutrophils Absolute Auto 4.7 x10*3/uL (2.0-8.3); Neutrophils Percent Auto 69.8 % (45-73); Platelet Count 195 X10*3/uL (160-400); Red Blood Count 5.14 X10*6/uL (4.20-5.50); Red Cell Distribution Width 15.2 % (11.0-16.0); White Blood Count 6.7 X10*3/uL (4.8-10.8)
[2024-12-07 11:15] LABS: Estimated Average Glucose 183 mg/dL
[2024-12-07 11:27] LABS: Alanine Aminotransferase 23 U/L (0-31); Albumin Level 4.1 g/dL (3.5-5.0); Alkaline Phosphatase 98 U/L (39-117); Anion Gap 16 (12-20); Aspartate Amino Transferase 23 U/L (5-31); Bilirubin Total 0.8 mg/dL (0.0-1.0); Blood Urea Nitrogen 29 mg/dL (9-16); Calcium 9.5 mg/dL (8.4-10.2); Carbon Dioxide 25 mmol/L (22-29); Chloride 104 mmol/L (96-108); Cholesterol 144 mg/dL (<200); Estimated Glomerular Filt Rate 34; Glucose Fasting 155 mg/dL (60-99); HDL Cholesterol 53 mg/dL (>40); LDL Cholesterol Calculated 63 mg/dL (<100); Potassium 4.4 mmol/L (3.3-5.1); Sodium 141 mmol/L (135-145); TSH reflex Free T4 2.74 uIU/mL (0.32-4.0); Total Protein 7.6 g/dL (6.5-8.0); Triglycerides 143 mg/dL (<150)
== END 2024-12-07 09:06 | disposition home or self-care (01) ==
LOC: HO.HMGCLDS 09:05
PROVIDERS: PCP Internal Medicine; Visit Provider Internal Medicine
DX: N18.30 Chronic kidney disease, stage 3 unspecified (principal); E11.9 Type 2 diabetes mellitus without complications; E03.9 Hypothyroidism, unspecified; E78.5 Hyperlipidemia, unspecified; I48.0 Paroxysmal atrial fibrillation
CPT/HCPCS: 36415; 80053; 80061; 83036; 84443; 85025

== ENCOUNTER 2024-12-11 13:46 | Outpatient (AMB) | payer MEDICARE, SELFPAY ==
[2024-12-11 13:52] VITALS: BP 110/64; PULSE 78; RESP 17; O2SAT 95; BMI 28.1
--- NOTE | 2024-12-11 13:52 | A.OFFPC_ITS ---
Vital Signs 12/11/24 13:52 Height 5 ft 6 in Weight 174 lb 2 oz BMI 28.1 BP 110/64 Blood Pressure Location Lt brachial Position Sitting Respiration 17 Pulse 78 Pulse Source Pulse Oximeter Pulse Oximetry (%) 95 Oxygen Delivery Method Room Air Intake Visit Reasons: 4 month follow up - see comments Intake Note: Pt is here today for 4 month follow up. Allergies lisinopril Allergy (Intermediate, Verified 12/11/24 13:53) Hyperkalemia nitrofurantoin [Macrobid] Adverse Reaction (Intermediate, Verified 12/11/24 1 3:53) dizziness Medication List - Last Reconciled 12/11/24 by Dipika Casas MD acetaminophen 500 mg PO BID PRN apixaban (Eliquis) 5 mg PO BID atorvastatin 20 mg PO DAILY blood sugar diagnostic As directed blood sugar diagnostic (FreeStyle Lite Strips) Test blood sugar TID cholecalciferol (vitamin D3) 50 mcg PO DAILY dapagliflozin propanediol (Farxiga) 10 mg PO QAM insulin glargine (Lantus Solostar U-100 Insulin) 20 units subcut QAM isosorbide mononitrate ER 30 mg PO DAILY lancets (FreeStyle Lancets) Test up to 3 times per day Lantus Solostar U-100 Insulin (insulin glargine) 20 units (0.2 mL) subcut QAM NS levothyroxine 125 mcg PO DAILY metoprolol succinate ER 25 mg (1/2 x 50 mg) PO BID pen needle, diabetic (BD Ultra-Fine Mini Pen Needle) Use to inject insulin once a day sertraline 75 mg (1.5 x 50 mg) PO DAILY Spiriva with HandiHaler (tiotropium bromide) 1 cap inhalation DAILY NS vit C,N-Yk-iwgrk-lutein-zeaxan 250-90-40-1 mg (PreserVision AREDS-2) 1 tab PO BID Tobacco use date assessed: 12/11/24 Fall risk assessment: No Falls in past year Last assessed Fall Risk: 12/11/24 Dental Screening Dental Screen Date: 12/11/24 Did you have a dental visit in the last 12 months?: Yes Did you have a dental problem in the last 6 months where you did not have access to dental care?: No Was dental information given to patient?: Patient has dentist HPI 4 month follow up - see comments HPI Details Pt presents for f/u IDDM, hyperlipid, COPD. Pt c/o SSCP pressure-like lasting up to 3 hours once or twice a week for 3 months not related to physical activity, also at night. Patient denies nausea vomiting abdominal pain palpitations pleurisy fever chills or cough. Pt reports increasing PETTY when walking up the stairs. Pt's in May and is grieving. Patient reports blood glucose being higher for the last few months. She complains of feeling thirsty but denies polyuria PFSH Medical History Non-ST elevation UT (NSTEMI) Hyperkalemia CKD (chronic kidney disease), stage III Cataract Vitamin D deficiency DM type 2 (diabetes mellitus, type 2) Hypothyroidism Hyperlipemia Paroxysmal atrial fibrillation Cardiac pacemaker in situ Complete heart block Surgical History Pacemaker battery depletion Hx of bilateral mastectomy History of permanent cardiac pacemaker placement History of tonsillectomy and adenoidectomy History of hip surgery Hx of cardiac cath Family History Father Cancer Mother Diabetes Social History Housing: House Are you a primary acute care clinical nurse specialist to a significant other at home: No (was caring for , now he is in [place]) Do you presently have visiting nurse or other home services: No Alcohol intake: never Patient Tobacco Use Status: Former Tobacco user Tobacco use type: Cigarette e-Cigarette/Vaping Use: Never Used Advance Directives Date on File: 02/16/22 service: No Current occupational status: retired Cognitive needs: No Hearing needs: No Vision needs: Yes Questionnaire PHQ-9 Over the last 2 weeks, how often have you been bothered by any of the following problems? 1. Little interest or pleasure in doing things: not at all 2. Feeling down, depressed, or hopeless: not at all 3. Trouble falling or staying asleep, or sleeping too much: not at all 4. Feeling tired or having little energy: several days 5. Poor appetite or overeating: not at all 6. Feeling bad about yourself - or that you are a failure or have let yourself or your family down: not at all 7. Trouble concentrating on things, such as reading the newspaper or watching television: not at all 8. Moving or speaking so slowly that other people could have noticed. Or the opposite - being so fidgety or restless that you have been moving around a lot more than usual: not at all 9. Thoughts that you would be better off or of hurting yourself in some way: not at all Total score: 1 Depression Screening Interpretation: Negative Depression Screening Done: Yes 46055 - PHQ-9 Billing: Yes Source: Developed by Drs. Star Vitale, Grace Sprague, Ham Landrum and colleagues, with an educational gaston from [employer]. Thrive Questionnaire Date Thrive assessed: 12/11/24 I am a: Patient What is your living situation today?: I have a steady place to live Within the past 12 months, did the food you bought not last and you didn't have the money to get more?: Never true Within the past 12 months, did you worry whether your food would run out before you got money to buy more?: Never true Do you have trouble paying for medicines?: No Do you have trouble getting transportation to medical appointments?: No Do you have trouble paying your heating and electricity bill?: No Do you have trouble taking care of your child, family member or friend?: No Do you have trouble with day-to-day activities such as bathing, preparing meals, shopping, managing finances, etc.?: No Are you currently unemployed and looking for a job?: No Are you interested in more education?: No Please select the resources that you would like help with: None Currently or been in a relationship where the following occur: No concerns reported THRIVE Score: 0 AUDIT C Alcohol Use Questionnaire (AUDIT-C) 1. How often do you have a drink containing alcohol?: Never 3. How often do you have six or more drinks on one occasion?: Never Total Score: 0 Score Reviewed/Action Taken: Yes LEON-7 AMB Questionnaire LEON-7 Date LEON - 7 assessed: 12/11/24 Feeling nervous, anxious, or on edge: 0 = Not at all Not being able to stop or control worryin = Not at all Worrying too much about different things: 0 = Not at all Trouble relaxin = Not at all Being so restless that it is hard to sit still: 0 = Not at all Becoming easily annoyed or irritable: 0 = Not at all Feeling afraid as if something awful might happen: 0 = Not at all Total LEON-7 score (0-4 normal; 5-9 mild; 10-14 moderate; 15-21 severe): 0 Source: Developed by Drs. Star Vitale, Grace Sprague, Ham Landrum and colleagues, with an educational gaston from [employer]. LEON-7 Assessment Billing LEON-7 Assessment Tool: LEON-7 Assessment 74199 Review of Systems Const All systems reviewed & are unremarkable except as noted in HPI and below Reports no additional complaints Eyes Reports no additional complaints ENT Reports no additional complaints Card Reports no additional complaints Resp Reports no additional complaints GI Reports no additional complaints Reports no additional complaints Physical exam (Primary Care) Vital Signs: Last Vital Signs Pulse 78 12/11/24 13:52 Resp 17 12/11/24 13:52 BP 110/64 12/11/24 13:52 Pulse Ox 95 12/11/24 13:52 Oxygen Delivery Method Room Air 12/11/24 13:52 BMI result Body Mass Index 28.1 Tobacco/Smoking Status: Tobacco use Status Tobacco use date assessed 12/11/24 12/11/24 13:55 Patient Tobacco Use Status Former Tobacco user 12/11/24 13:55 Tobacco use type Cigarette 12/11/24 13:55 e-Cigarette/Vaping Use Never Used 12/11/24 13:55 PHQ-9: PHQ-9 Score PHQ-9: Total score 1 12/11/24 14:04 Depression Screening Interpretation: Negative Thrive Assessment: Date of Thrive Assessment Date Thrive assessed 12/11/24 12/11/24 14:04 Currently or been in a relationship where the following occur: No concerns reported Const General: no acute distress HENMT Head: Yes normal to inspection Ears: hearing grossly normal bilaterally Face and sinus: Yes normal facial exam Throat: Yes posterior oropharynx normal Neck Neck: Yes no lymphadenopathy and Yes supple Resp Effort & Inspection: normal respiratory effort Auscultation: clear to auscultation bilaterally Cardio Rhythm: regular rhythm Heart sounds: S1 normal heart sound present and S2 normal heart sound present GI Inspection: Yes normal to inspection Palpation (GI): Soft to palpation Percussion: Yes normal to percussion Auscultation: normal bowel sounds Coding Level of Care Code Est Pt Level 4 (63747) Complex EM visit Add On G2211 Diagnoses Cough R05.9 Angina at rest I20.89 CKD (chronic kidney disease), stage III N18.30 DM type 2 (diabetes mellitus, type 2) E11.9 Hyperlipemia E78.5 Paroxysmal atrial fibrillation I48.0 GERD (gastroesophageal reflux disease) K21.9 Additional Codes LEON-7 Assessment Billing - LEON-7 Assessment Tool: LEON-7 Assessment 61508 ([id number]) PHQ-9 - 78981 - PHQ-9 Billing: Yes ([id number]) Assessment & Plan Assessment & Plan (1) Cough: Code(s): R05.9 - Cough, unspecified Category: Medical Plan: For chronic cough check chest x-ray (2) Angina at rest: Code(s): I20.89 - Other forms of angina pectoris Category: Medical Plan: EKG showed paced rhythm at 79 per minute, obtain nuclear stress test to evaluate for angina at rest (3) CKD (chronic kidney disease), stage III: Code(s): N18.30 - Chronic kidney disease, stage 3 unspecified Category: Medical Plan: Avoid nephrotoxins and dehydration monitor renal function (4) DM type 2 (diabetes mellitus, type 2): Code(s): E11.9 - Type 2 diabetes mellitus without complications Category: Medical Plan: A1c is 8%, ADA diet increase physical activity discussed with the patient she will increase Lantus to 30 units continue to take Farxiga and will follow-up in 1 month (5) Hyperlipemia: Code(s): E78.5 - Hyperlipidemia, unspecified Category: Medical Plan: Continue statin (6) Paroxysmal atrial fibrillation: Comment: s/p pacemaker Code(s): I48.0 - Paroxysmal atrial fibrillation Category: Medical Plan: Continue metoprolol and Eliquis for anticoagulation (7) GERD (gastroesophageal reflux disease): Code(s): K21.9 - Gastro-esophageal reflux disease without esophagitis Category: Medical Plan: Trial of omeprazole for 1 month Orders: Orders 2 NM cardiolite stress test Today I20.89 - Other forms of angina pectoris XR chest 1V Today R05.9 - Cough, unspecified CA stress test Today I20.89 - Other forms of angina pectoris Medications: New cephalexin 2 caps 1 hr before dental procedure and 2 caps 4 hr after 500 mg PO BID 12 caps 1RF omeprazole 20 mg PO DAILY 30 caps 2RF
--- OUTSIDE RECORDS SUMMARY | 2024-12-11 15:35 | XMS_ITS | Clinical Summary ---
Author Organization [facility] Address [address] [address] Phone Care Team Providers Care Marine Diver Name Role Phone Dipika Casas MD Primary Care Provider [phone] Allergies Active Allergy Reactions Criticality Noted Date [...] Orders Only [facility] [address] [facility] [address] [place] [address] Keyonna Shah ARNP Chronic kidney [...] Office Visit [facility] [address] [facility] [address] [place] [address] Keyonna ShahISSA [address] [address] Health Maintenance Due Date Last [...] PM EDT) Hemoglobin A1C 7.6(H) (4.0-5.6) % [facility] Comment: MONITORING: In known diabetic patients, hemoglobin A1c targets should be discussed with health care provider. DIAGNOSTIC USE: ??The [place] Diabetes Association (ADA) and the World Health [...] Supplement 1 Testing performed or reported by [facility] Reference [employer], a Service of [facility], [address] [place] [address] Randall Hamilton MD, Picc Nurse [facility]# [id number] Blood (Blood, Venous) 06/16/2023 2:24 PM EDT 06/16/2023 2:25 PM EDT Raheem Steele MD LAB BLOOD ORDERABLES Final Re sult [facility] from Last 3 Months or Most Recently Relevant to Health Maintenance Insurance [facility] Care Teams Marine Diver Relationship Specialty Start Date End Date Dipika Casas MD [facility] [place] [address] PCP - General 10/14/20
--- OUTSIDE RECORDS SUMMARY | 2024-12-11 15:35 | XMS_ITS | Encounter Summary ---
Author Organization [facility] Address [address] [address] Phone Care Team Providers Care Glass Wool Blanket Machine Feeder Name Role Phone Dipika Casas MD Primary Care Provider [phone] Encounter Details Date Type Department Care Team (Late Contact Info) Description 12/02/2024 Orders Only [facility] [address] [place] [address] Keyonna Shah ARNP [address] [address] Chronic kidney disease, stage 2 [...] Office Visit [facility] [address] [address] Keyonna Shah ARNP [address] [address] documented as of this encounter Visit Diagnoses Diagnosis Chronic kidney disease, stage 2 (mild) Hypertension documented in this encounter Care Teams Glass Wool Blanket Machine Feeder Relationship Specialty Start Date End Date Dipika Casas MD [address] [facility] [place]note 2], [place] [id number] PCP - General 10/14/20 documented as of this encounter
--- OUTSIDE RECORDS SUMMARY | 2024-12-11 15:35 | XMS_ITS ---
Author Organization [facility] Demetria floyd Pierre Address [address] [place] [address] Care Team Providers Care Patient Placement Coordinator Name Role Phone Dipika Casas MD Primary Care Provider Unavaila Clarisse Mckeon Unavailable [phone] Purnima Steward Unavailable [phone] Allergies Allergen (clinical drug ingredient) Drug/Non Drug [...] Problem Acquired hammer toe of right foot (8987543134235 105) Other hammer toe(s) (acquired), right foot (M20.41) Active confirmed Problem Acquired hammer toe of left foot (4264463616563 103) Other hammer toe(s) (acquired), left foot (M20.42) Active confirmed Vital Signs Height 5ft 6in in 11/21/2024 Weight 155 lbs 11/21/2024 BMI 25.01 kg/m2 11/21/2024 Blood pressure systolic 121 mm Hg 11/21/19 25 Blood pressure diastolic 80 mm Hg 025 Encounters Encounter Location Date Provider Diagnosis [facility] [address] [address] 11/21/2024 Purnima Setward Type 1 diabetes mellitus with diabetic polyneuropathy [...] Reason: Provider Name:Clarisse caputo, 03/07/2025 01:30:00 PM, [address] [place] [address], [phone], Procedure Notes * Category Sub-Category Detail Notes [...] use of a nail nipper and/or dremel-type universal grinder tool, to a more viable healthy nail plate [...] to maintain effectiveness in symptomatic relief - 38778 Keratoma Treatment Parring or Cutting o f [...] instrumentation by the physician of record - 15504 Progress Notes * Penny MEMBRENODOB:1945 (79 yo F)Acc No.[id number]:11/21/2024 Progress Note Patient:?Penny MEMBRENO Provider:?Purnima Steward DPM :1945???Age:79 Y???Sex:Female D ate:11/21/2024 Address:[address] [place], [place] [address], [place] Pcp:Dipika Casas MD Subjective: * Chief Complaints: [...] ?Exercise: no. ?Marital status: . ?Occupation: Retired/ [employer]. * Medications:?Elizabeth Bey Ciclopirox Olamine 0.77 % [...] use of a nail nipper and/or dremel-type universal grinder tool, to a more viable healthy nail plate [...] to maintain effectiveness in symptomatic relief - 88753.?Keratoma Treatment:?Parring or Cutting of Benign Hyperkeratotic Lesion(s)?(-57) [...] instrumentation by the physician of record - 96821.? * Procedure Codes:?18177 DEBRI DE NAIL, 6 OR MORE, Modifiers: XS 01390 TRIM SKIN LESIONS, OVER 4, Modifiers: XS [...] Provider:?Purnima Steward DPM Date:? Generated for Santiago garcia/Terrell/Darrel on:?12/11/2024 03:35 PM EDT History and Physical Notes * HPI (History [...]
--- OUTSIDE RECORDS SUMMARY | 2024-12-11 15:35 | XMS_ITS ---
Author [facility] floyd [facility] Address [address] [place] [address] Care Team Providers Care Storage Facility Housekeeper Name Role Phone Dipika Casas MD Primary Care Provider UnavailClarisse Cote Unavailable [phone] Gan Medications Medication [...] Active Encounters Encounter Location Date Provider Diagnosis [facility] [address] [place] [address] 11/08/2024 Clarisse Cheung Plan Of Treatment Next Appt Details Provider Name:Clarisse Adrian harshal, 03/07/2025 01:30:00 PM, [address] [place] [address], [phone], Progress Notes * Penny MEMBRENODOB:1945 (79 yo F)Acc No.[id number]:11/08/2024 Progress Note Patient:?Penny MEMBRENO Provider:?Clarisse Cheung DPM :1945???Age:79 Y???Sex:Female D ate:11/08/2024 Address:[address] [place] [address], [place] Pcp:Dipika Casas MD Subjective: * Chief Complaints: [...] DPM Date:?0 11/08/2024 Generated for Santiago garcia/Terrell/Darrel on:?12/11/2024 03:35 PM EDT
--- OUTSIDE RECORDS SUMMARY | 2024-12-11 15:36 | XMS_ITS | Patient Health Record ---
Author Organization [facility] Demetria floyd Pierre Address [address] [facility] [place] [address] Care Team Providers Care Senior Software Engineer Analytics Name Role Phone Dipika Casas MD Primary Care Provider Clarisse Mckeon Unavailable [phone] Cesar Hackett Unavailable [phone] Purnima Steward Unavailable [phone] Allergies Allergen (clinical drug ingredient) Drug/Non Drug [...] Problem Acquired hammer toe of right foot (3481884918795440 ) Other hammer toe(s) (acquired), right foot (M20.41) Active confirmed Problem Acquired hammer toe of left foot (5912628391186440 ) Other hammer toe(s) (acquired), left foot (M20.42) Active confirmed Problem Polyneuropathy due to type 2 diabetes mellitus (308570750) Type 2 diabetes mellitus with diabetic polyneuropathy (E11.42) Active confirmed Problem Polyneuropathy due to diabetes mellitus type I (154552916) Type 1 diabetes mellitus with diabetic polyneuropathy (E10.42) Active confirmed Vital Signs Blood pressure diastolic 80 mm Hg 11/21/2024 Height 5ft 6in in 11/21/2024 Blood pressure systolic 121 mm Hg 11/21/2024 Weight 155 lbs 11/21/2024 BMI 25.01 kg/m2 11/21/2024 Encounters Encounter Location Date Provider Diagnosis [address] [address] 2024 Cesar Hackett Type 1 diabetes mellitus with diabetic polyneuropathy E10.42 ; Tinea unguium B35.1 ; Skin disease L98.9 ; Tinea pedis B35.3 ; Pain in right toe(s) M79.674 and Pain in left toe(s) M79.[address] [address] 05/01/2024 Cesar Hackett Type 1 diabetes mellitus with diabetic polyneuropathy E10.42 ; Tinea unguium B35.1 ; Skin disease L98.9 ; Tinea pedis B35.3 ; Pain in right toe(s) M79.674 and Pain in left toe(s) M79.[address] [address] 08/03/2024 Cesar Hackett Type 1 diabetes mellitus with diabetic polyneuropathy E10.42 ; Tinea unguium B35.1 ; Skin disease L98.9 ; Tinea pedis B35.3 ; Pain in right toe(s) M79.674 and Pain in left toe(s) M79.[address] [address] 11/21/2024 Purnima Steward Type 1 diabetes mellitus [...] Treatment Pending Test Test Name Order Date 29925-KKOE SKIN LESIONS, 2 TO 4 07/16/20 89365-LCTE SKIN LESIONS, 2 TO 4 10/29/19 J5116-HEAYQENH DYSTROPHIC NAILS ANY # Next Appt Details Provider Name:Clarisse caputo, 03/07/2025 01:30:00 PM, [address] [place] [address], [phone], Insurance Providers Payer Name Payer Address Payer Phone Subscriber Number Group Number Insured Name Patient Relationship to Insured Coverage Start Date Coverage End Date [facility] [address] [place] [address] [phone] [id number] Penny Greenwood Self - patient is the [...]
--- OUTSIDE RECORDS SUMMARY | 2024-12-11 15:36 | XMS_ITS | Clinical Summary ---
Author Organization [facility] Address [address] [place] [address] Care Team Providers Care Gericare Aide Name Role Phone Dipika Casas MD Primary Care Provider [phone] Allergies No known active allergies Medications Medication [...] age to complete this topic Care Teams Gericare Aide Relationship Specialty Start Date End Date Dipika Casas MD [address] [facility] [place] [address] PCP - General Nipple Threader 11/18/18
--- OUTSIDE RECORDS SUMMARY | 2024-12-11 15:36 | XMS_ITS ---
Author Organization [facility] Demetria floyd Pierre Address [address] [facility] [place] [address] Care Team Providers Care Small Products Ii Assembler Name Role Phone Dipika Casas MD Primary Care Provider Clarisse Mckeon Unavailable [phone] Cesar Hackett Unavailable [phone] Allergies No Known Allergies REASON FOR VISIT [...] 08/03/2024 Encounters Encounter Location Date Provider Diagnosis [facility] [place] [address] [place] [address] 08/03/2024 Cesar Hackett Type 1 diabetes mellitus [...] Reason: Provider Name:Clarisse caputo, 03/07/2025 01:30:00 PM, [address] [place] [address], [phone], Procedure Notes * Category Sub-Category Detail Notes [...] as necessary. Patient chooses, no pharmaceutical tx (43046) Keratoma Treatment Parring or Cutting o f Benign Hyperkeratotic Lesion(s) 37396 (2-4 Lesions) - The Benign hyperkeratotic lesions, as described above were pared, and/or cut utilizing a sterile #15 blade, tissue nippers, and/or dremel Progress Notes * Penny MEMBRENODOB:1945 (79 yo F)Acc No.[id number]:08/03/2024 Progress Note Patient:?Penny MEMBRENO Provider:?Cesar Hackett DPM :1945???Age:79 Y???Sex:Female D ate:08/03/2024 Address:[address] [place] [address] [place] [id number] Pcp:Dipika Casas MD Subjective: * Chief Complaints: [...] ?Exercise: no. ?Marital status: . ?Occupation: Retired/ [employer]. * Medications:?TakingMetoprolo l Succinate ER 25 MG [...] as necessary. Patient chooses, no pharmaceutical tx (22235).?Keratoma Treatment:?Parring or Cutting of Benign Hyperkeratotic Lesion(s)?28256 (2-4 Lesions) - The Benign hyperkeratotic lesions, as described above were pared, and/or cut utilizing a sterile #15 blade, tissue nippers, and/or dremel.? * Procedure Codes:?09270 TRIM SKIN LESIONS, 2 TO 4, Modifiers: XS 09751 DEBRIDE NAIL, 6 OR MORE, Modifiers: XS * Follow Up:?3 Months * Images: * Sign off status: Completed true * Provider:?Cesar Hackett DPM Date:? 024 Generated for Printi ng/Fanasimg/eTransmitting on:?12/11/2024 03:36 PM EDT History and Physical Notes * [...]
--- OUTSIDE RECORDS SUMMARY | 2024-12-11 15:36 | XMS_ITS | Clinical Summary ---
Author Organization [facility] Address [address] [place] [address] Care Team Providers Care Shade Cloth Finisher Name Role Phone Dipika Casas MD Primary Care Provider [phone] Allergies No known active allergies Medications atorvastatin [...] Description 05/29/2025 2:00 PM EDT Office Visit [facility] Hematology Oncology [address] [place] [address] Danilo Minor MD [address] [place] [address] Health Maintenance Due Date Last [...] [employer] [place] [employer]AGE Care Teams Shade Cloth Finisher Relationship Specialty Start Date End Date Dipika Casas MD PCP - General Cleaner And Trimmer 11/18/18
== END 2024-12-11 15:19 | disposition home or self-care (01) ==
PROVIDERS: PCP Internal Medicine; Visit Provider Internal Medicine
DX: E11.69 Type 2 diabetes mellitus with other specified complication (principal); I20.89 Other forms of angina pectoris; N18.30 Chronic kidney disease, stage 3 unspecified; I48.0 Paroxysmal atrial fibrillation; R05.9 Cough, unspecified; E78.5 Hyperlipidemia, unspecified; K21.9 Gastro-esophageal reflux disease without esophagitis

== ENCOUNTER → 2024-12-11 13:46 | Outpatient (BNVA) | payer MEDICARE, SELFPAY | PROVIDERS: PCP Internal Medicine; Visit Provider Internal Medicine | DX: R05.9 Cough, unspecified (principal); I20.89 Other forms of angina pectoris; N18.30 Chronic kidney disease, stage 3 unspecified; E11.9 Type 2 diabetes mellitus without complications; E78.5 Hyperlipidemia, unspecified; I48.0 Paroxysmal atrial fibrillation; K21.9 Gastro-esophageal reflux disease without esophagitis | CPT/HCPCS: 96127; 99212 ==

== ENCOUNTER 2025-01-15 09:18 | Outpatient (REF) | payer MEDICARE, SELFPAY ==
--- NOTE | ~2025-01-15 | XR_ITS ---
EXAMINATION: XR CHEST 2 VIEWS HISTORY: R05.9 - Cough, unspecified COMPARISON: Comparison is made with the prior examination dated 02/24/2024. FINDINGS: PA and lateral views of the chest are submitted. A left subclavian dual-chamber pacemaker is unchanged in position. The lungs remain hyperinflated, consistent with COPD. The lungs are clear There is no pleural effusion, pneumothorax, or pulmonary vascular congestion. The heart remains enlarged. There is mild degenerative disc disease of the spine. There are surgical clips in both axillae. XR/XR chest 2V IMPRESSION: Cardiomegaly. COPD. No acute cardiopulmonary abnormality. Electronically signed by: Star Lay MD 01/15/2025 03:10 PM EDT
--- OUTSIDE RECORDS SUMMARY | 2025-01-15 10:19 | XMS_ITS ---
Author Organization [facility] Demetria floyd Pierre Address [address] [facility] [place] [address] Care Team Providers Care Product Marketer Name Role Phone Dipika Casas MD Primary Care Provider Unavaila Clarisse Mckeon Unavailable [phone] Purnima Steward Unavailable [phone] Allergies Allergen (clinical drug ingredient) Drug/Non Drug [...] Problem Acquired hammer toe of right foot (9295763012136 105) Other hammer toe(s) (acquired), right foot (M20.41) Active confirmed Problem Acquired hammer toe of left foot (1319168327743 103) Other hammer toe(s) (acquired), left foot (M20.42) Active confirmed Vital Signs Height 5ft 6in in 11/21/2024 Weight 155 lbs 11/21/2024 BMI 25.01 kg/m2 11/21/2024 Blood pressure systolic 121 mm Hg 11/21/19 25 Blood pressure diastolic 80 mm Hg 025 Encounters Encounter Location Date Provider Diagnosis [facility] [address] [address] 11/21/2024 Purnima Steward Type 1 diabetes mellitus [...] Reason: Provider Name:Clarisse caputo, 03/07/2025 01:30:00 PM, [address] [place] [address], [phone], Procedure Notes * Category Sub-Category Detail Notes [...] use of a nail nipper and/or dremel-type grinder set up operator gear tool, to a more viable healthy nail [...] to maintain effectiveness in symptomatic relief - 92234 Keratoma Treatment Parring or Cutting o f [...] instrumentation by the physician of record - 45311 Progress Notes * Penny MEMBRENODOB:1945 (79 yo F)Acc No.[id number]:11/21/2024 Progress Note Patient:?Penny MEMBRENO Provider:?Purnima Steward DPM :1945???Age:79 Y???Sex:Female D ate:11/21/2024 Address:[address] [place], [place] [address], [place] Pcp:Dipika Casas MD Subjective: * Chief Complaints: [...] ?Exercise: no. ?Marital status: . ?Occupation: Retired/ [employer]. * Medications:?Elizabeth Bey Ciclopirox Olamine 0.77 % [...] use of a nail nipper and/or dremel-type grinder set up operator gear tool, to a more viable healthy nail [...] to maintain effectiveness in symptomatic relief - 80117.?Keratoma Treatment:?Parring or Cutting of Benign Hyperkeratotic Lesion(s)?(-57) [...] instrumentation by the physician of record - 65648.? * Procedure Codes:?44855 DEBRI DE NAIL, 6 OR MORE, Modifiers: XS 24872 TRIM SKIN LESIONS, OVER 4, Modifiers: XS [...] Steward DPM Date:? Generated for Santiago garcia/Terrell/Darrel on:?01/15/2025 10:19 AM EDT History and Physical Notes * HPI [...] , Heel(s), B/L ,Lateral, DIPJ, T9,T4 Orthopedic FOOTWEAR EVALUATION: worn, non-s upportive, shoe gear properties exacerbate patient's foot/toe deformity [...]
--- OUTSIDE RECORDS SUMMARY | 2025-01-15 10:19 | XMS_ITS | Clinical Summary ---
Author Organization [facility] Address [address] [address] Phone Care Team Providers Care Front End Architect Name Role Phone Dipika Casas MD Primary Care Provider [phone] Allergies Active Allergy Reactions Criticality Noted Date Comments Lisinopril 03/30/2022 Nitrofurantoin 03/30/2022 Medications atorvastatin (LIPITOR) 20 MG tablet 1 Active FREESTYLE LITE test strip 1 Active Lantus SoloStar 100 UNIT/ML injection 1 Active B-D UF III MINI PEN NEEDLES 31G X 5 MM misc 1 Active levothyroxine (SYNTHROID, LEVOTHROID) 125 MCG tablet 1 Active sertraline (ZOLOFT) 50 MG tablet 1 Active Spiriva HandiHaler 18 MCG per inhalation capsule 1 Active Lancets (freestyle) lancets 1 Active metoprolol tartrate 25 MG tablet Take 25 mg by mouth in the morning and 25 mg in the evening. Active isosorbide dinitrate (ISORDIL) 30 MG tablet Take 30 mg by mouth 1 (one) time each day Active Cholecalciferol (Vitamin D3) 50 MCG (1999) tabletIndication s:Vitamin D deficiency, not otherwise specified Take 2,000 Units by mouth 1 (one) time each day 30 tablet 11 4 06/27/20 25 Active Dapagliflozin Propanediol (Farxiga) 10 MG tabletIndication s:Type 2 diabetes mellitus with diabetic chronic kidney disease (HCC) Take 10 mg by mouth 1 (one) time each day 30 tablet 11 4 Active apixaban (Eliquis) 5 MG tablet Take 5 mg by mouth in the morning and 5 mg in the evening. 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 0 02/24/2022 Stage 3a chronic kidney disease 08/08/2021 Type 2 diabetes mellitus wit h diabetic chronic kidney disease 08/08/2021 Chronic kidney disease, stage 2 (mild) Hypertension 08/08/2021 Malignant neoplasm of overlapping sites of breas t 11/18/2018 Overview (07/04/2024): Replacing diagnoses that were inactivated after the 07/04/24 Regulatory Import Encounters Date Type Department Care Team Description 12/22/2024 Office Communication [facility] [address] [address] Keyonna Shah ARNP 12/19/2024 1:30 PM EDT Office Visit [facility] [address] [address] Keyonna Shah ARNP Stage 3a chronic kidney disease (HCC) (Primary Dx); Hypertension; Vitamin D deficiency, not otherwise specified; Secondary hyperparathyroidism of renal origin (HCC) 12/02/2024 Orders Only [facility] [address] [address] Keyonna Shah ARNP Chronic kidney disease, stage 2 (mild); Hypertension from Last 3 Months Immunizations Immunization Administration Dates Next Due Influenza (IM) Preservative [...] Sign Reading Time Taken Comments Blood Pressure 116/60 12/19/2024 1:39 PM EDT Pulse 78 12/19/2024 1:39 PM EDT Temperature - - Respiratory Rate - - Oxygen Saturation 97% 06/20/2024 1:44 PM EDT Inhaled Oxygen Concentration - - Weight 79.4 kg (175 lb) 12/19/2024 1:39 PM EDT Height 167.6 cm (5' 6 ) 08/08/2021 2:27 PM EDT Body Mass Index 28.25 08/08/2021 2:27 PM EDT Plan of Treatment Upcoming Encounters Date Type Department Care Team (Late st Contact Info) Description 06/21/2025 1:30 PM EDT Office Visit [facility] [address] [address] Keyonna Shah ARNP [address] [phone] Health Maintenance Due Date Last Done Comments Pneumococcal Vaccine: 50+ Years (1 of 2 - PCV) 1964 Diabetes: Ophthalmology Exam 11/03/2020 Diabetes: Pedal Pulse Checked 11/03/2020 Diabetes: Sensory Foot Exam 11/03/2020 Diabetes: Visual Foot Exam 11/03/2020 Diabetes: Hemoglobin A1C 09/15/2023 023, 09/16/2022, 04/24/2022, Additional history exists Influenza Vaccine (Season Ended) 2025 05/05/2021 Hepatitis B Vaccine Aged Out No longe r eligible based on patient's age to complete this topic Procedures Procedure Name Priority Date/Time Associated Diagnosis Comments BASIC METABOLIC PANEL Routine 01/02/2025 11:27 AM EDT Stage 3a chronic kidney disease (HCC) Hypertension PROTEIN / CREATININE RATIO, URINE Routine 12/21/2024 10:53 AM EDT Chronic kidney disease, stage 2 (mild) Hypertension RENAL FUNCTION PANEL Routine 12/21/2024 10:53 AM EDT Chronic kidney disease, stage 2 (mild) Hypertension PTH, INTACT Routine 12/21/2024 10:53 AM EDT Chronic kidney disease, stage 2 (mild) Hypertension CBC Routine 12/21/2024 10:53 AM EDT Chronic kidney disease, stage 2 (mild) Hypertension HEMOGLOBIN A1C Routine 06/16/2023 2:24 PM EDT Type 2 diabetes mellitus with diabetic chronic kidney disease (HCC) Chronic kidney disease, stage 2 (mild) Hypertension from Last 3 Months or Most Recently Relevant to Health Maintenance Results * (ABNORMAL) Basic metabolic panel (01/02/2025 11:27 AM EDT) Glucose 106(H) 70 - 99 mg/dL [facility] BUN 24 8 - 27 mg/dL [facility] Sodium 143 134 - 144 mmol/L [facility] Potassium 3.4(L) 3.5 - 5.2 mmol/L [facility] Chloride 110(H) 96 - 106 mmol/L [facility] Bicarbonate (CO2) 16(L) 20 - 29 mmol/L [facility] Calcium 9.5 8.7 - 10.3 mg/dL [facility] Creatinine 1.32(H) 0.57 - 1.00 mg/dL [facility] eGFR CKD-EPI CR 2020 41(L) >59 mL/min/1.7 3 [facility] BUN/Creatinine Ratio 18 12 - 28 [facility] Blood (Blood, Venous) 01/02/2025 11:27 AM EDT 01/02/2025 Keyonna Shah [facility] BLOOD ORDERABLES Final Result Performing Organization Address City/[facility]/ZIP Co de Phone Number [facility]CO [facility] [address] [place] [address] * Urine Protein / creatinine ratio (12/21/2024 10:53 AM EDT) Creatinine, Ur 80.8 Not Estab. mg/dL [facility] Protein, Ur 9.7 Not Estab. mg/dL [facility] Urine Protein/Creatin ine Ratio 120 0 - 200 mg/g creat [facility] Urine (Urine, Clean Catch) 12/21/2024 10:53 AM EDT 12/21/2024 Keyonna [facility] LAB URINE ORDERABLES Final Result Performing Organization Address City/[facility]/ZIP Co de Phone Number [facility] [address] [place] [address] * CBC (12/21/2024 10:53 AM EDT) WBC 5.8 3.4 - 10.8 x10E3/uL [facility] RBC 4.69 3.77 - 5.28 x10E6/uL [facility] Hemoglobin 13.7 11.1 - 15.9 g/dL [facility] Hematocrit 43.0 34.0 - 46.6 % [facility] MCV 92 79 - 97 fL [facility] MCH 29.2 26.6 - 33.0 pg [facility] MCHC 31.9 31.5 - 35.7 g/dL [facility] RDW 15.2 11.7 - 15.4 % [facility] Platelets 196 150 - 450 x10E3/uL [facility] Blood (Blood, Venous) 12/21/2024 10:53 AM EDT 12/21/2024 Keyonna Shah [facility] LAB BLOOD ORDERABLES Final Result [facility] [address] [place] [address] * (ABNORMAL) PTH, intact (12/21/2024 10:53 AM EDT) PTH 126(H) 15 - 65 pg/mL [facility] Blood (Blood, Venous) 12/21/2024 10:53 AM EDT 12/21/2024 Keyonna [facility] LAB BLOOD ORDERABLES Final Result Performing Organization Address City/[facility]/ZIP Co de Phone Number [facility] [address] [place] [address] * (ABNORMAL) Renal function panel (12/21/2024 10:53 AM EDT) Glucose 188(H) 70 - 99 mg/dL [facility] BUN 23 8 - 27 mg/dL [facility] Sodium 140 134 - 144 mmol/L [facility] Potassium 5.3(H) 3.5 - 5.2 mmol/L [facility] Chloride 105 96 - 106 mmol/L [facility] Calcium 9.4 8.7 - 10.3 mg/dL [facility] Albumin 4.1 3.7 - 4.7 g/dL [facility] Creatinine 1.48(H) 0.57 - 1.00 mg/dL [facility] eGFR CKD-EPI CR 2020 35(L) >59 mL/min/1.7 3 [facility] BUN/Creatinine Ratio 16 12 - 28 [facility] Bicarbonate (CO2) 18(L) 20 - 29 mmol/L [facility] Phosphorus 3.6 3.0 - 4.3 mg/dL [facility] (Blood, Venous) 12/21/2024 10:53 AM EDT 12/21/2024 Keyonna Shah [facility] LAB BLOOD ORDERABLES Final Result [facility] [address] [place] [address] * (ABNORMAL) Hemoglobin A1c (06/16/2023 2:24 PM EDT) Hemoglobin A1C 7.6(H) (4.0-5.6) % [facility] Comment: MONITORING: In known diabetic patients, hemoglobin A1c targets should be discussed with health care provider. DIAGNOSTIC USE: ??The [place] Diabetes Association (ADA) and the World Health [...] Supplement 1 Testing performed or reported by [facility] Reference [employer], a Service of [facility], [address] [place] [address] Randall Hamilton MD, Care Director Rn [facility]# [id number] Blood (Blood, Venous) 06/16/2023 2:24 PM EDT 06/16/2023 2:25 PM EDT us Raheem Steele MD LAB BLOOD ORDERABLES Final Re sult [facility] from Last 3 Months or Most Recently Relevant to Health Maintenance [facility] Care Teams Front End Architect Relationship Specialty Start Date End Date Dipika Casas MD [address] [place] [address] PCP - General 10/14/20
--- OUTSIDE RECORDS SUMMARY | 2025-01-15 10:19 | XMS_ITS | Clinical Summary ---
Author Organization [address] Address [address] [place] [address] Phone Care Team Providers Care Head Sawyer Name Role Phone Dipika Casas MD Primary Care Provider [phone] Allergies No known active allergies Medications atorvastatin [...] mouth 4 (four) times a day. Active budesonide DR (ENTOCORT EC) 3 mg 24 hr capsule Take 3 capsules (9 mg total) by mouth 1 (one) time each day in the morning. 90 each 5 01/09/2025 07/08/20 25 Active Active Problems Problem Noted Date Diagnosed Date Malignant neoplasm of overla pping sites of right female breast ([facility] V24, [facility] V28) 11/18/2018 Encounters Date Type Department Care Team Description 01/09/2025 Telephone Gastroenterology - [address] [place] [address] Cm Agee MD 01/05/2025 Telephone Gastroenterology - [address] [place] [address] Cm Agee MD PROVIDER CALL BACK from Last 3 Months Medical History Medical History Date Comments Breast cancer ([facility] V24, [facility] V28) DX:Breast cancer (HCC);COMMENT:Right-sided stage 1 TicNo invasive breast cancer Diabetes mellitus ([facility] V 24, [facility] V28) DX:Diabetes mellitus (HCC) Disease of thyroid gland DX:Dise [...] Care Team (Late st Contact Info) Description 01/25/2025 1:20 PM EDT Office Visit Gastroenterology - [address] [place] [address] Abhijeet Mitchell PA [address] [address] 05/29/2025 2:00 PM EDT Office Visit [facility] Hematology Oncology [address] [place] [address] Danilo Minor MD [address] [place] [address] Health Maintenance Due Date Last Done Comments Diabetes: Annual Foot Exam 1955 Diabetes: Annual Retina Eye Exam 1955 DTaP,Tdap,and Td Vaccines (1 - Tdap) 1964 Zoster Vaccines (1 of 2) 1964 RSV Immunization Adult Patients (1 - 1-dose 75+ series) 2018 COVID-19 Vaccine (3 - Pfizer risk series) 01/02/2021 12/05/2020, 11/14/2020 Cholesterol Screening (Lipid Panel) 09/05/2022 Depression Screening 09/05/2022 Falls Risk Assessment 09/05/2022 Medicare Annual Wellness Visit 09/05/2022 Osteoporosis Screening (Bone Density Screening) 09/05/2022 Social Influencers of Health Screening 09/05/2022 Diabetes: Annual Urine Albumin-Creatinine Ratio (uACR) 01/10/2025 Diabetes: Blood Sugar Control Test (HGBA1C) 01/10/2025 06/16/2023 Influenza Vaccine (Season Ended) 2025 08/14/2021, 05/05/2021, 07/01/2020, Additional history exists Diabetes: Annual GFR (Glomerular Filtration Rate) 01/02/2026 01/02/2025 Hypertension/CHF/CAD Annual BMP Blood Test 01/02/2026 01/02/2025 Pneumococcal Vaccine: 50+ Years Completed 11/09/2015, 11/16/2014, 06/04/2013 HIB Vaccines Aged Out No longer eligi [...] age to complete this topic Meningococcal B Vaccine Aged Out No l onger eligible based on patient's age to complete this topic RSV Immunization Patients Under 20 months Aged Out No longer eligible based on patient's age to complete this topic Varicella Vaccines Aged Out No longer eligible based on patient's age to complete this topic Procedures Procedure Name Priority Date/Time Associated Diagnosis Comments GASTROINTESTINAL PATHOGENS BY PCR Routine 01/10/2025 10:42 AM EDT Diarrhea, unspecified type Other ulcerative colitis with other complication ([facility] V24, [facility] V28) from Last 3 Months Results * Gastrointestinal pathogens molecular study (01/10/2025 10:42 AM EDT) Campylobacter Detection by PCR Not Detected Not Detected LAB MICROBIOLOGY METHOD 5 2:40 PM EDT [facility] Plesiomonas shigelloides Detection by PCR Not Detected Not Detected LAB MICROBIOLOGY METHOD 5 2:40 PM EDT [facility] Salmonella Detection by PCR Not Detected Not Detected LAB MICROBIOLOGY METHOD 5 2:40 PM EDT [facility] Vibrio Detection by PCR Not Detected Not Detected LAB MICROBIOLOGY METHOD 5 2:40 PM EDT [facility] Vibrio cholerae Detection by PCR Not Detected Not Detected LAB MICROBIOLOGY METHOD 5 2:40 PM EDT [facility] Yersinia enterocolitica Detection by PCR Not Detected Not Detected LAB MICROBIOLOGY METHOD 5 2:40 PM EDT [facility] Enteroaggregative E coli EAEC Detection by PCR Not Detected Not Detected LAB MICROBIOLOGY METHOD 5 2:40 PM EDT [facility] Enteropathogenic E coli EPEC Detection Not Detected Not Detected LAB MICROBIOLOGY METHOD 5 2:40 PM EDT [facility] Enterotoxigenic E coli ETEC LTST Detection Not Detected Not Detected LAB MICROBIOLOGY METHOD 5 2:40 PM EDT [facility] Shiga-like toxin producing E coli STEC STX1 STX2 Det Not Detected Not Detected LAB MICROBIOLOGY METHOD 5 2:40 PM EDT [facility] Shigella Enteroinvasive E coli EIEC Detection Not Detected Not Detected LAB MICROBIOLOGY METHOD 5 2:40 PM EDT [facility] Cryptosporidium Detection by PCR Not Detected Not Detected LAB MICROBIOLOGY METHOD 5 2:40 PM EDT [facility] Cyclospora cayetanensis Detection by PCR Not Detected Not Detected LAB MICROBIOLOGY METHOD 5 2:40 PM EDT [facility] Entamoeba histolytica Detection by PCR Not Detected Not Detected LAB MICROBIOLOGY METHOD 5 2:40 PM EDT [facility] Giardia lamblia Detection by PCR Not Detected Not Detected LAB MICROBIOLOGY METHOD 5 2:40 PM EDT [facility] Adenovirus F 40 41 Detection by PCR Not Detected Not Detected [facility] 2[facility] Astrovirus Detection by PCR Not Detected Not Detected LAB MICROBIOLOGY METHOD 5 2:40 PM EDT [facility] Norovirus GI GII Detection by PCR Not Detected LAB MICROBIOLOGY METHOD 5 2:40 PM EDT [facility] Sapovirus Detection by PCR Not Detected Not Detected LAB MICROBIOLOGY METHOD 5 2:40 PM EDT [facility] Rotavirus A Detection by PCR Not Detected Not Detected LAB MICROBIOLOGY METHOD 5 2:40 PM EDT [facility] Stool Rectum structure / Unknown Non-blood Collection / Unknown 01/10/2025 10:42 AM EDT 01/10/2025 12:27 PM EDT Narrative [facility] - 01/10/2025 2:40 PM EDT PCR testing is much more sensitive than traditional techniques and allows for the detection of low numbers of stool pathogens. The clinical correlation of PCR results with the need for treatment and clinical outcomes has not been established. Therefore the results of PCR testing for stool pathogens must be taken into clinical context when making treatment decisions. This is a diagnostic test only, repeat testing for cure is not advised. You may consider infectious disease consult for additional guidance. ??Testing Performed by [facility] us Cm Agee MD LAB [facility]BIOLOGY [facility] Final Result [facility] [place] ([facility] [address] [place] [address], from Last 3 Months Insurance [employer]OMERO [id number] [employer] [employer] Care Teams Head Sawyer Relationship Specialty Start Date End Date Dipika Casas MD [address] [facility] [place] [phone] PCP - General Internal Medicine 01/10/25
--- OUTSIDE RECORDS SUMMARY | 2025-01-15 10:19 | XMS_ITS | Clinical Summary ---
Author Organization [facility] Address [address] [place] [address] Care Team Providers Care Employee Relations Consultant Name Role Phone Dipika Casas MD Primary Care Provider [phone] Allergies No known active allergies Medications Medication [...] age to complete this topic Care Teams Employee Relations Consultant Relationship Specialty Start Date End Date Dipika Casas MD [address] [facility] [place] [address] PCP - General Clinical Account Specialist 11/18/18
--- OUTSIDE RECORDS SUMMARY | 2025-01-15 10:20 | XMS_ITS | Encounter Summary ---
Author Organization [facility] Address [address] [address] Phone Care Team Providers Care Waterworks Employee Name Role Phone Dipika Casas MD Primary Care Provider [phone] Encounter Details Date Type Department Care Team (Late Contact Info) Description 12/22/2024 Office Communication [facility] [address] [place] [phone] Keyonna Shah ARNP [address] [address] Social History Tobacco Use Types Packs/Day Years [...] Encounters Date Type Department Care Team (Late Contact Info) Description 06/21/2025 1:30 PM EDT Office Visit [facility] [address] [address] Keyonna Shah ARNP [address] [address] documented as of this encounter Visit Diagnoses Not on filedocumented in this encounter Care Teams Waterworks Employee Relationship Specialty Start Date End Date Dipika Casas MD [facility] [place] [address] PCP - General 10/14/20 documented as of this encounter
--- OUTSIDE RECORDS SUMMARY | 2025-01-15 10:20 | XMS_ITS ---
Author Organization [facility] Demetria floyd Pierre Address [address] [facility] [place] [address] Care Team Providers Care Wallboard Worker Name Role Phone Dipika Casas MD Primary Care Provider Clarisse Mckeon Unavailable [phone] Cesar Hackett Unavailable [phone] Allergies No Known Allergies REASON FOR VISIT [...] 08/03/2024 Encounters Encounter Location Date Provider Diagnosis [facility] [place] [address] [place] [address] 08/03/2024 Cesar Hackett Type 1 diabetes mellitus [...] Reason: Provider Name:Clarisse caputo, 03/07/2025 01:30:00 PM, [address] [place] [address], [phone], Procedure Notes * Category Sub-Category Detail Notes [...] as necessary. Patient chooses, no pharmaceutical tx (34954) Keratoma Treatment Parring or Cutting o f Benign Hyperkeratotic Lesion(s) 48239 (2-4 Lesions) - The Benign hyperkeratotic lesions, as described above were pared, and/or cut utilizing a sterile #15 blade, tissue nippers, and/or dremel Progress Notes * Penny MEMBRENODOB:1945 (79 yo F)Acc No.[id number]:08/03/2024 Progress Note Patient:?Penny MEMBRENO Provider:?Cesar Hackett DPM :1945???Age:79 Y???Sex:Female D ate:08/03/2024 Address:[address] [place] [address] [address] [facility] Pcp:Dipika Casas MD Subjective: * Chief Complaints: [...] ?Exercise: no. ?Marital status: . ?Occupation: Retired/ [employer]. * Medications:?TakingMetoprolo l Succinate ER 25 [...] as necessary. Patient chooses, no pharmaceutical tx (98546).?Keratoma Treatment:?Parring or Cutting of Benign Hyperkeratotic Lesion(s)?03434 (2-4 Lesions) - The Benign hyperkeratotic lesions, as described above were pared, and/or cut utilizing a sterile #15 blade, tissue nippers, and/or dremel.? * Procedure Codes:?77451 TRIM SKIN LESIONS, 2 TO 4, Modifiers: XS 97347 DEBRIDE NAIL, 6 OR MORE, Modifiers: XS * Follow Up:?3 Months * Images: * Sign off status: Completed true * Provider:?Cesar Hackett DPM Date:? 024 Generated for Printi ng/Fanasimg/eTransmitting on:?01/15/2025 10:20 AM EDT History and Physical Notes * [...]
== END 2025-01-15 09:19 | disposition home or self-care (01) ==
LOC: HO.HMGCX 09:18
PROVIDERS: PCP Internal Medicine; Visit Provider Internal Medicine
DX: R05.9 Cough, unspecified (principal)
CPT/HCPCS: 71046

== ENCOUNTER → 2025-01-15 09:22 | Outpatient (BNV) | payer MEDICARE, SELFPAY | PROVIDERS: PCP Internal Medicine; Visit Provider Radiology Diagnostic Radiology | DX: R05.9 Cough, unspecified (principal) | CPT/HCPCS: 71046 ==

== ENCOUNTER 2025-01-17 12:41 | Outpatient (AMB) | payer MEDICARE, SELFPAY ==
[2025-01-17 12:48] VITALS: BP 124/74; PULSE 72; RESP 18; TEMP 36.7; O2SAT 96; BMI 27.9
--- NOTE | 2025-01-17 12:48 | A.OFFPC_ITS ---
Vital Signs 01/17/25 12:48 Height 5 ft 6 in Weight 173 lb BMI 27.9 BP 124/74 Blood Pressure Location Lt brachial Position Sitting Respiration 18 Pulse 72 Pulse Source Pulse Oximeter Temp 98.0 F Temp Source Oral Pulse Oximetry (%) 96 Oxygen Delivery Method Room Air Intake Visit Reasons: 1m follow up - see comments Intake Note: Pt is here today for 1 month follow up visit. Allergies lisinopril Allergy (Intermediate, Verified 01/17/25 12:48) Hyperkalemia nitrofurantoin [Macrobid] Adverse Reaction (Intermediate, Verified 01/17/25 12:48) dizziness Medication List - Last Reconciled 01/17/25 by Dipika Casas MD acetaminophen 500 mg PO BID PRN apixaban (Eliquis) 5 mg PO BID atorvastatin 20 mg PO DAILY blood sugar diagnostic As directed blood sugar diagnostic (FreeStyle Lite Strips) Test blood sugar TID budesonide DR-ER 3 mg PO DAILY cephalexin 500 mg PO BID cholecalciferol (vitamin D3) 50 mcg PO DAILY dapagliflozin propanediol (Farxiga) 10 mg PO QAM insulin glargine (Lantus Solostar U-100 Insulin) 20 units subcut QAM isosorbide mononitrate ER 30 mg PO DAILY lancets (FreeStyle Lancets) Test up to 3 times per day Lantus Solostar U-100 Insulin (insulin glargine) 20 units (0.2 mL) subcut QAM NS levothyroxine 125 mcg PO DAILY metoprolol succinate ER 25 mg (1/2 x 50 mg) PO BID omeprazole 20 mg PO DAILY pen needle, diabetic (BD Ultra-Fine Mini Pen Needle) Use to inject insulin once a day sertraline 75 mg (1.5 x 50 mg) PO DAILY Spiriva with HandiHaler (tiotropium bromide) 1 cap inhalation DAILY NS vit C,J-Qf-gcpjm-lutein-zeaxan 250-90-40-1 mg (PreserVision AREDS-2) 1 tab PO BID Tobacco use date assessed: 01/17/25 Dental Screening Dental Screen Date: 12/11/24 HPI 1m follow up - see comments HPI Details Pt presents for DM 2, hyperlipid, COPD, paroxysmal A fib stable on meds. Patient reports improved blood glucose control between 100-130 before meals. Patient has been taking 20 units of Lantus and Farxiga. COPD stable on Spiriva. Patient has not been physically active but denies any recurrent exertional chest pain, palpitations PND or orthopnea. She has a stress test scheduled in February. [facility] Medical History Non-ST elevation GA (NSTEMI) Hyperkalemia CKD (chronic kidney disease), stage III Cataract Vitamin D deficiency DM type 2 (diabetes mellitus, type 2) Hypothyroidism Hyperlipemia Paroxysmal atrial fibrillation Cardiac pacemaker in situ Complete heart block Surgical History Pacemaker battery depletion Hx of bilateral mastectomy History of permanent cardiac pacemaker placement History of tonsillectomy and adenoidectomy History of hip surgery Hx of cardiac cath Family History Father Cancer Mother Diabetes Social History Housing: House Are you a primary post anesthesia care unit nurse to a significant other at home: No (was caring for , now he is in [place]) Do you presently have visiting nurse or other home services: No Alcohol intake: never Patient Tobacco Use Status: Former Tobacco user Tobacco use type: Cigarette e-Cigarette/Vaping Use: Never Used Advance Directives Date on File: 02/16/22 service: No Current occupational status: retired Cognitive needs: No Hearing needs: No Vision needs: Yes Questionnaire Thrive Questionnaire Date Thrive assessed: 01/17/25 I am a: Patient What is your living situation today?: I have a steady place to live Within the past 12 months, did the food you bought not last and you didn't have the money to get more?: Never true Within the past 12 months, did you worry whether your food would run out before you got money to buy more?: Never true Do you have trouble paying for medicines?: No Do you have trouble getting transportation to medical appointments?: No Do you have trouble paying your heating and electricity bill?: No Do you have trouble taking care of your child, family member or friend?: No Do you have trouble with day-to-day activities such as bathing, preparing meals, shopping, managing finances, etc.?: No Are you currently unemployed and looking for a job?: No Are you interested in more education?: No Please select the resources that you would like help with: None Currently or been in a relationship where the following occur: No concerns reported THRIVE Score: 0 LEON-7 AMB Questionnaire LEON-7 Date LEON - 7 assessed: 12/11/24 Source: Developed by Drs. Star Vitale, Grace Sprague, Ham Landrum and colleagues, with an educational gaston from [employer]. Review of Systems Const All systems reviewed & are unremarkable except as noted in HPI and below Eyes Reports no additional complaints ENT Reports no additional complaints Card Reports no additional complaints Resp Reports no additional complaints GI Reports no additional complaints Reports no additional complaints Physical exam (Primary Care) Vital Signs: Last Vital Signs Temp 98.0 F 01/17/25 12:48 Pulse 72 01/17/25 12:48 Resp 18 01/17/25 12:48 BP 124/74 01/17/25 12:48 Pulse Ox 96 01/17/25 12:48 Oxygen Delivery Method Room Air 01/17/25 12:48 BMI result Body Mass Index 27.9 Tobacco/Smoking Status: Tobacco use Status Tobacco use date assessed 01/17/25 01/17/25 12:49 Patient Tobacco Use Status Former Tobacco user 01/17/25 12:49 Tobacco use type Cigarette 01/17/25 12:49 e-Cigarette/Vaping Use Never Used 01/17/25 12:49 Thrive Assessment: Date of Thrive Assessment Date Thrive assessed 01/17/25 01/17/25 13:11 Currently or been in a relationship where the following occur: No concerns reported Const General: no acute distress HENMT Head: Yes normal to inspection Face and sinus: Yes normal facial exam Mouth: Normal oral and palatal mucosa present Eyes General: appearance normal, both eyes and all related structures Neck Neck: Yes supple Resp Effort & Inspection: normal respiratory effort Auscultation: clear to auscultation bilaterally Cardio Rhythm: regular rhythm Heart sounds: S1 normal heart sound present and S2 normal heart sound present GI Inspection: Yes normal to inspection Palpation (GI): Soft to palpation Percussion: Yes normal to percussion Auscultation: normal bowel sounds Immunizations pneumoc 20-tc conj-dip cr(PF) 0.5 mL IM syringe Performing Provider: Dipika Casas MD Performing Location: [facility] Administered by: JASON Mondragon on 01/17/25 13:47 Dose Route Admin Location Dispensed Lot Number Expiration Date NDC Casualty Claims Supervisor 0.5 mL IM Left Deltoid 0.5 mL [id number] 12/01/25 [id number] [employer]ZER VIS Given Date VIS Provided VIS Publication Date 01/17/25 Single Vaccine 21 Eligibility Eligibility Date Funding Source Not [facility] Eligible 01/17/25 Private Coding Level of Care Code Est Pt Level 4 (65167) Complex EM visit Add On G2211 Diagnoses Hyperlipemia E78.5 Hypothyroidism E03.9 DM type 2 (diabetes mellitus, type 2) E11.9 Vitamin D deficiency E55.9 CKD (chronic kidney disease), stage III N18.30 Assessment & Plan Assessment & Plan (1) Hyperlipemia: Code(s): E78.5 - Hyperlipidemia, unspecified Category: Medical Plan: Continue Lipitor (2) Hypothyroidism: Code(s): E03.9 - Hypothyroidism, unspecified Category: Medical Plan: Continue levothyroxine (3) DM type 2 (diabetes mellitus, type 2): Code(s): E11.9 - Type 2 diabetes mellitus without complications Category: Medical Plan: Continue current medications, ADA diet increase physical activity follow-up in 2 months with a fasting labs before (4) Vitamin D deficiency: Code(s): E55.9 - Vitamin D deficiency, unspecified Category: Medical Plan: Continue vitamin-D supplement (5) CKD (chronic kidney disease), stage III: Code(s): N18.30 - Chronic kidney disease, stage 3 unspecified Category: Medical Plan: Avoid nephrotoxins monitor renal function Orders: Orders Microalbumin, Random (w Creat) 2 Months E03.9 - Hypothyroidism, unspecified, E11.9 - Type 2 diabetes mellitus without complications, E55.9 - Vitamin D deficiency, unspecified, E78.5 - Hyperlipidemia, unspecified, N18.30 - Chronic kidney disease, stage 3 unspecified Pneumococcal 20 Immunization Today Z23 - Encounter for immunization Hemoglobin A1c 2 Months E03.9 - Hypothyroidism, unspecified, E11.9 - Type 2 diabetes mellitus without complications, E55.9 - Vitamin D deficiency, unspecified, E78.5 - Hyperlipidemia, unspecified, N18.30 - Chronic kidney disease, stage 3 unspecified Comprehensive [place]. Panel Fast 2 Months E03.9 - Hypothyroidism, unspecified, E11.9 - Type 2 diabetes mellitus without complications, E55.9 - Vitamin D deficiency, unspecified, E78.5 - Hyperlipidemia, unspecified, N18.30 - Chronic kidney disease, stage 3 unspecified Complete Blood Count Auto Diff 2 Months E03.9 - Hypothyroidism, unspecified, E11.9 - Type 2 diabetes mellitus without complications, E55.9 - Vitamin D deficiency, unspecified, E78.5 - Hyperlipidemia, unspecified, N18.30 - Chronic kidney disease, stage 3 unspecified Lipid Panel 2 Months E03.9 - Hypothyroidism, unspecified, E11.9 - Type 2 diabetes mellitus without complications, E55.9 - Vitamin D deficiency, unspecified, E78.5 - Hyperlipidemia, unspecified, N18.30 - Chronic kidney disease, stage 3 unspecified Vitamin D 25-OH Total 2 Months E03.9 - Hypothyroidism, unspecified, E11.9 - Type 2 diabetes mellitus without complications, E55.9 - Vitamin D deficiency, unspecified, E78.5 - Hyperlipidemia, unspecified, N18.30 - Chronic kidney disease, stage 3 unspecified Medications: Discontinued insulin glargine (Lantus Solostar U-100 Insulin) Discontinued Reason: Doctor's Order 20 units subcut QAM
--- OUTSIDE RECORDS SUMMARY | 2025-01-17 15:01 | XMS_ITS | Clinical Summary ---
Author Organization [facility] Address [address] [place] [address] Care Team Providers Care Child Life Therapist Name Role Phone Dipika Casas MD Primary Care Provider [phone] Allergies No known active allergies Medications Medication [...] age to complete this topic Care Teams Child Life Therapist Relationship Specialty Start Date End Date Dipika Casas MD [address] [facility] [place] [phone] PCP - General Director Of Rooms 11/18/18
--- OUTSIDE RECORDS SUMMARY | 2025-01-17 15:01 | XMS_ITS | Clinical Summary ---
Author Organization [address] Address [address] [place] [phone] Phone Care Team Providers Care Material Expediter Name Role Phone Dipika Casas MD Primary Care Provider [phone] Allergies No known active allergies Medications atorvastatin [...] overla pping sites of right female breast ([facility] V24, [facility] V28) 11/18/2018 Encounters Date Type Department Care Team Description 01/09/2025 Telephone Gastroenterology - [address] [place] [address] Cm Agee MD 01/05/2025 Telephone Gastroenterology - [address] [place] [address] Cm Agee MD PROVIDER CALL BACK from Last 3 Months Medical History Medical History Date Comments Breast cancer ([facility] V24, [facility] V28) DX:Breast cancer (HCC);COMMENT:Right-sided stage 1 TicNo invasive breast cancer Diabetes mellitus ([facility] V 24, [facility] V28) DX:Diabetes mellitus (HCC) Disease of thyroid [...] PM EDT Office Visit Gastroenterology - [address] [place] [address] Abhijeet Mitchell PA [address] [address] 05/29/2025 2:00 PM EDT Office Visit [facility] Hematology Oncology [address] [place] [address] Danilo Minor MD [address] [place] [address] Health Maintenance Due Date Last [...] type Other ulcerative colitis with other complication ([facility] V24, [facility] V28) from Last 3 Months Results * Gastrointestinal pathogens molecular study (01/10/2025 10:42 AM EDT) Campylobacter Detection by PCR Not Detected Not Detected LAB MICROBIOLOGY METHOD 5 2:40 PM EDT [facility] Plesiomonas shigelloides Detection by PCR Not Detected Not Detected LAB MICROBIOLOGY METHOD 5 2:40 PM EDT [facility] Salmonella Detection by PCR Not Detected Not Detected LAB MICROBIOLOGY METHOD 5 2:40 PM EDT [facility] Vibrio Detection by PCR Not Detected Not Detected LAB MICROBIOLOGY METHOD 5 2:40 PM EDT [facility] Vibrio cholerae Detection by PCR Not Detected Not Detected LAB MICROBIOLOGY METHOD 5 2:40 PM EDT [facility] Yersinia enterocolitica Detection by PCR Not Detected Not Detected LAB MICROBIOLOGY METHOD 5 2:40 PM EDT [facility] Enteroaggregative E coli EAEC Detection by PCR Not Detected Not Detected LAB MICROBIOLOGY METHOD 5 2:40 PM EDT [facility] Enteropathogenic E coli EPEC Detection Not Detected Not Detected LAB MICROBIOLOGY METHOD 5 2:40 PM EDT [facility] Enterotoxigenic E coli ETEC LTST Detection Not Detected Not Detected LAB MICROBIOLOGY METHOD 5 2:40 PM EDT [facility] Shiga-like toxin producing E coli STEC STX1 STX2 Det Not Detected Not Detected LAB MICROBIOLOGY METHOD 5 2:40 PM EDT [facility] Shigella Enteroinvasive E coli EIEC Detection Not Detected Not Detected LAB MICROBIOLOGY METHOD 5 2:40 PM EDT [facility] Cryptosporidium Detection by PCR Not Detected Not Detected LAB MICROBIOLOGY METHOD 5 2:40 PM EDT [facility] Cyclospora cayetanensis Detection by PCR Not Detected Not Detected LAB MICROBIOLOGY METHOD 5 2:40 PM EDT [facility] Entamoeba histolytica Detection by PCR Not Detected Not Detected LAB MICROBIOLOGY METHOD 5 2:40 PM EDT [facility] Giardia lamblia Detection by PCR Not Detected Not Detected LAB MICROBIOLOGY METHOD 5 2:40 PM EDT [facility] Adenovirus F 40 41 Detection by PCR Not Detected Not Detected [facility] Astrovirus Detection by PCR Not Detected Not Detected LAB MICROBIOLOGY METHOD 5 2:40 PM EDT [facility] Norovirus GI GII Detection by PCR Not Detected LAB MICROBIOLOGY METHOD 5 2:40 PM EDT [facility] Sapovirus Detection by PCR Not Detected Not Detected LAB MICROBIOLOGY METHOD 5 2:40 PM EDT [facility] Rotavirus A Detection by PCR Not Detected Not Detected LAB MICROBIOLOGY METHOD 5 2:40 PM EDT [facility] Stool Rectum structure / Unknown Non-blood Collection / Unknown 01/10/2025 10:42 AM EDT 01/10/2025 12:27 PM EDT N[facility]ative [facility] - 01/10/2025 2:40 PM EDT [...] us Cm Agee MD LAB MICROBIOLOGY - [facility] Result [facility] [place] ([facility]) [facility] [address] [place] [address], from Last 3 Months Insurance [place] [id number] [employer] Care Teams Material Expediter Relationship Specialty Start Date End Date Dipika Casas MD [address] [facility] [place] [phone] PCP - General Internal Medicine 01/10/25
--- OUTSIDE RECORDS SUMMARY | 2025-01-17 15:01 | XMS_ITS | Clinical Summary ---
Author Organization [facility] Address [address] [address] Phone Care Team Providers Care Licensed Insurance Sales Agent Name Role Phone Dipika Casas MD Primary Care Provider Allergies Active Allergy Reactions Criticality Noted Date [...] Office Communication [facility] [address] [phone] Keyonna Shah ARNP 12/19/2024 1:30 PM EDT Office Visit [facility] [address] [address] Keyonna Shah ARNP Stage 3a chronic kidney disease (HCC) (Primary Dx); Hypertension; Vitamin D deficiency, not otherwise specified; Secondary hyperparathyroidism of renal origin (HCC) 12/02/2024 Orders Only [facility] [address] [address] Keyonna Shah ARNP Chronic kidney disease, stage [...] Office Visit [facility] [address] [address] Keyonna Shah ARNP [address] [phone] Health Maintenance Due Date Last Done Comments [...] Associated Diagnosis Comments BASIC METABOLIC PANEL Routine 01/16/2025 11:14 AM EDT Stage 3a chronic kidney disease (HCC) BASIC METABOLIC PANEL Routine 01/02/2025 11:27 AM [...] Maintenance Results * (ABNORMAL) Basic metabolic panel (01/16/2025 11:14 AM EDT) Only the most recent of2 resultswithin the time period is included. [facility] Glucose 89 70 - 99 mg/dL [facility] BUN 20 8 - 27 mg/dL [facility] Creatinine 1.25(H) 0.57 - 1.00 mg/dL [facility] eGFR CKD-EPI CR 2020 43(L) >59 mL/min/1.7 3 [facility] BUN/Creatinine Ratio 16 12 - 28 [facility] Sodium 145(H) 134 - 144 mmol/L [facility] Potassium 4.1 3.5 - 5.2 mmol/L [facility] Chloride 108(H) 96 - 106 mmol/L [facility] Bicarbonate (CO2) 20 20 - 29 mmol/L [facility] Calcium 9.0 8.7 - 10.3 mg/dL [facility] Blood (Blood, Venous) 01/16/2025 11:14 AM EDT 01/16/2025 [facility] LAB BLOOD ORDERABLES Final Result Performing Organization Address City/[facility]/ZIP Co de Phone Number [facility] [place] [address] [place] [address] * Urine Protein / creatinine ratio (12/21/2024 10:53 AM EDT) Creatinine, Ur 80.8 Not Estab. mg/dL [facility] Protein, Ur 9.7 Not Estab. mg/dL [facility] [place] [facility] Urine Protein/Creatin ine Ratio 120 0 - 200 mg/g creat [facility] [place] [facility] Urine (Urine, Clean Catch) 12/21/2024 10:53 AM EDT 12/21/2024 [facility] LAB URINE ORDERABLES Final Result Performing Organization Address City/[facility]/ZIP Co de Phone Number [facility] [place] [address] [place] [address] * CBC (12/21/2024 10:53 AM EDT) WBC 5.8 3.4 - 10.8 x10E3/uL [facility] [place] RBC 4.69 3.77 - 5.28 x10E6/uL [facility] [place] [facility] Hemoglobin 13.7 11.1 - 15.9 g/dL [facility] [place] Hematocrit 43.0 34.0 - 46.6 % [facility] MCV 92 79 - 97 fL [facility] [place] MCH 29.2 26.6 - 33.0 pg [facility] [place] MCHC 31.9 31.5 - 35.7 g/dL [facility] [place] RDW 15.2 11.7 - 15.4 % [facility] [place] [facility] Platelets 196 150 - 450 x10E3/uL [facility] [place] [facility] Blood (Blood, Venous) 12/21/2024 10:53 AM EDT 12/21/2024 Key[facility] LAB BLOOD ORDERABLES Final Result Performing Organization Address City/[facility]/ZIP Co de Phone Number [facility] [place] [address] [place] [phone] * (ABNORMAL) PTH, intact (12/21/2024 10:53 AM EDT) PTH 126(H) 15 - 65 pg/mL [facility] [place] [facility] Blood (Blood, Venous) 12/21/2024 10:53 AM EDT 12/21/2024 [facility] LAB BLOOD ORDERABLES Final Result [facility] [address] [place] [address] * (ABNORMAL) Renal function panel (12/21/2024 10:53 AM EDT) Glucose 188(H) 70 - 99 mg/dL [facility] [place] [facility] BUN 23 8 - 27 mg/dL [facility] Sodium 140 134 - 144 mmol/L [facility] Potassium 5.3(H) 3.5 - 5.2 mmol/L [facility] [place] [facility] Chloride 105 96 - 106 mmol/L [facility] Calcium 9.4 8.7 - 10.3 mg/dL [facility] [place] [facility] Albumin 4.1 3.7 - 4.7 g/dL [facility] Creatinine 1.48(H) 0.57 - 1.00 mg/dL [facility] [place] eGFR CKD-EPI CR 2020 35(L) >59 mL/min/1.7 3 [facility] [place] [facility] BUN/Creatinine Ratio 16 12 - 28 [facility] Bicarbonate (CO2) 18(L) 20 - 29 mmol/L [facility] [place] [facility] Phosphorus 3.6 3.0 - 4.3 mg/dL [facility] [place] Blood (Blood, Venous) 12/21/2024 10:53 AM EDT 12/21/2024 Keyonna Pablo [facility] BLOOD ORDERABLES Final Result [facility] [address] [place] [address] * (ABNORMAL) Hemoglobin A1c (06/16/2023 2:24 PM EDT) Hemoglobin A1C 7.6(H) (4.0-5.6) % [facility] Comment: MONITORING: In known diabetic patients, hemoglobin A1c targets should be discussed with health care provider. DIAGNOSTIC USE: ??The [place] Diabetes [employer] (ADA) and the World Health [...] Supplement 1 Testing performed or reported by [facility], a Service of [facility], [address] [place] [id number] Randall Hamilton MD, [employer] [facility]# [id number] Blood (Blood, Venous) 06/16/2023 2:24 PM EDT 06/16/2023 2:25 PM EDT Raheem Steele MD LAB BLOOD ORDERABLES Final Re sult [facility] from Last 3 Months or Most Recently Relevant to Health Maintenance Insurance [facility] Care Teams Licensed Insurance Sales Agent Relationship Specialty Start Date End Date Dipika Casas MD [place] [address] PCP - General 10/14/20
--- OUTSIDE RECORDS SUMMARY | 2025-01-17 15:01 | XMS_ITS ---
Author Organization [facility] Demetria floyd Pierre Address [address] [place] [address] Care Team Providers Care Manufacturing Coordinator Name Role Phone Dipika Casas MD Primary Care Provider Unavaila Clarisse Mckeon Unavailable [phone] Purnima Steward Unavailable [phone] Allergies Allergen (clinical drug ingredient) Drug/Non Drug [...] Problem Acquired hammer toe of right foot (9711705984209 105) Other hammer toe(s) (acquired), right foot (M20.41) Active confirmed Problem Acquired hammer toe of left foot (9244726188397 103) Other hammer toe(s) (acquired), left foot (M20.42) Active confirmed Vital Signs Height 5ft 6in in 11/21/2024 Weight 155 lbs 11/21/2024 BMI 25.01 kg/m2 11/21/2024 Blood pressure systolic 121 mm Hg 11/21/19 25 Blood pressure diastolic 80 mm Hg 025 Encounters Encounter Location Date Provider Diagnosis [facility] [address] [address] 11/21/2024 Purnima Steward Type 1 diabetes mellitus [...] Reason: Provider Name:Clarisse caputo, 03/07/2025 01:30:00 PM, [address] [place] [address], [phone], Procedure Notes * Category Sub-Category Detail Notes [...] use of a nail nipper and/or dremel-type white lead grinder, to a more viable healthy nail plate [...] to maintain effectiveness in symptomatic relief - 32652 Keratoma Treatment Parring or Cutting o f [...] instrumentation by the physician of record - 81806 Progress Notes * Penny MEMBRENODOB:1945 (79 yo F)Acc No.[id number]:11/21/2024 Progress Note Patient:?Penny MEMBRENO Provider:?Purnima Steward DPM :1945???Age:79 Y???Sex:Female D ate:11/21/2024 Address:[address] [place], [place] [address], [place] Pcp:Dipika Casas MD Subjective: * Chief Complaints: [...] ?Exercise: no. ?Marital status: . ?Occupation: Retired/ [employer]. * Medications:?Elizabeth Bey Ciclopirox Olamine 0.77 [...] use of a nail nipper and/or dremel-type white lead grinder, to a more viable healthy nail plate [...] to maintain effectiveness in symptomatic relief - 24587.?Keratoma Treatment:?Parring or Cutting of Benign Hyperkeratotic Lesion(s)?(-57) [...] instrumentation by the physician of record - 62928.? * Procedure Codes:?53112 DEBRI DE NAIL, 6 OR MORE, Modifiers: XS 73530 TRIM SKIN LESIONS, OVER 4, Modifiers: XS [...] Steward DPM Date:? Generated for Santiago garcia/Terrell/Darrel on:?01/17/2025 03:00 PM EDT History and Physical Notes * [...]
--- OUTSIDE RECORDS SUMMARY | 2025-01-17 15:01 | XMS_ITS ---
[facility] floyd [place]on Address [address] [place] [address] Care Team Providers Care Digital Photo Printer Name Role Phone Dipika Casas MD Primary Care Provider UnavailClarisse Cote Unavailable [phone] Gan Medications Medication [...] Active Encounters Encounter Location Date Provider Diagnosis [facility] [address] [place] [address] 11/08/2024 Clarisse Cheung Plan Of Treatment Next Appt Details Provider Name:Clarisse Adrian harshal, 03/07/2025 01:30:00 PM, [address] [place] [address], [phone], Progress Notes * Penny MEMBRENODOB:1945 (79 yo F)Acc No.[id number]:11/08/2024 Progress Note Patient:?Penny MEMBRENO Provider:?Clarisse Cheung DPM :1945???Age:79 Y???Sex:Female D ate:11/08/2024 Address:[address] [place] [address], [place] Pcp:Dipika Casas MD Subjective: * Chief Complaints: [...] DPM Date:?0 11/08/2024 Generated for Santiago garcia/Terrell/Darrel on:?01/17/2025 03:01 PM EDT
--- OUTSIDE RECORDS SUMMARY | 2025-01-17 15:02 | XMS_ITS | Patient Health Record ---
Author Organization [facility] Demetria floyd Pierre Address [address] [place] [address] Care Team Providers Care Electrician Substation Supervisor Name Role Phone Dipika Casas MD Primary Care Provider Clarisse Mckeon Unavailable [phone] Cesar Hackett Unavailable [phone] Purnima Steward Unavailable [phone] Allergies Allergen (clinical drug ingredient) Drug/Non Drug [...] Problem Acquired hammer toe of right foot (5087589359357313 ) Other hammer toe(s) (acquired), right foot (M20.41) Active confirmed Problem Acquired hammer toe of left foot (7675198073673759 ) Other hammer toe(s) (acquired), left foot (M20.42) Active confirmed Problem Polyneuropathy due to type 2 diabetes mellitus (577211163) Type 2 diabetes mellitus with diabetic polyneuropathy (E11.42) Active confirmed Problem Polyneuropathy due to diabetes mellitus type I (640732631) Type 1 diabetes mellitus with diabetic polyneuropathy (E10.42) Active confirmed Vital Signs Blood pressure diastolic 80 mm Hg 11/21/2024 Height 5ft 6in in 11/21/2024 Blood pressure systolic 121 mm Hg 11/21/2024 Weight 155 lbs 11/21/2024 BMI 25.01 kg/m2 11/21/2024 Encounters Encounter Location Date Provider Diagnosis [address] [address] 2024 Cesar Hackett Type 1 diabetes mellitus with diabetic polyneuropathy E10.42 ; Tinea unguium B35.1 ; Skin disease L98.9 ; Tinea pedis B35.3 ; Pain in right toe(s) M79.674 and Pain in left toe(s) M79.[address] [address] 05/01/2024 Cesar Hackett Type 1 diabetes mellitus with diabetic polyneuropathy E10.42 ; Tinea unguium B35.1 ; Skin disease L98.9 ; Tinea pedis B35.3 ; Pain in right toe(s) M79.674 and Pain in left toe(s) M79.[address] [address] 08/03/2024 Cesar Hackett Type 1 diabetes mellitus with diabetic polyneuropathy E10.42 ; Tinea unguium B35.1 ; Skin disease L98.9 ; Tinea pedis B35.3 ; Pain in right toe(s) M79.674 and Pain in left toe(s) M79.[address] [address] 11/21/2024 Purnima Steward Type 1 diabetes mellitus [...] Treatment Pending Test Test Name Order Date 52734-IKXF SKIN LESIONS, 2 TO 4 07/16/20 97963-MHVJ SKIN LESIONS, 2 TO 4 10/29/19 [id number] DYSTROPHIC NAILS ANY # Next Appt Details Provider Name:Clarisse caputo, 03/07/2025 01:30:00 PM, [address] [place] [address], [phone], Insurance Providers Payer Name Payer Address Payer Phone Subscriber Number Group Number Insured Name Patient Relationship to Insured Coverage Start Date Coverage End Date [facility] [address] [place] [address] [id number] Penny Greenwood Self - patient is the [...]
--- OUTSIDE RECORDS SUMMARY | 2025-01-17 15:02 | XMS_ITS ---
Author Organization [facility] Demetria floyd Pierre Address [address] [facility] [place] [address] Care Team Providers Care Station Usher Name Role Phone Dipika Casas MD Primary Care Provider Clarisse Mckeon Unavailable [phone] Cesar Hackett Unavailable [phone] Allergies No Known Allergies REASON FOR VISIT [...] 08/03/2024 Encounters Encounter Location Date Provider Diagnosis [facility] [address] [place] [address] 08/03/2024 Cesar Hackett Type 1 diabetes mellitus [...] Reason: Provider Name:Clarisse caputo, 03/07/2025 01:30:00 PM, [address] [place] [address], [phone], Procedure Notes * Category Sub-Category Detail Notes [...] as necessary. Patient chooses, no pharmaceutical tx (67951) Keratoma Treatment Parring or Cutting o f Benign Hyperkeratotic Lesion(s) 65866 (2-4 Lesions) - The Benign hyperkeratotic lesions, as described above were pared, and/or cut utilizing a sterile #15 blade, tissue nippers, and/or dremel Progress Notes * Penny MEMBRENODOB:1945 (79 yo F)Acc No.[id number]:08/03/2024 Progress Note Patient:?Penny MEMBRENO Provider:?Cesar Hackett DPM :1945???Age:79 Y???Sex:Female D ate:08/03/2024 Address:[address] [place] [address] [place] [facility] Pcp:Dipika Casas MD Subjective: * Chief Complaints: [...] ?Exercise: no. ?Marital status: . ?Occupation: Retired/ [employer]. * Medications:?TakingMetoprolo l Succinate ER 25 [...] as necessary. Patient chooses, no pharmaceutical tx (25410).?Keratoma Treatment:?Parring or Cutting of Benign Hyperkeratotic Lesion(s)?34029 (2-4 Lesions) - The Benign hyperkeratotic lesions, as described above were pared, and/or cut utilizing a sterile #15 blade, tissue nippers, and/or dremel.? * Procedure Codes:?30761 TRIM SKIN LESIONS, 2 TO 4, Modifiers: XS 56033 DEBRIDE NAIL, 6 OR MORE, Modifiers: XS * Follow Up:?3 Months * Images: * Sign off status: Completed true * Provider:?Cesar Hackett DPM Date:? 024 Generated for Printi ng/Fanasimg/eTransmitting on:?01/17/2025 03:01 PM EDT History and Physical Notes * [...]
--- OUTSIDE RECORDS SUMMARY | 2025-01-17 15:02 | XMS_ITS | Encounter Summary ---
Author Organization [facility] Address [address] [address] Phone Care Team Providers Care Line Decorator Name Role Phone Dipika Casas MD Primary Care Provider [phone] Encounter Details Date Type Department Care Team (Late Contact Info) Description 12/22/2024 Office Communication [facility] [address] [place] [address] Keyonna Shah ARNP [address] [address] Social History Tobacco Use Types [...] Office Visit [facility] [address] [address] Keyonna Shah ARNP [address] [address] documented as of this encounter Visit Diagnoses Not on filedocumented in this encounter Care Teams Line Decorator Relationship Specialty Start Date End Date Dipika Casas MD [facility] [place] [address] PCP - General 10/14/20 documented as of this encounter
== END 2025-01-17 13:51 | disposition home or self-care (01) ==
LOC: HO.HMCC 12:42
PROVIDERS: PCP Internal Medicine; Visit Provider Internal Medicine
DX: E11.22 Type 2 diabetes mellitus with diabetic chronic kidney disease (principal); N18.30 Chronic kidney disease, stage 3 unspecified; E78.5 Hyperlipidemia, unspecified; E03.9 Hypothyroidism, unspecified; E55.9 Vitamin D deficiency, unspecified; Z23 Encounter for immunization

== ENCOUNTER → 2025-01-17 12:41 | Outpatient (BNVA) | payer MEDICARE, SELFPAY | PROVIDERS: PCP Internal Medicine; Visit Provider Internal Medicine | DX: E78.5 Hyperlipidemia, unspecified (principal); Z23 Encounter for immunization; E03.9 Hypothyroidism, unspecified; E11.22 Type 2 diabetes mellitus with diabetic chronic kidney disease; N18.30 Chronic kidney disease, stage 3 unspecified; E55.9 Vitamin D deficiency, unspecified; J44.9 Chronic obstructive pulmonary disease, unspecified; I48.0 Paroxysmal atrial fibrillation; Z79.4 Long term (current) use of insulin; Z79.899 Other long term (current) drug therapy | CPT/HCPCS: 90471; 90677; 99212 ==

== ENCOUNTER 2025-01-18 13:00 | Outpatient (AMB) | payer MEDICARE, SELFPAY ==
--- NOTE | 2025-01-18 13:33 | A.OFFVIS_ITS ---
Vital Signs 01/18/25 13:42 Height 5 ft 8 in Weight 174 lb 2.643 oz BMI 26.5 BP 120/76 Blood Pressure Location Lt brachial Position Sitting Pulse 66 Intake Visit Reasons: 6m follow up/[facility] Intake Note: 6 month follow-up with [facility] feeling good Electrical Integrator Required: No Allergies lisinopril Allergy (Intermediate, Verified 01/17/25 12:48) Hyperkalemia nitrofurantoin [Macrobid] Adverse Reaction (Intermediate, Verified 01/17/25 12:48) dizziness Medication List - Last Reconciled 01/18/25 by Prosper Brown MD acetaminophen 500 mg PO BID PRN apixaban (Eliquis) 5 mg PO BID atorvastatin 20 mg PO DAILY blood sugar diagnostic As directed blood sugar diagnostic (FreeStyle Lite Strips) Test blood sugar TID budesonide DR-ER 3 mg PO DAILY cephalexin 500 mg PO BID cholecalciferol (vitamin D3) 50 mcg PO DAILY dapagliflozin propanediol (Farxiga) 10 mg PO QAM isosorbide mononitrate ER 30 mg PO DAILY lancets (FreeStyle Lancets) Test up to 3 times per day Lantus Solostar U-100 Insulin (insulin glargine) 20 units (0.2 mL) subcut QAM NS levothyroxine 125 mcg PO DAILY metoprolol succinate ER 25 mg (1/2 x 50 mg) PO BID omeprazole 20 mg PO DAILY pen needle, diabetic (BD Ultra-Fine Mini Pen Needle) Use to inject insulin once a day sertraline 75 mg (1.5 x 50 mg) PO DAILY Spiriva with HandiHaler (tiotropium bromide) 1 cap inhalation DAILY NS vit C,K-Ft-ttlxt-lutein-zeaxan 250-90-40-1 mg (PreserVision AREDS-2) 1 tab PO BID HPI Comments Details: Penny comes for follow-up. She has no obvious cardiac complaints. Has some visual issues. Denies any prolonged palpitation irregular heartbeat. No lightheadedness, syncope. No exertional chest pain or shortness of breath. No orthopnea, PND, leg edema. Takes all her medications. No bleeding issues or neurologic events. [facility] Medical History Non-ST elevation VT (NSTEMI) Hyperkalemia CKD (chronic kidney disease), stage III Cataract Vitamin D deficiency DM type 2 (diabetes mellitus, type 2) Hypothyroidism Hyperlipemia Paroxysmal atrial fibrillation Cardiac pacemaker in situ Complete heart block Surgical History Pacemaker battery depletion Hx of bilateral mastectomy History of permanent cardiac pacemaker placement History of tonsillectomy and adenoidectomy History of hip surgery Hx of cardiac cath Family History Father Cancer Mother Diabetes Social History Housing: House Are you a primary resident care assistant to a significant other at home: No (was caring for , now he is in NH) Do you presently have visiting nurse or other home services: No Alcohol intake: never Patient Tobacco Use Status: Former Tobacco user Tobacco use type: Cigarette e-Cigarette/Vaping Use: Never Used Advance Directives Date on File: 02/16/22 service: No Current occupational status: retired Cognitive needs: No Hearing needs: No Vision needs: Yes Review of Systems Const Denies chills, Denies fatigue, Denies fever(s), Denies frequent falls, Denies weakness, Denies weight gain and Denies weight loss ENT Denies dizziness Card Denies chest pain, Denies leg edema, Denies lightheadedness, Denies palpitations, Denies dyspnea, Denies dyspnea on exertion, Denies orthopnea and Denies other (loss of consciousness) Resp Denies cough, Denies dyspnea and Denies dyspnea on exertion GI Denies hematochezia and Denies change in stool character Musc Denies abnormal gait, Denies muscle weakness, Denies numbness, Denies radiating pain into limb and Denies tingling Neuro Denies abnormal gait, Denies dizziness, Denies frequent falls, Denies numbness, Denies tingling and Denies weakness Endo Denies fatigue and Denies palpitations Physical Exam Vital Signs: Last Vital Signs Pulse 66 01/18/25 13:42 BP 120/76 01/18/25 13:42 BMI result Body Mass Index 26.5 Const General: cooperative, healthy appearing, comfortable and no acute distress Orientation/consciousness: patient oriented x3 Neck Neck: Yes normal visual inspection Resp Effort & Inspection: normal respiratory effort Auscultation: clear to auscultation bilaterally, no crackles, no rales, no rhonchi and no wheezes Cardio Jugular venous distension: no JVD Rate: regular rate Rhythm: regular rhythm Heart sounds: S1 normal heart sound present, S2 normal heart sound present, no murmurs and no rubs Neuro General: patient oriented x3 Extrem General: Yes normal to inspection Psych Appearance: grossly normal Mental Status: mental status grossly normal Speech and movement: Normal speech and movement present Office Procedures Cardiac Device Check Cardiac Device Check Details: Dual-chamber [place] pacemaker in place. Programmed in DDDR at 60 beats per minute. Atrial pacing 5.6% of time. Ventricularly pacer dependent. No episodes of atrial fibrillation noted. Atrial sensing is adequate. Atrial and ventricular capture thresholds are adequate and stable. Pacing lead impedance is stable. Battery life is at 9 and half years 22608-UY Cardiac Device Check, pacemaker dual lead Procedure code (CPT) selection complete Assessment & Plan Assessment & Plan (1) Paroxysmal atrial fibrillation: Comment: s/p pacemaker Code(s): I48.0 - Paroxysmal atrial fibrillation Category: Medical Plan: Paroxysmal atrial fibrillation which has remained stable. Clinically doing well from that perspective. Continue metoprolol therapy. Avoidance of stimulants was discussed. No indication for antiarrhythmic drug therapy at this point time. Continue full oral anticoagulation, currently on Eliquis 5 mg b.i.d.. (2) Cardiac pacemaker in situ: Code(s): Z95.0 - Presence of cardiac pacemaker Category: Medical Plan: Cardiac pacemaker in-situ for complete heart block. Pacemaker is working well. Reprogrammed for adequate functioning. Will follow every 3 months remotely. Follow up in the clinic in 6 months time. (3) CAD (coronary artery disease): Comment: Nonobstructive by cardiac catheterization, February 2022, done for NSTEMI Code(s): I25.10 - Atherosclerotic heart disease of pilot station coronary artery without angina pectoris Category: Medical Plan: Nonobstructive CAD by cardiac catheterization, findings with prior with takotsubo cardiomyopathy. Continue aggressive risk factor modification. Continue full oral anticoagulation, currently on Eliquis and avoid aspirin ther apy. Blood pressure is well optimized. Continue statin therapy with target goal LDL less than 70 mg/dL. Continue aggressive diabetes management. Encouraged to maintain activity level to improve overall cardiovascular outcome as well as balance. Will follow up in the clinic in 6 months time, sooner p.r.n.. Thank you for allowing me to partake in her care Coding Level of Care Code Est Pt Level 4 (09113) Complex EM visit Add On G2211 Diagnoses Paroxysmal atrial fibrillation I48.0 Cardiac pacemaker in situ Z95.0 CAD (coronary artery disease) I25.10 CPT Codes Cardiac Device Check - Cardiac Device 2: 37350-OJ Cardiac Device Check, pacemaker dual lead ([id number])
[2025-01-18 13:42] VITALS: BP 120/76; PULSE 66; BMI 26.5
--- OUTSIDE RECORDS SUMMARY | 2025-01-18 15:53 | XMS_ITS ---
Author Organization [facility] Demetria floyd Pierre Address [address] [facility] [place] [facility] [place] [address] Care Team Providers Care Medical Oncology Physician Name Role Phone Dipika Casas MD Primary Care Provider Unavaila Clarisse Mckeon Unavailable [phone] Purnima Steward Unavailable [phone] Allergies Allergen (clinical drug ingredient) Drug/Non Drug [...] Problem Acquired hammer toe of right foot (7662604709566 105) Other hammer toe(s) (acquired), right foot (M20.41) Active confirmed Problem Acquired hammer toe of left foot (5354160224133 103) Other hammer toe(s) (acquired), left foot (M20.42) Active confirmed Vital Signs Height 5ft 6in in 11/21/2024 Weight 155 lbs 11/21/2024 BMI 25.01 kg/m2 11/21/2024 Blood pressure systolic 121 mm Hg 11/21/19 25 Blood pressure diastolic 80 mm Hg 025 Encounters Encounter Location Date Provider Diagnosis [facility] [address] [address] 11/21/2024 Purnima Steward Type 1 diabetes mellitus [...] Reason: Provider Name:Clarisse caputo, 03/07/2025 01:30:00 PM, [address] [place] [address], [phone], Procedure Notes * Category Sub-Category Detail Notes [...] use of a nail nipper and/or dremel-type tool grinder, to a more viable healthy nail [...] to maintain effectiveness in symptomatic relief - 87443 Keratoma Treatment Parring or Cutting o f [...] instrumentation by the physician of record - 40583 Progress Notes * Penny MEMBRENODOB:1945 (79 yo F)Acc No.[id number]:11/21/2024 Progress Note Patient:?Penny MEMBRENO Provider:?Purnima Steward DPM :1945???Age:79 Y???Sex:Female D ate:11/21/2024 Address:[address] [place], [place] [address], [place] Pcp:Dipika Casas MD Subjective: * Chief Complaints: [...] ?Marital status: . ?Occupation: Retired/ [employer]. * Medications:?Elizabeth Bey Ciclopirox Olamine [...] use of a nail nipper and/or dremel-type tool grinder, to a more viable healthy nail [...] to maintain effectiveness in symptomatic relief - 72477.?Keratoma Treatment:?Parring or Cutting of Benign Hyperkeratotic Lesion(s)?(-57) [...] instrumentation by the physician of record - 15975.? * Procedure Codes:?68126 DEBRI DE NAIL, 6 OR MORE, Modifiers: XS 41698 TRIM SKIN LESIONS, OVER 4, Modifiers: XS [...] Steward DPM Date:? Generated for Santiago garcia/Terrell/Darrel on:?01/18/2025 03:53 PM EDT History and Physical Notes * [...]
--- OUTSIDE RECORDS SUMMARY | 2025-01-18 15:53 | XMS_ITS ---
Author Organization [facility] floyd [place] Address [address] [place] [address] Care Team Providers Care Mowing Machine Operator Name Role Phone Dipika Casas MD Primary Care Provider UnavailClarisse Cote Unavailable [phone] Gan Medications Medication [...] Date Provider Diagnosis [facility] [address] [place] [address] 11/08/2024 Clarisse Cheung Plan Of Treatment Next Appt Details Provider Name:Clarisse Adrian harshal, 03/07/2025 01:30:00 PM, [address] [place] [address], [address], Progress Notes * Penny MEMBRENODOB:1945 (79 yo F)Acc No.[id number]:11/08/2024 Progress Note Patient:?Penny MEMBRENO Provider:?Clarisse Cheung DPM :1945???Age:79 Y???Sex:Female D ate:11/08/2024 Address:[address] [place] [address], [place] Pcp:Dipika Caass MD Subjective: * Chief Complaints: * ???1. [...] DPM Date:?0 11/08/2024 Generated for Santiago garcia/Terrell/Darrel on:?01/18/2025 03:53 PM EDT
--- OUTSIDE RECORDS SUMMARY | 2025-01-18 15:53 | XMS_ITS | Clinical Summary ---
Author Organization [facility] Address [address] [address] Phone Care Team Providers Care Export Freight Specialist Name Role Phone Dipika Casas MD Primary Care Provider [phone] Allergies Active Allergy Reactions Criticality Noted Date Comments Lisinopril 03/30/2022 Nitrofurantoin 03/30/2022 Medications atorvastatin (LIPITOR) 20 MG tablet 06/12/2021 Active FREESTYLE LITE test strip 06/09/2021 Active Lantus SoloStar 100 UNIT/ML injection 06/05/2021 Active B-D UF III MINI PEN NEEDLES 31G X 5 MM misc 06/13/2021 Active levothyroxine (SYNTHROID, LEVOTHROID) 125 MCG tablet 06/05/2021 Active sertraline (ZOLOFT) 50 MG tablet 06/12/2021 [...] each day 30 tablet 11 08/07/2024 Active apixaban (Eliquis) 5 MG tablet Take 5 mg by mouth in the morning and 5 mg in the evening. Active Active Problems Problem Noted Date Diagnosed [...] Office Communication [facility] [address] [address] Keyonna Shah ARNP 12/19/2024 1:30 PM EDT Office Visit [facility] [address] [address] Keyonna Shah ARNP Stage 3a chronic kidney disease (HCC) (Primary Dx); Hypertension; Vitamin D deficiency, not otherwise specified; Secondary hyperparathyroidism of renal origin (HCC) 12/02/2024 Orders Only [facility] [address] [address] Keyonna Shah ARNP Chronic kidney disease, stage [...] Visit [facility] [address] [phone] Keyonna Shah ARNP [address] [phone] Health Maintenance Due Date Last Done Comments [...] of2 resultswithin the time period is included. Pathologist [facility] Glucose 89 70 - 99 mg/dL [facility] BUN 20 8 - 27 mg/dL [facility] Creatinine 1.25(H) 0.57 - 1.00 mg/dL [facility] eGFR CKD-EPI CR 2020 43(L) >59 mL/min/1.7 3 [facility] BUN/Creatinine Ratio 16 12 - 28 [facility] Sodium 145(H) 134 - 144 mmol/L [facility] Potassium 4.1 3.5 - 5.2 mmol/L [facility] Chloride 108(H) 96 - 106 mmol/L [facility] Bicarbonate (CO2) 20 20 - 29 mmol/L [facility] Calcium 9.0 8.7 - 10.3 mg/dL [facility] Blood (Blood, Venous) 01/16/2025 11:14 AM EDT 01/16/2025 Keyonna Shah [facility] LAB BLOOD ORDERABLES Final Result Performing Organization Address City/[facility]/ZIP Co de Phone Number LABCO [facility] [address] [place] [address] * Urine Protein / creatinine ratio (12/21/2024 10:53 AM EDT) Creatinine, Ur 80.8 Not Estab. mg/dL [facility] Protein, Ur 9.7 Not Estab. mg/dL [facility] Urine Protein/Creatin ine Ratio 120 0 - 200 mg/g creat [facility] Urine (Urine, Clean Catch) 12/21/2024 10:53 AM EDT 12/21/2024 Keyonna [facility] LAB URINE ORDERABLES Final Result Performing Organization Address [facility] Co de Phone Number [facility]CO [facility] [address] [place] [address] * CBC (12/21/2024 10:53 AM EDT) WBC 5.8 3.4 - 10.8 x10E3/uL [facility] RBC 4.69 3.77 - 5.28 x10E6/uL [facility] Hemoglobin 13.7 11.1 - 15.9 g/dL [facility] Hematocrit 43.0 34.0 - 46.6 % [facility] MCV 92 79 - 97 fL [facility] MCH 29.2 26.6 - 33.0 pg [facility] MCHC 31.9 31.5 - 35.7 g/dL [facility] RDW 15.2 11.7 - 15.4 % [facility] Platelets 196 150 - 450 x10E3/uL [facility] Blood (Blood, Venous) 12/21/2024 10:53 AM EDT 12/21/2024 Key[facility] LAB BLOOD ORDERABLES Final Result [facility] [address] [place] [address] * (ABNORMAL) PTH, intact (12/21/2024 10:53 AM EDT) PTH 126(H) 15 - 65 pg/mL [facility] Blood (Blood, Venous) 12/21/2024 10:53 AM EDT 12/21/2024 [facility]LO[facility] Final Result Performing Organization Address City/[facility]/ZIP Co de Phone Number [facility] [address] [place] [address] * (ABNORMAL) Renal function panel (12/21/2024 10:53 AM EDT) Glucose 188(H) 70 - 99 mg/dL [facility] BUN 23 8 - 27 mg/dL [facility] Sodium 140 134 - 144 mmol/L [facility] Potassium 5.3(H) 3.5 - 5.2 mmol/L [facility] Chloride 105 96 - 106 mmol/L [facility] Calcium 9.4 8.7 - 10.3 mg/dL [facility] Albumin 4.1 3.7 - 4.7 g/dL [facility] Creatinine 1.48(H) 0.57 - 1.00 mg/dL [facility] eGFR CKD-EPI CR 2020 35(L) >59 mL/min/1.7 3 [facility] BUN/Creatinine Ratio 16 12 - 28 [facility] Bicarbonate (CO2) 18(L) 20 - 29 mmol/L [facility] Phosphorus 3.6 3.0 - 4.3 mg/dL [facility] Blood (Blood, Venous) 12/21/2024 10:53 AM EDT 12/21/2024 Keyonna Shah [facility] LAB BLOOD ORDERABLES Final Result [facility] [address] [place] [address] * (ABNORMAL) Hemoglobin A1c (06/16/2023 2:24 PM EDT) Hemoglobin A1C 7.6(H) (4.0-5.6) % [facility] Comment: MONITORING: In known diabetic patients, hemoglobin A1c targets should be discussed with health care provider. DIAGNOSTIC USE: ??The [place] Diabetes Association (ADA) and the World Health [...] Supplement 1 Testing performed or reported by [facility], a Service of [facility], [address] [place] [address] Randall Hamilton MD, Mechanical Lead [facility]# [id number] Blood (Blood, Venous) 06/16/2023 2:24 PM EDT 06/16/2023 2:25 PM EDT Raheem Steele MD LAB BLOOD ORDERABLES Final Re sult [facility] from Last 3 Months or Most Recently Relevant to Health Maintenance Insurance [facility] Care Teams Export Freight Specialist Relationship Specialty Start Date End Date Dipika Casas MD [address] [place] [address] PCP - General 10/14/20
--- OUTSIDE RECORDS SUMMARY | 2025-01-18 15:54 | XMS_ITS | Encounter Summary ---
Author Organization [facility] Address [address] [address] Phone Care Team Providers Care Shoemaking Finisher Name Role Phone Dipika Casas MD Primary Care Provider [phone] Encounter Details Date Type Department Care Team (Late Contact Info) Description 12/22/2024 Office Communication [facility] [address] [place] [phone] Keyonna Shah ARNP [address] [address] Social History Tobacco Use Types [...] [facility] [address] [address] Keyonna Shah ARNP [address] [address] documented as of this encounter Visit Diagnoses Not on filedocumented in this encounter Care Teams Shoemaking Finisher Relationship Specialty Start Date End Date Dipika Casas MD [facility] [place] [address] PCP - General 10/14/20 documented as of this encounter
--- OUTSIDE RECORDS SUMMARY | 2025-01-18 15:54 | XMS_ITS ---
Author Organization [facility] Demetria floyd Pierre Address [address] [facility] [place] [address] Care Team Providers Care Certified Technician Name Role Phone Dipika Casas MD Primary Care Provider Clarisse Mckeon Unavailable [phone] Cesar Hackett Unavailable [phone] Allergies No Known Allergies REASON FOR VISIT [...] 08/03/2024 Encounters Encounter Location Date Provider Diagnosis [facility] [place] [address] [place] [address] 08/03/2024 Cesar Hackett Type 1 diabetes mellitus [...] Reason: Provider Name:Clarisse caputo, 03/07/2025 01:30:00 PM, [address] [place] [address], [phone], Procedure Notes * Category Sub-Category Detail Notes [...] as necessary. Patient chooses, no pharmaceutical tx (98946) Keratoma Treatment Parring or Cutting o f Benign Hyperkeratotic Lesion(s) 48799 (2-4 Lesions) - The Benign hyperkeratotic lesions, as described above were pared, and/or cut utilizing a sterile #15 blade, tissue nippers, and/or dremel Progress Notes * Penny MEMBRENODOB:1945 (79 yo F)Acc No.[id number]:08/03/2024 Progress Note Patient:?Penny MEMBRENO Provider:?Cesar Hackett DPM :1945???Age:79 Y???Sex:Female D ate:08/03/2024 Address:[address] [place] [address] [address] [facility] Pcp:Dipika Casas MD Subjective: * Chief Complaints: [...] ?Exercise: no. ?Marital status: . ?Occupation: Retired/ [employer]. * Medications:?TakingMetoprolo l Succinate ER 25 [...] as necessary. Patient chooses, no pharmaceutical tx (77215).?Keratoma Treatment:?Parring or Cutting of Benign Hyperkeratotic Lesion(s)?15504 (2-4 Lesions) - The Benign hyperkeratotic lesions, as described above were pared, and/or cut utilizing a sterile #15 blade, tissue nippers, and/or dremel.? * Procedure Codes:?57705 TRIM SKIN LESIONS, 2 TO 4, Modifiers: XS 24265 DEBRIDE NAIL, 6 OR MORE, Modifiers: XS * Follow Up:?3 Months * Images: * Sign off status: Completed true * Provider:?Cesar Hackett DPM Date:? 024 Generated for Printi ng/Fanasimg/eTransmitting on:?01/18/2025 03:53 PM EDT History and Physical [...]
--- OUTSIDE RECORDS SUMMARY | 2025-01-18 15:54 | XMS_ITS | Patient Health Record ---
Author Organization [facility] Demetria floyd Pierre Address [address] [place] [address] Care Team Providers Care Fiscal Analyst Name Role Phone Dipika Casas MD Primary Care Provider Clarisse Mckeon Unavailable [phone] Cesar Hackett Unavailable [phone] Purnima Steward Unavailable [phone] Allergies Allergen (clinical drug ingredient) Drug/Non Drug [...] Problem Acquired hammer toe of right foot (3569881906976697 ) Other hammer toe(s) (acquired), right foot (M20.41) Active confirmed Problem Acquired hammer toe of left foot (0810359913090097 ) Other hammer toe(s) (acquired), left foot (M20.42) Active confirmed Problem Polyneuropathy due to type 2 diabetes mellitus (834301662) Type 2 diabetes mellitus with diabetic polyneuropathy (E11.42) Active confirmed Problem Polyneuropathy due to diabetes mellitus type I (906247569) Type 1 diabetes mellitus with diabetic polyneuropathy (E10.42) Active confirmed Vital Signs Blood pressure diastolic 80 mm Hg 11/21/2024 Height 5ft 6in in 11/21/2024 Blood pressure systolic 121 mm Hg 11/21/2024 Weight 155 lbs 11/21/2024 BMI 25.01 kg/m2 11/21/2024 Encounters Encounter Location Date Provider Diagnosis [address] [address] 2024 Cesar Hackett Type 1 diabetes mellitus with diabetic polyneuropathy E10.42 ; Tinea unguium B35.1 ; Skin disease L98.9 ; Tinea pedis B35.3 ; Pain in right toe(s) M79.674 and Pain in left toe(s) M79.[address] [address] 05/01/2024 Cesar Hackett Type 1 diabetes mellitus with diabetic polyneuropathy E10.42 ; Tinea unguium B35.1 ; Skin disease L98.9 ; Tinea pedis B35.3 ; Pain in right toe(s) M79.674 and Pain in left toe(s) M79.[address] [address] 08/03/2024 Cesar Hackett Type 1 diabetes mellitus with diabetic polyneuropathy E10.42 ; Tinea unguium B35.1 ; Skin disease L98.9 ; Tinea pedis B35.3 ; Pain in right toe(s) M79.674 and Pain in left toe(s) M79.[address] [address] 11/21/2024 Purnima Steward Type 1 diabetes mellitus [...] Treatment Pending Test Test Name Order Date 75292-TPJD SKIN LESIONS, 2 TO 4 07/16/20 98586-IHRL SKIN LESIONS, 2 TO 4 10/29/19 V3414-RARHWCSE DYSTROPHIC NAILS ANY # Next Appt Details Provider Name:Clarisse caputo, 03/07/2025 01:30:00 PM, [address] [place] [address], [phone], Insurance Providers Payer Name Payer Address Payer Phone Subscriber Number Group Number Insured Name Patient Relationship to Insured Coverage Start Date Coverage End Date [facility] [address] [place] [id number] Penny Greenwood Self - patient is the [...]
--- OUTSIDE RECORDS SUMMARY | 2025-01-18 15:54 | XMS_ITS | Clinical Summary ---
Author Organization [facility] Address [address] [place] [address] Care Team Providers Care Glass Cutting Machine Operator Name Role Phone Dipika Casas MD Primary Care Provider [phone] Allergies No known active allergies Medications Medication [...] age to complete this topic Care Teams Glass Cutting Machine Operator Relationship Specialty Start Date End Date Dipika Casas MD [address] [facility] [place] [address] PCP - General Dye Penetrant Testing Technician 11/18/18
--- OUTSIDE RECORDS SUMMARY | 2025-01-18 15:54 | XMS_ITS | Clinical Summary ---
Author Organization [address] Address [address] [place] [address] Phone Care Team Providers Care Radio Installer Automobile Name Role Phone Dipika Casas MD Primary Care Provider [phone] Allergies No known active allergies Medications atorvastatin [...] overla pping sites of right female breast ([facility] V24, [facility] V28) 11/18/2018 Encounters Date Type Department Care Team Description 01/09/2025 Telephone Gastroenterology - [address] [place] [address] Cm Agee MD 01/05/2025 Telephone Gastroenterology - [address] [place] [address] Cm Agee MD PROVIDER CALL BACK from Last 3 Months Medical History Medical History Date Comments Breast cancer ([facility] V24, [facility] V28) DX:Breast cancer (HCC);COMMENT:Right-sided stage 1 TicNo invasive breast cancer Diabetes mellitus ([facility] V 24, [facility] V28) DX:Diabetes mellitus (HCC) Disease of thyroid [...] PM EDT Office Visit Gastroenterology - [address] [place] [address] Abhijeet Mitchell PA [address] [address] 05/29/2025 2:00 PM EDT Office Visit [facility] Hematology Oncology [address] [place] [address] Danilo Minor MD [address] [place] [address] Health Maintenance Due Date Last [...] type Other ulcerative colitis with other complication ([facility] V24, [facility] V28) from Last 3 Months Results * Gastrointestinal pathogens molecular study (01/10/2025 10:42 AM EDT) Campylobacter Detection by PCR Not Detected Not Detected LAB MICROBIOLOGY METHOD 5 2:40 PM EDT [facility] Plesiomonas shigelloides Detection by PCR Not Detected Not Detected LAB MICROBIOLOGY METHOD 5 2:40 PM EDT [facility] Salmonella Detection by PCR Not Detected Not Detected LAB MICROBIOLOGY METHOD 5 2:40 PM EDT [facility] Vibrio Detection by PCR Not Detected Not Detected LAB MICROBIOLOGY METHOD 5 2:40 PM EDT [facility] Vibrio cholerae Detection by PCR Not Detected Not Detected LAB MICROBIOLOGY METHOD 5 2:40 PM EDT [facility] Yersinia enterocolitica Detection by PCR Not Detected Not Detected LAB MICROBIOLOGY METHOD 5 2:40 PM EDT [facility] Enteroaggregative E coli EAEC Detection by PCR Not Detected Not Detected LAB MICROBIOLOGY METHOD 5 2:40 PM EDT [facility] Enteropathogenic E coli EPEC Detection Not Detected Not Detected LAB MICROBIOLOGY METHOD 5 2:40 PM EDT [facility] Enterotoxigenic E coli ETEC LTST Detection Not Detected Not Detected LAB MICROBIOLOGY METHOD 5 2:40 PM EDT [facility] Shiga-like toxin producing E coli STEC STX1 STX2 Det Not Detected Not Detected LAB MICROBIOLOGY METHOD 5 2:40 PM EDT [facility] Shigella Enteroinvasive E coli EIEC Detection Not Detected Not Detected LAB MICROBIOLOGY METHOD 5 2:40 PM EDT [facility] Cryptosporidium Detection by PCR Not Detected Not Detected LAB MICROBIOLOGY METHOD 5 2:40 PM EDT [facility] Cyclospora cayetanensis Detection by PCR Not Detected Not Detected LAB MICROBIOLOGY METHOD 5 2:40 PM EDT [facility] Entamoeba histolytica Detection by PCR Not Detected Not Detected LAB MICROBIOLOGY METHOD 5 2:40 PM EDT [facility] Giardia lamblia Detection by PCR Not Detected Not Detected LAB MICROBIOLOGY METHOD 5 2:40 PM EDT [facility] Adenovirus F 40 41 Detection by PCR Not Detected Not Detected [facility] Astrovirus Detection by PCR Not Detected Not Detected LAB MICROBIOLOGY METHOD 5 2:40 PM EDT [facility] Norovirus GI GII Detection by PCR Not Detected LAB MICROBIOLOGY METHOD 5 2:40 PM EDT [facility] Sapovirus Detection by PCR Not Detected Not Detected LAB MICROBIOLOGY METHOD 5 2:40 PM EDT [facility] Rotavirus A Detection by PCR Not Detected Not Detected LAB MICROBIOLOGY METHOD 5 2:40 PM EDT [facility] Stool Rectum structure / Unknown Non-blood Collection / Unknown 01/10/2025 10:42 AM EDT 01/10/2025 12:27 PM EDT Narrative [facility] - 01/10/2025 2:40 PM EDT [...] us Cm Agee MD LAB [facility]BIOLOGY [facility] Final Result [facility] CHRISTOPHERIMANI [place] ([facility]) [facility] [address] [place] [address], from Last 3 Months Insurance [place]AN[place]OMERO [id number] [employer] Care Teams Radio Installer Automobile Relationship Specialty Start Date End Date Dipika Casas MD [address] [facility] [place] [phone] PCP - General Internal Medicine 01/10/25
== END 2025-01-18 14:06 | disposition home or self-care (01) ==
LOC: HO.HCS 13:00
PROVIDERS: PCP Internal Medicine; Visit Provider Internal Medicine Cardiovascular Disease
DX: I48.0 Paroxysmal atrial fibrillation (principal); Z95.0 Presence of cardiac pacemaker; I25.10 Atherosclerotic heart disease of native coronary artery without angina pectoris
CPT/HCPCS: 93280; 99214; G2211

== ENCOUNTER → 2025-01-18 13:00 | Outpatient (BNVA) | payer MEDICARE, SELFPAY | PROVIDERS: PCP Internal Medicine; Visit Provider Internal Medicine Cardiovascular Disease | DX: Z45.018 Encounter for adjustment and management of other part of cardiac pacemaker (principal); I48.0 Paroxysmal atrial fibrillation; I25.10 Atherosclerotic heart disease of native coronary artery without angina pectoris | CPT/HCPCS: 93280; 99212 ==

== ENCOUNTER → 2025-01-24 23:59 | Outpatient (BNV) | payer MEDICARE, SELFPAY ==
--- NOTE | 2025-01-24 13:33 | MHC.OFFVIS ---
Intake Visit Reasons: Remote device check- [facility] Allergies lisinopril Allergy (Intermediate, Verified 01/17/25 12:48) Hyperkalemia nitrofurantoin [Macrobid] Adverse Reaction (Intermediate, Verified 01/17/25 12:48) dizziness PFSH Medical History Non-ST elevation DE (NSTEMI) Hyperkalemia CKD (chronic kidney disease), stage III Cataract Vitamin D deficiency DM type 2 (diabetes mellitus, type 2) Hypothyroidism Hyperlipemia Paroxysmal atrial fibrillation Cardiac pacemaker in situ Complete heart block Surgical History Pacemaker battery depletion Hx of bilateral mastectomy History of permanent cardiac pacemaker placement History of tonsillectomy and adenoidectomy History of hip surgery Hx of cardiac cath Family History Father Cancer Mother Diabetes Social History Housing: House Are you a primary care manager cna to a significant other at home: No (was caring for , now he is in [place]) Do you presently have visiting nurse or other home services: No Alcohol intake: never Patient Tobacco Use Status: Former Tobacco user Tobacco use type: Cigarette e-Cigarette/Vaping Use: Never Used Advance Directives Date on File: 02/16/22 service: No Current occupational status: retired Cognitive needs: No Hearing needs: No Vision needs: Yes Office Procedures Cardiac Device Check Cardiac Device Check Details: Remote pacemaker report generated 01/24/2025. Pacemaker function is adequate. Ventricularly pacer dependent 54170-Gaywll Cardiac Device Interrogation, pacemaker Procedure code (CPT) selection complete Assessment & Plan Assessment & Plan (1) Cardiac pacemaker in situ: Code(s): Z95.0 - Presence of cardiac pacemaker Category: Medical Plan: See above Coding Level of Care Code Procedure Only Diagnoses Cardiac pacemaker in situ Z95.0 CPT Codes Cardiac Device Check - Cardiac Device 12: 54519-Forsui Cardiac Device Interrogation, pacemaker ([id number])
== END ==
PROVIDERS: PCP Internal Medicine; Visit Provider Internal Medicine Cardiovascular Disease
DX: Z45.018 Encounter for adjustment and management of other part of cardiac pacemaker (principal)
CPT/HCPCS: 93294

== ENCOUNTER → 2025-02-28 07:41 | Outpatient (REF) | payer MEDICARE, SELFPAY ==
--- OUTSIDE RECORDS SUMMARY | 2025-02-28 07:43 | XMS_ITS ---
Author Organization [facility] Demetria floyd Pierre Address [address] [facility] [place] [address] Care Team Providers Care Medical Education Coordinator Name Role Phone Dipika Casas MD Primary Care Provider Unavaila Clarisse Mckeon Unavailable [phone] Purnima Steward Unavailable [phone] Allergies Allergen (clinical drug ingredient) Drug/Non Drug [...] Problem Acquired hammer toe of right foot (5667632732971 105) Other hammer toe(s) (acquired), right foot (M20.41) Active confirmed Problem Acquired hammer toe of left foot (2697943126751 103) Other hammer toe(s) (acquired), left foot (M20.42) Active confirmed Vital Signs Height 5ft 6in in 11/21/2024 Weight 155 lbs 11/21/2024 BMI 25.01 kg/m2 11/21/2024 Blood pressure systolic 121 mm Hg 11/21/19 25 Blood pressure diastolic 80 mm Hg 025 Encounters Encounter Location Date Provider Diagnosis [facility] [address] [address] 11/21/2024 Purnima Steward Type 1 diabetes mellitus [...] Provider Name:Clarisse caputo, 03/07/2025 01:30:00 PM, [address] [place] [address], [phone], Procedure Notes * Category Sub-Category Detail Notes [...] use of a nail nipper and/or dremel-type bark grinder, to a more viable healthy nail [...] to maintain effectiveness in symptomatic relief - 42584 Keratoma Treatment Parring or Cutting o f [...] instrumentation by the physician of record - 69866 Progress Notes * Penny MEMBRENODOB:1945 (79 yo F)Acc No.[id number]:11/21/2024 Progress Note Patient:?Penny MEMBRENO Provider:?Purnima Steward DPM :1945???Age:79 Y???Sex:Female D ate:11/21/2024 Address:[address] [place], [place] [address], [place] Pcp:Dipika Casas MD Subjective: * Chief Complaints: [...] no. ?Marital status: . ?Occupation: Retired/ [employer]. * Medications:?Elizabeth Bey Ciclopirox Olamine 0.77 % [...] use of a nail nipper and/or dremel-type bark grinder, to a more viable healthy nail [...] to maintain effectiveness in symptomatic relief - 17547.?Keratoma Treatment:?Parring or Cutting of Benign Hyperkeratotic Lesion(s)?(-57) [...] instrumentation by the physician of record - 35004.? * Procedure Codes:?15341 DEBRI DE NAIL, 6 OR MORE, Modifiers: XS 83055 TRIM SKIN LESIONS, OVER 4, Modifiers: XS [...] Steward DPM Date:? Generated for Santiago garcia/Terrell/Darrel on:?02/28/2025 07:42 AM EDT History and Physical Notes * [...]
--- NOTE | 2025-02-28 07:44 | CA_ITS ---
Acquisition Time: 2025-02-28 08:01:24 Total Exercise Time: 00:02:00 Test Indications: CP Medications: SEE H&P Protocol: LEXISCAN Max HR: 76 BPM 55% of Pred: 138 BPM Max BP: 110/62 mmHG Max Work Load: 1.0 METS Pharmacological stress test with Lexiscan while pt marches in her chair, with reports of headache and SOB, without any arrythmias, with normotensive response to injection. Nondiagnostic EKG for ischemia. In recovery, pt treated with IVP Aminophylline 75 mg to reverse Lexiscan after which pt feeling back to baseline. Nuclear images pending. Test reviewed with Dr. Brown. Referred By: Dipika Casas Electronically Signed By: Shankar Manuel
== END ==
LOC: HO.CARD 07:41
PROVIDERS: PCP Internal Medicine; Visit Provider Internal Medicine
DX: I20.89 Other forms of angina pectoris (principal)
CPT/HCPCS: 93017; J0280; J2785

== ENCOUNTER → 2025-02-28 07:44 | Outpatient (BNV) | payer MEDICARE, SELFPAY | PROVIDERS: PCP Internal Medicine | DX: R06.02 Shortness of breath (principal) | CPT/HCPCS: 78452; 93016; 93018 ==

== ENCOUNTER 2025-03-21 08:46 | Outpatient (REF) | payer MEDICARE, SELFPAY ==
--- OUTSIDE RECORDS SUMMARY | 2025-03-21 09:16 | XMS_ITS | Clinical Summary ---
Author Organization [facility] Address [address] [address] Phone Care Team Providers Care Supervisor Industrial Garment Name Role Phone Dipika Casas MD Primary [...] 12/22/2024 Office Communication [facility] [address] [address] Keyonna Shah ARNP 12/19/2024 1:30 PM EDT Office Visit [facility] [address] [address] Keyonna Shah ARNP Stage 3a chronic kidney disease (HCC) (Primary Dx); Hypertension; Vitamin D deficiency, not otherwise specified; Secondary hyperparathyroidism of renal origin (HCC) from Last 3 Months Immunizations Immunization Administration [...] Office Visit [facility] PDerek [address] [address] Keyonna Shah ARNP [address] [address] Health Maintenance Due Date Last [...] Glucose 89 70 - 99 mg/dL [facility] BUN 20 8 - 27 mg/dL [facility] Creatinine 1.25(H) 0.57 - 1.00 mg/dL [facility] eGFR CKD-EPI CR 2020 43(L) >59 mL/min/1.7 3 [facility] BUN/Creatinine Ratio 16 12 - 28 [facility] Sodium 145(H) 134 - 144 mmol/L [facility] Potassium 4.1 3.5 - 5.2 mmol/L [facility] Chloride 108(H) 96 - 106 mmol/L [facility] Bicarbonate (CO2) 20 20 - 29 mmol/L [facility] Calcium 9.0 8.7 - 10.3 mg/dL [facility] Blood specimen (specimen) Venous blood / Unknown 01/16/2025 11:14 AM EDT 01/16/2025 us [facility] LAB BLOOD ORDERABLES Final Result Performing Organization Address City/[facility]/ZIP Co de Phone Number [facility]CO [facility] [address] [place] [address] * Urine Protein / creatinine ratio (12/21/2024 10:53 AM EDT) Creatinine, Ur 80.8 Not Estab. mg/dL [facility] Protein, Ur 9.7 Not Estab. mg/dL [facility] Urine Protein/Creatin ine Ratio 120 0 - 200 mg/g creat [facility] Urine specimen (specimen) Urine specimen obtained by clean catch procedure / Unknown 12/21/2024 10:53 AM EDT 12/21/2024 [facility] LAB URINE ORDERABLES Final Result Performing Organization Address City/[facility]/ZIP Co de Phone Number [facility] [address] [place] [address] * CBC (12/21/2024 10:53 AM EDT) WBC 5.8 3.4 - 10.8 x10E3/uL [facility] RBC 4.69 3.77 - 5.28 x10E6/uL [facility] Hemoglobin 13.7 11.1 - 15.9 g/dL [facility] Hematocrit 43.0 34.0 - 46.6 % [facility] MCV 92 79 - 97 fL [facility] MCH 29.2 26.6 - 33.0 pg [facility] MCHC 31.9 31.5 - 35.7 g/dL [facility] RDW 15.2 11.7 - 15.4 % [facility] Platelets 196 150 - 450 x10E3/uL [facility] Blood specimen (specimen) Venous blood / Unknown 12/21/2024 10:53 AM EDT 12/21/2024 [facility] LAB BLOOD ORDERABLES Final Result [facility] [address] [place] [address] * (ABNORMAL) PTH, intact (12/21/2024 10:53 AM EDT) PTH 126(H) 15 - 65 pg/mL [facility] Blood specimen (specimen) Venous blood / Unknown 12/21/2024 10:53 AM EDT 12/21/2024 [facility] LAB BLOOD ORDERABLES Final Result Performing Organization Address City/[facility] Co de Phone Number [facility] [address] [place] [address] * (ABNORMAL) Renal function panel (12/21/2024 10:53 AM EDT) Glucose 188(H) 70 - 99 mg/dL [facility] BUN 23 8 - 27 mg/dL [facility] Sodium 140 134 - 144 mmol/L [facility] Potassium 5.3(H) 3.5 - 5.2 mmol/L [facility] Chloride 105 96 - 106 mmol/L [facility] Calcium 9.4 8.7 - 10.3 mg/dL [facility] Albumin 4.1 3.7 - 4.7 g/dL [facility] Creatinine 1.48(H) 0.57 - 1.00 mg/dL [facility]-E[facility] 2020 35(L) >59 mL/min/1.7 3 [facility] BUN/Creatinine Ratio 16 12 - 28 [facility] Bicarbonate (CO2) 18(L) 20 - 29 mmol/L [facility] Phosphorus 3.6 3.0 - 4.3 mg/dL [facility] Blood specimen (specimen) Venous blood / Unknown 12/21/2024 10:53 AM EDT 12/21/2024 Keyonna Shah [facility] LAB BLOOD ORDERABLES Final Result [facility] [address] [place] [address] * (ABNORMAL) Hemoglobin A1c (06/16/2023 2:24 PM EDT) Hemoglobin A1C 7.6(H) (4.0-5.6) % [facility] Comment: MONITORING: In known diabetic patients, hemoglobin A1c targets should be discussed with health care provider. DIAGNOSTIC USE: The [place] Diabetes Association (ADA) and the World Health [...] Supplement 1 Testing performed or reported by [facility], a Service of [facility], [address] [place] [address] Randall Hamilton MD, Quill [employer] [facility]# [id number] Blood specimen (specimen) Venous blood / Unknown 06/16/2023 2:24 PM EDT 06/16/2023 2:25 PM EDT Raheem Steele MD LAB BLOOD ORDERABLES Final Re sult [facility] from Last 3 Months or Most Recently Relevant to Health Maintenance Insurance [facility] Care Teams Supervisor Industrial Garment Relationship Specialty Start Date End Date Dipika Casas MD [address] [place] [address] PCP - General 10/14/20
[2025-03-21 10:22] LABS: MANUAL DIFF FLAG NO
[2025-03-21 10:26] LABS: Basophils Percent Auto 0.5 % (0-2); Eosinophils Absolute Auto 0.2 X10*3/uL (0.0-0.4); Eosinophils Percent Auto 2.6 % (0-4); Hematocrit 42.4 % (37.0-47.0); Hemoglobin 13.2 g/dl (12.0-16.0); Imm Gran Abs Auto 0.06 X10*3/uL (0.00-0.03); Lymphocytes Absolute Auto 1.2 X10*3/uL (1.2-4.9); Lymphocytes Percent Auto 19.7 % (20-40); Mean Corpuscular HGB Conc 31.1 g/dl (31.0-35.0); Mean Corpuscular Volume 89.8 fL (80.0-98.0); Mean Platelet Volume 10.6 fL (9.4-12.3); Monocytes Absolute Auto 0.5 X10*3/uL (0.1-1.2); Monocytes Percent Auto 8.6 % (2-11); Neutrophils Absolute Auto 4.1 x10*3/uL (2.0-8.3); Neutrophils Percent Auto 67.6 % (45-73); Platelet Count 188 X10*3/uL (160-400); Red Blood Count 4.72 X10*6/uL (4.20-5.50); Red Cell Distribution Width 15.2 % (11.0-16.0); White Blood Count 6.1 X10*3/uL (4.8-10.8)
[2025-03-21 10:37] LABS: Alanine Aminotransferase 22 U/L (0-31); Albumin Level 4.2 g/dL (3.5-5.0); Alkaline Phosphatase 102 U/L (39-117); Anion Gap 11 (12-20); Aspartate Amino Transferase 26 U/L (5-31); Bilirubin Total 0.6 mg/dL (0.0-1.0); Blood Urea Nitrogen 24 mg/dL (9-16); Calcium 9.3 mg/dL (8.4-10.2); Carbon Dioxide 26 mmol/L (22-29); Chloride 109 mmol/L (96-108); Cholesterol 153 mg/dL (<200); Estimated Glomerular Filt Rate 33; Glucose Fasting 135 mg/dL (60-99); HDL Cholesterol 52 mg/dL (>40); LDL Cholesterol Calculated 75 mg/dL (<100); Potassium 4.6 mmol/L (3.3-5.1); Sodium 141 mmol/L (135-145); Total Protein 7.1 g/dL (6.5-8.0); Triglycerides 133 mg/dL (<150)
[2025-03-21 10:40] LABS: Estimated Average Glucose 174 mg/dL; Hemoglobin A1c % 7.7 % (<6.0)
[2025-03-21 10:49] LABS: Creatinine Urine 71.11 mg/dL; Microalbum/Creatinine Ratio Ur 43.5 ug/mg cr (<30)
[2025-03-21 10:54] LABS: Vitamin D 25-OH Total 59.7 ng/mL (>30)
== END 2025-03-21 08:47 | disposition home or self-care (01) ==
LOC: HO.HMGCLDS 08:46
PROVIDERS: PCP Internal Medicine; Visit Provider Internal Medicine
DX: E78.5 Hyperlipidemia, unspecified (principal); E03.9 Hypothyroidism, unspecified; E11.9 Type 2 diabetes mellitus without complications; E55.9 Vitamin D deficiency, unspecified; N18.30 Chronic kidney disease, stage 3 unspecified
CPT/HCPCS: 36415; 80053; 80061; 82043; 82306; 82570; 83036; 85025

== ENCOUNTER 2025-03-27 13:33 | Outpatient (AMB) | payer MEDICARE, SELFPAY ==
[2025-03-27 13:58] VITALS: BP 106/68; PULSE 72; RESP 18; TEMP 36.7; O2SAT 97; BMI 28.6
--- NOTE | 2025-03-27 13:58 | A.OFFPC_ITS ---
Vital Signs 03/27/25 13:58 Height 5 ft 5 in Weight 172 lb BMI 28.6 BP 106/68 Blood Pressure Location Lt brachial Position Sitting Respiration 18 Pulse 72 Pulse Source Pulse Oximeter Temp 98.1 F Temp Source Oral Pulse Oximetry (%) 97 Oxygen Delivery Method Room Air Intake Visit Reasons: 2 months f/up Intake Note: Pt is here today for 2 months follow up. Allergies lisinopril Allergy (Intermediate, Verified 03/27/25 14:04) Hyperkalemia nitrofurantoin (Macrobid) Adverse Reaction (Intermediate, Verified 03/27/25 14:04) dizziness Medication List - Last Reconciled 03/27/25 by Dipika Casas MD acetaminophen 500 mg PO BID PRN apixaban (Eliquis) 5 mg PO BID atorvastatin 20 mg PO DAILY blood sugar diagnostic As directed blood sugar diagnostic (FreeStyle Lite Strips) Test blood sugar TID budesonide DR-ER 3 mg PO DAILY cephalexin 500 mg PO BID cholecalciferol (vitamin D3) 50 mcg PO DAILY dapagliflozin propanediol (Farxiga) 10 mg PO QAM isosorbide mononitrate ER 30 mg PO DAILY lancets (FreeStyle Lancets) Test up to 3 times per day Lantus Solostar U-100 Insulin (insulin glargine) 30 units (0.3 mL) subcut QAM NS levothyroxine 125 mcg PO DAILY metoprolol succinate ER 25 mg (1/2 x 50 mg) PO BID omeprazole 20 mg PO DAILY pen needle, diabetic (BD Ultra-Fine Mini Pen Needle) Use to inject insulin once a day sertraline 75 mg (1.5 x 50 mg) PO DAILY Spiriva with HandiHaler (tiotropium bromide) 1 cap inhalation DAILY NS vit C,B-Qj-luxvv-lutein-zeaxan 250-90-40-1 mg (PreserVision AREDS-2) 1 tab PO BID Tobacco use date assessed: 03/27/25 Dental Screening Dental Screen Date: 12/11/24 HPI 2 months f/up HPI Details Pt presents for DM 2, hypothyroid, hyperlipid, heart failure with reduced ejection fraction, stable on meds [facility] Medical History Non-ST elevation [place] (NSTEMI) Hyperkalemia CKD (chronic kidney disease), stage III Cataract Vitamin D deficiency DM type 2 (diabetes mellitus, type 2) Hypothyroidism Hyperlipemia Paroxysmal atrial fibrillation Cardiac pacemaker in situ Complete heart block Surgical History Pacemaker battery depletion Hx of bilateral mastectomy History of permanent cardiac pacemaker placement History of tonsillectomy and adenoidectomy History of hip surgery Hx of cardiac cath Family History Father Cancer Mother Diabetes Social History Housing: House Are you a primary rn primary care to a significant other at home: No (was caring for , now he is in [place]) Do you presently have visiting nurse or other home services: No Alcohol intake: never Patient Tobacco Use Status: Former Tobacco user Tobacco use type: Cigarette e-Cigarette/Vaping Use: Never Used Advance Directives Date on File: 02/16/22 service: No Current occupational status: retired Cognitive needs: No Hearing needs: No Vision needs: Yes Questionnaire Thrive Questionnaire Date Thrive assessed: 12/11/24 I am a: Patient What is your living situation today?: I have a steady place to live Within the past 12 months, did the food you bought not last and you didn't have the money to get more?: Never true Within the past 12 months, did you worry whether your food would run out before you got money to buy more?: Never true Do you have trouble paying for medicines?: No Do you have trouble getting transportation to medical appointments?: No Do you have trouble paying your heating and electricity bill?: No Do you have trouble taking care of your child, family member or friend?: No Do you have trouble with day-to-day activities such as bathing, preparing meals, shopping, managing finances, etc.?: No Are you currently unemployed and looking for a job?: No Are you interested in more education?: No Please select the resources that you would like help with: None Currently or been in a relationship where the following occur: No concerns reported THRIVE Score: 0 LEON-7 AMB Questionnaire LEON-7 Date LEON - 7 assessed: 12/11/24 Source: Developed by Drs. Star Vitale, Grace Sprague, Ham Landrum and colleagues, with an educational gaston from [facility]. Review of Systems Const All systems reviewed & are unremarkable except as noted in HPI and below Eyes Reports no additional complaints ENT Reports no additional complaints Card Reports no additional complaints Resp Reports no additional complaints GI Reports no additional complaints Reports no additional complaints Physical exam (Primary Care) Vital Signs: Last Vital Signs Temp 98.1 F 03/27/25 13:58 Pulse 72 03/27/25 13:58 Resp 18 03/27/25 13:58 BP 106/68 03/27/25 13:58 Pulse Ox 97 03/27/25 13:58 Oxygen Delivery Method Room Air 03/27/25 13:58 BMI result Body Mass Index 28.6 Tobacco/Smoking Status: Tobacco use Status Tobacco use date assessed 03/27/25 03/27/25 14:06 Patient Tobacco Use Status Former Tobacco user 03/27/25 14:06 Tobacco use type Cigarette 03/27/25 14:06 e-Cigarette/Vaping Use Never Used 03/27/25 14:06 Thrive Assessment: Date of Thrive Assessment Date Thrive assessed 12/11/24 03/27/25 14:06 Currently or been in a relationship where the following occur: No concerns reported Const General: no acute distress HENMT Head: Yes normal to inspection Face and sinus: Yes normal facial exam Throat: Yes posterior oropharynx normal Eyes General: appearance normal, both eyes and all related structures Neck Neck: Yes supple Resp Effort & Inspection: normal respiratory effort Auscultation: clear to auscultation bilaterally Cardio Rhythm: regular rhythm Heart sounds: S1 normal heart sound present and S2 normal heart sound present Coding Level of Care Code Est Pt Level 4 (07048) Complex EM visit Add On G2211 Diagnoses Stress-induced cardiomyopathy I51.81 Hyperlipemia E78.5 Paroxysmal atrial fibrillation I48.0 DM type 2 (diabetes mellitus, type 2) E11.9 Hypothyroidism E03.9 CKD (chronic kidney disease), stage III N18.30 Assessment & Plan Assessment & Plan (1) Stress-induced cardiomyopathy: Comment: Echo 05/25 improved ejection fraction to 50%, intolerant to ARB/ACEI because of hyperkalemia Code(s): I51.81 - Takotsubo syndrome Category: Medical Plan: Continue Farxiga and metoprolol (2) Hyperlipemia: Code(s): E78.5 - Hyperlipidemia, unspecified Category: Medical Plan: Continue statin (3) Paroxysmal atrial fibrillation: Comment: s/p pacemaker Code(s): I48.0 - Paroxysmal atrial fibrillation Category: Medical Plan: Continue Eliquis and metoprolol follow-up with Cardiology (4) DM type 2 (diabetes mellitus, type 2): Code(s): E11.9 - Type 2 diabetes mellitus without complications Category: Medical Plan: A1c is 7.7, ADA diet increase physical activity weight loss discussed with the patient. Continue Lantus and Farxiga follow-up in 4 months with a fasting labs before (5) Hypothyroidism: Code(s): E03.9 - Hypothyroidism, unspecified Category: Medical Plan: Continue levothyroxine (6) CKD (chronic kidney disease), stage III: Code(s): N18.30 - Chronic kidney disease, stage 3 unspecified Category: Medical Plan: Avoid nephrotoxins monitor renal function Orders: Orders Comprehensive [place]. Panel Fast 4 Months E03.9 - Hypothyroidism, unspecified, E11.9 - Type 2 diabetes mellitus without complications, N18.30 - Chronic kidney disease, stage 3 unspecified Hemoglobin A1c 4 Months E03.9 - Hypothyroidism, unspecified, E11.9 - Type 2 diabetes mellitus without complications, N18.30 - Chronic kidney disease, stage 3 unspecified Complete Blood Count Auto Diff 4 Months E03.9 - Hypothyroidism, unspecified, E11.9 - Type 2 diabetes mellitus without complications, N18.30 - Chronic kidney disease, stage 3 unspecified Lipid Panel 4 Months E03.9 - Hypothyroidism, unspecified, E11.9 - Type 2 diabetes mellitus without complications, N18.30 - Chronic kidney disease, stage 3 unspecified TSH reflex Free T4 4 Months E03.9 - Hypothyroidism, unspecified, E11.9 - Type 2 diabetes mellitus without complications, N18.30 - Chronic kidney disease, stage 3 unspecified Microalbumin, Random (w Creat) 4 Months E03.9 - Hypothyroidism, unspecified, E11.9 - Type 2 diabetes mellitus without complications, N18.30 - Chronic kidney disease, stage 3 unspecified
--- OUTSIDE RECORDS SUMMARY | 2025-03-27 15:47 | XMS_ITS | Clinical Summary ---
Author Organization [facility] Address [address] [address] Phone Care Team Providers Care Rn House Supervisor Name Role Phone Dipika Casas MD Primary Care Provider [phone] Allergies Active Allergy Reactions Criticality Noted Date [...] were inactivated after the 07/04/24 Regulatory Import Immunizations Immunization Administration Dates Next Due Influenza [...] Office Visit [facility] [address] [address] Keyonna ShahISSA [address] [address] Health Maintenance Due Date Last [...] Stage 3a chronic kidney disease (HCC) Hypertension HEMOGLOBIN A1C Routine 06/16/2023 2:24 PM EDT Type 2 diabetes mellitus with diabetic chronic kidney disease (HCC) Chronic kidney disease, stage 2 (mild) Hypertension from Last 3 Months or Most Recently Relevant to Health Maintenance Results * (ABNORMAL) Basic metabolic panel (01/16/2025 11:14 AM EDT) Only the most recent of2 resultswithin the time period is included. Glucose 89 70 - 99 mg/dL [facility] BUN 20 8 - 27 mg/dL [facility] Creatinine 1.25(H) 0.57 - 1.00 mg/dL [facility] eGFR CKD-EPI CR 2020 43(L) >59 mL/min/1.7 3 [facility] BUN/Creatinine Ratio 16 12 - 28 [facility] Sodium 145(H) 134 - 144 mmol/L [facility] Potassium 4.1 3.5 - 5.2 mmol/L [facility] Chloride 108(H) 96 - 106 mmol/L [facility] Bicarbonate (CO2) 20 20 - 29 mmol/L [facility] Calcium 9.0 8.7 - 10.3 mg/dL [facility] Blood specimen (specimen) Venous blood / Unknown 01/16/2025 11:14 AM EDT 01/16/[address]onna [address] [facility] LAB BLOOD ORDERABLES Final Result [facility] [address] [place] [address] * (ABNORMAL) Hemoglobin A1c (06/16/2023 2:24 PM EDT) Hemoglobin A1C 7.6(H) (4.0-5.6) % [facility] Comment: MONITORING: In known diabetic patients, hemoglobin A1c targets should be discussed with health care provider. DIAGNOSTIC USE: The [place] Diabetes Association (ADA) and the World Health [...] Supplement 1 Testing performed or reported by [facility], a Service of [facility], [address] [place] [id number] Randall Hamilton MD, Bench Assembler Electrical [facility]# [id number] Blood specimen (specimen) Venous blood / Unknown 06/16/2023 2:24 PM EDT 06/16/2023 2:25 PM EDT Raheem Steele MD LAB BLOOD ORDERABLES Final Re sult [facility] from Last 3 Months or Most Recently Relevant to Health Maintenance Insurance [facility] Care Teams Rn House Supervisor Relationship Specialty Start Date End Date Dipika Casas MD [address] [place] [address] PCP - General 10/14/20
== END 2025-03-27 14:34 | disposition home or self-care (01) ==
LOC: HO.HMCC 13:34
PROVIDERS: PCP Internal Medicine; Visit Provider Internal Medicine
DX: I48.0 Paroxysmal atrial fibrillation (principal); E11.9 Type 2 diabetes mellitus without complications; I51.81 Takotsubo syndrome; N18.30 Chronic kidney disease, stage 3 unspecified; E78.5 Hyperlipidemia, unspecified; E03.9 Hypothyroidism, unspecified

== ENCOUNTER → 2025-03-27 13:33 | Outpatient (BNVA) | payer MEDICARE, SELFPAY | PROVIDERS: PCP Internal Medicine; Visit Provider Internal Medicine | DX: E11.22 Type 2 diabetes mellitus with diabetic chronic kidney disease (principal); E03.9 Hypothyroidism, unspecified; E78.5 Hyperlipidemia, unspecified; N18.30 Chronic kidney disease, stage 3 unspecified; I50.9 Heart failure, unspecified; I51.81 Takotsubo syndrome; I48.0 Paroxysmal atrial fibrillation; Z79.899 Other long term (current) drug therapy | CPT/HCPCS: 99212 ==

== ENCOUNTER → 2025-04-25 23:59 | Outpatient (BNV) | payer MEDICARE, SELFPAY ==
--- NOTE | 2025-04-26 09:17 | MHC.OFFVIS ---
Intake Visit Reasons: Remote device check- [facility] Allergies lisinopril Allergy (Intermediate, Verified 03/27/25 14:04) Hyperkalemia nitrofurantoin (Macrobid) Adverse Reaction (Intermediate, Verified 03/27/25 14:04) dizziness PFSH Medical History Non-ST elevation [place] (NSTEMI) Hyperkalemia CKD (chronic kidney disease), stage III Cataract Vitamin D deficiency DM type 2 (diabetes mellitus, type 2) Hypothyroidism Hyperlipemia Paroxysmal atrial fibrillation Cardiac pacemaker in situ Complete heart block Surgical History Pacemaker battery depletion Hx of bilateral mastectomy History of permanent cardiac pacemaker placement History of tonsillectomy and adenoidectomy History of hip surgery Hx of cardiac cath Family History Father Cancer Mother Diabetes Social History Housing: House Are you a primary primary care coordinator to a significant other at home: No (was caring for , now he is in [place]) Do you presently have visiting nurse or other home services: No Alcohol intake: never Patient Tobacco Use Status: Former Tobacco user Tobacco use type: Cigarette e-Cigarette/Vaping Use: Never Used Advance Directives Date on File: 02/16/22 service: No Current occupational status: retired Cognitive needs: No Hearing needs: No Vision needs: Yes Office Procedures Cardiac Device Check Cardiac Device Check Details: Remote pacemaker report generated 04/25/2025. Pacemaker function is okay [id number] Cardiac Device Interrogation, pacemaker Procedure code (CPT) selection complete Assessment & Plan Assessment & Plan (1) Cardiac pacemaker in situ: Code(s): Z95.0 - Presence of cardiac pacemaker Category: Medical Plan: See above Coding Level of Care Code Procedure Only Diagnoses Cardiac pacemaker in situ Z95.0 CPT Codes Cardiac Device Check - Cardiac Device 12: [id number] Cardiac Device Interrogation, pacemaker ([id number])
== END ==
PROVIDERS: PCP Internal Medicine; Visit Provider Internal Medicine Cardiovascular Disease
DX: Z45.018 Encounter for adjustment and management of other part of cardiac pacemaker (principal)
CPT/HCPCS: 93294

== ENCOUNTER 2025-07-24 14:16 | Outpatient (AMB) | payer MEDICARE, SELFPAY ==
--- OUTSIDE RECORDS SUMMARY | 2024-11-08 09:00 | XMS_ITS ---
Author Organization [facility] Demetria floyd [place] Address [address] [place] [address] Care Team Providers Care Subgrade Roller Operator Name Role Phone Dipika Casas MD Primary Care Provider Clarisse Mckeon [phone] Gan Medications Medication [...] Active Encounters Encounter Location Date Provider Diagnosis [facility] [address] [place] [address] 11/08/2024 Clarisse Cheung Plan Of Treatment Next Appt Details Provider Name:Clarisse caputo, 09/17/2025 01:00:00 PM, [address] [facility], [place], [address], Progress Notes * Penny MEMBRENODOB:1945 (80 yo F)Acc No.[id number]:11/08/2024 Progress Note Patient: Penny FUCHS Provider: Jovany Cheung DPM :1945 A ge:79 Y S ex:Female Date:11/08/2024 Address:[address] [place] [address], [place] Pcp:Dipika Casas MD Subjective: * Chief Complaints: [...] 0 11/08/2024 Generated for Santiago garcia/Terrell/Darrel on: 1 07:17 PM EDT
[2025-07-24 14:18] VITALS: BP 120/80; PULSE 74; BMI 29.3
--- NOTE | 2025-07-24 14:18 | MHC.OFFVIS ---
Vital Signs 07/24/25 14:18 Height 5 ft 5 in Weight 176 lb 5.917 oz BMI 29.3 BP 120/80 Blood Pressure Location Lt brachial Position Sitting Pulse 74 Intake Visit Reasons: 6m follow up w device ck Intake Note: 6 month follow-up with [facility] doing ok Steam Shovel Operating Engineer Required: No Allergies lisinopril Allergy (Intermediate, Verified 03/27/25 14:04) Hyperkalemia nitrofurantoin (Macrobid) Adverse Reaction (Intermediate, Verified 03/27/25 14:04) dizziness Medication List - Last Reconciled 07/24/25 by Prosper Brown MD acetaminophen 500 mg PO BID PRN apixaban (Eliquis) 5 mg PO BID atorvastatin 20 mg PO DAILY blood sugar diagnostic As directed blood sugar diagnostic (FreeStyle Lite Strips) Test blood sugar TID budesonide DR-ER 3 mg PO DAILY cholecalciferol (vitamin D3) 50 mcg PO DAILY dapagliflozin propanediol (Farxiga) 10 mg PO QAM isosorbide mononitrate ER 30 mg PO DAILY lancets (FreeStyle Lancets) Test up to 3 times per day Lantus Solostar U-100 Insulin (insulin glargine) 30 units (0.3 mL) subcut QAM NS levothyroxine 125 mcg PO DAILY metoprolol succinate ER 25 mg (1/2 x 50 mg) PO BID omeprazole 20 mg PO DAILY pen needle, diabetic (BD Ultra-Fine Mini Pen Needle) Use to inject insulin once a day sertraline 75 mg (1.5 x 50 mg) PO DAILY Spiriva with HandiHaler (tiotropium bromide) 1 cap inhalation DAILY NS vit C,K-Jl-hzrio-lutein-zeaxan 250-90-40-1 mg (PreserVision AREDS-2) 1 tab PO BID HPI Comments Details: Penny comes for follow-up. Patient has no active cardiac issues. Denies any prolonged palpitation irregular heartbeat. Denies any exertional chest pain or shortness of breath. No orthopnea, PND, leg edema. No overt bleeding issues or neurologic events. Comes for pacemaker evaluation. [facility] Medical History Non-ST elevation NM (NSTEMI) Hyperkalemia CKD (chronic kidney disease), stage III Cataract Vitamin D deficiency DM type 2 (diabetes mellitus, type 2) Hypothyroidism Hyperlipemia Paroxysmal atrial fibrillation Cardiac pacemaker in situ Complete heart block Surgical History Pacemaker battery depletion Hx of bilateral mastectomy History of permanent cardiac pacemaker placement History of tonsillectomy and adenoidectomy History of hip surgery Hx of cardiac cath Family History Father Cancer Mother Diabetes Social History Housing: House Are you a primary director medicare sales to a significant other at home: No (was caring for , now he is in NH) Do you presently have visiting nurse or other home services: No Alcohol intake: never Patient Tobacco Use Status: Former Tobacco user Tobacco use type: Cigarette e-Cigarette/Vaping Use: Never Used Advance Directives Date on File: 02/16/22 service: No Current occupational status: retired Cognitive needs: No Hearing needs: No Vision needs: Yes Review of Systems Const Denies chills, Denies fatigue, Denies fever(s), Denies frequent falls, Denies weakness, Denies weight gain and Denies weight loss ENT Denies dizziness Card Denies chest pain, Denies leg edema, Denies lightheadedness, Denies palpitations, Denies dyspnea, Denies dyspnea on exertion, Denies orthopnea and Denies other (loss of consciousness) Resp Denies cough, Denies dyspnea and Denies dyspnea on exertion GI Denies hematochezia and Denies change in stool character Musc Denies abnormal gait, Denies muscle weakness, Denies numbness, Denies radiating pain into limb and Denies tingling Neuro Denies abnormal gait, Denies dizziness, Denies frequent falls, Denies numbness, Denies tingling and Denies weakness Endo Denies fatigue and Denies palpitations Physical Exam Vital Signs: Last Vital Signs Pulse 74 07/24/25 14:18 BP 120/80 07/24/25 14:18 BMI result Body Mass Index 29.3 Const General: cooperative, healthy appearing, comfortable and no acute distress Orientation/consciousness: patient oriented x3 Neck Neck: Yes normal visual inspection Resp Effort & Inspection: normal respiratory effort Auscultation: clear to auscultation bilaterally, no crackles, no rales, no rhonchi and no wheezes Cardio Jugular venous distension: no JVD Rate: regular rate Rhythm: regular rhythm Heart sounds: S1 normal heart sound present, S2 normal heart sound present, no murmurs and no rubs Neuro General: patient oriented x3 Extrem General: Yes normal to inspection Psych Appearance: grossly normal Mental Status: mental status grossly normal Speech and movement: Normal speech and movement present Office Procedures Cardiac Device Check Cardiac Device Check Details: Dual-chamber [place] pacemaker in place. Programmed in DDDR at 60 beats per minute. Ventricular pacing 100% of time. No arrhythmias noted. Atrial ventricular capture thresholds are in auto capture mode. Atrial sensing is adequate. Pacing lead impedance is stable. Battery life is at about 9 years [id number] Cardiac Device Check, pacemaker dual lead Procedure code (CPT) selection complete Assessment & Plan Assessment & Plan (1) Paroxysmal atrial fibrillation: Comment: s/p pacemaker Code(s): I48.0 - Paroxysmal atrial fibrillation Category: Medical Plan: Paroxysmal atrial fibrillation remained suppressed. She has been very well with rhythm control approach. Continue pursue rhythm control approach he had no indication for antiarrhythmic drug at this point time. Continue metoprolol therapy. Avoidance of stimulants was discussed. Stress mitigation strategies were discussed. Continue current oral anticoagulation therapy although her rising creatinine is concerning. If her creatinine remains at or above 1.5 will reduce her Eliquis dose to 2.5 mg b.i.d.. This was discussed with her. Rationale for this was discussed as well. (2) Cardiac pacemaker in situ: Code(s): Z95.0 - Presence of cardiac pacemaker Category: Medical Plan: Cardiac pacemaker in-situ, completely pacer dependent. Will follow remotely every 3 months. Follow up in the clinic in 6 months time. Follow-up echocardiogram in 6 months time to assess for pacer induced cardiomyopathy. (3) CAD (coronary artery disease): Comment: Nonobstructive by cardiac catheterization, February 2022, done for NSTEMI Code(s): I25.10 - Atherosclerotic heart disease of [place] coronary artery without angina pectoris Category: Medical Plan: Nonobstructive CAD done during NSTEMI which eventually diagnose as takotsubo cardiomyopathy. Continue currently full oral anticoagulation. Continue aggressive blood pressure control. Continue statin therapy with target goal LDL less than 70 mg/dL. Continue metoprolol therapy to reduce risk of recurrent stress-induced cardiomyopathy. Follow up in the clinic in 6 months time, sooner PRN. Thank you for allowing me to partake in her care Orders: Orders Basic Metabolic Panel Today I48.0 - Paroxysmal atrial fibrillation Coding Level of Care Code Est Pt Level 4 (42857) Complex EM visit Add On G2211 Diagnoses Paroxysmal atrial fibrillation I48.0 Cardiac pacemaker in situ Z95.0 CAD (coronary artery disease) I25.10 CPT Codes Cardiac Device Check - Cardiac Device 2: [id number] Cardiac Device Check, pacemaker dual lead ([id number])
--- OUTSIDE RECORDS SUMMARY | 2025-07-24 19:17 | XMS_ITS | Clinical Summary ---
Author Organization [facility] Address [address] [address] Phone Care Team Providers Care Dining Service Worker Name Role Phone Pcp, Not Required Primary Care Provider Unavaila ble Social History Tobacco Use Types Packs/Day Years Used Date Smoking Tobacco: Never Assessed Education Answer Date Recorded Are you interested in more education? Not on najma e 01/29/2023 Are you concerned about learning? Not on file 01/29/2023 No 01/29/2023 No 01/29/2023 Digital Access Answer Date Recorded No 03/02/2023 No 03/02/2023 No 03/02/2023 Reliable internet access at home? Not on file 03/02/2023 Device with a working camera? Not on file Comments Unknown Sex and Gender Information Value Date Recorded Sex Assigned at Not on file Legal Sex Female 3:54 PM EST Gender Identity Not on file Sexual Orientation Not on file Plan of Treatment Not on file Medical Devices Not on file Insurance [employer] REPLACEMENT [employer] RE[employer] REPLACEMENT [facility] MEDICARE HMO REPLACEMENT [employer] REPLAC[employer] REPLACEMENT [facility] MEDICARE HMO REPLACEMENT [employer] REPLACEMENT Care Teams Dining Service Worker Relationship Specialty Start Date End Date Pcp, Not Required [address] [place] [id number] PCP - General 11/22/18 Additional Source Comments The information contained in this document represents components of the legal health record. It is not the complete legal health record.[facility]
--- OUTSIDE RECORDS SUMMARY | 2025-07-24 19:17 | XMS_ITS | Clinical Summary ---
Author Organization [facility] Address [address] [facility] [address] [place] [address] Phone Care Team Providers Care Insulation Machine Operator Name Role Phone Dipika Casas MD Primary Care Provider [phone] Allergies Active Allergy Reactions Criticality Noted Date [...] mouth 1 (one) time each day Active Dapagliflozin Propanediol (Farxiga) 10 MG tabletIndication s:Type 2 diabetes mellitus with diabetic chronic kidney disease (HCC) Take 10 mg by mouth 1 (one) time each day 30 tablet 11 08/07/2024 Active apixaban (Eliquis) 5 MG tablet Take 5 mg by mouth in the morning and 5 mg in the evening. Active cholecalciferol (VITAMIN D-3) 50 MCG (1999) tabletIndication s:Vitamin D deficiency, not otherwise specified TAKE 1 TABLET BY MOUTH ONCE DAILY. 90 tablet 3 05/24/2025 Active Active Problems Problem Noted Date Diagnosed Date Proteinuria, not otherwise specified 06/28/2025 Vitamin D deficiency, not otherwise specified Secondary [...] Encounters Date Type Department Care Team Description 06/28/2025 3:00 PM EDT Office Visit [facility] [address] [phone] Keyonna Shah ARNP Stage 3a chronic kidney disease (HCC) (Primary Dx); Hypertension; Secondary hyperparathyroidism of renal origin (HCC); Vitamin D deficiency, not otherwise specified; Proteinuria, not otherwise specified 05/24/2025 Refill [facility] [address] [phone] Keyonna Shah ARNP Vitamin D deficiency, not otherwise specified 05/04/2025 Orders Only [facility] [address] [address] Keyonna Shah ARNP Stage 3a chronic kidney disease (HCC); Hypertension; Vitamin D deficiency, not otherwise specified; [...] Sign Reading Time Taken Comments Blood Pressure 120/82 06/28/2025 4:01 PM EDT Pulse 81 06/28/2025 3:35 PM EDT Temperature - - Respiratory Rate - - Oxygen Saturation 97% 06/20/2024 1:44 PM EDT Inhaled Oxygen Concentration - - Weight 79.4 kg (175 lb) 06/28/2025 3:35 PM EDT Height 167.6 cm (5' 6 ) 08/08/2021 2:27 PM EDT Body Mass Index 28.25 08/08/2021 2:27 PM EDT Plan of Treatment Upcoming Encounters Date Type Department Care Team (Late st Contact Info) Description 12/26/2025 1:30 PM EDT Office Visit [facility] [address] [phone] Keyonna Shah ARNP [address] [phone] Health Maintenance Due Date Last Done Comments Pneumococcal Vaccine: 50+ Years (1 of 2 - PCV) 1964 Diabetes: Ophthalmology Exam 11/03/2020 Diabetes: Pedal Pulse Checked 11/03/2020 Diabetes: Sensory Foot Exam 11/03/2020 Diabetes: Visual Foot Exam 11/03/2020 Diabetes: Hemoglobin A1C 09/15/2023 023, 09/16/2022, 04/24/2022, Additional history exists Influenza Vaccine (#1) 2025 05/05/2021 Hepatitis B Vaccine Aged Out No longe r eligible based on patient's age to complete this topic Procedures Procedure Name Priority Date/Time Associated Diagnosis Comments VITAMIN D 25 HYDROXY Routine 06/15/2025 10:15 AM EDT Stage 3a chronic kidney disease (HCC) Hypertension Vitamin D deficiency, not otherwise specified Secondary hyperparathyroidism of renal origin (HCC) URINE ALBUMIN / CREATININE RATIO Routine 06/15/2025 10:15 AM EDT Stage 3a chronic kidney disease (HCC) Hypertension Vitamin D deficiency, not otherwise specified Secondary hyperparathyroidism of renal origin (HCC) PROTEIN / CREATININE RATIO, URINE Routine 06/15/2025 10:15 AM EDT Stage 3a chronic kidney disease (HCC) Hypertension Vitamin D deficiency, not otherwise specified Secondary hyperparathyroidism of renal origin (HCC) CBC Routine 06/15/2025 10:15 AM EDT Stage 3a chronic kidney disease (HCC) Hypertension Vitamin D deficiency, not otherwise specified Secondary hyperparathyroidism of renal origin (HCC) RENAL FUNCTION PANEL Routine 06/15/2025 10:15 AM EDT Stage 3a chronic kidney disease (HCC) Hypertension Vitamin D deficiency, not otherwise specified Secondary hyperparathyroidism of renal origin (HCC) PTH, INTACT Routine 06/15/2025 10:15 AM EDT Stage 3a chronic kidney disease (HCC) Hypertension Vitamin D deficiency, not otherwise specified Secondary hyperparathyroidism of renal origin (HCC) HEMOGLOBIN A1C Routine 06/16/2023 2:24 PM EDT Type 2 diabetes mellitus with diabetic chronic kidney disease (HCC) Chronic kidney disease, stage 2 (mild) Hypertension from Last 3 Months or Most Recently Relevant to Health Maintenance Results * (ABNORMAL) Urine Protein / creatinine ratio (06/15/2025 10:15 AM EDT) Creatinine, Ur 98.5 Not Estab. mg/dL [facility] Protein, Ur 46.9 Not Estab. mg/dL [facility] Urine Protein/Creati nine Ratio 476(H) 0 - 200 mg/g creat [facility] Urine specimen (specimen) Urine specimen obtained by clean catch procedure / Unknown 06/15/2025 10:15 AM EDT 06/15/2025 us Keyonna [facility] LAB URINE ORDERABLES Final Result Performing Organization Address City/[facility]/ZIP Co de Phone Number [facility] [address] [place] [address] * Urine Albumin / Creatinine Ratio (06/15/2025 10:15 AM EDT) Albumin, Urine 28.2 Not Estab. ug/mL [facility] Albumin/Creatin ine Ratio 29 0 - 29 mg/g creat [facility] Comment: Normal: 0 - 29 Moderately increased: 30 - 300 Severely increased: >300 Urine specimen (specimen) Urine specimen obtained by clean catch procedure / Unknown 06/15/2025 10:15 AM EDT 06/15/2025 [facility] LAB URINE ORDERABLES Final Result Performing Organization Address [facility]/ZIP Co de Phone Number [facility] [address] [place] [address] * Vitamin D 25 hydroxy (06/15/2025 10:15 AM EDT) Vitamin D, 25-OH, Total 36.3 30.0 - 100.0 ng/mL [facility] Comment: Vitamin D deficiency has been defined by the [place] of Medicine and an Endocrine Society practice guideline as a level of serum 25-OH vitamin D less than 20 ng/mL (1,2). The Endocrine Society went on to further define vitamin D insufficiency as a level between 21 and 29 ng/mL (2). 1. IOM ([place] of Medicine). 2010. Dietary reference intakes for calcium and D. [place]: The National Academies Press. 2. Ace MF, Bette POLO, Wen SNYDER, et al. Evaluation, treatment, and prevention of vitamin D deficiency: an Endocrine Society clinical practice guideline. JCEM. 2010; 96(7):1911-30. Blood specimen (specimen) Venous blood / Unknown 06/15/2025 10:15 AM EDT 06/15/2025 Keyonna Shah [facility] LAB BLOOD ORDERABLES Final Result Performing Organization Address City/[facility]/ZIP Co de Phone Number [facility] [address] [place] [address] * (ABNORMAL) CBC (06/15/2025 10:15 AM EDT) WBC 6.0 3.4 - 10.8 x10E3/uL [facility] RBC 4.86 3.77 - 5.28 x10E6/uL [facility] Hemoglobin 13.6 11.1 - 15.9 g/dL [facility] Hematocrit 44.1 34.0 - 46.6 % [facility] MCV 91 79 - 97 fL [facility] MCH 28.0 26.6 - 33.0 pg [facility] MCHC 30.8(L) 31.5 - 35.7 g/dL [facility] RDW 14.2 11.7 - 15.4 % [facility] Platelets 184 150 - 450 x10E3/uL [facility] Blood specimen (specimen) Venous blood / Unknown 06/15/2025 10:15 AM EDT 06/15/2025 Keyonna [facility] LAB BLOOD ORDERABLES Final Result [facility] [address] [place] [address] * (ABNORMAL) PTH, intact (06/15/2025 10:15 AM EDT) PTH 96(H) 15 - 65 pg/mL [facility] Blood specimen (specimen) Venous blood / Unknown 06/15/2025 10:15 AM EDT 06/15/2025 Keyonna Shah [facility] LAB BLOOD ORDERABLES Final Result [facility] [address] [place] [address] * (ABNORMAL) Renal function panel (06/15/2025 10:15 AM EDT) Glucose 165(H) 70 - 99 mg/dL [facility] BUN 22 8 - 27 mg/dL [facility] Creatinine 1.46(H) 0.57 - 1.00 mg/dL [facility] eGFR CKD-EPI CR 2020 36(L) >59 mL/min/1.7 3 [facility] BUN/Creatinine Ratio 15 12 - 28 [facility] Sodium 140 134 - 144 mmol/L [facility] Potassium 4.5 3.5 - 5.2 mmol/L [facility] Chloride 104 96 - 106 mmol/L [facility] Bicarbonate (CO2) 21 20 - 29 mmol/L [facility] Calcium 9.6 8.7 - 10.3 mg/dL [facility] Albumin 4.3 3.7 - 4.7 g/dL [facility] Phosphorus 3.4 3.0 - 4.3 mg/dL [facility] Blood specimen (specimen) Venous blood / Unknown 06/15/2025 10:15 AM EDT 06/15/2025 Keyonna Shah [facility] LAB BLOOD ORDERABLES Final Result [facility] [address] [place] [address] * (ABNORMAL) Hemoglobin A1c (06/16/2023 2:24 PM EDT) Hemoglobin A1C 7.6(H) (4.0-5.6) % [facility] Comment: MONITORING: In known diabetic patients, hemoglobin A1c targets should be discussed with health care provider. DIAGNOSTIC USE: The [place] Diabetes Association (ADA) and the World Health [...] Supplement 1 Testing performed or reported by [facility], a Service of [facility], [address] [place] [address] Randall Hamilton MD, Vocational Rehabilitation Counselor [facility]# [id number] Blood specimen (specimen) Venous blood / Unknown 06/16/2023 2:24 PM EDT 06/16/2023 2:25 PM EDT us Raheem Steele MD LAB BLOOD ORDERABLES Final Re sult [facility] from Last 3 Months or Most Recently Relevant to Health Maintenance Insurance [facility] Care Teams Insulation Machine Operator Relationship Specialty Start Date End Date Dipika Casas MD [facility] [place], [place] [phone] PCP - General 10/14/20
--- OUTSIDE RECORDS SUMMARY | 2025-07-24 19:18 | XMS_ITS | Clinical Summary ---
Author Organization [facility] Address [address] [place] [address] Phone Care Team Providers Care Cutter Aluminum Sheet Name Role Phone Dipika Casas MD Primary Care Provider [phone] Allergies No known active allergies Medications atorvastatin [...] day in the morning. 90 each 5 Active dapagliflozin propanediol (Farxiga) 10 mg tablet Take 1 tablet (10 mg total) by mouth 1 (one) time each day. Active Eliquis 5 mg tablet Take 1 tablet (5 mg total) by mouth 2 (two) times a day. Active Active Problems Problem Noted Date Diagnosed Date Acquired hammer toe of left foot 06/21/2025 Acquired hammer toe of right foot 06/21/2025 Cardiac pacemaker in situ 06/21/2025 Cataract 06/21/2025 COPD with emphysema ([facility] V24, [facility] V28) 0 06/21/2025 Coronary artery disease 06/21/2025 Diverticulosis 06/21/2025 Hyperlipidemia 06/21/2025 Hypothyroidism 06/21/2025 Insulin dependent diabetes m ellitus type IA ([facility] V24, [facility] V28) 06/21/2025 Paroxysmal atrial fibrillation ([facility] V24, [facility] V28) 06/21/2025 Vitamin D deficiency 06/20/2024 Polyneuropathy due to type 2 diabetes mellitus ([facility] V24, [facility] V28) 02/24/2022 Chronic kidney disease, stage 2 (mild) 1 Hypertension 08/08/2021 Malignant neoplasm of overla pping sites of right female breast ([facility] V24, [facility] V28) 11/18/2018 Encounters Date Type Department Care Team Description 05/29/2025 2:00 PM EDT Office Visit [facility] Hematology Oncology [address] [place] [address] Danilo Minor MD Malignant neoplasm of overlapping sites of right breast in female, estrogen receptor positive ([facility] V24, [facility] V28) (Primary Dx) from Last 3 Months Medical History Medical History Date Comments Breast cancer ([facility] V24, [facility] V28) DX:Breast cancer (HCC);COMMENT:Right-sided stage 1 TicNo invasive breast cancer Diabetes mellitus ([facility] V 24, [facility] V28) DX:Diabetes mellitus (HCC) Disease of thyroid [...] Sign Reading Time Taken Comments Blood Pressure 125/60 05/29/2025 2:10 PM EDT Pulse 76 05/29/2025 2:10 PM EDT Temperature 36.2 C (97.2 F) 05/29/2025 2:10 PM EDT Respiratory Rate - - Oxygen Saturation 93% 05/29/2025 2:10 PM EDT Inhaled Oxygen Concentration - - Weight 74.4 kg (164 lb) 05/30/2024 2:00 PM EDT Height 167.6 cm (5' 6 ) 05/30/2024 2:00 PM EDT Body Mass Index 26.47 05/30/2024 2:00 PM EDT Plan of Treatment Upcoming Encounters Date Type Department Care Team (Late st Contact Info) Description 12/03/2025 1:40 PM EST Office Visit Gastroenterology - [address] [facility] [address] [facility] [address] [place] [phone] Debbie Ron PA [address] [facility] [place] [address] [place] [address] 05/28/2026 2:00 PM EDT Office Visit [facility] Hematology Oncology [address] [place] [phone] Danilo Minor MD [address] [place] [phone] Health Maintenance Due Date Last Done Comments Diabetes: Annual Foot Exam 1955 Diabetes: Annual Retina Eye Exam 1955 DTaP,Tdap,and Td Vaccines (1 - Tdap) 1964 Zoster Vaccines (1 of 2) 1964 RSV Immunization Adult Patients (1 - 1-dose 75+ series) 2018 COVID-19 Vaccine (3 - Pfizer risk series) 01/02/2021 12/05/2020, 11/14/2020 Cholesterol Screening (Lipid Panel) 09/05/2022 Falls Risk Assessment 09/05/2022 Medicare Annual Wellness Visit 09/05/2022 Osteoporosis Screening (Bone Density Screening) 09/05/2022 Social Influencers of Health Screening 09/05/2022 Depression Screening 10/04/2024 Diabetes: Annual Urine Albumin-Creatinine Ratio (uACR) 01/10/2025 Diabetes: Blood Sugar Control Test (HGBA1C) 01/10/2025 06/16/2023 Influenza Vaccine (#1) 2025 , 05/05/2021, 07/01/2020, Additional history exists Diabetes: Annual GFR (Glomerular Filtration Rate) 01/02/2026 01/02/2025 Hypertension/CHF/CAD Annual BMP Blood Test 01/02/2026 01/02/2025 Pneumococcal Vaccine: 50+ Years Completed 01/17/2025, 11/09/2015, 11/16/2014, Additional history exists HIB Vaccines Aged Out No longer eligi [...] patient's age to [place] [address] [employer] Care Teams Cutter Aluminum Sheet Relationship Specialty Start Date End Date Dipika Casas MD [address] [place] [address] PCP - General Internal Medicine 01/10/25
--- OUTSIDE RECORDS SUMMARY | 2025-07-24 19:18 | XMS_ITS | Patient Health Record ---
Author Organization [facility] Demetria floyd Pierre Address [address] [facility] [place] [address] Care Team Providers Care Gaming Dealer Name Role Phone Dipika Casas MD Primary Care Provider Clarisse Mckeon Unavailable [phone] Cesar Chisholm Unavailable [phone] Purnima Steward Unavailable [phone] Allergies Allergen (clinical drug ingredient) Drug/Non Drug [...] Start Date End Date Status Extra Depth Orthopedic Shoes (1 Pair) with Customized Heat Molded Multidensity Innersoles (3 Pair) as directed Dx: IDDM/Polyneuropathy (E10.42), Hammertoe Foot Deformity (M20.41,M20.42), Preulcerative Skin Lesion(s) (L85.1) 11/21/2024 Active Xarelto 15 MG 1 tablet with food Orally Once a day; Duration: 30 day(s) Active Ciclopirox Olamine 0.77 % 1 application to affected area Externally Twice a day to effected areas on feet; Duration: 30 days Active Budesonide Not-Takin g Spiriva HandiHaler A ctive Famotidine 20 MG 1 tablet at bedtime as needed Orally Once a day; Duration: 30 day(s) Not-Jean Marie ing Sertraline HCl 50 MG 1 tablet Orally Onc e a day; Duration: 30 day(s) Active Levothyroxine Sodium 125 MCG 1 tablet in the morning on an empty stomach Orally Once a day; Duration: 30 day(s) Active Lantus Active Atorvastatin Calcium 20 MG 1 tablet Orally Once a day; Duration: 30 day(s) Active Sotalol HCl 80 MG 1 tablet Orally ever y 12 hrs; Duration: 30 day(s) Not-Jean Marie ing Metoprolol Succinate ER 25 MG 1 tablet Orally Once a day; Duration: 30 day(s) Active Extra Depth Diabetic Shoes with 3 Pair Custom heat-molded multi-density innersoles for 1 year Dx: 07/16/2021 N ot-Taking Isosorbide Dinitrate 30 MG 1 tablet Orally Twice a day; Duration: 30 day(s) Active Farxiga Active Immunizations Vaccine Route Administration Date Status Comme nts Influenza Unknown 05/05/2021 Administered Influenza Unknown 06/14/2025 Refused COVID-19 Pfizer BioNTech Vaccine Unknown 12/05/2020 Administered First Dose: 11/14/2020 Social History Tobacco Use: Social History Observation Description Date Details (start date - stop date) Never Smoker NA - NA Tobacco use other than smoking: Question Answer Notes Are you an other tobacco user? No Tobacco Control (Standard) Question Answer Notes Tobacco use: Nonsmoker AUDIT-C (Standard) Question Answer Notes Did you have a drink containing alcohol in the p ast year? No Points 0 Interpretation Negative Problems Problem Type SNOMED Code ICD Code Onset Dates Problem Status W/U Status Risk Notes Problem Acquired hammer toe of right foot (2927980986627365 ) Other hammer toe(s) (acquired), right foot (M20.41) Active confirmed Problem Acquired hammer toe of left foot (3991037636634846 ) Other hammer toe(s) (acquired), left foot (M20.42) Active confirmed Problem Polyneuropathy due to type 2 diabetes mellitus (192901161) Type 2 diabetes mellitus with diabetic polyneuropathy (E11.42) Active confirmed Problem Polyneuropathy due to diabetes mellitus type I (524014810) Type 1 diabetes mellitus with diabetic polyneuropathy (E10.42) Active confirmed Vital Signs Blood pressure diastolic 80 mm Hg 06/14/2025 Height 5ft 6in in 06/14/2025 Blood pressure systolic 127 mm Hg 06/14/2025 Weight 172 lbs 06/14/2025 BMI 27.76 kg/m2 06/14/2025 Procedures Procedure Date Ordered Date Performed Result Body Sit e 89040-FMPPQGR NAIL, 6 OR MORE 03/07/2025 N/A [id number] NAIL, 6 OR MORE 06/14/2025 N/A Encounters Encounter Location Date Provider Diagnosis [address] [address] 08/03/2024 Cesar Chisholm Type 1 diabetes mellitus with diabetic polyneuropathy E10.42 ; Tinea unguium B35.1 ; Skin disease L98.9 ; Tinea pedis B35.3 ; Pain in right toe(s) M79.674 and Pain in left toe(s) M79.[address] [address] 11/21/2024 Purnima Steward Type 1 diabetes mellitus with diabetic polyneuropathy E10.42 ; Other hammer toe(s) (acquired), right foot M20.41 ; Tinea unguium B35.1 and Other hammer toe(s) (acquired), left foot M20.[address] [address] 03/07/2025 Clarisse Cheung Type 2 diabetes mellitus with diabetic polyneuropathy E11.42 and Tinea unguium B35.[address] [address] 06/14/2025 Clarisse Cheung Type 2 diabetes mellitus with diabetic polyneuropathy E11.42 and Tinea unguium B35.1 Assessments Encounter Date Diagnosis (ICD Code) Assessment Notes Treatment Notes Treatment Clinical Notes Section Notes 08/03/2024 Type 1 diabetes mellitus with diabetic polyneuropathy (ICD-10 - E10.42) 11/21/2024 Type 1 diabetes mellitus with diabetic polyneuropathy (ICD-10 - E10.42) 03/07/2025 Type 2 diabetes mellitus with diabetic polyneuropathy (ICD-10 - E11.42) 03/07/2025 Tinea unguium (ICD-10 - B35.1) 06/14/2025 Type 2 diabetes mellitus with diabetic polyneuropathy (ICD-10 - E11.42) 06/14/2025 Tinea unguium (ICD-10 - B35.1) 11/21/2024 Other hammer toe(s) (acquired), right foot (ICD-10 - M20.41) Patient Educated with: DIABETIC FOOT CARE INSTRUCTIONS. pdf (DIABETIC FOOT CARE INSTRUCTIONS. pdf) 11/21/2024 Tinea unguium (ICD-10 - B35.1) 08/03/2024 Tinea unguium (ICD-10 - B35.1) 08/03/2024 Skin disease (ICD-10 - L98.9) 08/03/2024 Tinea pedis (ICD-10 - B35.3) 11/21/2024 Other hammer toe(s) (acquired), left foot (ICD-10 - M20.42) 08/03/2024 Pain in right toe(s) (ICD-10 - M79.674) 08/03/2024 Pain in left toe(s) (ICD-10 - M79.675) Plan Of Treatment Pending Test Test Name Order Date 75960-[id number] NAIL, 6 OR MORE 03/07/2025 79786-[id number] NAIL, 6 OR MORE 06/14/2025 07155-NZKP SKIN LESIONS, 2 TO 4 07/16/20 21 94529-SZYG SKIN LESIONS, 2 TO 4 10/29/19 22 [id number] DYSTROPHIC NAILS ANY # Next Appt Details Provider Name:Clarisse caputo, 09/17/2025 01:00:00 PM, [address] [place], [address], Insurance Providers Payer Name Payer Address Payer Phone Subscriber Number Group Number Insured Name Patient Relationship to Insured Coverage Start Date Coverage End Date [employer] [place] [employer]vantage [address] [place] [address] [id number] Penny Greenwood Self - patient is the insured 4 Medical (General) History Medical History History ICD Code Arthritis Back,Hip,and Knee pain Cancer Headaches/Migraines Kidney disease Reflux ( GERD) thyroid Joint implants/screws Transfusions type II diabetes Surgical History Surgery Date(Month/Year) cancer surgery 1986, 2009 hip replacement cataract surgery 12/2021,01/2022 Hospitalization History Reason Date(Month/Year) [facility]- Heart Attack due to stress few days 01/2022 [facility]- pt thought she was having a heart a ttack 01/2023
--- OUTSIDE RECORDS SUMMARY | 2025-07-24 19:18 | XMS_ITS | Clinical Summary ---
Author Organization [facility] Address [address] [place] [address] Care Team Providers Care Pediatrics Physician Name Role Phone Dipika Casas MD Primary Care Provider [phone] Allergies No known active allergies Medications Medication [...] 76 05/30/2024 2:00 PM EDT Temperature 36.6 C (97.8 F) 05/30/2024 2:00 PM EDT Respiratory Rate - - Oxygen Saturation 97% [...] series) 01/02/2021 12/05/2020, 11/14/2020 Influenza Vaccine (#1) 2025 Hepatitis B Vaccines Aged Out No long er eligible based on patient's age to complete this topic RSV Ped < 20 months Aged Out No longe r eligible based on patient's age to complete this topic Care Teams Pediatrics Physician Relationship Specialty Start Date End Date Dipika Casas MD [address] [facility] [place] [phone] PCP - General Body And Fender Mechanic 11/18/18
== END 2025-07-24 14:39 | disposition home or self-care (01) ==
LOC: HO.HCS 14:17
PROVIDERS: PCP Internal Medicine; Visit Provider Internal Medicine Cardiovascular Disease
DX: I48.0 Paroxysmal atrial fibrillation (principal); Z95.0 Presence of cardiac pacemaker; I25.10 Atherosclerotic heart disease of native coronary artery without angina pectoris
CPT/HCPCS: 93280; 99214; G2211

== ENCOUNTER 2025-07-24 14:16 | Outpatient (REF) | payer MEDICARE, SELFPAY ==
[2025-07-24 16:00] LABS: Anion Gap 15 (12-20); Blood Urea Nitrogen 21 mg/dL (9-16); Calcium 9.9 mg/dL (8.4-10.2); Carbon Dioxide 22 mmol/L (22-29); Chloride 111 mmol/L (96-108); Estimated Glomerular Filt Rate 35; Potassium 4.3 mmol/L (3.3-5.1); Sodium 144 mmol/L (135-145)
== END 2025-07-24 14:17 | disposition home or self-care (01) ==
LOC: HO.LAB 14:16
PROVIDERS: PCP Internal Medicine; Visit Provider Internal Medicine Cardiovascular Disease
DX: I48.0 Paroxysmal atrial fibrillation (principal); I25.10 Atherosclerotic heart disease of native coronary artery without angina pectoris; Z95.0 Presence of cardiac pacemaker; Z79.899 Other long term (current) drug therapy; Z79.01 Long term (current) use of anticoagulants; I25.2 Old myocardial infarction; Z87.891 Personal history of nicotine dependence
CPT/HCPCS: 36415; 80048; 93280; 99212

== ENCOUNTER → 2025-07-25 23:59 | Outpatient (BNV) | payer MEDICARE, SELFPAY ==
--- NOTE | 2025-07-27 12:26 | A.OFFVIS_ITS ---
Intake Visit Reasons: Remote device check- [facility] Allergies lisinopril Allergy (Intermediate, Verified 03/27/25 14:04) Hyperkalemia nitrofurantoin (Macrobid) Adverse Reaction (Intermediate, Verified 03/27/25 14:04) dizziness PFSH Medical History Non-ST elevation [place] (NSTEMI) Hyperkalemia CKD (chronic kidney disease), stage III Cataract Vitamin D deficiency DM type 2 (diabetes mellitus, type 2) Hypothyroidism Hyperlipemia Paroxysmal atrial fibrillation Cardiac pacemaker in situ Complete heart block Surgical History Pacemaker battery depletion Hx of bilateral mastectomy History of permanent cardiac pacemaker placement History of tonsillectomy and adenoidectomy History of hip surgery Hx of cardiac cath Family History Father Cancer Mother Diabetes Social History Housing: House Are you a primary career development coordinator/teacher to a significant other at home: No (was caring for , now he is in [place]) Do you presently have visiting nurse or other home services: No Alcohol intake: never Patient Tobacco Use Status: Former Tobacco user Tobacco use type: Cigarette e-Cigarette/Vaping Use: Never Used Advance Directives Date on File: 02/16/22 service: No Current occupational status: retired Cognitive needs: No Hearing needs: No Vision needs: Yes Office Procedures Cardiac Device Check Cardiac Device Check Details: Remote pacemaker report generated 07/25/2025. Pacemaker function is adequate [id number] Cardiac Device Interrogation, pacemaker Procedure code (CPT) selection complete Assessment & Plan Assessment & Plan (1) Cardiac pacemaker in situ: Code(s): Z95.0 - Presence of cardiac pacemaker Category: Medical Plan: See above Coding Level of Care Code Procedure Only Diagnoses Cardiac pacemaker in situ Z95.0 CPT Codes Cardiac Device Check - Cardiac Device 12: [id number] Cardiac Device Interrogation, pacemaker ([id number])
== END ==
PROVIDERS: PCP Internal Medicine; Visit Provider Internal Medicine Cardiovascular Disease
DX: Z45.018 Encounter for adjustment and management of other part of cardiac pacemaker (principal)
CPT/HCPCS: 93294

== ENCOUNTER 2025-07-26 08:41 | Outpatient (REF) | payer MEDICARE, SELFPAY ==
--- OUTSIDE RECORDS SUMMARY | 2024-11-08 09:00 | XMS_ITS ---
[facility] [place] Address [address] [place] [address] Care Team Providers Care Escrow Secretary Name Role Phone Dipika Casas MD Primary Care Provider Clarisse Mckeon [phone] Gan Medications Medication [...] Active Encounters Encounter Location Date Provider Diagnosis [facility] [address] [place] [address] 11/08/2024 Clarisse Cheung Plan Of Treatment Next Appt Details Provider Name:Clarisse caputo, 09/17/2025 01:00:00 PM, [address] [facility], [place], [address], Progress Notes * Penny MEMBRENODOB:1945 (80 yo F)Acc No.[id number]:11/08/2024 Progress Note Patient: Penny FUCHS Provider: Jovany Cheung DPM :1945 A ge:79 Y S ex:Female Date:11/08/2024 Address:[address] [place] [address], [place] Pcp:Dipika Casas MD Subjective: * Chief Complaints: [...] DPM Date: 0 11/08/2024 Generated for Santiago garcia/Terrell/Darrel on: 09:18 AM EDT
--- OUTSIDE RECORDS SUMMARY | 2025-07-26 09:18 | XMS_ITS | Clinical Summary ---
Author Organization [facility] Address [address] [address] Phone Care Team Providers Care Tobacco Cloth Reclaimer Name Role Phone Pcp, Not Required Primary [...] REPLACEMENT [employer] [place] [employer] H[employer] REPLACEMENT [facility] MEDICARE HMO REPLACEMENT [employer] [place] [employer] H[employer] REPLACEMENT [employer] [place] [employer] H[employer] REPLACEMENT [facility] MEDICARE HMO REPLACEMENT [employer] [place] [employer] H[employer] REPLACEMENT Care Teams Tobacco Cloth Reclaimer Relationship Specialty Start Date End Date Pcp, Not Required [address] [place] [address] PCP - General 11/22/18 Additional Source Comments The information contained in this document represents components of the legal health record. It is not the complete legal health record.[facility]
--- OUTSIDE RECORDS SUMMARY | 2025-07-26 09:19 | XMS_ITS | Clinical Summary ---
Author Organization [facility] Address [address] [address] Phone Care Team Providers Care Business Unit Director Name Role Phone Dipika Casas MD Primary Care Provider [phone] Allergies Active Allergy Reactions Criticality Noted Date [...] mouth 1 (one) time each day Active apixaban (Eliquis) 5 MG tablet Take 5 mg by mouth in the morning and 5 mg in the evening. Active cholecalciferol (VITAMIN D-3) 50 MCG (1999) tabletIndication s:Vitamin D deficiency, not otherwise specified TAKE 1 TABLET BY MOUTH ONCE DAILY. 90 tablet 3 5 Active Dapagliflozin Propanediol (Farxiga) 10 MG tabletIndication s:Type 2 diabetes mellitus with diabetic chronic kidney disease (HCC) Take 10 mg by mouth 1 (one) time each day 30 tablet 11 5 Active Dapagliflozin Propanediol (Farxiga) 10 MG tabletIndication s:Type 2 diabetes mellitus with diabetic chronic kidney disease (HCC) Take 10 mg by mouth 1 (one) time each day 30 tablet 11 4 07/25/20 25 Discontinu ed(Reorder (does not appear on AVS)) Active Problems Problem Noted Date Diagnosed Date [...] Encounters Date Type Department Care Team Description 07/25/2025 Refill [facility] [address] [phone] Rachelle Leal Type 2 diabetes mellitus with diabetic chronic kidney disease (HCC) 06/28/2025 3:00 PM EDT Office Visit [facility] [address] [phone] Keyonna Shah ARNP Stage 3a chronic kidney disease (HCC) (Primary Dx); Hypertension; Secondary hyperparathyroidism of renal origin (HCC); Vitamin D deficiency, not otherwise specified; Proteinuria, not otherwise specified 05/24/2025 Refill [facility] [address] [phone] Keyonna Shah ARNP Vitamin D deficiency, not otherwise specified 05/04/2025 Orders Only [facility] [address] [phone] Shah, Keyonna, MANAGER WOUND Stage 3a chronic kidney disease (HCC); Hypertension; [...] Office Visit [facility] [address] [address] Keyonna Shah ARNP [address] [address] Health Maintenance Due Date Last [...] Creatinine, Ur 98.5 Not Estab. mg/dL [facility] Protein, Ur 46.9 Not Estab. mg/dL [facility] Urine Protein/Creati nine Ratio 476(H) 0 - 200 mg/g creat [facility] Urine specimen (specimen) Urine specimen obtained by clean catch procedure / Unknown 06/15/2025 10:15 AM EDT 06/15/2025 [facility] LAB URINE ORDERABLES Final Result [facility] [address] [place] [address] * Urine Albumin / Creatinine Ratio (06/15/2025 10:15 AM EDT) Albumin, Urine 28.2 Not Estab. ug/mL [facility] Albumin/Creatin ine Ratio 29 0 - 29 mg/g creat [facility] Comment: Normal: 0 - 29 Moderately increased: 30 - 300 Severely increased: >300 Urine specimen (specimen) Urine specimen obtained by clean catch procedure / Unknown 06/15/2025 10:15 AM EDT 06/15/2025 [facility] LAB URINE ORDERABLES Final Result Performing Organization Address City/[facility]/ZIP Co de Phone Number [facility] [address] [place] [address] * Vitamin D 25 hydroxy (06/15/2025 10:15 AM EDT) Vitamin D, 25-OH, Total 36.3 30.0 - 100.0 ng/mL [facility] Comment: Vitamin D deficiency has been defined by the [place] of Medicine and an Endocrine Society practice guideline as a level of serum 25-OH vitamin D less than 20 ng/mL (1,2). The Endocrine Society went on to further define vitamin D insufficiency as a level between 21 and 29 ng/mL (2). 1. IOM ([place] of Medicine). 2010. Dietary reference intakes for calcium and D. [place]: The National Academies Press. 2. Ace MF, Bette POLO, Wen SNYDER, et al. Evaluation, treatment, and prevention of vitamin D deficiency: an Endocrine Society clinical practice guideline. JCEM. 2010; 96(7):1911-30. Blood specimen (specimen) Venous blood / Unknown 06/15/2025 10:15 AM EDT 06/15/2025 Keyonna Shah [facility] LAB BLOOD ORDERABLES Final Result [facility] [address] [place] [address] * (ABNORMAL) CBC (06/15/2025 10:15 AM EDT) WBC 6.0 3.4 - 10.8 x10E3/uL [facility] RBC 4.86 3.77 - 5.28 x10E6/uL [facility] Hemoglobin 13.6 11.1 - 15.9 g/dL [facility] Hematocrit 44.1 34.0 - 46.6 % [facility] MCV 91 79 - 97 fL [facility] MCH 28.0 26.6 - 33.0 pg [facility] MCHC 30.8(L) 31.5 - 35.7 g/dL [facility] RDW 14.2 11.7 - 15.4 % [facility] Platelets 184 150 - 450 x10E3/uL [facility] Blood specimen (specimen) Venous blood / Unknown 06/15/2025 10:15 AM EDT 06/15/2025 Keyonna [facility] LAB BLOOD ORDERABLES Final Result [facility] [address] [place] [address] * (ABNORMAL) PTH, intact (06/15/2025 10:15 AM EDT) PTH 96(H) 15 - 65 pg/mL [facility] Blood specimen (specimen) Venous blood / Unknown 06/15/2025 10:15 AM EDT 06/15/2025 Keyonna [facility] LAB BLOOD ORDERABLES Final Result Performing Organization Address City/[facility]/ZIP Co de Phone Number [facility] [address] [place] [address] * (ABNORMAL) Renal function panel (06/15/2025 10:15 AM EDT) Glucose 165(H) 70 - 99 mg/dL [facility] BUN 22 8 - 27 mg/dL [facility] Creatinine 1.46(H) 0.57 - 1.00 mg/dL [facility] eGFR CKD-EPI CR 2020 36(L) >59 mL/min/1.7 3 [facility] BUN/Creatinine Ratio 15 12 - 28 [facility] Sodium 140 134 - 144 mmol/L [facility] Potassium 4.5 3.5 - 5.2 mmol/L [facility] Chloride 104 96 - 106 mmol/L [facility] Bicarbonate (CO2) 21 20 - 29 mmol/L [facility] Calcium 9.6 8.7 - 10.3 mg/dL [facility] Albumin 4.3 3.7 - 4.7 g/dL [facility] Phosphorus 3.4 3.0 - 4.3 mg/dL [facility] Blood specimen (specimen) Venous blood / Unknown 06/15/2025 10:15 AM EDT 06/15/2025 Keyonna Shah [facility] LAB BLOOD ORDERABLES Final Result [facility] [address] [place] [address] * (ABNORMAL) Hemoglobin A1c (06/16/2023 2:24 PM EDT) Hemoglobin A1C 7.6(H) (4.0-5.6) % [facility] Comment: MONITORING: In known diabetic patients, hemoglobin A1c targets should be discussed with health care provider. DIAGNOSTIC USE: The [place] Diabetes Association (ADA) and the World Health [...] Supplement 1 Testing performed or reported by [facility], a Service of [facility], [address] [place] [address] Randall Hamilton MD, Head Bander And Liner Operator IA# [id number] Blood specimen (specimen) Venous blood / Unknown 06/16/2023 2:24 PM EDT 06/16/2023 2:25 PM EDT us Raheem Steele MD LAB BLOOD ORDERABLES Final Re sult [facility] from Last 3 Months or Most Recently Relevant to Health Maintenance Insurance [facility] Care Teams Business Unit Director Relationship Specialty Start Date End Date Dipika Casas MD [address] [place], [place] [phone] PCP - General 10/14/20
--- OUTSIDE RECORDS SUMMARY | 2025-07-26 09:19 | XMS_ITS | Encounter Summary ---
Author Organization [facility] Address [address] [address] Phone Care Team Providers Care Almond Roaster Name Role Phone Dipika Casas MD Primary Care Provider [phone] Reason for Visit * Reason Onset Date Comments Med Refill 07/25/2025 Encounter Details Date Type Department Care Team (Late Contact Info) Description 07/25/2025 Refill [facility] [address] [address] Rachelle Leal [address] [address] Type 2 diabetes mellitus with diabetic chronic kidney disease (HCC) Social History Tobacco Use Types Packs/Day Years [...] Department Care Team (Late Contact Info) Description 12/26/2025 1:30 PM EDT Office Visit [facility] [address] [address] Keyonna Shah ARNP [address] [address] documented as of this encounter Visit Diagnoses Diagnosis Type 2 diabetes mellitus with diabetic chronic kidney disease (HCC) documented in this encounter Care Teams Almond Roaster Relationship Specialty Start Date End Date Dipika Casas MD [address] [place] [address] PCP - General 10/14/20 documented as of this encounter
--- OUTSIDE RECORDS SUMMARY | 2025-07-26 09:19 | XMS_ITS | Patient Health Record ---
Author Organization [facility] Demetria floyd Pierre Address [address] [place] [address] Care Team Providers Care Procurement Services Manager Name Role Phone Dipika Casas MD Primary Care Provider Clarisse Mckeon Unavailable [phone] Cesar Chisholm Unavailable [phone] Purnima Steward Unavailable [phone] Allergies Allergen (clinical drug ingredient) Drug/Non Drug [...] Problem Acquired hammer toe of right foot (2189251426235924 ) Other hammer toe(s) (acquired), right foot (M20.41) Active confirmed Problem Acquired hammer toe of left foot (3710330295616557 ) Other hammer toe(s) (acquired), left foot (M20.42) Active confirmed Problem Polyneuropathy due to type 2 diabetes mellitus (116673403) Type 2 diabetes mellitus with diabetic polyneuropathy (E11.42) Active confirmed Problem Polyneuropathy due to diabetes mellitus type I (644975201) Type 1 diabetes mellitus with diabetic polyneuropathy (E10.42) Active confirmed Vital Signs Blood pressure diastolic 80 mm Hg 06/14/2025 Height 5ft 6in in 06/14/2025 Blood pressure systolic 127 mm Hg 06/14/2025 Weight 172 lbs 06/14/2025 BMI 27.76 kg/m2 06/14/2025 Procedures Procedure Date Ordered Date Performed Result Body Sit e 70067-HNFPLXK NAIL, 6 OR MORE 03/07/2025 N/A 89066-JMQRQZA NAIL, 6 OR MORE 06/14/2025 N/A Encounters Encounter Location Date Provider Diagnosis [address] [address] 08/03/2024 Cesar Chisholm Type 1 diabetes mellitus with diabetic polyneuropathy E10.42 ; Tinea unguium B35.1 ; Skin disease L98.9 ; Tinea pedis B35.3 ; Pain in right toe(s) M79.674 and Pain in left toe(s) M79.[address] [address] 11/21/2024 Purnima Steward Type 1 diabetes mellitus with diabetic polyneuropathy E10.42 ; Other hammer toe(s) (acquired), right foot M20.41 ; Tinea unguium B35.1 and Other hammer toe(s) (acquired), left foot M20.[address] [address] 03/07/2025 Clarisse Cheung Type 2 diabetes mellitus with diabetic polyneuropathy E11.42 and Tinea unguium B35.[address] [address] 06/14/2025 Clarisse Cheung Type 2 diabetes mellitus [...] Treatment Pending Test Test Name Order Date [id number] NAIL, 6 OR MORE 03/07/2025 59894-[id number] NAIL, 6 OR MORE 06/14/2025 42751-[id number] SKIN LESIONS, 2 TO 4 07/16/20 21 22275-UGAC SKIN LESIONS, 2 TO 4 10/29/19 22 H4026-[id number] DYSTROPHIC NAILS ANY # Next Appt Details Provider Name:Clarisse caputo, 09/17/2025 01:00:00 PM, [address] [place], [address], Insurance Providers Payer Name Payer Address Payer Phone Subscriber Number Group Number Insured Name Patient Relationship to Insured Coverage Start Date Coverage End Date [employer] [place] [employer]age [address] [place] [id number] Penny Greenwood Self - patient is the [...]
--- OUTSIDE RECORDS SUMMARY | 2025-07-26 09:19 | XMS_ITS | Clinical Summary ---
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 ([facility] V24, [facility] V28) 06/21/2025 Paroxysmal atrial fibrillation ([facility] V24, [facility] V28) 06/21/2025 Vitamin D deficiency 06/20/2024 Polyneuropathy due to type 2 diabetes mellitus ([facility] V24, [facility] V28) 02/24/2022 Chronic kidney disease, stage 2 (mild) 1 Hypertension 08/08/2021 Malignant neoplasm of overla pping sites of right female breast ([facility] V24, [facility] V28) 11/18/2018 Encounters Date Type Department Care Team Description 05/29/2025 2:00 PM EDT Office Visit [facility] Hematology Oncology [address] [place] [address] Danilo Minor MD Malignant neoplasm of overlapping sites of right breast in female, estrogen receptor positive ([facility] V24, [facility] V28) (Primary Dx) from Last 3 Months Medical History Medical History Date Comments Breast cancer ([facility]24, [facility] V28) DX:Breast cancer (HCC);COMMENT:Right-sided stage 1 TicNo invasive breast cancer Diabetes mellitus ([facility] V 24, [facility] V28) DX:Diabetes mellitus (HCC) Disease of thyroid [...] PM EST Office Visit Gastroenterology - [address] [facility] [address] [facility] [address] [place] [phone] Debbie Ron PA [address] [facility] [place] [address] [place] [address] 05/28/2026 2:00 PM EDT Office Visit [facility] Hematology Oncology [address] [place] [phone] Danilo Minor MD [address] [place] [phone] Health Maintenance Due Date Last Done Comments [...] age to [place] [id number] [employer] Care Teams Air Brake Rigger Relationship Specialty Start Date End Date Dipika Casas MD [address] [place] [address] PCP - General Internal Medicine 01/10/25
--- OUTSIDE RECORDS SUMMARY | 2025-07-26 09:19 | XMS_ITS | Clinical Summary ---
Author Organization [facility] Address [address] [place] [address] Care Team Providers Care Boat Carpenter Name Role Phone Dipika Casas MD Primary Care Provider [phone] Allergies No known active allergies Medications Medication [...] age to complete this topic Care Teams Boat Carpenter Relationship Specialty Start Date End Date Dipika Casas MD [address] [place] [facility] [phone] PCP - General Joy Operator 11/18/18
[2025-07-26 10:31] LABS: MANUAL DIFF FLAG NO
[2025-07-26 10:42] LABS: Hematocrit 42.5 % (37.0-47.0); Hemoglobin 13.1 g/dl (12.0-16.0); Imm Gran Abs Auto 0.07 X10*3/uL (0.00-0.03); Imm Gran Pct Auto 1.0 % (0.0-0.4); Lymphocytes Absolute Auto 1.0 X10*3/uL (1.2-4.9); Mean Corpuscular HGB Conc 30.8 g/dl (31.0-35.0); Mean Corpuscular Hemoglobin 27.6 pg (27.0-33.0); Mean Corpuscular Volume 89.5 fL (80.0-98.0); NRBC Abs Auto 0.000 X10*3/uL (0.0-0.012); NRBC Pct Auto 0.0 /100WBC (0.0-0.2); Platelet Count 186 X10*3/uL (160-400); Red Blood Count 4.75 X10*6/uL (4.20-5.50); White Blood Count 7.1 X10*3/uL (4.8-10.8)
[2025-07-26 11:00] LABS: Microalbum/Creatinine Ratio Ur 55.5 ug/mg cr (<30)
[2025-07-26 11:26] LABS: Alanine Aminotransferase 19 U/L (0-31); Albumin Level 4.2 g/dL (3.5-5.0); Alkaline Phosphatase 96 U/L (39-117); Anion Gap 10 (12-20); Aspartate Amino Transferase 22 U/L (5-31); Blood Urea Nitrogen 21 mg/dL (9-16); Calcium 9.2 mg/dL (8.4-10.2); Carbon Dioxide 24 mmol/L (22-29); Chloride 113 mmol/L (96-108); Cholesterol 125 mg/dL (<200); Estimated Glomerular Filt Rate 39; HDL Cholesterol 43 mg/dL (>40); Potassium 4.0 mmol/L (3.3-5.1); Sodium 143 mmol/L (135-145); Total Protein 6.9 g/dL (6.5-8.0); Triglycerides 128 mg/dL (<150)
== END 2025-07-26 08:42 | disposition home or self-care (01) ==
LOC: HO.HMGCLDS 08:41
PROVIDERS: PCP Internal Medicine; Visit Provider Internal Medicine
DX: I12.9 Hypertensive chronic kidney disease with stage 1 through stage 4 chronic kidney disease, or unspecified chronic kidney disease (principal); N18.30 Chronic kidney disease, stage 3 unspecified; E11.22 Type 2 diabetes mellitus with diabetic chronic kidney disease
CPT/HCPCS: 36415; 80053; 80061; 82043; 82570; 83036; 84443; 85025

== ENCOUNTER 2025-07-30 12:50 | Outpatient (AMB) | payer MEDICARE, SELFPAY ==
--- OUTSIDE RECORDS SUMMARY | 2024-11-08 09:00 | XMS_ITS ---
Author Organization [facility] Demetria floyd [place] Address [address] [place] [address] Care Team Providers Care Soft Work Cigar Machine Operator Name Role Phone Dipika Casas MD Primary Care Provider Clarisse Mckeon [phone] Gan Medications Medication [...] Active Encounters Encounter Location Date Provider Diagnosis [facility] [address] [place] [address] 11/08/2024 Clarisse Cheung Plan Of Treatment Next Appt Details Provider Name:Clarisse caputo, 09/17/2025 01:00:00 PM, [address] [facility], [place], [address], Progress Notes * Penny MEMBRENODOB:1945 (80 yo F)Acc No.[id number]:11/08/2024 Progress Note Patient: Penny FUCHS Provider: Jovany Cheung DPM :1945 A ge:79 Y S ex:Female Date:11/08/2024 Address:[address] [place] [address], [place] Pcp:Dipika Casas MD Subjective: * Chief Complaints: [...] 11/08/2024 Generated for Santiago garcia/Maria G on: 04:17 PM EDT
[2025-07-30 12:53] VITALS: BP 110/66; PULSE 71; RESP 18; TEMP 36.4; O2SAT 95; BMI 29.1
--- NOTE | 2025-07-30 12:53 | A.OFFPC_ITS ---
Vital Signs 07/30/25 12:53 Height 5 ft 5 in Weight 175 lb BMI 29.1 BP 110/66 Blood Pressure Location Lt brachial Position Sitting Respiration 18 Pulse 71 Pulse Source Pulse Oximeter Temp 97.6 F Temp Source Oral Pulse Oximetry (%) 95 Oxygen Delivery Method Room Air Intake Visit Reasons: 4 months f/up Intake Note: Pt is here today for 4 months follow up visit. Allergies lisinopril Allergy (Intermediate, Verified 07/30/25 13:01) Hyperkalemia nitrofurantoin (Macrobid) Adverse Reaction (Intermediate, Verified 07/30/25 13:01) dizziness Medication List - Last Reconciled 07/30/25 by Dipika Casas MD acetaminophen 500 mg PO BID PRN amoxicillin 2,000 mg (4 x 500 mg) PO ONCE apixaban (Eliquis) 5 mg PO BID atorvastatin 20 mg PO DAILY blood sugar diagnostic As directed blood sugar diagnostic (FreeStyle Lite Strips) Test blood sugar TID budesonide DR-ER 3 mg PO QAM cholecalciferol (vitamin D3) 50 mcg PO DAILY dapagliflozin propanediol (Farxiga) 10 mg PO QAM isosorbide mononitrate ER 30 mg PO DAILY lancets (FreeStyle Lancets) Test up to 3 times per day Lantus Solostar U-100 Insulin (insulin glargine) 30 units (0.3 mL) subcut QAM NS levothyroxine 125 mcg PO DAILY metoprolol succinate ER 25 mg (1/2 x 50 mg) PO BID omeprazole 20 mg PO DAILY pen needle, diabetic (BD Ultra-Fine Mini Pen Needle) Use to inject insulin once a day sertraline 75 mg (1.5 x 50 mg) PO DAILY Spiriva with HandiHaler (tiotropium bromide) 1 cap inhalation DAILY NS vit C,T-Ww-qdjia-lutein-zeaxan 250-90-40-1 mg (PreserVision AREDS-2) 1 tab PO BID Tobacco use date assessed: 07/30/25 Fall risk assessment: No Falls in past year Last assessed Fall Risk: 07/30/25 Dental Screening Dental Screen Date: 12/11/24 HPI 4 months f/up HPI Details Pt presents for f/u DM2, HTN, hypothyroid, HFrEF (stress cardiomyopathy), hyperlipid. Patient reports worsening of dyspnea on exertion for the last month. She feels out of breath and tired walking 1 flight of stairs which she was able to walk at least 2 flights in the past before feeling out of breath. Patient denies exercise-induced chest pains palpitations PND or orthopnea. She has been monitor her blood glucose but still eating high carbohydrate foods like cereals for breakfast. [facility] Medical History (Updated 07/30/25 @ 16:13 by Dipika Casas MD) Stress-induced cardiomyopathy Non-ST elevation [place] (NSTEMI) Hyperkalemia CKD (chronic kidney disease), stage III Cataract Vitamin D deficiency DM type 2 (diabetes mellitus, type 2) Hypothyroidism Hyperlipemia Paroxysmal atrial fibrillation Cardiac pacemaker in situ Complete heart block Surgical History Pacemaker battery depletion Hx of bilateral mastectomy History of permanent cardiac pacemaker placement History of tonsillectomy and adenoidectomy History of hip surgery Hx of cardiac cath Family History Father Cancer Mother Diabetes Social History Housing: House Are you a primary career and transition teacher to a significant other at home: No (was caring for , now he is in [place]) Do you presently have visiting nurse or other home services: No Alcohol intake: never Patient Tobacco Use Status: Former Tobacco user Tobacco use type: Cigarette e-Cigarette/Vaping Use: Never Used Advance Directives Date on File: 02/16/22 service: No Current occupational status: retired Cognitive needs: No Hearing needs: No Vision needs: Yes Questionnaire PHQ-9 Over the last 2 weeks, how often have you been bothered by any of the following problems? 1. Little interest or pleasure in doing things: not at all 2. Feeling down, depressed, or hopeless: not at all 3. Trouble falling or staying asleep, or sleeping too much: not at all 4. Feeling tired or having little energy: several days 5. Poor appetite or overeating: not at all 6. Feeling bad about yourself - or that you are a failure or have let yourself or your family down: not at all 7. Trouble concentrating on things, such as reading the newspaper or watching television: not at all 8. Moving or speaking so slowly that other people could have noticed. Or the opposite - being so fidgety or restless that you have been moving around a lot more than usual: not at all 9. Thoughts that you would be better off or of hurting yourself in some way: not at all Total score: 1 Depression Screening Interpretation: Negative Depression Screening Done: Yes Source: Developed by Drs. Star Vitale, Grace Sprague, Ham Landrum and colleagues, with an educational gaston from [employer]. Thrive Questionnaire Date Thrive assessed: 12/11/24 I am a: Patient What is your living situation today?: I have a steady place to live Within the past 12 months, did the food you bought not last and you didn't have the money to get more?: Never true Within the past 12 months, did you worry whether your food would run out before you got money to buy more?: Never true Do you have trouble paying for medicines?: No Do you have trouble getting transportation to medical appointments?: No Do you have trouble paying your heating and electricity bill?: No Do you have trouble taking care of your child, family member or friend?: No Do you have trouble with day-to-day activities such as bathing, preparing meals, shopping, managing finances, etc.?: No Are you currently unemployed and looking for a job?: No Are you interested in more education?: No Please select the resources that you would like help with: None Currently or been in a relationship where the following occur: No concerns reported THRIVE Score: 0 LEON-7 AMB Questionnaire LEON-7 Date LEON - 7 assessed: 12/11/24 Feeling nervous, anxious, or on edge: 0 = Not at all Not being able to stop or control worryin = Not at all Worrying too much about different things: 0 = Not at all Trouble relaxin = Not at all Being so restless that it is hard to sit still: 0 = Not at all Becoming easily annoyed or irritable: 0 = Not at all Feeling afraid as if something awful might happen: 0 = Not at all Total LEON-7 score (0-4 normal; 5-9 mild; 10-14 moderate; 15-21 severe): 0 Source: Developed by Drs. Star Vitale, Grace Sprague, Ham Landrum and colleagues, with an educational gaston from [employer]. Review of Systems Const All systems reviewed & are unremarkable except as noted in HPI and below Eyes Reports no additional complaints ENT Reports no additional complaints Card Reports no additional complaints Resp Reports no additional complaints GI Reports no additional complaints Reports no additional complaints Physical exam (Primary Care) Vital Signs: Last Vital Signs Temp 97.6 F 07/30/25 12:53 Pulse 71 07/30/25 12:53 Resp 18 07/30/25 12:53 BP 110/66 07/30/25 12:53 Pulse Ox 95 07/30/25 12:53 Oxygen Delivery Method Room Air 07/30/25 12:53 BMI result Body Mass Index 29.1 Tobacco/Smoking Status: Tobacco use Status Tobacco use date assessed 07/30/25 07/30/25 13:01 Patient Tobacco Use Status Former Tobacco user 07/30/25 12:53 Tobacco use type Cigarette 07/30/25 12:53 e-Cigarette/Vaping Use Never Used 07/30/25 12:53 PHQ-9: PHQ-9 Score PHQ-9: Total score 1 07/30/25 13:01 Depression Screening Interpretation: Negative Thrive Assessment: Date of Thrive Assessment Date Thrive assessed 12/11/24 07/30/25 12:53 Currently or been in a relationship where the following occur: No concerns reported Const General: no acute distress HENMT Head: Yes normal to inspection Ears: hearing grossly normal bilaterally Throat: Yes posterior oropharynx normal Eyes General: appearance normal, both eyes and all related structures Neck Neck: Yes no lymphadenopathy and Yes supple Resp Effort & Inspection: normal respiratory effort Auscultation: clear to auscultation bilaterally Cardio Rhythm: regular rhythm Heart sounds: S1 normal heart sound present and S2 normal heart sound present GI Inspection: Yes normal to inspection Palpation (GI): Soft to palpation Percussion: Yes normal to percussion Auscultation: normal bowel sounds Extrem General: Yes no clubbing, cyanosis or edema Coding Level of Care Code Est Pt Level 4 (97452) Diagnoses Stress-induced cardiomyopathy I51.81 Colitis K52.9 DM type 2 (diabetes mellitus, type 2) E11.9 Hyperlipemia E78.5 Paroxysmal atrial fibrillation I48.0 CKD (chronic kidney disease), stage III N18.30 Assessment & Plan Assessment & Plan (1) Stress-induced cardiomyopathy: Comment: Echo 05/25 improved ejection fraction to 50%, intolerant to ARB/ACEI because of hyperkalemia Code(s): I51.81 - Takotsubo syndrome Category: Medical Plan: Echocardiogram will be obtained and patient will try Entresto 15/60 mg capsule twice a day. Because of low blood pressure she was advised to discontinue isosorbide. Basic metabolic panel will be checked in 1 week patient will follow-up in 3 weeks (2) Colitis: Comment: Used to see Dr. Agee who retired, was treated with budesonide DR-ER Code(s): K52.9 - Noninfective gastroenteritis and colitis, unspecified Category: Medical Plan: For recurrent colitis symptoms budesonide DR-ER 3 mg will be restarted and patient will be referred to different GI (3) DM type 2 (diabetes mellitus, type 2): Code(s): E11.9 - Type 2 diabetes mellitus without complications Category: Medical Plan: A1c is 7.6, ADA diet increase physical activity discussed with the patient. She declined taking short-acting insulin before meals. She will continue Lantus and Farxiga (4) Hyperlipemia: Code(s): E78.5 - Hyperlipidemia, unspecified Category: Medical Plan: Continue statin (5) Paroxysmal atrial fibrillation: Comment: s/p pacemaker for complete HB Code(s): I48.0 - Paroxysmal atrial fibrillation Category: Medical Plan: Patient is anticoagulated on Eliquis, renal function is monitor and if creatinine increases to more than 1.5 Eliquis dose will be decreased to 2.5 mg (6) CKD (chronic kidney disease), stage III: Comment: Patient is established with Nephrology Code(s): N18.30 - Chronic kidney disease, stage 3 unspecified Category: Medical Plan: Monitor renal function avoid nephrotoxins Orders: Orders CA echo transthoracic complete Today I51.81 - Takotsubo syndrome NT Pro B Type Natriuretic Pept 1 Week I51.81 - Takotsubo syndrome Basic Metabolic Panel 1 Week I51.81 - Takotsubo syndrome Referrals Gastroenterology Referral K52.9 - Noninfective gastroenteritis and colitis, unspecified Medications: New 2 Entresto Sprinkle 15-16 mg (sacubitril-valsartan) 1 cap PO BID 60 ea 0RF NS budesonide DR-ER 3 mg PO QAM 90 ea 1RF Refilled Lantus Solostar U-100 Insulin (insulin glargine) 30 units (0.3 mL) subcut QAM 15 mL 4RF NS Discontinued isosorbide mononitrate ER Discontinued Reason: Doctor's Order 30 mg PO DAILY 90 tabs 3RF
--- OUTSIDE RECORDS SUMMARY | 2025-07-30 16:18 | XMS_ITS | Clinical Summary ---
Author Organization [facility] Address [address] [address] Phone Care Team Providers Care Gun Examiner Name Role Phone Dipika Casas MD Primary Care Provider [phone] Allergies Active Allergy Reactions Criticality Noted Date [...] 07/25/2025 Refill [facility] [address] [phone] Rachelle Leal Type 2 diabetes mellitus with diabetic chronic kidney disease (HCC) 06/28/2025 3:00 PM EDT Office Visit [facility] [address] [phone] Keyonna Shah ARNP Stage 3a chronic kidney disease (HCC) (Primary Dx); Hypertension; Secondary hyperparathyroidism of renal origin (HCC); Vitamin D deficiency, not otherwise specified; Proteinuria, not otherwise specified 05/24/2025 Refill [facility] [address] [phone] Keyonna Shah ARNP Vitamin D deficiency, not otherwise specified 05/04/2025 Orders Only [facility] [address] [phone] Shah, Ekyonna, HEATING AND COOLING SYSTEMS ENGINEER Stage 3a chronic kidney disease (HCC); Hypertension; [...] Visit [facility].. [address] [phone] Keyonna Shah ARNP [address] [phone] Health Maintenance Due Date Last [...] Creatinine, Ur 98.5 Not Estab. mg/dL [facility] Protein, Ur 46.9 Not Estab. mg/dL [facility] Urine Protein/Creati nine Ratio 476(H) 0 - 200 mg/g creat [facility] Urine specimen (specimen) Urine specimen obtained by clean catch procedure / Unknown 06/15/2025 10:15 AM EDT 06/15/2025 [facility] LAB URINE ORDERABLES Final Result [facility] [place] [address] [place] [address] * Urine Albumin / Creatinine Ratio (06/15/2025 10:15 AM EDT) Albumin, Urine 28.2 Not Estab. ug/mL [facility] Albumin/Creatin ine Ratio 29 0 - 29 mg/g creat [facility] Comment: Normal: 0 - 29 Moderately increased: 30 - 300 Severely increased: >300 Urine specimen (specimen) Urine specimen obtained by clean catch procedure / Unknown 06/15/2025 10:15 AM EDT 06/15/2025 [facility] LAB URINE ORDERABLES Final Result Performing Organization Address City/[facility]/ZIP Co de Phone Number [facility] [place] [address] [place] [address] * Vitamin D 25 hydroxy (06/15/2025 10:15 AM EDT) Vitamin D, 25-OH, Total 36.3 30.0 - 100.0 ng/mL [facility] Comment: Vitamin D deficiency has been defined by the Advance of Medicine and an Endocrine Society practice guideline as a level of serum 25-OH vitamin D less than 20 ng/mL (1,2). The Endocrine Society went on to further define vitamin D insufficiency as a level between 21 and 29 ng/mL (2). 1. IOM (Advance of Medicine). 2010. Dietary reference intakes for calcium and D. [place]: The National Academies Press. 2. Ace MF, Bette POLO, Wen SNYDER, et al. Evaluation, treatment, and prevention of vitamin D deficiency: an Endocrine Society clinical practice guideline. JCEM. 2010; 96(7):1911-30. Blood specimen (specimen) Venous blood / Unknown 06/15/2025 10:15 AM EDT 06/15/2025 Keyonna Shah [facility] LAB BLOOD ORDERABLES Final Result [facility] [address] [place] [address] * (ABNORMAL) CBC (06/15/2025 10:15 AM EDT) WBC 6.0 3.4 - 10.8 x10E3/uL [facility] RBC 4.86 3.77 - 5.28 x10E6/uL [facility] Hemoglobin 13.6 11.1 - 15.9 g/dL [facility] Hematocrit 44.1 34.0 - 46.6 % [facility] MCV 91 79 - 97 fL [facility] MCH 28.0 26.6 - 33.0 pg [facility] MCHC 30.8(L) 31.5 - 35.7 g/dL [facility] RDW 14.2 11.7 - 15.4 % [facility] Platelets 184 150 - 450 x10E3/uL [facility] Blood specimen (specimen) Venous blood / Unknown 06/15/2025 10:15 AM EDT 06/15/2025 [facility] LAB BLOOD ORDERABLES Final Result [facility] [address] [place] [address] * (ABNORMAL) PTH, intact (06/15/2025 10:15 AM EDT) PTH 96(H) 15 - 65 pg/mL [facility] Blood specimen (specimen) Venous blood / Unknown 06/15/2025 10:15 AM EDT 06/15/2025 Keyonna [facility] LAB BLOOD ORDERABLES Final Result Performing Organization Address City/[facility]/ZIP Co de Phone Number [facility] [address] [place] [address] * (ABNORMAL) Renal function panel (06/15/2025 10:15 AM EDT) Glucose 165(H) 70 - 99 mg/dL [facility] BUN 22 8 - 27 mg/dL [facility] Creatinine 1.46(H) 0.57 - 1.00 mg/dL [facility] eGFR CKD-EPI CR 2020 36(L) >59 mL/min/1.7 3 [facility] BUN/Creatinine Ratio 15 12 - 28 [facility] Sodium 140 134 - 144 mmol/L [facility] Potassium 4.5 3.5 - 5.2 mmol/L [facility] Chloride 104 96 - 106 mmol/L [facility] Bicarbonate (CO2) 21 20 - 29 mmol/L [facility] Calcium 9.6 8.7 - 10.3 mg/dL [facility] Albumin 4.3 3.7 - 4.7 g/dL [facility] Phosphorus 3.4 3.0 - 4.3 mg/dL [facility] Blood specimen (specimen) Venous blood / Unknown 06/15/2025 10:15 AM EDT 06/15/2025 Keyonna Shah [facility] LAB BLOOD ORDERABLES Final Result [facility] [address] [place] [address] * (ABNORMAL) Hemoglobin A1c (06/16/2023 2:24 PM EDT) Hemoglobin A1C 7.6(H) (4.0-5.6) % [facility] Comment: MONITORING: In known diabetic patients, hemoglobin A1c targets should be discussed with health care provider. DIAGNOSTIC USE: The [place] Diabetes Association (ADA) and the World Health [...] Supplement 1 Testing performed or reported by [facility], a Service of [facility], [address] [place] [id number] Randall Hamilton MD, Host/Hostess IA# [id number] Blood specimen (specimen) Venous blood / Unknown 06/16/2023 2:24 PM EDT 06/16/2023 2:25 PM EDT us Raheem Steele MD LAB BLOOD ORDERABLES Final Re sult [facility] from Last 3 Months or Most Recently Relevant to Health Maintenance Insurance [facility] Care Teams Gun Examiner Relationship Specialty Start Date End Date Dipika Casas MD [address] [place], [place] [phone] PCP - General 10/14/20
--- OUTSIDE RECORDS SUMMARY | 2025-07-30 16:18 | XMS_ITS | Clinical Summary ---
Author Organization [facility] Address [address] [place] [address] Care Team Providers Care Double Reamer Operator Name Role Phone Dipika Casas MD Primary Care Provider Allergies No known active allergies Medications Medication [...] age to complete this topic Care Teams Double Reamer Operator Relationship Specialty Start Date End Date Dipika Casas MD [address] [place] [phone] PCP - General Condenser Tube Tender 11/18/18
--- OUTSIDE RECORDS SUMMARY | 2025-07-30 16:18 | XMS_ITS | Encounter Summary ---
Author Organization [facility] Address [address] [address] Phone Care Team Providers Care Automatic Drill Operator Name Role Phone Dipika Casas MD Primary Care Provider [phone] Reason for Visit * Reason Onset Date Comments Med Refill 07/25/2025 Encounter Details Date Type Department Care Team (Late Contact Info) Description 07/25/2025 Refill [facility] [address] [phone] Rachelle Leal [address] [phone] Type 2 diabetes mellitus with [...] EDT Office Visit [facility] [address] [phone] Keyonna Shah ARNP [address] [phone] documented as of this encounter Visit Diagnoses Diagnosis Type 2 diabetes mellitus with diabetic chronic kidney disease (HCC) documented in this encounter Care Teams Automatic Drill Operator Relationship Specialty Start Date End Date Dipika Casas MD [address] [place] [address] PCP - General 10/14/20 documented as of this encounter
--- OUTSIDE RECORDS SUMMARY | 2025-07-30 16:18 | XMS_ITS | Clinical Summary ---
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 V24, [facility] V28) 02/24/2022 Chronic kidney disease, stage 2 (mild) 1 Hypertension 08/08/2021 Malignant neoplasm of overla pping sites of right female breast ([facility] V24, [facility] V28) 11/18/2018 Encounters Date Type Department Care Team Description 05/29/2025 2:00 PM EDT Office Visit [facility] Hematology Oncology [address] [place] [address] Danilo Minor MD Malignant neoplasm of overlapping sites of right breast in female, estrogen receptor positive ([facility] V24, [facility] V28) (Primary Dx) from Last 3 Months Medical History Medical History Date Comments Breast cancer ([facility] V24, [facility] V28) DX:Breast cancer (HCC);COMMENT:Right-sided stage 1 TicNo invasive breast cancer Diabetes mellitus ([facility] V 24, [facility] V28) DX:Diabetes mellitus (HCC) Disease of [...] PM EST Office Visit Gastroenterology - [address] [facility] [address] [facility] [address] [place] [phone] Debbie Ron PA [address] [place] [address] 05/28/2026 2:00 PM EDT Office Visit [facility] Hematology Oncology [address] [place] [address] Danilo Minor MD [address] [place] [phone] Health Maintenance Due Date Last Done Comments [...] age to complete [place] [id number] [employer] [employer] Care Teams Claim Representative Relationship Specialty Start Date End Date Dipika Casas MD [address] [place] [address] PCP - General Internal Medicine 01/10/25
--- OUTSIDE RECORDS SUMMARY | 2025-07-30 16:18 | XMS_ITS | Clinical Summary ---
Author Organization [facility] Address [address] [address] Phone Care Team Providers Care Steel Engraver Name Role Phone Pcp, Not Required Primary [...] REPLACEMENT [employer] [place] [employer] H[employer] REPLACEMENT [facility] MEDICARE HMO REPLACEMENT [employer] [place] [employer] H[employer] REPLACEMENT [employer] [place] [employer] H[employer] REPLACEMENT [facility] MEDICARE HMO REPLACEMENT [employer] [place] [employer] H[employer] REPLACEMENT Care Teams Steel Engraver Relationship Specialty Start Date End Date Pcp, Not Required [address] [place] [address] PCP - General 11/22/18 Additional Source Comments The information contained in this document represents components of the legal health record. It is not the complete legal health record.[facility]
--- OUTSIDE RECORDS SUMMARY | 2025-07-30 16:18 | XMS_ITS | Patient Health Record ---
Author Organization [facility] Demetria floyd Pierre Address [address] [place] [address] Care Team Providers Care Armhole Sewer Name Role Phone Dipika Casas MD Primary Care Provider Clarisse Mckeon Unavailable [phone] Cesar Chisholm Unavailable [phone] Purnima Steward Unavailable [phone] Allergies Allergen (clinical drug ingredient) Drug/Non Drug [...] Problem Acquired hammer toe of right foot (9902026369443875 ) Other hammer toe(s) (acquired), right foot (M20.41) Active confirmed Problem Acquired hammer toe of left foot (1207474804360056 ) Other hammer toe(s) (acquired), left foot (M20.42) Active confirmed Problem Polyneuropathy due to type 2 diabetes mellitus (562249209) Type 2 diabetes mellitus with diabetic polyneuropathy (E11.42) Active confirmed Problem Polyneuropathy due to diabetes mellitus type I (077561479) Type 1 diabetes mellitus with diabetic polyneuropathy (E10.42) Active confirmed Vital Signs Blood pressure diastolic 80 mm Hg 06/14/2025 Height 5ft 6in in 06/14/2025 Blood pressure systolic 127 mm Hg 06/14/2025 Weight 172 lbs 06/14/2025 BMI 27.76 kg/m2 06/14/2025 Procedures Procedure Date Ordered Date Performed Result Body Sit e 36292-YBCMYHA NAIL, 6 OR MORE 03/07/2025 N/A 37938-IKFSVTS NAIL, 6 OR MORE 06/14/2025 N/A Encounters Encounter Location Date Provider Diagnosis [address] [address] 08/03/2024 Cesar Chisholm Type 1 diabetes mellitus with diabetic polyneuropathy E10.42 ; Tinea unguium B35.1 ; Skin disease L98.9 ; Tinea pedis B35.3 ; Pain in right toe(s) M79.674 and Pain in left toe(s) M79.[address] [address] 11/21/2024 Purnima Steward Type 1 diabetes mellitus with diabetic polyneuropathy E10.42 ; Other hammer toe(s) (acquired), right foot M20.41 ; Tinea unguium B35.1 and Other hammer toe(s) (acquired), left foot M20.[address] [address] 03/07/2025 Clarisse Cheung Type 2 diabetes mellitus with diabetic polyneuropathy E11.42 and Tinea unguium B35.[address] [address] 06/14/2025 Clarisse Cheung Type 2 diabetes mellitus [...] Treatment Pending Test Test Name Order Date 14237-QDBWZVO NAIL, 6 OR MORE 03/07/2025 46339-QIYXYIE NAIL, 6 OR MORE 06/14/2025 62612-WFJC SKIN LESIONS, 2 TO 4 07/16/20 21 67772-IEHD SKIN LESIONS, 2 TO 4 10/29/19 22 R8336-MSDLTBIU DYSTROPHIC NAILS ANY # Next Appt Details Provider Name:Clarisse caputo, 09/17/2025 01:00:00 PM, [address] [place], [address], Insurance Providers Payer Name Payer Address Payer Phone Subscriber Number Group Number Insured Name Patient Relationship to Insured Coverage Start Date Coverage End Date [employer] [place] [employer]vantage [address] [place] [address] [id number] Penny Greenwood Self - patient is the [...]
== END 2025-07-30 16:13 | disposition home or self-care (01) ==
LOC: HO.HMCC 12:51
PROVIDERS: PCP Internal Medicine; Visit Provider Internal Medicine
DX: I51.81 Takotsubo syndrome (principal); E11.69 Type 2 diabetes mellitus with other specified complication; I48.0 Paroxysmal atrial fibrillation; N18.30 Chronic kidney disease, stage 3 unspecified; K52.9 Noninfective gastroenteritis and colitis, unspecified; E78.5 Hyperlipidemia, unspecified

== ENCOUNTER → 2025-07-30 12:50 | Outpatient (BNVA) | payer MEDICARE, SELFPAY | PROVIDERS: PCP Internal Medicine; Visit Provider Internal Medicine | DX: I12.9 Hypertensive chronic kidney disease with stage 1 through stage 4 chronic kidney disease, or unspecified chronic kidney disease (principal); E11.22 Type 2 diabetes mellitus with diabetic chronic kidney disease; E03.9 Hypothyroidism, unspecified; E78.5 Hyperlipidemia, unspecified; I51.81 Takotsubo syndrome; K52.9 Noninfective gastroenteritis and colitis, unspecified; I48.0 Paroxysmal atrial fibrillation; N18.30 Chronic kidney disease, stage 3 unspecified | CPT/HCPCS: 96127; 99212 ==

== ENCOUNTER 2025-08-07 09:10 | Outpatient (REF) | payer MEDICARE, SELFPAY ==
--- OUTSIDE RECORDS SUMMARY | 2024-11-08 08:00 | XMS_ITS ---
Author [facility] Demetria floyd [place] Address [address] [place] [address] Care Team Providers Care Baggage Clerk Name Role Phone Dipika Casas MD Primary Care Provider Clarisse Mckeon [phone] Gan Medications Medication SIG (Take, Route, Frequency, Duration) Notes Start Date End Date Status Sertraline HCl 50 MG 1 tablet Orally Onc e a day; Duration: 30 day(s) Active Extra Depth Diabetic Shoes with 3 Pair Custom heat-molded multi-density innersoles for 1 year Dx: 07/16/2021 Not-Taking Sotalol HCl 80 MG 1 tablet Orally ever y 12 hrs; Duration: 30 day(s) Not-Taking Xarelto 15 MG 1 tablet with food Orally Once a day; Duration: 30 day(s) Active Budesonide Not-Takin g Famotidine 20 MG 1 tablet at bedtime as needed Orally Once a day; Duration: 30 day(s) Active Farxiga Active Levothyroxine Sodium 125 MCG 1 tablet in the morning on an empty stomach Orally Once a day; Duration: 30 day(s) Active Isosorbide Dinitrate 30 MG 1 tablet Orally Twice a day; Duration: 30 day(s) Active Lantus Active Atorvastatin Calcium 20 MG 1 tablet Orally Once a day; Duration: 30 day(s) Active Ciclopirox Olamine 0.77 % 1 application to affected area Externally Twice a day to effected areas on feet; Duration: 30 days Active Metoprolol Succinate ER 25 MG 1 tablet Orally Once a day; Duration: 30 day(s) Active Encounters Encounter Location Date Provider Diagnosis [facility] [address] [place] [address] 11/08/2024 Clarisse Cheung Plan Of Treatment Next Appt Details Provider Name:Clarisse caputo, 09/17/2025 01:00:00 PM, [address] [facility], [place], [address], Progress Notes * Penny MEMBRENODOB:1945 (80 yo F)Acc No.[id number]:11/08/2024 Progress Note Patient: Penny FUCHS Provider: Jovany Cheung DPM :1945 A ge:79 Y S ex:Female Date:11/08/2024 Address:[address] [place] [address], [place] Pcp:Dipika Casas MD Subjective: * Chief Complaints: * [address] Gan[address] * Medical History: A rthritis, Back,Hip,and Knee pain, Cancer, Headaches/Migraines, Kidney disease, Reflux ( GERD), Thyroid, Joint implants/screws, Transfusions, type II diabetes. * Medications: T aking Ciclopirox Olamine 0.77 % Cream 1 application to affected area Externally Twice a day to effected areas on feet , Taking Metoprolol Succinate ER 25 MG Tablet Extended Release 24 Hour 1 tablet Orally Once a day , Taking Atorvastatin Calcium 20 MG Tablet 1 tablet Orally Once a day , Taking Famotidine 20 MG Tablet 1 tablet at bedtime as needed Orally Once a day , Taking Farxiga , Taking Isosorbide Dinitrate 30 MG Tablet 1 tablet Orally Twice a day , Taking Lantus , Taking Levothyroxine Sodium 125 MCG Tablet 1 tablet in the morning on an empty stomach Orally Once a day , Taking Sertraline HCl 50 MG Tablet 1 tablet Orally Once a day , Taking Xarelto 15 MG Tablet 1 tablet with food Orally Once a day , Not-Taking/PRN Budesonide , Not- Taking/PRN Extra Depth Diabetic Shoes with 3 Pair Custom heat-molded multi-density innersoles for 1 year Dx: , Not-Taking/PRN Sotalol HCl 80 MG Tablet 1 tablet Orally every 12 hrs Objective: * Vitals: Assessment: Plan: * Treatment: * Images: * The named appointment provid er may or may not be the originator of this progress note, and it is not deemed complete until electronically signed by the appointment provider. Sign off status: Pending * Provider: Jovany Cheung DPM Date: 0 11/08/2024 Generated for Santiago garcia/Maria G on: 10/07/2024 09:56 AM EST
--- OUTSIDE RECORDS SUMMARY | 2025-08-07 09:56 | XMS_ITS | Clinical Summary ---
Author Organization [facility] Address [address] [place] [address] Care Team Providers Care Supervisor Yard Name Role Phone Dipika Casas MD Primary Care Provider [phone] Allergies No known active allergies Medications Medication [...] age to complete this topic Care Teams Supervisor Yard Relationship Specialty Start Date End Date Dipika Casas MD [address] [facility] [place] [phone] PCP - General Shredding Machine Knife Changer 11/18/18
--- OUTSIDE RECORDS SUMMARY | 2025-08-07 09:56 | XMS_ITS | Clinical Summary ---
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 V24, [facility] V28) 02/24/2022 Chronic kidney disease, stage 2 (mild) 1 Hypertension 08/08/2021 Malignant neoplasm of overla pping sites of right female breast ([employer] [facility] V24, [facility] V28) 11/18/2018 Encounters Date Type Department Care Team Description 05/29/2025 2:00 PM EDT Office Visit [facility] Hematology Oncology [address] [place] [address] Danilo Minor MD Malignant neoplasm of overlapping sites of right breast in female, estrogen receptor positive ([facility] V24, [facility] V28) (Primary Dx) from Last 3 Months Medical History Medical History Date Comments Breast cancer ([facility] V24, [facility] V28) DX:Breast cancer (HCC);COMMENT:Right-sided stage 1 TicNo invasive breast cancer Diabetes mellitus ([facility] V 24, [facility] V28) DX:Diabetes mellitus (HCC) Disease of thyroid [...] PM EST Office Visit Gastroenterology - [address] [facility] [address] [phone] Debbie Ron PA [address] [address] 05/28/2026 2:00 PM EDT Office Visit [facility] Hematology Oncology [address] [place] [phone] Danilo Minor MD [address] [place] [phone] Health Maintenance Due Date Last Done Comments [...] age to [place] [id number] [employer] Care Teams Technical Specialist Cytogenetics Relationship Specialty Start Date End Date Dipika Casas MD [address] [place] [address] PCP - General Internal Medicine 01/10/25
--- OUTSIDE RECORDS SUMMARY | 2025-08-07 09:56 | XMS_ITS | Clinical Summary ---
Author Organization [facility] Address [address] [address] Phone Care Team Providers Care Flamer Sealer Name Role Phone Dipika Casas MD Primary Care Provider [phone] Allergies Active Allergy Reactions Criticality Noted Date [...] 08/08/2021 Chronic kidney disease, stage 2 (mild) 1 Hypertension 08/08/2021 Malignant neoplasm of overlapping sites of breas t 11/18/2018 Overview (07/04/2024): Replacing diagnoses that were inactivated after the 07/04/24 Regulatory Import Encounters Date Type Department Care Team Description 07/25/2025 Refill [facility] [address] [phone] Rachelle Leal Type 2 diabetes mellitus with diabetic chronic kidney disease (HCC) 06/28/2025 3:00 PM EDT Office Visit [facility] [place] [address] [phone] Keyonna Shah ARNP Stage 3a chronic kidney disease (HCC) (Primary Dx); Hypertension; Secondary hyperparathyroidism of renal origin (HCC); Vitamin D deficiency, not otherwise specified; Proteinuria, not otherwise specified 05/24/2025 Refill [facility] [place] [address] [phone] Keyonna Shah ARNP Vitamin D deficiency, not otherwise specified from Last 3 Months Immunizations Immunization Administration [...] Office Visit [facility] [address] [phone] Keyonna Shah ARNP [address] [phone] Health Maintenance Due Date Last Done Comments [...] Creatinine, Ur 98.5 Not Estab. mg/dL [facility] Protein, Ur 46.9 Not Estab. mg/dL [facility] Urine Protein/Creati nine Ratio 476(H) 0 - 200 mg/g creat [facility] Urine specimen (specimen) Urine specimen obtained by clean catch procedure / Unknown 06/15/2025 10:15 AM EDT 06/15/2025 [facility] LAB URINE ORDERABLES Final Result Performing Organization Address [facility] Co de Phone Number [facility] [employer] [facility] [address] [place] [address] * Urine Albumin / Creatinine Ratio (06/15/2025 10:15 AM EDT) Albumin, Urine 28.2 Not Estab. ug/mL [facility] Albumin/Creatin ine Ratio 29 0 - 29 mg/g creat [facility] Comment: Normal: 0 - 29 Moderately increased: 30 - 300 Severely increased: >300 Urine specimen (specimen) Urine specimen obtained by clean catch procedure / Unknown 06/15/2025 10:15 AM EDT 06/15/2025 [facility] LAB URINE ORDERABLES Final Result Performing Organization Address [facility] de Phone Number [facility] [employer] [facility] [address] [place] [address] * Vitamin D 25 hydroxy (06/15/2025 10:15 AM EDT) Vitamin D, 25-OH, Total 36.3 30.0 - 100.0 ng/mL [facility] Comment: Vitamin D deficiency has been defined by the [place] of Medicine and an Endocrine Society practice guideline as a level of serum 25-OH vitamin D less than 20 ng/mL (1,2). The Endocrine Society went on to further define vitamin D insufficiency as a level between 21 and 29 ng/mL (2). 1. IOM ([place] of Medicine). 2010. Dietary reference intakes for calcium and D. [place]: The National Academies Press. 2. Ace PELLETIER, Bette POLO, Wen SNYDER, et al. Evaluation, treatment, and prevention of vitamin D deficiency: an Endocrine Society clinical practice guideline. JCEM. 2010; 96(7):1911-30. Blood specimen (specimen) Venous blood / Unknown 06/15/2025 10:15 AM EDT 06/15/2025 Keyonna Shah [facility] LAB BLOOD ORDERABLES Final Result [facility] [address] [place] [address] * (ABNORMAL) CBC (06/15/2025 10:15 AM EDT) WBC 6.0 3.4 - 10.8 x10E3/uL [facility] RBC 4.86 3.77 - 5.28 x10E6/uL [facility] Hemoglobin 13.6 11.1 - 15.9 g/dL [facility] Hematocrit 44.1 34.0 - 46.6 % [facility] MCV 91 79 - 97 fL [facility] MCH 28.0 26.6 - 33.0 pg [facility] MCHC 30.8(L) 31.5 - 35.7 g/dL [facility] RDW 14.2 11.7 - 15.4 % [facility] Platelets 184 150 - 450 x10E3/uL [facility] Blood specimen (specimen) Venous blood / Unknown 06/15/2025 10:15 AM EDT 06/15/2025 [facility] LAB BLOOD ORDERABLES Final Result [facility] [address] [place] [address] * (ABNORMAL) PTH, intact (06/15/2025 10:15 AM EDT) PTH 96(H) 15 - 65 pg/mL [facility] Blood specimen (specimen) Venous blood / Unknown 06/15/2025 10:15 AM EDT 06/15/2025 Keyonna Shah [facility] LAB BLOOD ORDERABLES Final Result [facility] [address] [place] [address] * (ABNORMAL) Renal function panel (06/15/2025 10:15 AM EDT) Glucose 165(H) 70 - 99 mg/dL [facility] BUN 22 8 - 27 mg/dL [facility] Creatinine 1.46(H) 0.57 - 1.00 mg/dL [facility] eGFR CKD-EPI CR 2020 36(L) >59 mL/min/1.7 3 [facility] BUN/Creatinine Ratio 15 12 - 28 [facility] Sodium 140 134 - 144 mmol/L [facility] Potassium 4.5 3.5 - 5.2 mmol/L [facility] Chloride 104 96 - 106 mmol/L [facility] Bicarbonate (CO2) 21 20 - 29 mmol/L [facility] Calcium 9.6 8.7 - 10.3 mg/dL [facility] Albumin 4.3 3.7 - 4.7 g/dL [facility] Phosphorus 3.4 3.0 - 4.3 mg/dL [facility] Blood specimen (specimen) Venous blood / Unknown 06/15/2025 10:15 AM EDT 06/15/2025 Keyonna MARTINP LAB BLOOD ORDERABLES Final Result Performing Organization Address [facility]/ZIP Co de Phone Number [facility] [address] [place] [phone] * (ABNORMAL) Hemoglobin A1c (06/16/2023 2:24 PM EDT) Hemoglobin A1C 7.6(H) (4.0-5.6) % [facility] Comment: MONITORING: In known diabetic patients, hemoglobin A1c targets should be discussed with health care provider. DIAGNOSTIC USE: The [place] Diabetes Association (ADA) and the World Health [...] Supplement 1 Testing performed or reported by [facility], a Service of [facility], [address] [place] [address] Randall Hamilton MD, Logistics Engineering Manager [facility]# [id number] Blood specimen (specimen) Venous blood / Unknown 06/16/2023 2:24 PM EDT 06/16/2023 2:25 PM EDT Raheem Steele MD LAB BLOOD ORDERABLES Final Re sult [facility] from Last 3 Months or Most Recently Relevant to Health Maintenance Insurance [facility] Care Teams Flamer Sealer Relationship Specialty Start Date End Date Dipika Casas MD [address] [place], [place] [phone] PCP - General 10/14/20
--- OUTSIDE RECORDS SUMMARY | 2025-08-07 09:56 | XMS_ITS | Patient Health Record ---
Author Organization [facility] Demetria floyd Pierre Address [address] [facility] [place] [address] Care Team Providers Care Strategy Consultant Name Role Phone Dipika Casas MD Primary Care Provider Clarisse Mckeon Unavailable [phone] Purnima Steward Unavailable [phone] Allergies Allergen (clinical drug ingredient) Drug/Non Drug [...] ever y 12 hrs; Duration: 30 day(s) Not-Jena Marie ing Metoprolol Succinate ER 25 MG [...] Problem Acquired hammer toe of right foot (4530079092015649 ) Other hammer toe(s) (acquired), right foot (M20.41) Active confirmed Problem Acquired hammer toe of left foot (5945359948479196 ) Other hammer toe(s) (acquired), left foot (M20.42) Active confirmed Problem Polyneuropathy due to type 2 diabetes mellitus (533174375) Type 2 diabetes mellitus with diabetic polyneuropathy (E11.42) Active confirmed Problem Polyneuropathy due to diabetes mellitus type I (427455963) Type 1 diabetes mellitus with diabetic polyneuropathy (E10.42) Active confirmed Vital Signs Blood pressure diastolic 80 mm Hg 06/14/2025 Height 5ft 6in in 06/14/2025 Blood pressure systolic 127 mm Hg 06/14/2025 Weight 172 lbs 06/14/2025 BMI 27.76 kg/m2 06/14/2025 Procedures Procedure Date Ordered Date Performed Result Body Sit e 05360-ZTGNZYK NAIL, 6 OR MORE 03/07/2025 N/A 43018-ZLLWJKK NAIL, 6 OR MORE 06/14/2025 N/A Encounters Encounter Location Date Provider Diagnosis [address] [address] 11/21/2024 Purnima Steward Type 1 diabetes mellitus with diabetic polyneuropathy E10.42 ; Other hammer toe(s) (acquired), right foot M20.41 ; Tinea unguium B35.1 and Other hammer toe(s) (acquired), left foot M20.[address] [address] 03/07/2025 Clarisse Cheung Type 2 diabetes mellitus with diabetic polyneuropathy E11.42 and Tinea unguium B35.[address] [address] 06/14/2025 Clarisse Cheung Type 2 diabetes mellitus [...] foot (ICD-10 - M20.42) Plan Of Treatment Pending Test Test Name Order Date 88566-FIROPTG NAIL, 6 OR MORE 03/07/2025 42893-OTFNSUZ NAIL, 6 OR MORE 06/14/2025 46280-TWOO SKIN LESIONS, 2 TO 4 07/16/20 21 47448-MYEM SKIN LESIONS, 2 TO 4 10/29/19 22 G4757-[id number] DYSTROPHIC NAILS ANY # Next Appt Details Provider Name:Clarisse Adrian harshal, 09/17/2025 01:00:00 PM, [address] [place], [address], Insurance Providers Payer Name Payer Address Payer Phone Subscriber Number Group Number Insured Name Patient Relationship to Insured Coverage Start Date Coverage End Date [employer] [place] [employer] [address] [place] [id number] Penny Greenwood Self - patient is the [...]
[2025-08-07 11:18] LABS: Anion Gap 10 (12-20); Blood Urea Nitrogen 24 mg/dL (9-16); Calcium 9.0 mg/dL (8.4-10.2); Carbon Dioxide 25 mmol/L (22-29); Chloride 112 mmol/L (96-108); Estimated Glomerular Filt Rate 37; Potassium 4.7 mmol/L (3.3-5.1); Sodium 142 mmol/L (135-145)
[2025-08-07 11:29] LABS: NT Pro B Type Natriuretic Pept 194.8 pg/mL (<300)
== END 2025-08-07 09:11 | disposition home or self-care (01) ==
LOC: HO.HMGCLDS 09:10
PROVIDERS: PCP Internal Medicine; Visit Provider Internal Medicine
DX: I51.81 Takotsubo syndrome (principal)
CPT/HCPCS: 36415; 80048; 83880

== ENCOUNTER 2025-08-20 13:00 | Outpatient (AMB) | payer MEDICARE, SELFPAY ==
--- NOTE | 2025-08-20 13:13 | A.OFFPC_ITS ---
Vital Signs 08/20/25 13:15 Height 5 ft 5 in Weight 174 lb BMI 29.0 BP 104/62 Blood Pressure Location Lt brachial Position Sitting Respiration 17 Pulse 76 Pulse Source Pulse Oximeter Pulse Oximetry (%) 96 Oxygen Delivery Method Room Air Intake Visit Reasons: Annual PE-see comments Intake Note: Pt is here today for PE. Allergies lisinopril Allergy (Intermediate, Verified 08/20/25 13:18) Hyperkalemia nitrofurantoin (Macrobid) Adverse Reaction (Intermediate, Verified 08/20/25 13:18) dizziness Medication List - Last Reconciled 08/20/25 by Dipika Casas MD acetaminophen 500 mg PO BID PRN amoxicillin 2,000 mg (4 x 500 mg) PO ONCE apixaban (Eliquis) 5 mg PO BID atorvastatin 20 mg PO DAILY blood sugar diagnostic As directed blood sugar diagnostic (FreeStyle Lite Strips) Test blood sugar TID budesonide DR-ER 3 mg PO QAM cholecalciferol (vitamin D3) 50 mcg PO DAILY dapagliflozin propanediol (Farxiga) 10 mg PO QAM Entresto Sprinkle 15-16 mg (sacubitril-valsartan) 1 cap PO BID NS lancets (FreeStyle Lancets) Test up to 3 times per day Lantus Solostar U-100 Insulin (insulin glargine) 30 units (0.3 mL) subcut QAM NS levothyroxine 125 mcg PO DAILY metoprolol succinate ER 25 mg (1/2 x 50 mg) PO BID omeprazole 20 mg PO DAILY pen needle, diabetic Use to inject insulin once a day sertraline 75 mg (1.5 x 50 mg) PO DAILY Spiriva with HandiHaler (tiotropium bromide) 1 cap inhalation DAILY NS vit C,T-Kz-fxhuw-lutein-zeaxan 250-90-40-1 mg (PreserVision AREDS-2) 1 tab PO BID Tobacco use date assessed: 08/20/25 Fall risk assessment: No Falls in past year Last assessed Fall Risk: 08/20/25 Dental Screening Dental Screen Date: 12/11/24 HPI Annual PE-see comments HPI Details Patient presents for physical. She reports fasting blood glucose between 120 to 140s. Patient reports improved breathing since she has started taking Entresto and denies lightheadedness or low blood pressure readings. Patient complains of increasing soft tissue swelling in right axillary region near the mastectomy scar. Patient was evaluated by Oncology and was told that it was scar tissue. ON LICENSE OF [facility] Medical History (Updated 08/20/25 @ 13:33 by Dipika Casas MD) Stress-induced cardiomyopathy Non-ST elevation PR (NSTEMI) Hyperkalemia CKD (chronic kidney disease), stage III Cataract Vitamin D deficiency DM type 2 (diabetes mellitus, type 2) Hypothyroidism Hyperlipemia Paroxysmal atrial fibrillation Cardiac pacemaker in situ Complete heart block Surgical History Pacemaker battery depletion Hx of bilateral mastectomy History of permanent cardiac pacemaker placement History of tonsillectomy and adenoidectomy History of hip surgery Hx of cardiac cath Family History Father Cancer Mother Diabetes Social History Housing: House Are you a primary foster care therapist to a significant other at home: No (was caring for , now he is in [place]) Do you presently have visiting nurse or other home services: No Alcohol intake: never Patient Tobacco Use Status: Former Tobacco user Tobacco use type: Cigarette e-Cigarette/Vaping Use: Never Used Advance Directives Date on File: 02/16/22 service: No Current occupational status: retired Cognitive needs: No Hearing needs: No Vision needs: Yes Questionnaire Thrive Questionnaire Date Thrive assessed: 12/11/24 I am a: Patient What is your living situation today?: I have a steady place to live Within the past 12 months, did the food you bought not last and you didn't have the money to get more?: Never true Within the past 12 months, did you worry whether your food would run out before you got money to buy more?: Never true Do you have trouble paying for medicines?: No Do you have trouble getting transportation to medical appointments?: No Do you have trouble paying your heating and electricity bill?: No Do you have trouble taking care of your child, family member or friend?: No Do you have trouble with day-to-day activities such as bathing, preparing meals, shopping, managing finances, etc.?: No Are you currently unemployed and looking for a job?: No Are you interested in more education?: No Please select the resources that you would like help with: None Currently or been in a relationship where the following occur: No concerns reported THRIVE Score: 0 LEON-7 AMB Questionnaire LEON-7 Date LEON - 7 assessed: 12/11/24 Source: Developed by Drs. Star Vitale, Grace Sprague, Ham Landrum and colleagues, with an educational gaston from [employer]. Review of Systems Const All systems reviewed & are unremarkable except as noted in HPI and below Eyes Reports no additional complaints ENT Reports no additional complaints Card Reports no additional complaints Resp Reports no additional complaints GI Reports no additional complaints Reports no additional complaints Physical exam (Primary Care) Vital Signs: Last Vital Signs Pulse 76 08/20/25 13:15 Resp 17 08/20/25 13:15 BP 104/62 08/20/25 13:15 Pulse Ox 96 08/20/25 13:15 Oxygen Delivery Method Room Air 08/20/25 13:15 BMI result Body Mass Index 29.0 Tobacco/Smoking Status: Tobacco use Status Tobacco use date assessed 08/20/25 08/20/25 13:24 Patient Tobacco Use Status Former Tobacco user 08/20/25 13:14 Tobacco use type Cigarette 08/20/25 13:14 e-Cigarette/Vaping Use Never Used 08/20/25 13:14 Thrive Assessment: Date of Thrive Assessment Date Thrive assessed 12/11/24 08/20/25 13:14 Currently or been in a relationship where the following occur: No concerns reported Const General: no acute distress [facility] Head: Yes normal to inspection Face and sinus: Yes normal facial exam Eyes General: appearance normal, both eyes and all related structures Neck Neck: Yes no lymphadenopathy and Yes supple Chest Other: There is subcutaneous soft tissue swelling in right axillary region 10 x 10 cm slightly tender, no overlying erythema or warmth. Mastectomy scar intact Resp Effort & Inspection: normal respiratory effort Auscultation: clear to auscultation bilaterally Cardio Rhythm: regular rhythm Heart sounds: S1 normal heart sound present and S2 normal heart sound present GI Inspection: Yes normal to inspection Palpation (GI): Soft to palpation Percussion: Yes normal to percussion Auscultation: normal bowel sounds Coding Level of Care Code Est Pt Prev Care >65y(85404) Diagnoses Right axillary swelling M79.89 DM type 2 (diabetes mellitus, type 2) E11.9 Hypothyroidism E03.9 Stress-induced cardiomyopathy I51.81 Paroxysmal atrial fibrillation I48.0 CKD (chronic kidney disease), stage III N18.30 Assessment & Plan Assessment & Plan (1) Right axillary swelling: Code(s): M79.89 - Other specified soft tissue disorders Category: Medical Plan: Obtain soft tissue ultrasound to evaluate (2) DM type 2 (diabetes mellitus, type 2): Code(s): E11.9 - Type 2 diabetes mellitus without complications Category: Medical Plan: A1c is 7.6, continue current medications ADA diet regular physical activity, follow-up in 3 months with a fasting labs before (3) Hypothyroidism: Code(s): E03.9 - Hypothyroidism, unspecified Category: Medical Plan: Continue levothyroxine (4) Stress-induced cardiomyopathy: Comment: Echo 05/25 improved ejection fraction to 50%, intolerant to ARB/ACEI because of hyperkalemia Code(s): I51.81 - Takotsubo syndrome Category: Medical Plan: Continue current medications check echo in September, follow-up with cardiology (5) Paroxysmal atrial fibrillation: Comment: s/p pacemaker for complete HB Code(s): I48.0 - Paroxysmal atrial fibrillation Category: Medical Plan: Rate controlled on metoprolol anticoagulated on Eliquis (6) CKD (chronic kidney disease), stage III: Comment: Patient is established with Nephrology Code(s): N18.30 - Chronic kidney disease, stage 3 unspecified Category: Medical Plan: Monitor renal function avoid nephrotoxins, Orders: Orders US Extremity Nonvas Limited RT Today M79.89 - Other specified soft tissue disorders Hemoglobin A1c 3 Months E03.9 - Hypothyroidism, unspecified, E11.9 - Type 2 diabetes mellitus without complications, E55.9 - Vitamin D deficiency, unspecified Comprehensive [place]. Panel Fast 3 Months E03.9 - Hypothyroidism, unspecified, E11.9 - Type 2 diabetes mellitus without complications, E55.9 - Vitamin D deficiency, unspecified Lipid Panel 3 Months E03.9 - Hypothyroidism, unspecified, E11.9 - Type 2 diabetes mellitus without complications, E55.9 - Vitamin D deficiency, unspecified Microalbumin, Random (w Creat) 3 Months E03.9 - Hypothyroidism, unspecified, E11.9 - Type 2 diabetes mellitus without complications, E55.9 - Vitamin D deficiency, unspecified Complete Blood Count Auto Diff 3 Months E03.9 - Hypothyroidism, unspecified, E11.9 - Type 2 diabetes mellitus without complications, E55.9 - Vitamin D deficiency, unspecified Medications: Refilled Entresto Sprinkle 15-16 mg (sacubitril-valsartan) 1 cap PO BID 180 ea 2RF NS
[2025-08-20 13:15] VITALS: BP 104/62; PULSE 76; RESP 17; O2SAT 96; BMI 29.0
== END 2025-08-20 13:47 | disposition home or self-care (01) ==
LOC: HO.HMCC 13:01
PROVIDERS: PCP Internal Medicine; Visit Provider Internal Medicine
DX: Z00.00 Encounter for general adult medical examination without abnormal findings (principal); E11.9 Type 2 diabetes mellitus without complications; I48.0 Paroxysmal atrial fibrillation; N18.30 Chronic kidney disease, stage 3 unspecified; M79.89 Other specified soft tissue disorders; E03.9 Hypothyroidism, unspecified; I51.81 Takotsubo syndrome

== ENCOUNTER → 2025-08-20 13:00 | Outpatient (BNVA) | payer MEDICARE, SELFPAY | PROVIDERS: PCP Internal Medicine; Visit Provider Internal Medicine | DX: Z00.00 Encounter for general adult medical examination without abnormal findings (principal); M79.89 Other specified soft tissue disorders; E03.9 Hypothyroidism, unspecified; I51.81 Takotsubo syndrome; I48.0 Paroxysmal atrial fibrillation; E11.22 Type 2 diabetes mellitus with diabetic chronic kidney disease; N18.30 Chronic kidney disease, stage 3 unspecified; E55.9 Vitamin D deficiency, unspecified | CPT/HCPCS: 99397 ==

== ENCOUNTER → 2025-09-06 13:41 | Outpatient (REF) | payer MEDICARE, SELFPAY ==
--- NOTE | 2025-09-06 13:44 | CA_ITS ---
Transthoracic Echocardiogram Patient (Last, First, Middle): Penny Greenwood A Gender: Female Date of : 1945 Age: 80 Procedure Date: 09/06/2025 Procedure Type: Transthoracic Echocardiogram Location: OP Height: 165. cm Weight: 79.38 kg BSA: 1.87 m2 Heart Rate: 69 bpm BP: 120 / 70 mmHg [employer]electric Machinery Mechanic Helper: YURI Referring MD: Dipika Casas MD Symptoms: I51.81 - Takotsubo syndrome Study Quality: Fair ECG Rhythm: Sinus Conclusions: - The left ventricular systolic function is normal. The calculated ejection fraction is 56% by biplane method. - The basal inferolateral segment is akinetic. - No obvious valvular pathology seen on this study. Findings Left Ventricle Moderately increased left ventricular cavity size. There is normal left ventricular wall thickness. The left ventricular systolic function is normal. The calculated ejection fraction is 56% by biplane method. Evidence suggests grade I (mild) diastolic dysfunction. Wall Motion Rest Echo Findings The basal inferolateral segment is akinetic. Right Ventricle Moderately increased right ventricular cavity size. There is normal right ventricular systolic function. Atria Both atria are normal in size. Aortic Valve There is a normal trileaflet aortic valve. There is no aortic valve stenosis. There is no aortic valve regurgitation. Mitral Valve The mitral valve appears normal. There is no mitral valve regurgitation. There is no mitral valve stenosis. Pulmonic Valve The pulmonic valve is likely normal. Tricuspid Valve There is mild tricuspid valve regurgitation. There is no evidence of pulmonary hypertension. Great Vessels The asc aorta and aortic arch are normal in size. Venous The inferior vena cava is normal in size and collapses greater than 50% with inspiration. Pericardium/Pleural There is a trivial pericardial effusion. Prior Study Comparison No significant change compared to prior study dated: 04/18/2024. Recommendations, Care & Conclusions No obvious valvular pathology seen on this study. Measurements 2D Linear Measurements IVSd: 0.88 0.6-0.9/0.6-1.0 cm LVIDd: 6.10 3.9-5.3/4.2-5.9 cm LVIDd Index: 3.26 2.4-3.2/2.2-3.1 cm/m2 LVIDs: 4.01 2.0-3.6 cm LVPWd: 0.77 0.7-1.1 cm LA Diam: 3.20 2.7-3.8/3.0-4.0 cm LAIDs Index: 1.71 1.5-2.3 cm/m2 LV Mass: 247.11 67-162/88-224 g LV Mass Index: 132.14 43-95/49-115 g/m2 LVOT Diam: 1.90 3.0+(-)1.3 cm 2D Systolic Function EF 4C: 58.70 >55% EF 2C: 54.60 >55% EF BiP: 55.90 >55% Mitral Valve MV Pk E: 0.71 MV PK A: 0.85 MV Decel Time: 258.00 E/A: 0.80 E'Lateral: 4.35 E'Medial: 3.92 E/E' Med: 18.00 E/E' Lat: 16.30 PHT: 76.00 MVA PHT: 2.89 Decel Roane: 2.74 Aortic Valve AoV Pk Kenneth: 1.50 AoV Mn Kenneth: 0.98 AoV VTI: 0.27 AoV Pk Grad: 9.00 Aov Mn Grad: 4.00 BRYANT Cont.VTI: 2.00 LVOT LVOT Pk Kenneth: 0.95 LVOT Mn Kenneth: 0.65 LVOT VTI: 0.19 LVOT Pk Grad: 4.00 LVOT Mn Grad: 2.00 LVOT Diam: 1.90 LVOT Area: 2.84 Diastolic Function MV Pk E: 0.71 MV Pk A: 0.85 E/A: 0.80 E'Medial: 3.92 E/E' Med: 18.00 E' Laterial: 4.35 E/E' Lat: 16.30 Right Ventricle TAPSE (mm): 32.90 TVS' Kenneth: 13.70 Tricuspid Valve TR Pk Kenneth: 2.36 TR Pk Grad: 22.00 Great Vessels Aorta Sinus of Valsalva: 3.10 2.0-3.5 cm Ao Asc: 3.30 2.1-3.4 cm Ao Arch: 2.70 Pulmonary Veins Pulm Vein S/D 1.30 Pulmonary Valve PV Pk Kenneth: 0.77 Peak PV Grad: 2.00 Updated in Other Vendor System with Status of Final Blayne Eduardo MD electronically signed on 09/07/2025 4:17:22 PM with status of Final
== END ==
LOC: HO.CARD 13:41
PROVIDERS: PCP Internal Medicine; Visit Provider Internal Medicine
DX: I51.81 Takotsubo syndrome (principal)
CPT/HCPCS: 93306

== ENCOUNTER → 2025-09-06 13:44 | Outpatient (BNV) | payer MEDICARE, SELFPAY | PROVIDERS: PCP Internal Medicine; Visit Provider Internal Medicine | DX: I51.89 Other ill-defined heart diseases (principal) | CPT/HCPCS: 93306 ==